=== PATIENT | male | born 1930 | race Caucasian/White ===

== ENCOUNTER → 2016-05-15 | Outpatient (CLI) | payer BC ==
[~2016-05-15] MED LIST: ALBUAER19 INH; ASPI325T4 PO; ATOR-24 PO; CLB/200 PO; ENAL1TAB31 PO; HYDR-3419 PO; MOME200A INH; MULTTAB58 PO; OMEP40CA41 PO; PRED1SUS3 OPL; RANI300T PO; VARD10TA PO
--- NOTE | 2016-05-15 15:01 | DIAGNOSTIC IMAGING REPORT ---
CHEST 2 VIEWS ROUTINE CLINICAL HISTORY: ASTHMA, COUGH COMPARISON STUDY: 02/01/2016 FINDINGS: The heart is the upper limits of normal in size. There is aortic tortuosity/ectasia. There are right basilar airspace opacities, atelectatic versus inflammatory. Clinical and radiographic follow-up is recommended.[ IMPRESSION: Right basilar airspace opacities, atelectatic versus inflammatory Electronically signed by: Bernardo Villanueva M.D. 05/15/2016 3:00 PM Dictated Date/Time: 05/15/2016 2:59 PM
== END | disposition home or self-care (01) ==
LOC: C.RAD1850 14:33
PROVIDERS: ATTEND Nurse Practitioner
DX: R05 Cough (principal); J45.909 Unspecified asthma, uncomplicated; R91.8 Other nonspecific abnormal finding of lung field

== ENCOUNTER → 2016-05-28 | Outpatient (CLI) | payer BC ==
--- NOTE | 2016-05-28 11:28 | DIAGNOSTIC IMAGING REPORT ---
RIGHT SHOULDER 3 VIEWS HISTORY: RIGHT SHOULDER PAIN Right COMPARISON: None. FINDINGS: There is no fracture or dislocation. The right clavicle is intact. There is mild degenerative changes within the glenohumeral and acromioclavicular joints. No radiopaque foreign bodies. IMPRESSION: Mild degenerative changes. No acute fracture or dislocation within the right shoulder. Electronically signed by: Kenny Kovacs M.D. 05/28/2016 11:26 AM Dictated Date/Time: 05/28/2016 11:25 AM
== END | disposition home or self-care (01) ==
LOC: C.RDSM 10:45
PROVIDERS: ATTEND Family Medicine
DX: M25.511 Pain in right shoulder (principal)

== ENCOUNTER → 2016-07-25 | Outpatient (CLI) | payer BC ==
--- NOTE | 2016-07-25 10:28 | DIAGNOSTIC IMAGING REPORT ---
ABDOMINAL AORTIC ULTRASOUND CLINICAL HISTORY: SCREENING FOR CARDIOVASCULAR DISORDERS COMPARISON STUDY: Abdomen and pelvis CT 02/18/2007. FINDINGS: The proximal abdominal aorta measures 2.4 cm in diameter, mid aorta 2.8 cm, and the distal aorta measures 3.7 cm. Bilateral iliac arteries measure 7 mm in diameter. IMPRESSION: A 3.7 cm distal abdominal aortic aneurysm. Electronically signed by: Kenny Kovacs M.D. 07/25/2016 10:27 AM Dictated Date/Time: 07/25/2016 10:25 AM
== END | disposition home or self-care (01) ==
LOC: C.ULTR 09:57
PROVIDERS: ATTEND Family Medicine
DX: Z13.6 Encounter for screening for cardiovascular disorders (principal); I71.4 Abdominal aortic aneurysm, without rupture

== ENCOUNTER → 2016-08-16 | Outpatient (CLI) | payer BC ==
--- NOTE | 2016-08-21 13:42 | CODING QUERY MEDICAL NECESSITY ---
SUPPORTING DIAGNOSIS NEEDED A supporting diagnosis is required for the test/procedure performed on this patient in order for us to be reimbursed by the patient's insurance. Please provide a supporting diagnosis for the following test/procedure listed below next to the test name along with your signature. *If there is no additional diagnosis for this patient that would support the following test/procedure please document that below next to the test/procedure. Test(s)/Procedure(s) that require a supporting diagnosis: * DXA, BONE DENSITY AXIAL DIAGNOSIS: Provider Signature: Date: Thank you Ariella [facility] Information Management Once completed, please kindly fax back to [phone] For questions please call [phone]
== END | disposition home or self-care (01) ==
LOC: C.MAMM 10:15
PROVIDERS: ATTEND Family Medicine
DX: Z13.820 Encounter for screening for osteoporosis (principal)

== ENCOUNTER → 2017-03-08 | Outpatient (CLI) | payer BC ==
[~2017-03-08] MED LIST changes: +ADVIN50/60 INH; +ASPI-320 PO; +ATOR-22 PO; +FLM4 PO; +LOSA100T33 PO; +OMEP20CA9 PO; +PLV75 PO; +SPRIN/30 INH
--- NOTE | 2017-03-08 12:18 | DIAGNOSTIC IMAGING REPORT ---
CHEST 2 VIEWS ROUTINE HISTORY: UNSPECIFIED ASTHMA WITH ACUTE EXACERBATION COMPARISON: Chest 05/15/2016. FINDINGS: There are low lung volumes. No pleural effusions. No pneumothorax. The heart remains mildly enlarged. Tortuous thoracic aorta, unchanged. Mild diffuse interstitial thickening is likely chronic. Patchy right basilar airspace opacity. A few linear densities at the left lung base. IMPRESSION: 1. Overall, similar appearance to the prior study. 2. Patchy right basilar airspace opacities. This could represent atelectasis or pneumonia. 3. Mild diffuse interstitial thickening, unchanged. Electronically signed by: Kenny Kovacs M.D. 03/08/2017 12:16 PM Dictated Date/Time: 03/08/2017 12:15 PM
== END | disposition home or self-care (01) ==
LOC: C.RAD1850 11:59
PROVIDERS: ATTEND Family Medicine
DX: J45.901 Unspecified asthma with (acute) exacerbation (principal); R91.8 Other nonspecific abnormal finding of lung field

== ENCOUNTER 2017-05-06 15:10 | Inpatient (IN) | payer BC, OTHER ==
[~2017-05-06] VITALS: Ht 172.7 cm; Wt 100.2 kg
[~2017-05-06 15:10] MED LIST changes: -ADVIN50/60 INH; -ASPEC81 PO; -ATOR-22 PO; -FLM4 PO; -LOSA100T33 PO; -OMEP20CA9 PO; -PLV75 PO; -SPRIN/30 INH
[2017-05-06 17:19] LABS: BASO % 0.6 %; BASO ABS # 0.04 K/uL (0-0.2); EOS % 4.5 %; EOS ABS # 0.32 K/uL (0-0.5); HEMATOCRIT 37.3 % (42-52); HEMOGLOBIN 12.3 g/dL (14.0-18.0); IG# 0.02 K/uL (0.00-0.02); LYMPH % 22.7 %; LYMPH ABS # 1.63 K/uL (1.2-3.4); MEAN CELL VOLUME 89.9 fL (80-100); MEAN CORPUSCULAR HEMOGLOBIN 29.6 pg (25-34); MEAN PLATELET VOLUME 10.5 fL (7.4-10.4); MONO % 5.6 %; NEUT % 66.3 %; NEUT ABS # 4.76 K/uL (1.4-6.5); PLATELET COUNT 178 K/uL (130-400); RED CELL DISTRIBUTION WIDTH CV 14.6 % (11.5-14.5); RED CELL DISTRIBUTION WIDTH SD 48.1 fL (36.4-46.3); WHITE BLOOD COUNT 7.17 K/uL (4.8-10.8)
--- NOTE | 2017-05-06 17:21 | DIAGNOSTIC IMAGING REPORT ---
HEAD CT NONCONTRAST CT DOSE: 537.48 mGy.cm HISTORY: EVALUATE WEAKNESS TECHNIQUE: Multiaxial CT images of the head were performed without the use of intravenous contrast. Automated exposure control was utilized for this study. A dose lowering technique was utilized adhering to the principles of ALARA. Comparison: Head CT 03/19/2012. Findings: Opacified sphenoid sinuses which is likely chronic. The mastoid air cells are clear. The calvarium and skull base are intact. There is no mass, hematoma, midline shift, acute infarct. White matter hypodensity is nonspecific but suggestive of microvascular ischemic change. The ventricles and sulci demonstrate mild age-related involutional changes. 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 Impression: No acute intracranial abnormality. Atrophy and microvascular ischemic changes. Opacified sphenoid sinuses which is likely chronic. Electronically signed by: Kenny Kovacs M.D. 05/06/2017 5:19 PM Dictated Date/Time: 05/06/2017 5:14 PM
[2017-05-06 17:27] LABS: PTT PATIENT 24.8 SECONDS (21.0-31.0)
[2017-05-06 17:28] LABS: BLOOD UREA NITROGEN 43 mg/dl (7-18); CALCIUM 8.7 mg/dl (8.5-10.1); CARBON DIOXIDE 25 mmol/L (21-32); CREATININE 1.54 mg/dl (0.60-1.40); GLUCOSE 177 mg/dl (70-99); SODIUM 143 mmol/L (136-145)
--- NOTE | 2017-05-06 17:29 | DIAGNOSTIC IMAGING REPORT ---
CHEST ONE VIEW PORTABLE CLINICAL HISTORY: Weakness COMPARISON STUDY: 03/08/2017 FINDINGS: The heart remains mildly enlarged. There is aortic tortuosity/ectasia. There is no overt failure. There is no focal pulmonary consolidation. There are no pleural effusions. There is mild chronic interstitial thickening[ IMPRESSION: No significant change from the prior study. Stable mild interstitial thickening. No evidence of lobar consolidation Electronically signed by: Bernardo Villanueva M.D. 05/06/2017 5:28 PM Dictated Date/Time: 05/06/2017 5:27 PM
[2017-05-06] MEDS ORDERED: OMEP20CA9 PO ×2 (17:46)
[2017-05-06] MEDS ORDERED: FLM4 PO ×2 (17:46)
[2017-05-06] MEDS ORDERED: ATOR-22 PO ×2 (17:46)
[2017-05-06] MEDS ORDERED: LOSA100T33 PO ×2 (17:46)
[2017-05-06] MEDS ORDERED: ADVIN50/60 INH ×2 (17:46)
[2017-05-06] MEDS ORDERED: SPRIN/30 INH ×2 (17:46)
--- NOTE | 2017-05-06 18:07 | EMERGENCY ROOM VISIT NOTE ---
History Report prepared by Tuan: Kuldeep Perez Under the Supervision of: Dr. Ernesto Magallanes M.D. First contact with patient: 16:14 Chief Complaint: STROKE SYMPTOMS Stated Complaint: POSSIBLE STROKE LIKE SYMPTOMS- REFERRED BY MD Nursing Triage Summary: pt reports to eye Dr today told tocome in for evaluation of possible stroke behind R eye pt reports on Sat. morning upon waking up unalbe to read with R eye pt denies speech changes or difficulty ambulating , denies weakness History of Present Illness The patient is a 87 year old white male with a past medical history of HTN, HLD , sleep apnea, and asthma who presents to the ED with a cc of intermittent visual changes beginning two days ago. Patient states the visual changes are present in the right eye. Describes visual changes as "cloudy vision". He reports the blurriness is only present over half of his right visual field. Woke up with his symptoms two days ago. He states that he is mostly having problems reading, and seeing fine details. Patient was referred to the ED by his eye doctor today with concerns of possible stroke. Positive productive cough. Cough produces yellow sputum. Negative headaches, weakness. Not currently on antibiotics. states patient is at mental baseline. Patient notes that his left eye is typically good at seeing far distances, and his right eye is better at seeing near distances. He took baby aspirin today as normal, but took a full strength aspirin today as well. Source of History: patient Onset: Two days ago Position: eye (right) Quality: other ("cloudy vision") Timing: intermittent Associated Symptoms: + cough (produces yellow sputum), No headache, No weakness Review of Systems See HPI for pertinent positives and negatives. A total of ten systems were reviewed and were otherwise negative. Past Medical & Surgical Medical Problems: (1) Asthma (2) Benign hypertension (3) Hyperlipidemia (4) Obstructive sleep apnea syndrome (5) Vision loss, right eye Family History No pertinent family history stated. Social History Smoking Status: Never Smoker Alcohol Use: none Marital Status: Housing Status: lives with family Occupation Status: retired Current/Historical Medications Scheduled Atorvastatin (Lipitor), 20 MG PO DAILY Fluticasone Prop/Salmeterol (Advair Diskus 500/50 60 Dose), 1 PUFF INH DAILY Hctz/Losartan (Hyzaar 12.5MG/100MG), 1 TAB PO DAILY Mometasone Furoate-Formoterol (Dulera 200/5 Mcg), 2 AER INH BID Multiple Vitamin (Multivitamin), 1 TAB PO QAM Omeprazole (Prilosec), 20 MG PO BID Tamsulosin HCl (Tamsulosin HCl), 0.4 MG PO DAILY Tiotropium Stanley (Spiriva Handihaler), 1 CAP INH DAILY Allergies Coded Allergies: Penicillins (Verified Allergy, Mild, RASH, 05/06/17) RASH Physical Exam Vital Signs Date Time Temp Pulse Resp B/P (MAP) Pulse Ox O2 Delivery O2 Flow Rate FiO2 05/06/17 20:08 61 20 145/81 97 Room Air 05/06/17 19:10 59 20 145/81 97 Room Air 05/06/17 17:21 61 16 123/67 96 05/06/17 16:58 62 05/06/17 16:58 97 Room Air 05/06/17 16:54 59 18 143/74 97 Room Air 05/06/17 15:18 36.4 65 20 128/73 97 Room Air Physical Exam GENERAL: Awake, alert, well-appearing, NAD HENT: Normocephalic, atraumatic. EYES: Normal conjunctiva. Sclera non-icteric. Mild anisocoria, right greater than left. No APD bilaterally. Right pupil is more sluggish than the left. Right upper quadrant of the right eye with questionable field loss. Can read 20/ 30 but from 18 inches. NECK: Supple. No nuchal rigidity. FROM. RESPIRATORY: Wheezing throughout. CARDIAC: RRR, no MRG ABDOMEN: Soft, NTND, BS+ MSK: No chest wall TTP, no LE edema, incisional scars over the bilateral knees. NEURO: CN 2-12 intact, 5/5 upper and lower extremity strength, no dysmetria, no drift, good finger to nose, no sensory deficits. SKIN: No rash or jaundice noted. Medical Decision & Procedures ER Provider Diagnostic Interpretation: Radiology results as stated below per my review and radiologist interpretation: HEAD CT NONCONTRAST Findings: Opacified sphenoid sinuses which is likely chronic. The mastoid air cells are clear. The calvarium and skull base are intact. There is no mass, hematoma, midline shift, acute infarct. White matter hypodensity is nonspecific but suggestive of microvascular ischemic change. The ventricles and sulci demonstrate mild age-related involutional changes. 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 Impression: No acute intracranial abnormality. Atrophy and microvascular ischemic changes. Opacified sphenoid sinuses which is likely chronic. Electronically signed by: Kenny Kovacs M.D. 05/06/2017 5:19 PM CHEST ONE VIEW PORTABLE FINDINGS: The heart remains mildly enlarged. There is aortic tortuosity/ectasia. There is no overt failure. There is no focal pulmonary consolidation. There are no pleural effusions. There is mild chronic interstitial thickening[ IMPRESSION: No significant change from the prior study. Stable mild interstitial thickening. No evidence of lobar consolidation Electronically signed by: Bernardo Villanueva M.D. 05/06/2017 5:28 PM Laboratory Results 05/06/17 16:49 Red Blood Count 4.15, Mean Corpuscular Volume 89.9, Mean Corpuscular Hemoglobin 29.6, Mean Corpuscular Hemoglobin Concent 33.0, Mean Platelet Volume 10.5, Neutrophils (%) (Auto) 66.3, Lymphocytes (%) (Auto) 22.7, Monocytes (%) (Auto) 5.6, Eosinophils (%) (Auto) 4.5, Basophils (%) (Auto) 0.6, Neutrophils # (Auto) 4.76, Lymphocytes # (Auto) 1.63, Monocytes # (Auto) 0.40, Eosinophils # (Auto) 0.32, Basophils # (Auto) 0.04 05/06/17 16:49 Test 05/06/17 16:45 05/06/17 16:49 Urine Color YELLOW Urine Appearance CLEAR (CLEAR) Urine pH 5.0 (4.5-7.5) Urine Specific [place] 1.017 (1.000-1.030) Urine Protein NEG (NEG) Urine Glucose (UA) NEG (NEG) Urine Ketones NEG (NEG) Urine Occult Blood NEG (NEG) Urine Nitrite NEG (NEG) Urine Bilirubin NEG (NEG) Urine Urobilinogen NEG (NEG) Urine Leukocyte Esterase NEG (NEG) White Blood Count 7.17 K/uL (4.8-10.8) Red Blood Count 4.15 M/uL (4.7-6.1) Hemoglobin 12.3 g/dL (14.0-18.0) Hematocrit 37.3 % (42-52) Mean Corpuscular Volume 89.9 fL (80-100) Mean Corpuscular Hemoglobin 29.6 pg (25-34) Mean Corpuscular Hemoglobin Concent 33.0 g/dl (32-36) Platelet Count 178 K/uL (130-400) Mean Platelet Volume 10.5 fL (7.4-10.4) Neutrophils (%) (Auto) 66.3 % Lymphocytes (%) (Auto) 22.7 % Monocytes (%) (Auto) 5.6 % Eosinophils (%) (Auto) 4.5 % Basophils (%) (Auto) 0.6 % Neutrophils # (Auto) 4.76 K/uL (1.4-6.5) Lymphocytes # (Auto) 1.63 K/uL (1.2-3.4) Monocytes # (Auto) 0.40 K/uL (0.11-0.59) Eosinophils # (Auto) 0.32 K/uL (0-0.5) Basophils # (Auto) 0.04 K/uL (0-0.2) RDW Standard Deviation 48.1 fL (36.4-46.3) RDW Coefficient of Variation 14.6 % (11.5-14.5) Immature Granulocyte % (Auto) 0.3 % Immature Granulocyte # (Auto) 0.02 K/uL (0.00-0.02) Erythrocyte Sedimentation Rate 16 mm/hr (0-14) Prothrombin Time 10.7 SECONDS (9.0-12.0) Prothromb Time International Ratio 1.0 (0.9-1.1) Activated Partial Thromboplast Time 24.8 SECONDS (21.0-31.0) Partial Thromboplastin Ratio 1.0 Anion Gap 6.0 mmol/L (3-11) Est Creatinine Clear Calc Drug Dose 40.6 ml/min Estimated GFR () 47.0 Estimated GFR (Non- 40.5 BUN/Creatinine Ratio 28.0 (10-20) Calcium Level 8.7 mg/dl (8.5-10.1) Magnesium Level 1.9 mg/dl (1.8-2.4) Troponin I < 0.015 ng/ml (0-0.045) C-Reactive Protein 0.75 mg/dl (0-0.29) Pro-B-Type Natriuretic Peptide 196 pg/ml (0-1800) Thyroid Stimulating Hormone (TSH) 1.710 uIu/ml (0.300-4.500) Laboratory results reviewed by me Medications Administered Medications (Trade) Dose Ordered Sig/Talha Route Start Time Stop Time Status Last Admin Dose Admin Atorvastatin Calcium (Lipitor Tab) 40 mg NOW ONCE PO 05/06/17 20:15 05/06/17 20:16 DC 05/06/17 20:07 40 MG ECG Per My Interpretation Indication: other (visual changes) Rate (beats per minute): 62 Rhythm: sinus rhythm Findings: 1st degree AV block, T-wave inversion (lead 3. ), left axis deviation , other (Prolonged CO interval. No other STS change or TWI. ) ED Course 1629: The patient was evaluated in room A9B. A complete history and physical exam was performed. 1800: Upon reexamination, the patient was resting comfortably. I discussed the test results and treatment plan with him. The patient will be evaluated for further management. Medical Decision The patient is a 87 year old white male with a past medical history of HTN, HLD , sleep apnea, and asthma who presents to the ED with a cc of constant visual changes beginning two days ago. Differential diagnosis: Etiologies such as benign positional vertigo, dehydration, hypovolemia, anemia, tumor, infection, hypoglycemia, electrolyte abnormalities, cardiac sources, intracerebral event, toxicologic, neurologic, as well as others were entertained. Patient was seen and evaluated at the bedside. Patient was referred for concern of possible stroke. Patient has had intermittent monocular vision changes within the right eye. Patient does use the right ice only for near vision. Patient did describe a curtain that was closing over the right eye. This sounds similar to amaurosis fugax. Concern for possible CRAO or CRVO. Patient denies any floaters or flashing lights. Patient is EOMI and painless. Patient does have mild anisocoria right greater than left and his right eye is more sluggish in response to light in the eye and in the opposite eye. This may be from his monovision procedure. Patient may have had a mild right upper quadrant deficit of the right eye during his exam. Patient did have blood work completed along with an EKG, troponin, chest x-ray, and CT brain. Patient CT brain negative. EKG does not show any acute arrhythmia or A. fib. Patient's blood work is fairly unremarkable. I did discuss the case with the on-call commercial lines account executive. He recommended obtaining an ESR and CRP is may present similarly to a temporal arteritis. Also stated that they would be of benefit to further rule out embolic sources. The patient does not have A. fib but he would benefit from an echo as well as a Doppler of the carotids. Patient had already received a full dose aspirin prior to arrival. Did discuss the case with the on-call hospitalist who agreed to further evaluate and treat the patient. Medication Reconcilliation Current Medication List: was personally reviewed by me Blood Pressure Screening Patient's blood pressure: Normal blood pressure Blood pressure disposition: Did not require urgent referral Consults Time Called: 1727 Consulting Physician: Dr. Kline Ophthalmology Returned Call: [phone] Discussed the patient's case. Dr. Kline recommends CRP, ESR, carotid Doppler, and echocardiogram. He notes that temporal arteritis can occasionally present as such. Additional Consults: Time Called: 1756 Consulted Physician: Dr. Natividad Novak [facility] [place] Hospitalist Returned Call: [phone] Additional Comments: Discussed the patient's case. The patient will be evaluated for further treatment and disposition. Impression Primary Impression: Transient visual loss of right eye Additional Impressions: TIA (transient ischemic attack) AF (amaurosis fugax) Scribe Attestation The scribe's documentation has been prepared under my direction and personally reviewed by me in its entirety. I confirm that the note above accurately reflects all work, treatment, procedures, and medical decision making performed by me. Departure Information Dispostion Being Evaluated By Hospitalist Referrals Manav Harman M.D. (PCP) Patient Instructions My [facility] Problem Qualifiers Additional Impressions: TIA (transient ischemic attack) Transient cerebral ischemia type: amaurosis fugax Qualified Codes: G45.3 - Amaurosis fugax
[2017-05-06] MEDS ORDERED: ONDANSETRON INJ 2 MG/ML 2 ML VIAL IV PRN (19:30)
[2017-05-06] MEDS ORDERED: POLYETHYLENE (MIRALAX) 17 GM PACK PO PRN (19:30)
[2017-05-06] MEDS ORDERED: ZOLPIDEM TARTRATE 5 MG TAB PO PRN ×2 (19:30)
[2017-05-06] MEDS ORDERED: ACETAMINOPHEN 325 MG TAB PO PRN (19:30)
[2017-05-06] MEDS ORDERED: PHARMACIST DISCHARGE MED REC CONSULT PRN (19:30)
[2017-05-06] MEDS ORDERED: ALUMINUM/MAGNESIUM/SIMETH (MAALOX MAX) 30 ML UDC PO PRN (19:30)
[2017-05-06] MEDS ORDERED: MAGNESIUM HYDROXIDE SUSP 30 ML UDC PO PRN (19:30)
[2017-05-06] MEDS ORDERED: ATORVASTATIN 40 MG TAB PO ONE (20:15)
--- NOTE | 2017-05-06 20:16 | History and Physical ---
History & Physical Date & Time of Service: May 06, 2017 at 19:50 Chief Complaint: Possible Stroke Like Symptoms- Referred By Md Primary Care Physician: Manav Harman M.D. History of Present Illness Source: patient, family, hospital records, other (spoke with patient's opthalmologist Dr. Michele ) Past Medical/Surgical History 87 years old man with past medical history of GERD, hypertension, BPH, COPD, and dyslipidemia presented to the hospital with 2 days history of loss of vision or significant decrease of vision on right eye, happened acutely, painless and no any other symptoms. I Spoke with Dr. Fam who referred me to Dr. 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 Kline who is the welder fitter arc on-call, no further intervention required at this point other than what was mentioned above. Patient had recent pneumonia 1 month ago, since then he had a little bit of bronchospasm Other than that the rest of the review of system is negative Social History Smoking Status: Never Smoker Marital Status: Housing status: lives with family Occupational Status: retired Immunizations History of Influenza Vaccine: Yes Influenza Vaccine Date: Jun 09, 2006 History of Tetanus Vaccine?: Yes Tetanus Immunization Date: Mar 11, 2003 History of Pneumococcal: Yes Pneumococcal Date: Jan 18, 2005 History of Hepatitis B Vaccine: No Hepatitis Immunization Date: Jun 10, 2003 Multi-Drug Resistant Organisms History of MDRO: No Allergies Coded Allergies: Penicillins (Verified Allergy, Mild, RASH, 05/06/17) RASH Home Medications Scheduled Atorvastatin (Lipitor), 20 MG PO DAILY Fluticasone Prop/Salmeterol (Advair Diskus 500/50 60 Dose), 1 PUFF INH DAILY Hctz/Losartan (Hyzaar 12.5MG/100MG), 1 TAB PO DAILY Mometasone Furoate-Formoterol (Dulera 200/5 Mcg), 2 AER INH BID Multiple Vitamin (Multivitamin), 1 TAB PO QAM Omeprazole (Prilosec), 20 MG PO BID Tamsulosin HCl (Tamsulosin HCl), 0.4 MG PO DAILY Tiotropium [address] (Spiriva Handihaler), 1 CAP INH DAILY Review of Systems Review of system Constitutional: No fever / no chills / no sweats / no weakness / no fatigue Eyes: Acute bleeding of vision of right eye started 2 days/ no eye pain / no discharge / no redness ENT: no hearing loss / no epistaxis /no swallowing problems Respiratory: no cough / no wheezing / no SOB / no hemoptysis Cardiovascular: no Chest pain / no lower extremity edema / no palpitation Abdomen: no pain / no nausea / no vomiting / no constipation Musculoskeletal: no joint pain / no muscle pain / no joint swelling Genitourinary: no dysuria / no incontinence / no urinary retention Neurologic: no focal weakness / no numbness/tingling / no ataxia Psychiatric: no depression symptoms / no anxiety / no insomnia Endocrine: no excessive thirst / no excessive urination Hematologic: no abnormal bleeding / no bruising / no LN swelling Skin: No rash / no pallor Physical Exam Vital Signs Date Time Temp Pulse Resp B/P (MAP) Pulse Ox O2 Delivery O2 Flow Rate FiO2 05/06/17 19:10 59 20 145/81 97 Room Air 05/06/17 17:21 61 16 123/67 96 05/06/17 16:58 62 05/06/17 16:58 97 Room Air 05/06/17 16:54 59 18 143/74 97 Room Air 05/06/17 15:18 36.4 65 20 128/73 97 Room Air Physical examination General patient appears to be comfortable, not in acute distress, morbidly obese HEENT: Atraumatic , normocephalic /no jaundice /no pallor /anicteric /no dry mucous membrane /normal external ear inspection Neck: Supple /no swelling /central trach Heart: S1/S2 normal/regular rate and rhythm/no gallop /no rub /no murmur Lungs: Equal air entry bilaterally/normal chest expansion/no rhonchi/no rales/ slight bilateral wheezing/no use of accessory muscles of respiration Abdomen: Soft/nontender/no guarding/no rebound/no organomegaly/no pulsatile mass Musculoskeletal: No swelling/no edema/no tenderness/normal range of motion Neuro exam: Awake alert oriented 3/cranial nerves II through XII appear to be intact/sensation intact/moves all extremities/no abnormal movements, Visual field is impaired on right eye done by confrontational method, try to do ophthalmoscope but due due to poor dilation of the eye and the presence of lens was unable to evaluate the retina. Psychiatric evaluation: No depressed mood/normal affect Skin: No rash on exposed skin area/no erythema Extremity: Normal pulse/no pitting edema/no clubbing or cyanosis Endocrine/lymphatic: No obvious lymphadenopathy /no lymphedema Diagnostics Laboratory Results Results Past 24 Hours Test 05/06/17 16:45 05/06/17 16:49 Range/Units Urine Color YELLOW Urine Appearance CLEAR CLEAR Urine pH 5.0 4.5-7.5 Urine Specific [place] 1.017 1.000-1.030 Urine Protein NEG NEG Urine Glucose (UA) NEG NEG Urine Ketones NEG NEG Urine Occult Blood NEG NEG Urine Nitrite NEG NEG Urine Bilirubin NEG NEG Urine Urobilinogen NEG NEG Urine Leukocyte Esterase NEG NEG White Blood Count 7.17 4.8-10.8 K/uL Red Blood Count 4.15 4.7-6.1 M/uL Hemoglobin 12.3 14.0-18.0 g/dL Hematocrit 37.3 42-52 % Mean Corpuscular Volume 89.9 80-100 fL Mean Corpuscular Hemoglobin 29.6 25-34 pg Mean Corpuscular Hemoglobin Concent 33.0 32-36 g/dl Platelet Count 178 130-400 K/uL Mean Platelet Volume 10.5 7.4-10.4 fL Neutrophils (%) (Auto) 66.3 % Lymphocytes (%) (Auto) 22.7 % Monocytes (%) (Auto) 5.6 % Eosinophils (%) (Auto) 4.5 % Basophils (%) (Auto) 0.6 % Neutrophils # (Auto) 4.76 1.4-6.5 K/uL Lymphocytes # (Auto) 1.63 1.2-3.4 K/uL Monocytes # (Auto) 0.40 0.11-0.59 K/uL Eosinophils # (Auto) 0.32 0-0.5 K/uL Basophils # (Auto) 0.04 0-0.2 K/uL RDW Standard Deviation 48.1 36.4-46.3 fL RDW Coefficient of Variation 14.6 11.5-14.5 % Immature Granulocyte % (Auto) 0.3 % Immature Granulocyte # (Auto) 0.02 0.00-0.02 K/uL Erythrocyte Sedimentation Rate 16 0-14 mm/hr Prothrombin Time 10.7 9.0-12.0 SECONDS Prothromb Time International Ratio 1.0 0.9-1.1 Activated Partial Thromboplast Time 24.8 21.0-31.0 SECONDS Partial Thromboplastin Ratio 1.0 Sodium Level 143 136-145 mmol/L Potassium Level 4.0 3.5-5.1 mmol/L Chloride Level 112 98-107 mmol/L Carbon Dioxide Level 25 21-32 mmol/L Anion Gap 6.0 3-11 mmol/L Blood Urea Nitrogen 43 7-18 mg/dl Creatinine 1.54 0.60-1.40 mg/dl Est Creatinine Clear Calc Drug Dose 40.6 ml/min Estimated GFR () 47.0 Estimated GFR (Non- 40.5 BUN/Creatinine Ratio 28.0 10-20 Random Glucose 177 70-99 mg/dl Calcium Level 8.7 8.5-10.1 mg/dl Magnesium Level 1.9 1.8-2.4 mg/dl Troponin I < 0.015 0-0.045 ng/ml C-Reactive Protein 0.75 0-0.29 mg/dl Pro-B-Type Natriuretic Peptide 196 0-1800 pg/ml Thyroid Stimulating Hormone (TSH) 1.710 0.300-4.500 uIu/ml Microbiology Results 05/06/17 Urine Culture, Received Pending Impression Assessment and Plan 87 years old man with past medical history of GERD, hypertension, BPH, COPD, and dyslipidemia presented to the hospital with 2 days history of loss of vision or significant decrease of vision on right eye, happened acutely, painless and no any other symptoms. Assessment Painless acute loss of vision of right eye Hypertension Dyslipidemia COPD with mild exacerbation GERD BPH Morbid obesity Obstructive sleep apnea Plan Spoke with Dr. 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 Kline who is the welder fitter arc on-call, no further intervention required Admit patient to telemetry Continue home meds except blood pressure medications for permissive hypertension , hold blood pressure medications Ultrasound carotid 2D echo with bubble study Increase Lipitor from 20 mg to 40 mg daily Since patient was already on aspirin, will stop aspirin and switch him to Plavix. Xopenex/Atrovent for bronchodilator Heparin for DVT prophylaxis CPAP machine VTE Prophylaxis VTE Risk Assessment Done? Y/N: Yes Risk Level: Moderate
--- NOTE | 2017-05-06 21:16 | DIAGNOSTIC IMAGING REPORT ---
BILATERAL CAROTID DOPPLER STUDY HISTORY: Stroke symptoms. COMPARISON: None. TECHNIQUE: Real-time, grayscale, and color Doppler sonography of the carotid arteries was performed. Imaging reviewed in the transverse and longitudinal planes. All measurements were calculated based on NASCET criteria. FINDINGS: Antegrade flow is seen in the bilateral vertebral arteries. The brachial pressures were not obtained. Moderate calcified plaque within the bilateral carotid bifurcations. Prominent lymph node within the right neck which measures 2.0 x 0.7 cm. The peak systolic velocity within the right ICA is 75 cm/s. The right systolic ratio is 1.2. The peak systolic velocity within the left ICA is 90 cm/s. The left systolic ratio is 1.4. IMPRESSION: Moderate calcified plaque within the carotid bifurcations. No hemodynamically significant stenosis seen within the carotid or vertebral arteries. Prominent right cervical lymph node measuring 2.0 x 0.7 cm. Electronically signed by: Kenny Kovacs M.D. 05/06/2017 9:14 PM Dictated Date/Time: 05/06/2017 9:12 PM
[2017-05-06 21:25] VITALS: BP 182/98; PULSE 63; TEMP 36.4; O2SAT 96; Ht 172.7 cm; Wt 100.2 kg
[2017-05-06] MEDS: ATORVASTATIN 40 MG TAB PO SCH (21:30)
[2017-05-06] MEDS: CLOPIDOGREL BISULFATE 75 MG TAB PO SCH (22:34)
[2017-05-06] MEDS: PANTOprazole SOD 40 MG TAB PO SCH (22:58)
[2017-05-06] MEDS: HEPARIN SOD 5000 UNIT/0.5 ML CARP SQ SCH (22:59)
[2017-05-06 23:38] VITALS: BP 146/81; PULSE 78; TEMP 36.6; O2SAT 96
[2017-05-07] MEDS: LEVALBUTEROL 0.63MG/3 ML NEB INH SCH ×3 (02:14→14:19)
[2017-05-07 05:01] VITALS: BP 111/72; PULSE 55; TEMP 36.5; O2SAT 97
[2017-05-07] MEDS: HEPARIN SOD 5000 UNIT/0.5 ML CARP SQ SCH ×2 (05:27→14:38)
[2017-05-07 05:59] LABS: BASO % 0.4 %; BASO ABS # 0.03 K/uL (0-0.2); EOS % 5.3 %; EOS ABS # 0.39 K/uL (0-0.5); HEMATOCRIT 35.4 % (42-52); HEMOGLOBIN 11.6 g/dL (14.0-18.0); IG# 0.02 K/uL (0.00-0.02); LYMPH % 29.1 %; LYMPH ABS # 2.13 K/uL (1.2-3.4); MEAN CELL VOLUME 88.9 fL (80-100); MEAN CORPUSCULAR HEMOGLOBIN 29.1 pg (25-34); MEAN CORPUSCULAR HGB CONC 32.8 g/dl (32-36); MEAN PLATELET VOLUME 10.2 fL (7.4-10.4); MONO % 6.7 %; MONO ABS # 0.49 K/uL (0.11-0.59); NEUT % 58.2 %; NEUT ABS # 4.25 K/uL (1.4-6.5); PLATELET COUNT 172 K/uL (130-400); RED CELL DISTRIBUTION WIDTH CV 14.5 % (11.5-14.5); RED CELL DISTRIBUTION WIDTH SD 47.5 fL (36.4-46.3); WHITE BLOOD COUNT 7.31 K/uL (4.8-10.8)
[2017-05-07 06:35] LABS: ALBUMIN 3.1 gm/dl (3.4-5.0); CALCIUM 8.7 mg/dl (8.5-10.1); CREATININE 1.3 mg/dl (0.60-1.40); POTASSIUM 3.8 mmol/L (3.5-5.1)
[2017-05-07 06:39] LABS: TOTAL PROTEIN 6.2 gm/dl (6.4-8.2)
[2017-05-07 07:00] LABS: HEMOGLOBIN A1C 6.4 % (4.5-5.6)
[2017-05-07 07:19] VITALS: PULSE 61; O2SAT 93
[2017-05-07 07:27] VITALS: BP 133/78; PULSE 58; TEMP 36.3; O2SAT 99
[2017-05-07] MEDS: ATORVASTATIN 40 MG TAB PO SCH (08:16)
[2017-05-07] MEDS: PANTOprazole SOD 40 MG TAB PO SCH (08:16)
[2017-05-07] MEDS: CLOPIDOGREL BISULFATE 75 MG TAB PO SCH (08:16)
[2017-05-07] MEDS ORDERED: TIOTROPIUM BROMIDE 5 PUFF/90 MCG INH INH SCH (09:00)
[2017-05-07] MEDS ORDERED: TAMSULOSIN HCL 0.4 MG CAP PO SCH (09:00)
[2017-05-07] MEDS ORDERED: MULTIVITAMIN TAB PO SCH (09:00)
[2017-05-07] MEDS ORDERED: ASPIRIN 325 MG ECTAB PO SCH (09:00)
[2017-05-07] MEDS ORDERED: FLUTICASONE/SALMETEROL (ADVAIR) 500/50 INH 14 PUFF INH SCH (09:00)
--- NOTE | 2017-05-07 09:03 | Clinical Documentation Query ---
CLINICAL DOCUMENTATION QUERY Dr. CALERO, In your clinical opinion is this patient being managed for: (x ) Chronic kidney disease, stage 3 ( ) Not Agree ( ) Other explanation of clinical findings (Please Explain) ( ) Unable to determine (Please Define) ( ) Need to Discuss The medical record reflects the following clinical findings, treatment, and risk factors. Clinical Indicators: 87 yo male presenting with visual changes. Review of historical GFR revealed range of 40.5-49.8 over the past 5 years. Treatment: monitor PRP's, treat comorbid conditions Risk Factors: age, HTN, COPD Please clarify and document your clinical opinion in the progress notes and discharge summary. Terms such as "probable", "suspected", "likely", "questionable", "possible", or "still to be ruled out" are acceptable. IF IN AGREEMENT, YOU MUST DOCUMENT ABOVE DIAGNOSTIC STATEMENT IN DAILY PROGRESS NOTES AND DISCHARGE SUMMARY. This document is not part of the patient's record. Thank You, Gertrudis Roque, RN [phone]
--- NOTE | 2017-05-07 09:04 | Clinical Documentation Query ---
CLINICAL DOCUMENTATION QUERY Dr. CAMPBELL, In your clinical opinion is this patient being managed for: ( ) Chronic kidney disease, stage 3 ( ) Not Agree ( ) Other explanation of clinical findings (Please Explain) ( ) Unable to determine (Please Define) ( ) Need to Discuss The medical record reflects the following clinical findings, treatment, and risk factors. Clinical Indicators: 87 yo male presenting with visual changes. Review of historical GFR revealed range of 40.5-49.8 over the past 5 years. Treatment: monitor PRP's, treat comorbid conditions Risk Factors: age, HTN, COPD Please clarify and document your clinical opinion in the progress notes and discharge summary. Terms such as "probable", "suspected", "likely", "questionable", "possible", or "still to be ruled out" are acceptable. IF IN AGREEMENT, YOU MUST DOCUMENT ABOVE DIAGNOSTIC STATEMENT IN DAILY PROGRESS NOTES AND DISCHARGE SUMMARY. This document is not part of the patient's record. Thank You, Gertrudis Roque, RN [phone]
[2017-05-07 11:57] VITALS: BP 125/75; PULSE 61; TEMP 36.6; O2SAT 95
--- NOTE | 2017-05-07 12:08 | Family Medicine Progress Note ---
Progress Note Date of Service May 07, 2017. Subjective Pt resting in bed, comfortable. Reviewed history, pt describes a blurriness in vision of the upper half of his vision in his right eye. Pt has a h/o cataract surgery 2 years ago, and says his right eye has corrective lens for near vision , left eye has cv for far vision. Pt denies any pain in his eyes, headaches, constitutional symptoms, fevers or chills, difficulty breathing, chest pain or weakness. ROS See HPI for pertinent positives and negatives. Medications Current Inpatient Medications Medications (Trade) Dose Ordered Sig/Talha Route Start Time Stop Time Status Last Admin Dose Admin Salmeterol Xinafoate/ Fluticasone (Advair Diskus 500/50 Inh) 1 puff BID INH 05/07/17 09:00 06/06/17 08:59 05/07/17 08:16 1 PUFF Multivitamins (Multivitamin Tab) 1 tab QAM PO 05/07/17 09:00 06/06/17 08:59 05/07/17 08:16 1 TAB Tamsulosin HCl (Flomax Cap) 0.4 mg DAILY PO 05/07/17 09:00 06/06/17 08:59 05/07/17 08:16 0.4 MG Tiotropium [place] (Spiriva Handihaler Inhaler) 1 puff DAILY INH 05/07/17 09:00 06/06/17 08:59 05/07/17 08:16 1 PUFF Pantoprazole Sodium (Protonix Tab) 40 mg BID PO 05/06/17 21:00 06/05/17 20:59 05/07/17 08:16 40 MG Heparin Sodium (Porcine) (Heparin Sq 5000 Unit/0.5ml) 5,000 unit Q8 SQ 05/06/17 22:00 06/05/17 21:59 05/07/17 05:27 5,000 UNIT Acetaminophen (Tylenol Tab) 650 mg Q4H PRN PO 05/06/17 19:30 06/05/17 19:29 Al Hydrox/Mg Hydrox/Simethicone (Maalox Max Susp) 15 ml Q4H PRN PO 05/06/17 19:30 06/05/17 19:29 Magnesium Hydroxide (Milk Of Magnesia Susp) 30 ml Q12H PRN PO 05/06/17 19:30 06/05/17 19:29 Zolpidem Tartrate (Ambien Tab) 5 mg HSZ PRN PO 05/06/17 19:30 06/05/17 19:29 Ondansetron HCl (Zofran Inj) 4 mg Q6H PRN IV 05/06/17 19:30 06/05/17 19:29 Polyethylene (Miralax Powder Packet) 17 gm DAILY PRN PO 05/06/17 19:30 06/05/17 19:29 Atorvastatin Calcium (Lipitor Tab) 40 mg QAM PO 05/06/17 21:30 06/05/17 21:29 05/07/17 08:16 40 MG Miscellaneous Information (Pharmacist Discharge Med Rec Consult) 1 ea UD PRN N/A 05/06/17 19:30 06/05/17 19:29 Levalbuterol (Xopenex 0.63 Mg/ 3 Ml Neb) 0.63 mg Q6R INH 05/06/17 21:00 06/05/17 20:59 05/07/17 07:19 0.63 MG Clopidogrel Bisulfate (plAVix TAB) 75 mg DAILY PO 05/06/17 21:30 06/05/17 21:29 05/07/17 08:16 75 MG Objective Vital Signs Date Time Temp Pulse Resp B/P (MAP) Pulse Ox O2 Delivery O2 Flow Rate FiO2 05/07/17 08:20 Room Air 05/07/17 07:27 36.3 58 16 133/78 (96) 99 Room Air 05/07/17 07:19 61 16 93 Room Air 05/07/17 05:01 36.5 55 20 111/72 (85) 97 CPAP 05/07/17 04:00 CPAP 05/07/17 00:00 Room Air 05/06/17 23:38 36.6 78 18 146/81 (102) 96 05/06/17 21:25 36.4 63 16 182/98 96 Room Air 05/06/17 20:08 61 20 145/81 97 Room Air 05/06/17 19:10 59 20 145/81 97 Room Air 05/06/17 17:21 61 16 123/67 96 05/06/17 16:58 62 05/06/17 16:58 97 Room Air 05/06/17 16:54 59 18 143/74 97 Room Air 05/06/17 15:18 36.4 65 20 128/73 97 Room Air Physical Exam Notes: PE GENERAL: Awake, alert, well-appearing, in no distress HENT: Normocephalic, atraumatic. Oropharynx unremarkable. EYES: Normal conjunctiva. Sclera non-icteric. PERRL, EOMI normal. Peripheral vision wnl. Otoscopic examination revealed grossly no abnormalities within fundus. NECK: Supple. No nuchal rigidity. FROM. No JVD. RT submandibular lymph node palpable, non tender, movable, size is minimal. RESPIRATORY: Clear to auscultation. CARDIAC: Regular rate, normal rhythm. Extremities warm and well perfused. Pulses equal. No carotid bruits. ABDOMEN: Soft, non-distended. No tenderness to palpation. No rebound or guarding. No masses. RECTAL: Deferred. MUSCULOSKELETAL: Chest examination reveals no tenderness. The back is symmetrical on inspection without obvious abnormality. There is no CVA tenderness to palpation. No joint edema. LOWER EXTREMITIES: Calves are equal size bilaterally and non-tender. No edema. No discoloration. NEURO: No motor deficits noted. CN II-XII in tact. Strength wnl. SKIN: No rash or jaundice noted. Laboratory Results 05/07/17 05:18 Red Blood Count 3.98, Mean Corpuscular Volume 88.9, Mean Corpuscular Hemoglobin 29.1, Mean Corpuscular Hemoglobin Concent 32.8, Mean Platelet Volume 10.2, Neutrophils (%) (Auto) 58.2, Lymphocytes (%) (Auto) 29.1, Monocytes (%) (Auto) 6.7, Eosinophils (%) (Auto) 5.3, Basophils (%) (Auto) 0.4, Neutrophils # (Auto) 4.25, Lymphocytes # (Auto) 2.13, Monocytes # (Auto) 0.49, Eosinophils # (Auto) 0.39, Basophils # (Auto) 0.03 05/07/17 05:18 Test 05/06/17 16:45 05/06/17 16:49 05/07/17 05:18 Urine Color YELLOW Urine Appearance CLEAR (CLEAR) Urine pH 5.0 (4.5-7.5) Urine Specific [place] 1.017 (1.000-1.030) Urine Protein NEG (NEG) Urine Glucose (UA) NEG (NEG) Urine Ketones NEG (NEG) Urine Occult Blood NEG (NEG) Urine Nitrite NEG (NEG) Urine Bilirubin NEG (NEG) Urine Urobilinogen NEG (NEG) Urine Leukocyte Esterase NEG (NEG) Erythrocyte Sedimentation Rate 16 mm/hr (0-14) Prothrombin Time 10.7 SECONDS (9.0-12.0) Prothromb Time International Ratio 1.0 (0.9-1.1) Activated Partial Thromboplast Time 24.8 SECONDS (21.0-31.0) Partial Thromboplastin Ratio 1.0 Troponin I < 0.015 ng/ml (0-0.045) C-Reactive Protein 0.75 mg/dl (0-0.29) Pro-B-Type Natriuretic Peptide 196 pg/ml (0-1800) Thyroid Stimulating Hormone (TSH) 1.710 uIu/ml (0.300-4.500) White Blood Count 7.31 K/uL (4.8-10.8) Red Blood Count 3.98 M/uL (4.7-6.1) Hemoglobin 11.6 g/dL (14.0-18.0) Hematocrit 35.4 % (42-52) Mean Corpuscular Volume 88.9 fL (80-100) Mean Corpuscular Hemoglobin 29.1 pg (25-34) Mean Corpuscular Hemoglobin Concent 32.8 g/dl (32-36) Platelet Count 172 K/uL (130-400) Mean Platelet Volume 10.2 fL (7.4-10.4) Neutrophils (%) (Auto) 58.2 % Lymphocytes (%) (Auto) 29.1 % Monocytes (%) (Auto) 6.7 % Eosinophils (%) (Auto) 5.3 % Basophils (%) (Auto) 0.4 % Neutrophils # (Auto) 4.25 K/uL (1.4-6.5) Lymphocytes # (Auto) 2.13 K/uL (1.2-3.4) Monocytes # (Auto) 0.49 K/uL (0.11-0.59) Eosinophils # (Auto) 0.39 K/uL (0-0.5) Basophils # (Auto) 0.03 K/uL (0-0.2) RDW Standard Deviation 47.5 fL (36.4-46.3) RDW Coefficient of Variation 14.5 % (11.5-14.5) Immature Granulocyte % (Auto) 0.3 % Immature Granulocyte # (Auto) 0.02 K/uL (0.00-0.02) Anion Gap 7.0 mmol/L (3-11) Est Creatinine Clear Calc Drug Dose 47.7 ml/min Estimated GFR () 57.7 Estimated GFR (Non- 49.8 BUN/Creatinine Ratio 28.8 (10-20) Estimated Average Glucose 137 mg/dl Hemoglobin A1c 6.4 % (4.5-5.6) Calcium Level 8.7 mg/dl (8.5-10.1) Magnesium Level 1.9 mg/dl (1.8-2.4) Total Bilirubin 0.3 mg/dl (0.2-1) Aspartate Amino Transf (AST/SGOT) 12 U/L (15-37) Alanine Aminotransferase (ALT/SGPT) 18 U/L (12-78) Alkaline Phosphatase 144 U/L (45-117) Total Protein 6.2 gm/dl (6.4-8.2) Albumin 3.1 gm/dl (3.4-5.0) Globulin 3.1 gm/dl (2.5-4.0) Albumin/Globulin Ratio 1.0 (0.9-2) Triglycerides Level 166 mg/dl (0-150) Cholesterol Level 137 mg/dl (0-200) HDL Cholesterol 29 mg/dl LDL Cholesterol, Calculated 75 mg/dl VLDL Cholesterol, Calculated 33 mg/dl Cholesterol/HDL Ratio 4.7 Assessment and Plan 87 yo M with PMH GERD, HTN, BPH, COPD, HLD who presented to hospital per Dr. Michele's recommendation, with 2 day h/o painless unilateral blurred vision. Seen by opthalmology in outpatient and diagnosed with central retinal artery occlusion. Right central retinal artery occlusion - TIA vs GCA or other arteritis - Arteritis unlikely given no constitutional symptoms or head pain. ESR only mildly elevated (16) and CRP is 0.75 (0-0.29). - CT w/out contrast wnl. Carotid US shows no significant stenoses. ECG shows no arrhythmia or afib. - awaiting Echo with bubble study to be read - ASA 81 mg with Plavix for dual therapy - MRI brain ordered Hypertension - holding home meds, permissive hypertension as above Dyslipidemia - Increase Lipitor from 20 mg to 40 mg daily COPD with mild exacerbation - Xopenex/Atrovent for bronchodilator GERD - continue protonix 40 bid BPH - continue flomax 0.4 daily CKD stage 3 - following. Pest Technician 1.3. Avoid contrast. Obstructive sleep apnea - using own CPAP. Oxygenation acceptable. Code: full DVT prophylaxis: Heparin Dispo: likely DC today after MRI Resident Physician Supervision Note: I was present with Dr. Marsh during the history and exam. I discussed the case with the resident and agree with the findings and plan as documented in the note. I also discussed the case with the patient's datacap developer (Dr. Estrada) via phone to obtain additional history and coordinate follow up. Likely will discharge later today after order tests are completed. Documented By: Geremias Barrera Resident Tracking Resident Involvement: Resident Care Provided Care Provided: Adult Hospital Medicine
[2017-05-07] MEDS ORDERED: ASPIRIN 81 MG ECTAB PO ONE (12:30)
--- NOTE | 2017-05-07 13:36 | ECHOCARDIOGRAM REPORT ---
*NOTICE TO RECEIVING REPUBLICAN AGENCY This information is strictly Confidential and protected under [place] law. [place] law prohibits you from making any further disclosure of this information unless further disclosure is expressly permitted by the written consent of the person to whom it pertains or is authorized by law. A general authorization for the release of medical or other information is not sufficient for this purpose. Hospital accepts no responsibility if the information is made available to any other person, INCLUDING THE PATIENT. Interpretation Summary * Name: ARIELA MEDINA Study Date: 05/07/2017 06:32 AM BP: 111/72 mmHg * Patient Location: [facility]\S\N280\S\2 HR: 55 * : 1930 (M/d/yyyy) Gender: Male Height: 68 in * Age: 87 yrs Ethnicity: [place] Weight: 224 lb * Ordering Physician: Shaheed Galeas * Referring Physician: Manav Harman * Performed By: Meena Murdock RDCS * * Reason For Study: Embolic central retinal artery occlusion * BSA: 2.1 m2 * No cardiac source of emboli noted. * -- Conclusions -- * Left ventricular systolic function is normal. * Grade I diastolic dysfunction, (abnormal relaxation pattern). * Cannot exclude PFO * Mild valvular aortic stenosis. Procedure Details * A complete two-dimensional transthoracic echocardiogram was performed (2D, M-mode, Doppler and color flow Doppler). * A saline contrast injection was performed to assess for cardiac shunting. * The injection was performed through an intravenous line in the left arm. * The attending nurse who injected the saline contrast was Venkat Moran RN. * A total of 30 cc of agitated saline was given. Left Ventricle * The left ventricle is normal in size. * There is normal left ventricular wall thickness. * Ejection Fraction = 60-65%. * Left ventricular systolic function is normal. * Grade I diastolic dysfunction, (abnormal relaxation pattern). * The left ventricular wall motion is normal. Right Ventricle * The right ventricle is grossly normal size. * The right ventricular systolic function is normal as assessed by tricuspid annular plane systolic excursion (TAPSE) (normal >1.5 cm). Atria * The left atrial size is normal. * Right atrial size is normal. * Cannot exclude PFO Mitral Valve * The mitral valve is grossly normal. * Significant mitral regurgitation is absent. Tricuspid Valve * The tricuspid valve is not well visualized. * Significant tricuspid regurgitation is absent. Aortic Valve * Sclerotic aortic valve with an element of aortic stenosis * Mild valvular aortic stenosis. * No aortic regurgitation is present. Pericardium/Pleural * There is no pericardial effusion. Great Vessels * Normal inferior vena cava diameter and respiratory variation suggests normal central venous pressure. MMode 2D Measurements and Calculations IVSd 1.0 cm LVIDd 4.3 cm LVIDs 2.9 cm LVPWd 0.93 cm IVS/LVPW 1.1 FS 31.9 % EDV(Teich) 83.4 ml ESV(Teich) 33.2 ml EF(Teich) 60.2 % EDV(cubed) 79.9 ml ESV(cubed) 25.3 ml EF(cubed) 68.4 % LV mass(C)d 137.3 grams LV mass(C)dI 64.0 grams/m\S\2 SV(Teich) 50.2 ml SI(Teich) 23.4 ml/m\S\2 SV(cubed) 54.6 ml SI(cubed) 25.5 ml/m\S\2 ACS 1.3 cm LA dimension 3.0 cm asc Aorta Diam 3.7 cm LVOT diam 2.4 cm LVOT area 4.5 cm\S\2 LVAd ap4 27.5 cm\S\2 LVLd ap4 8.1 cm EDV(MOD-sp4) 75.5 ml EDV(sp4-el) 79.2 ml LVAs ap4 14.7 cm\S\2 LVLs ap4 6.4 cm ESV(MOD-sp4) 27.9 ml ESV(sp4-el) 28.5 ml EF(MOD-sp4) 63.0 % EF(sp4-el) 64.0 % LVAd ap2 21.4 cm\S\2 LVLd ap2 6.9 cm EDV(MOD-sp2) 55.4 ml EDV(sp2-el) 56.4 ml LVAs ap2 13.0 cm\S\2 LVLs ap2 6.1 cm ESV(MOD-sp2) 23.4 ml ESV(sp2-el) 23.7 ml EF(MOD-sp2) 57.7 % EF(sp2-el) 58.1 % LVLd %diff -17.46 % EDV(MOD-bp) 69.2 ml LVLs %diff -6.16 % ESV(MOD-bp) 26.4 ml EF(MOD-bp) 61.9 % SV(MOD-sp4) 47.6 ml SI(MOD-sp4) 22.2 ml/m\S\2 SV(MOD-sp2) 31.9 ml SI(MOD-sp2) 14.9 ml/m\S\2 SV(MOD-bp) 42.8 ml SI(MOD-bp) 20.0 ml/m\S\2 SV(sp4-el) 50.7 ml SI(sp4-el) 23.7 ml/m\S\2 SV(sp2-el) 32.8 ml SI(sp2-el) 15.3 ml/m\S\2 Doppler Measurements and Calculations MV E max jose f 62.6 cm/sec MV A max jose f 78.1 cm/sec MV E/A 0.80 MV dec time 0.26 sec Ao V2 max 224.8 cm/sec Ao max PG 20.2 mmHg Ao max PG (full) 15.9 mmHg Ao V2 mean 159.1 cm/sec Ao mean PG 11.4 mmHg Ao V2 VTI 51.0 cm CHE(V,A) 2.1 cm\S\2 CHE(V,D) 2.1 cm\S\2 LV V1 max PG 4.3 mmHg LV V1 max 103.3 cm/sec PA V2 max 109.9 cm/sec PA max PG 4.8 mmHg PA acc slope 751.4 cm/sec\S\2 PA acc time 0.08 sec PA pr(Accel) 44.1 mmHg
--- NOTE | 2017-05-07 14:34 | DIAGNOSTIC IMAGING REPORT ---
MRI OF THE BRAIN WITHOUT CONTRAST CLINICAL HISTORY: acute onset blurred vision COMPARISON STUDY: Head CT dated 05/06/2017, MRI the brain dated 01/17/2010 FINDINGS: Sagittal T1, axial diffusion, proton density and T2 weighted axial, coronal FLAIR, and axial T1-weighted images were acquired. No intra or extra-axial mass lesions are visualized Axial diffusion-weighted images reveal no evidence of acute or subacute infarction. There is no evidence of ventricular dilatation. Proton density T2-weighted and FLAIR images reveal scattered foci of increased T2 signal within the white matter, likely on a small vessel basis. 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 There are no abnormal flow voids. 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 IMPRESSION: 1. No acute intracranial findings 2. No evidence of intracranial mass 3. No evidence of acute or subacute infarction 5. Chronic inflammatory changes within the sphenoid Electronically signed by: Bernardo Villanueva M.D. 05/07/2017 2:32 PM Dictated Date/Time: 05/07/2017 2:30 PM
[2017-05-07 16:01] VITALS: BP 136/78; PULSE 69; TEMP 36.7; O2SAT 94
[2017-05-07] MEDS ORDERED: PLV75 PO ×2 (16:43)
[2017-05-07] MEDS ORDERED: ASPEC81 PO ×2 (16:43)
--- NOTE | 2017-05-07 16:49 | Discharge Instructions ---
Discharge Instructions Date of Service May 07, 2017. Admission Reason for Admission: Vision Loss, Right Eye You were admitted for vision loss in your right eye. You had a CT scan of the head, a MRI of the brain, and echocardiogram of your heart, and an ultrasound of your carotid arteries. Dr. Estrada and Dr. Harman may recommend additional studies, although these can be scheduled and obtained as an outpatient. As we discussed, we have added Plavix 75 mg daily. Take this along with your aspirin. Discharge Discharge Diagnosis / Problem: Vision Loss, Right Eye Discharge Goals Goal(s): Diagnostic testing, Therapeutic intervention Activity Recommendations Activity Limitations: resume your previous activity Lifting Limitations: none Exercise/Sports Limitations: none May Resume Sexual Activity: when tolerated Shower/Bathe: no limitations Driving or Machine Use: until repeat vision test . Instructions / Follow-Up Instructions / Follow-Up Follow up with Dr. Estrada. He was notified of your hospitalization and will see you in follow up. Follow up with Dr. Harman. Current Hospital Diet Patient's current hospital diet: AHA Diet (Heart Healthy) Discharge Diet Recommended Diet: AHA Diet (Heart Healthy) Procedures Procedures Performed: None Pending Studies Studies pending at discharge: no Laboratory Results Hemoglobin A1c Test 05/07/17 05:18 Range/Units Estimated Average Glucose 137 mg/dl Hemoglobin A1c 6.4 H 4.5-5.6 % Lipid Panel Test 05/07/17 05:18 Range/Units Triglycerides Level 166 H 0-150 mg/dl Cholesterol Level 137 0-200 mg/dl HDL Cholesterol 29 mg/dl Cholesterol/HDL Ratio 4.7 LDL Cholesterol, Calculated 75 mg/dl Medical Emergencies . Who to Call and When: Medical Emergencies: If at any time you feel your situation is an emergency, please call 911 immediately. . Non-Emergent Contact Non-Emergency issues call your: Primary Care Provider, Him Clerk Call Non-Emergent contact if: you have a fever, you have any medication questions . . "Provider Documentation" section prepared by Geremias Barrera. . VTE Core Measure Inpt VTE Proph given/why not?: Unfractionated heparin SQ
[2017-05-07 16:55] VITALS: BP 136/78; PULSE 69; TEMP 36.7; O2SAT 94
--- NOTE | 2017-05-07 22:11 | Discharge Summary ---
Discharge Summary Date of Service May 07, 2017. Discharge Summary Admission Date: May 06, 2017 at 19:49 Discharge Date: May 07, 2017 Discharge Disposition: Home Principal Diagnosis: Acute visual disturbance, right eye Immunizations: Have You Had Influenza Vaccine: Yes Influenza Vaccine Date: Jun 09, 2006 History of Tetanus Vaccine?: Yes Tetanus Immunization Date: Mar 11, 2003 History of Pneumococcal: Yes Pneumococcal Date: Jan 18, 2005 History of Hepatitis B Vaccine: No Hepatitis Immunization Date: Jun 10, 2003 Medication Reconciliation New Medications: Aspirin (Aspirin EC Low Dose) 81 Mg Ectab 81 MG PO QAM for 30 Days, #30 1 Refill Clopidogrel Bisulfate (Clopidogrel) 75 Mg Tab 75 MG PO DAILY for 30 Days, #30 TAB 1 Refill Continued Medications: Atorvastatin (Lipitor) 20 Mg Tab 20 MG PO DAILY Fluticasone Prop/Salmeterol (Advair Diskus 500/50 60 Dose) 1 Ea Aerp 1 PUFF INH BID Hctz/Losartan (Hyzaar 12.5MG/100MG) 1 Tab Tab 1 TAB PO DAILY Multiple Vitamin (Multivitamin) 1 Tab Tab 1 TAB PO QAM Omeprazole (Prilosec) 20 Mg Cap 20 MG PO BID Tamsulosin HCl (Tamsulosin HCl) 0.4 Mg Cap 0.4 MG PO DAILY Tiotropium Pollok (Spiriva Handihaler) 30 Puff/540 Mcg Aerp 1 CAP INH DAILY Discharge Exam Pt resting in bed on day of discharge, comfortable. Edith is at bedside. Reviewed history, pt describes a blurriness in vision of the upper half of his vision in his right eye. Pt has a h/o cataract surgery 2 years ago, and says his right eye has corrective lens for near vision, left eye has cv for far vision. Has not had any issues with his eyes since operation until now. Says he was told by his primary care physician to come to ED to be seen for vision loss. Pt denies any pain in his eyes, headaches, constitutional symptoms, fevers or chills, difficulty breathing, chest pain or weakness. ROS See HPI for pertinent positives and negatives. Physical Exam GENERAL: Awake, alert, well-appearing, in no distress HENT: Normocephalic, atraumatic. Oropharynx unremarkable. EYES: Normal conjunctiva. Sclera non-icteric. PERRL, EOMI normal. Peripheral vision wnl. Otoscopic examination revealed grossly no abnormalities within fundus. Mild ptosis of his RT eyelid. NECK: Supple. No nuchal rigidity. FROM. No JVD. RT submandibular lymph node palpable, non tender, movable, size is minimal. RESPIRATORY: Clear to auscultation. CARDIAC: Regular rate, normal rhythm. Extremities warm and well perfused. Pulses equal. No carotid bruits. ABDOMEN: Soft, non-distended. No tenderness to palpation. No rebound or guarding. No masses. RECTAL: Deferred. MUSCULOSKELETAL: Chest examination reveals no tenderness. The back is symmetrical on inspection without obvious abnormality. There is no CVA tenderness to palpation. No joint edema. LOWER EXTREMITIES: Calves are equal size bilaterally and non-tender. No edema. No discoloration. NEURO: No motor deficits noted. CN II-XII in tact. Strength wnl. SKIN: No rash or jaundice noted. Hospital Course Mr. Bowie is an 87 yo M with PMH GERD, HTN, BPH, COPD, HLD who presented to hospital per primary physician Dr. Harman's recommendation, with 2 day h/o painless unilateral blurred vision. Seen by opthalmology Dr. Estrada in outpatient and diagnosed with central retinal artery occlusion prior to admission. Work up recommended, see below. Studies all normal: CT scan of the head, a MRI of the brain, echocardiogram, and ultrasound of carotid arteries. Attending Dr. Barrera discussed case with Dr. Estrada over the phone and coordinated follow up. Recommend dual antiplatelet therapy (ASA and Plavix) for 3 months. Please note: Plavix and prilosec will need to be taken 12 hours apart due to prilosec's interaction and decreasing the activity of plavix. For more details of hospital course, please see below: Right central retinal artery occlusion - main differential considered: TIA vs GCA or other arteritis - Arteritis unlikely given no constitutional symptoms or head pain. ESR only mildly elevated (16) and CRP is 0.75 (0-0.29). - CT w/out contrast wnl. Carotid US shows no significant stenoses. ECG shows no arrhythmia or afib. - Echo with bubble study normal. MRI brain normal. - Recommend ASA 81 mg with Plavix for dual therapy for 3 months. Hypertension - permissive hypertension as above - resume home meds on discharge Dyslipidemia - Recommend increase Lipitor from 20 mg to 40 mg daily COPD with mild exacerbation - Xopenex/Atrovent for bronchodilator GERD - continue protonix 40 bid BPH - continue flomax 0.4 daily CKD stage 3 - following. 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 Avoid contrast. Obstructive sleep apnea - using own CPAP. Oxygenation acceptable. Code: full DVT prophylaxis: Heparin given here Thank you for allowing us to participate in Mr. Bowie's care. Resident Physician Supervision Note: I was present with Dr. Marsh during the history and exam. I discussed the case with the resident and agree with the findings and plan as documented in the note. For the time being, will add Plavix 75 mg daily to his ASA 81 mg until he has outpatient follow up with ophthalmology and his primary care physician. I also discussed with the patient the possibility of a neurology appointment as an outpatient. Also recommended that the patient separate the Plavix from omeprazole in terms of time of day taken; if his remains on the Plavix for extended period, it may also be reasonable to change to a PPI that does not interact with Plavix. Documented By: Geremias Barrera Total Time Spent: Greater than 30 minutes This includes examination of the patient, discharge planning, medication reconciliation, and communication with other providers. I spent one hour total. Discharge Instructions Please refer to the electronic Patient Visit Report (Discharge Instructions) for additional information. Additional Copies To Manav Harman M.D.; Kenney Estrada D.O.
[2017-05-08] MEDS ORDERED: ASPIRIN 81 MG ECTAB PO SCH (09:00)
== END 2017-05-07 17:33 | disposition home or self-care (01) | DRG 123 ==
LOC: C.EDB 15:12 → C.MED 19:49 → ENRESERV 20:04
PROVIDERS: ADMIT Internal Medicine; ATTEND Internal Medicine
DX: H34.11 Central retinal artery occlusion, right eye (principal); J44.1 Chronic obstructive pulmonary disease with (acute) exacerbation; J45.909 Unspecified asthma, uncomplicated; I12.9 Hypertensive chronic kidney disease with stage 1 through stage 4 chronic kidney disease, or unspecified chronic kidney disease; E78.5 Hyperlipidemia, unspecified; G47.33 Obstructive sleep apnea (adult) (pediatric); K21.9 Gastro-esophageal reflux disease without esophagitis; N40.0 Benign prostatic hyperplasia without lower urinary tract symptoms; E66.01 Morbid (severe) obesity due to excess calories; N18.3 Chronic kidney disease, stage 3 (moderate); Z88.0 Allergy status to penicillin

== ENCOUNTER → 2017-05-06 | Outpatient (CLI) | payer BC ==
[~2017-05-06] MED LIST changes: +ASPEC81 PO; -ASPI-320 PO
[2017-05-06 16:36] LABS: BASO % 0.4 %; BASO ABS # 0.03 K/uL (0-0.2); EOS % 3.3 %; EOS ABS # 0.25 K/uL (0-0.5); HEMATOCRIT 37.5 % (42-52); HEMOGLOBIN 12.8 g/dL (14.0-18.0); IG# 0.02 K/uL (0.00-0.02); LYMPH % 19.1 %; LYMPH ABS # 1.45 K/uL (1.2-3.4); MEAN CELL VOLUME 90.4 fL (80-100); MEAN CORPUSCULAR HEMOGLOBIN 30.8 pg (25-34); MEAN CORPUSCULAR HGB CONC 34.1 g/dl (32-36); MEAN PLATELET VOLUME 10.8 fL (7.4-10.4); MONO % 5.7 %; MONO ABS # 0.43 K/uL (0.11-0.59); NEUT % 71.2 %; NEUT ABS # 5.43 K/uL (1.4-6.5); PLATELET COUNT 193 K/uL (130-400); RED CELL DISTRIBUTION WIDTH CV 14.7 % (11.5-14.5); RED CELL DISTRIBUTION WIDTH SD 48.5 fL (36.4-46.3); WHITE BLOOD COUNT 7.61 K/uL (4.8-10.8)
== END | disposition home or self-care (01) ==
LOC: C.LABBC 12:33
PROVIDERS: ATTEND Optometrist
DX: H34.11 Central retinal artery occlusion, right eye (principal)

== ENCOUNTER → 2017-05-14 | Outpatient (CLI) | payer BC ==
[~2017-05-14] MED LIST changes: +ADVIN50/60 INH; +ASPEC81 PO; +ATOR-22 PO; +FLM4 PO; +LOSA100T33 PO; +OMEP20CA9 PO; +PLV75 PO; +SPRIN/30 INH
--- NOTE | 2017-05-14 14:02 | DIAGNOSTIC IMAGING REPORT ---
ULTRASOUND KIDNEYS AND BLADDER CLINICAL HISTORY: Chronic kidney disease. COMPARISON STUDY: Abdominal CT dated 02/18/2007. TECHNIQUE: Real-time, grayscale, and color flow sonography of the kidneys and bladder is performed. Images are reviewed in the transverse and longitudinal planes. FINDINGS: Kidneys: The kidneys demonstrate cortical atrophy. The right kidney measures 11.4 cm in length and the left kidney measures 10.5 cm in length. There is no hydronephrosis. No shadowing renal calculi are identified. Bilateral renal cysts measure up to 2. Centimeter. There is no sonographic evidence of mass lesion. No perinephric fluid is identified. Bladder: The bladder is partially decompressed and grossly normal in appearance. Bilateral ureteral jets were seen. IMPRESSION: 1. The kidneys demonstrate cortical atrophy and are without hydronephrosis. 2. Bilateral renal cysts are noted and similar to the prior CT scan. 3. The bladder is partially decompressed and grossly unremarkable. Electronically signed by: Viral Jimenez M.D. 05/14/2017 2:01 PM Dictated Date/Time: 05/14/2017 1:45 PM
== END | disposition home or self-care (01) ==
LOC: C.ULTR 12:28
PROVIDERS: ATTEND Family Medicine
DX: N18.9 Chronic kidney disease, unspecified (principal); N26.1 Atrophy of kidney (terminal); N28.1 Cyst of kidney, acquired

== ENCOUNTER → 2017-07-11 | Outpatient (CLI) | payer BC, OTHER ==
[~2017-07-11] MED LIST changes: -ALBUAER19 INH; -ASPEC81 PO; +ASPI-320 PO; -ASPI325T4 PO; -ATOR-24 PO; -CLB/200 PO; -ENAL1TAB31 PO; -HYDR-3419 PO; -MOME200A INH; -OMEP40CA41 PO; -PRED1SUS3 OPL; -RANI300T PO; -VARD10TA PO
== END | disposition home or self-care (01) ==
LOC: C.RDSM 10:50
PROVIDERS: ATTEND Podiatrist
DX: M79.671 Pain in right foot (principal)

== ENCOUNTER → 2017-09-25 | Outpatient (CLI) | payer BC ==
--- NOTE | 2017-09-25 10:03 | DIAGNOSTIC IMAGING REPORT ---
CHEST 2 VIEWS ROUTINE HISTORY: Cough. COMPARISON: None. FINDINGS: The heart is normal in size. Mildly tortuous thoracic aorta, unchanged. Mild interstitial thickening at the lung bases has improved. This is likely chronic. No new focal lung consolidations to suggest pneumonia. No evidence for pulmonary edema. No pleural effusions. No pneumothorax. There is a linear scarlike density within the right middle lobe. IMPRESSION: No acute process. Electronically signed by: Kenny Kovacs M.D. 09/25/2017 10:02 AM Dictated Date/Time: 09/25/2017 9:59 AM
== END | disposition home or self-care (01) ==
LOC: C.LAB1850 09:08
PROVIDERS: ATTEND Physician Assistant
DX: R05 Cough (principal)

== ENCOUNTER 2020-04-06 06:25 | Inpatient (IN) ==
--- NOTE | 2020-02-29 14:48 | PAT Medication Instructions ---
Medication Instructions Date of Service February 29, 2020 Home Medications Medication Instructions Recorded CPAP Machine #1 [id number] 04/13/19 acetaminophen 500 mg tablet 500 mg PO UD PRN albuterol sulfate 2.5 mg INHALATION Q4H PRN albuterol sulfate 90 mcg/actuation aerosol inhaler 2 puffs INHALATION Q4H PRN clopidogrel 75 mg tablet 75 mg PO QPM pantoprazole 40 mg tablet,delayed release 40 mg PO QAM tamsulosin 0.4 mg capsule 0.4 mg PO QAM vardenafil 20 mg tablet 0 mg PO UD PRN atorvastatin 40 mg tablet 40 mg PO QPM montelukast 10 mg tablet 10 mg PO QAM fluticasone furoate-vilanterol [Breo Ellipta] 1 ea INHALATION QAM hydrochlorothiazide 12.5 mg PO QAM hydrocodone-acetaminophen 1 tab PO DAILY PRN tiotropium bromide [Spiriva with HandiHaler] 1 cap INHALATION QAM guaifenesin [Mucinex] 600 mg PO Q12H PRN ASK your prescriber and surgeon clopidogrel 75 mg tablet 75 mg PO QPM DO NOT take the morning of surgery vardenafil 20 mg tablet 0 mg PO UD PRN montelukast 10 mg tablet 10 mg PO QAM hydrochlorothiazide 12.5 mg PO QAM guaifenesin [Mucinex] 600 mg PO Q12H PRN Take morning of surgery With a small sip of water, OTHERWISE NOTHING TO EAT OR DRINK AFTER MIDNIGHT: acetaminophen 500 mg tablet 500 mg PO UD PRN (okay to take up to 4 hours prior to surgery if needed) albuterol sulfate 2.5 mg INHALATION Q4H PRN (if needed) albuterol sulfate 90 mcg/actuation aerosol inhaler 2 puffs INHALATION Q4H PRN (if needed) pantoprazole 40 mg tablet,delayed release 40 mg PO QAM tamsulosin 0.4 mg capsule 0.4 mg PO QAM fluticasone furoate-vilanterol [Breo Ellipta] 1 ea INHALATION QAM hydrocodone-acetaminophen 1 tab PO DAILY PRN (okay to take up to 4 hours prior to surgery if needed) tiotropium bromide [Spiriva with HandiHaler] 1 cap INHALATION QAM *Please bring rescue inhaler with you to hospital day of surgery if possible* Take evening before surgery acetaminophen 500 mg tablet 500 mg PO UD PRN (if needed) albuterol sulfate 2.5 mg INHALATION Q4H PRN (if needed) albuterol sulfate 90 mcg/actuation aerosol inhaler 2 puffs INHALATION Q4H PRN (if needed) vardenafil 20 mg tablet 0 mg PO UD PRN (if needed) atorvastatin 40 mg tablet 40 mg PO QPM hydrocodone-acetaminophen 1 tab PO DAILY PRN (if needed) guaifenesin [Mucinex] 600 mg PO Q12H PRN (if needed) Other Notes If you have any questions please call us at [phone] or [phone] or [phone] or [phone]
--- NOTE | 2020-03-30 09:24 | Anesthesiology Consultation ---
Date of Service March 30, 2020 Assessment & Plan (1) Encounter for pre-operative examination: - Per assessment on 03/30: Travel screen negative. No known COVID-19 positive contacts or current COVID-19 related symptoms. Surgeon arranging preop COVID testing (being done 03/30 at surgeon's office). Awaiting results. - Plavix instructions: Instructions per surgeon/prescriber. Per patient, he was not advised to discontinue by surgeon and is still taking as of PAT visit 03/30 unless he gets told otherwise by surgeon- he will be at surgeon's office later today to confirm. Chart Review Chart Review: Acceptable Risk for Surgery and Patient seen in Pre Admission Testing Teaching & Discussion Pre-Anesthesia Teaching/Discussion Notes: Instructed NPO after midnight before surgery,except medications with 15 cc of water. Medication instructions provided according to the PAT guidelines. History Surgery Operation Date: 04/06/20 07:30 Proposed Procedures p Percutaneous Endovascular Aneurysm Repair - Abraham Vera MD Height/Weight Height: 5 ft 6 in Weight: 84.9 kg Allergies Allergy/AdvReac Type Severity Reaction Status Date / Time Penicillins Allergy Mild Rash Verified 03/30/20 09:48 Medications Home Medications Medication Instructions Recorded Confirmed Last Taken acetaminophen 500 mg tablet 500 mg PO UD PRN tab 11/24/18 02/24/20 Unknown albuterol sulfate 2.5 mg INHALATION Q4H PRN ml 11/24/18 02/24/20 Unknown albuterol sulfate 90 mcg/actuation 2 puffs INHALATION Q4H PRN gm 11/24/18 02/24/20 Unknown aerosol inhaler clopidogrel 75 mg tablet 75 mg PO QPM 11/24/18 02/24/20 Unknown pantoprazole 40 mg tablet,delayed 40 mg PO QAM tab 11/24/18 02/24/20 Unknown release tamsulosin 0.4 mg capsule 0.4 mg PO QAM #30 cap 11/24/18 02/24/20 Unknown vardenafil 20 mg tablet 0 mg PO UD PRN tab 11/24/18 02/24/20 Unknown atorvastatin 40 mg tablet 40 mg PO QPM #90 tab 03/27/19 02/24/20 Unknown montelukast 10 mg tablet 10 mg PO QAM 03/27/19 02/24/20 Unknown CPAP Machine #1 ea 04/13/19 08/21/19 Unknown fluticasone furoate-vilanterol 1 ea INHALATION QAM 07/10/19 02/24/20 Unknown [Breo Ellipta] hydrochlorothiazide 12.5 mg PO QAM 07/10/19 02/24/20 07/10/19 hydrocodone-acetaminophen 1 tab PO DAILY PRN 07/10/19 02/24/20 07/10/19 tiotropium bromide [Spiriva with 1 cap INHALATION QAM 07/10/19 02/24/20 Unknown HandiHaler] guaifenesin [Mucinex] 600 mg PO Q12H PRN 02/24/20 02/24/20 Unknown Past Medical History Medical History AAA (abdominal aortic aneurysm) 5.2 x 4.9 cm infrarenal AAA per 01/2020 CTA Asthma stable 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)- on plavix GERD (gastroesophageal reflux disease) Hearing deficit B/L CORBIN History of malignant melanoma HTN (hypertension) Hyperlipidemia Mild aortic stenosis Mild aortic stenosis (CHE 2.1 cm, MG 11.4 mmHg) per 05/08/17 echo Osteoarthritis Sleep apnea CPAP Exercise / Class Metabolic Activity II 4-5 Yardwork/Stairs/Walk up hill (one flight of stairs (no chest pain/no SOB)) Past Family History Family History Brother Myocardial infarction Acquired amyotrophic lateral sclerosis Sister Glioblastoma multiforme of brain Other Cancer No family history of adverse response to anesthesia Stroke Past Surgical History Surgical History History of cataract surgery History of colonoscopy History of elbow surgery Rt History of hernia repair Lt inguinal History of melanoma excision History of repair of rotator cuff Lt History of revision of total knee arthroplasty R/L History of total knee arthroplasty R/L Past Anesthesia History No Hx of Anesthesia Complications and No Family Hx of Anesthesia Complications History of PONV No Hx of PONV and No Hx of Motion Sickness Social History Smoking Status: Former smoker tobacco type: cigarettes and smokeless tobacco Do You Dip or Chew Tobacco: No (quit years ago) Smoking End Date: Quit 30 years ago (hx tobacco use x 30+ years) Hx Alcohol Use: No Hx Substance Use: No substance use type: does not use Review of Systems Patient denies chest pain, shortness of breath, dyspnea on exertion, fever, chills, cough, wheezing, palpitations. Physical Exam Vital Signs VITALS BP 159/80 P 64 TEMP 97.9 SP02 96%RA RESP 16 PHYSICAL Full neck and c-spine range of motion. Full TMJ range of motion. TMD 3 finger breaths Mallampati Score 2 Dentition: upper/lower dentures Lungs: clear throughout to auscultation Cardiac: regular rate and rhythm, no murmurs noted Spine: normal Carotid arteries: negative bruit Extremities: no edema Testing Laboratory Results 03/30/20 09:36 03/30/20 09:36 PT 11.7 Seconds (9.0-12.0) 03/30/20 09:36 INR 1.1 (0.9-1.1) 03/30/20 09:36 APTT 28.2 Seconds (21.0-31.0) 03/30/20 09:36 Blood Type O Positive 03/30/20 09:36 Antibody Screen NEGATIVE 03/30/20 09:36 Electrocardiogram Date: 07/10/19 SR with first degree AVB at 69bpm. RBBB. LAFB. Bifascicular block* No significant change compared to 05/07/17 per ip attorney review. Chest X-Ray Date: 03/30/20 FINDINGS: PA and lateral chest radiographs are compared to study dated 07/10/2019. Correlation is made with chest CT dated 12/29/2010. The heart is enlarged noting atherosclerotic calcification of the thoracic aorta. Emphysema and chronic interstitial thickening is similar to previous. There is bibasilar scarring/atelectasis. No airspace consolidation or pleural effusion is identified. There is no pneumothorax. The skeletal structures are osteopenic. The bony thorax appears intact. Degenerative change is seen throughout the thoracic spine. IMPRESSION: Cardiomegaly and emphysema with no active disease in the chest. Echocardiogram Date: 05/07/17 EF 60 to 65%. No regional wall motion abnormality. Grade 1 diastolic dy sfunction. Mild aortic stenosis (CHE 2.1 cm, MG 11.4 mmHg). Other Testing Abdomen/Pelvis CT: 02/01/20: There is a 5.2 x 4.9 cm infrarenal abdominal aortic aneurysm. The abdominal aorta and iliac arteries are patent. There is mild stenosis of the origin of both renal arteries. Note that there is a large accessory left renal artery which arises more inferiorly from the abdominal aorta approximately 4 cm above the aneurysm sac. There is high-grade stenosis of the origin of this renal artery. There is at least mild stenosis at the origin of the inferior mesenteric artery which arises from the aneurysm sac. Cardiomegaly and suspect emphysema. Advanced colonic diverticulosis without CT evidence of acute diverticulitis. Cholelithiasis.
[2020-03-30 10:10] LABS: Basophils # (auto) 0.02 K/uL (0-0.2); Basophils % (auto) 0.3 %; Eosinophils # (auto) 0.19 K/uL (0-0.5); Hematocrit (blood only) 36.6 % (42-52); Immature Granulocytes # (auto) 0.01 K/uL (0.00-0.02); Immature Granulocytes % (auto) 0.2 %; Lymphocytes # (auto) 1.34 K/uL (1.2-3.4); Lymphocytes % (auto) 21.3 %; Mean Corpuscular Hemoglobin 29.3 pg (25-34); Mean Corpuscular Hgb Conc 32.8 g/dL (32-36); Mean Corpuscular Volume 89.5 fL (80-100); Mean Platelet Volume 9.7 fL (7.4-10.4); Monocytes # (auto) 0.41 K/uL (0.11-0.59); Monocytes % (auto) 6.5 %; Neutrophils # (auto) 4.32 K/uL (1.4-6.5); Neutrophils % (auto) 68.7 %; Platelet Count 204 K/uL (130-400); RDW Coefficient of Variation 13.5 % (11.5-14.5); RDW Standard Deviation 44.2 fL (36.4-46.3); Red Blood Count 4.09 M/uL (4.7-6.1); White Blood Count 6.29 K/uL (4.8-10.8)
--- NOTE | 2020-03-30 10:19 | XRay Report ---
TWO VIEW CHEST CLINICAL HISTORY: Preoperative examination. FINDINGS: PA and lateral chest radiographs are compared to study dated 07/10/2019. Correlation is made with chest CT dated 12/29/2010. The heart is enlarged noting atherosclerotic calcification of the tho racic aorta. Emphysema and chronic interstitial thickening is similar to previous. There is bibasilar scarring/atelectasis. No airspace consolidation or pleural effusion is identified. There is no pneum othorax. The skeletal structures are osteopenic. The bony thorax appears intact. Degenerative change is seen throughout the thoracic spine. IMPRESSION: Cardiomegaly and emphysema with no active disease in the chest. ACT 112: Negative or not required by law. Electronically signed by: Viral Jimenez M.D. 03/30/2020 10:18 AM
[2020-03-30 10:31] LABS: INR 1.1 (0.9-1.1); Partial Thromboplastin Time 28.2 Seconds (21.0-31.0); Prothrombin Time 11.7 Seconds (9.0-12.0)
[2020-03-30 11:05] LABS: Calcium 9.3 mg/dl (8.5-10.1); Creatinine Clr Calc Pharmacy 50.2 ml/min; Est GFR (African American) 72.8; Est GFR (Non-African American) 62.8; Potassium 4.3 mmol/L (3.5-5.1)
--- NOTE | 2020-04-05 14:53 | History & Physical Report ---
Date of Service April 05, 2020 Assessment & Plan (1) AAA (abdominal aortic aneurysm) without rupture: Patient is admitted for a PEVAR of his AAA. This is being done on an urgent basis due to the size and growth rate over the last year. I have discussed the risks options and benefits of the procedure with the patient. The patient understands the risks options and benefits and agrees to the procedure. History of Present Illness Chief Complaint: AAA Primary Care Provider: Manav Harman is an elderly male with an abdominal aortic aneurysm. Patient was last seen in the office about 1 year ago at which time his infrarenal aneurysm measured 4.4 cm. This had been relatively stable over the last 1 to 2 years prior. Patient returns today for reevaluation after having undergone an aortoiliac ultrasound prior to today's visit. The ultrasound indicates his infrarenal aneurysm has grown to 5.0 cm in the last [address] angiogram showed a 5.2 cm infrarenal abdominal aneurysm. There is a long neck even below the accessory renal to the left kidney. The aneurysm is amenable to endovascular repair. Patient denies any significant changes in his health or long hospital stays or surgeries in the last year. Patient states that he stays very active, currently working on remodeling a house that he and his bought on spring. He denies headache, fever, chest pain, shortness of breath, abdominal pain, nausea, vomiting, rest pain, claudication, other complaints. Allergies Allergy/AdvReac Type Severity Reaction Status Date / Time Penicillins Allergy Mild Rash Verified 03/30/20 09:48 Home Medications Medication Instructions Recorded Confirmed Type acetaminophen 500 mg tablet 500 mg PO UD PRN tab 11/24/18 02/24/20 History albuterol sulfate 2.5 mg INHALATION Q4H PRN ml 11/24/18 02/24/20 History albuterol sulfate 90 mcg/actuation 2 puffs INHALATION Q4H PRN gm 11/24/18 02/24/20 History aerosol inhaler clopidogrel 75 mg tablet 75 mg PO QPM 11/24/18 02/24/20 History pantoprazole 40 mg tablet,delayed 40 mg PO QAM tab 11/24/18 02/24/20 History release tamsulosin 0.4 mg capsule 0.4 mg PO QAM #30 cap 11/24/18 02/24/20 History vardenafil 20 mg tablet 0 mg PO UD PRN tab 11/24/18 02/24/20 History atorvastatin 40 mg tablet 40 mg PO QPM #90 tab 03/27/19 02/24/20 History montelukast 10 mg tablet 10 mg PO QAM 03/27/19 02/24/20 History CPAP Machine #1 ea 04/13/19 08/21/19 Rx fluticasone furoate-vilanterol 1 ea INHALATION QAM 07/10/19 02/24/20 History [Breo Ellipta] hydrochlorothiazide 12.5 mg PO QAM 07/10/19 02/24/20 History hydrocodone-acetaminophen 1 tab PO DAILY PRN 07/10/19 02/24/20 History tiotropium bromide [Spiriva with 1 cap INHALATION QAM 07/10/19 02/24/20 History HandiHaler] guaifenesin [Mucinex] 600 mg PO Q12H PRN 02/24/20 02/24/20 History Past Med/Surg History Medical History AAA (abdominal aortic aneurysm) 5.2 x 4.9 cm infrarenal AAA per 01/2020 CTA Asthma stable 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)- on plavix GERD (gastroesophageal reflux disease) Hearing deficit B/L CORBIN History of malignant melanoma HTN (hypertension) Hyperlipidemia Mild aortic stenosis Mild aortic stenosis (CHE 2.1 cm, MG 11.4 mmHg) per 05/08/17 echo Osteoarthritis Sleep apnea CPAP Surgical History History of cataract surgery History of colonoscopy History of elbow surgery Rt History of hernia repair Lt inguinal History of melanoma excision History of repair of rotator cuff Lt History of revision of total knee arthroplasty R/L History of total knee arthroplasty R/L Family History Brother Myocardial infarction Acquired amyotrophic lateral sclerosis Sister Glioblastoma multiforme of brain Other Cancer No family history of adverse response to anesthesia Stroke Social History Smoking Status: Former smoker Smoking End Date: Quit 30 years ago (hx tobacco use x 30+ years); Number of Years Since Quit: 33; Second Hand Exposure: Yes (as a child); Do You Dip or Chew Tobacco: No (quit years ago); Tobacco Cessation Education Requested by Patient: No Hx Alcohol Use: No Hx Substance Use: No Preferred Language: Italian Communication Ability: Effective Acidizer Helper Required: No Beliefs That Will Affect Care: Druze Druze Beliefs: Episcopal Current Living Situation: Spouse Feels Safe at Home: Yes Safety Concerns: Feels Safe At This Time Assistive Devices: CPAP, Denture - Upper, Denture - Lower and Hearing Aid - Bilateral Review of Systems All systems reviewed & are unremarkable except as noted in HPI & below Physical Exam Physical Exam: Constitutional: In general patient is a healthy-appearing well- nourished well-developed elderly male no distress. He is alert and oriented without any focal deficits. His heart is regular with a systolic ejection murmur noted. Lungs are decreased but clear bilaterally. Abdomen is soft nontender with normoactive bowel sounds. His aorta is difficult to palpate. Femoral pulses are +3 in the right +2 on the left. Lower extremity distal pulses are +2 in the right +1 on the left. Is no sign of distal ischemia.
[~2020-04-06 06:25] MED LIST changes: -ADVIN50/60 INH; -ASPI-320 PO; -ATOR-22 PO; +CLINDAMYCIN 600 MG/54 ML BAG IV SCH; -FLM4 PO; -LOSA100T33 PO; +LR 15ML/HR IV SCH; -MULTTAB58 PO; -OMEP20CA9 PO; -PLV75 PO; -SPRIN/30 INH
[2020-04-06] MEDS: LACTATED RINGER'S 1,000 ML IV SCH ×3 (07:02→23:33)
[2020-04-06] MEDS ORDERED: fentaNYL citrate 100 MCG/2 ML VIAL ONE (07:15)
[2020-04-06] MEDS ORDERED: ROCURONIUM BROMIDE 10 MG/ML 5 ML VIAL IV ONE (07:15)
[2020-04-06] MEDS ORDERED: HEPARIN SOD (PORCINE) 1000 UNIT/ML 10 ML VIAL ONE (07:15)
[2020-04-06] MEDS ORDERED: DEXAMETHASONE SOD INJ 4 MG/ML VIAL ONE (07:15)
[2020-04-06] MEDS ORDERED: LIDOCAINE HCL 2% 2 ML VIAL/AMP(20MG/ML) INFIL ONE (07:15)
[2020-04-06] MEDS ORDERED: ONDANSETRON INJ 2 MG/ML 2 ML VIAL ONE ×2 (07:15→09:42)
[2020-04-06] MEDS ORDERED: PROPOFOL IV EMULSION 10 MG/ML 20 ML VIAL IV ONE ×2 (07:15→08:46)
[2020-04-06] MEDS ORDERED: PHENYLEPHRINE HCL 10 MG/ML VIAL ONE (07:25)
--- NOTE | 2020-04-06 07:36 | History & Physical Bridge Note ---
Date of Service April 06, 2020 History & Physical Bridge Note I have examined the patient, reviewed the History & Physical and in the interval since the performance of the History & Physical I have noted the following changes of clinical significance: no changes noted
[2020-04-06] MEDS ORDERED: LIDOCAINE/EPINEPHRINE 1% INJ 50 ML VIAL ONE (07:49)
[2020-04-06] MEDS ORDERED: HYDROmorphone INJ 1 MG/ML SYRINGE IV PRN (07:56)
[2020-04-06] MEDS ORDERED: ONDANSETRON INJ 2 MG/ML 2 ML VIAL IV PRN (07:56)
[2020-04-06] MEDS ORDERED: PHENYLEPHRINE 100MCG/ML 5ML SYR IV PRN (07:56)
[2020-04-06] MEDS ORDERED: LABETALOL HCL IV 5 MG/ML 20ML IV PRN (07:56)
[2020-04-06] MEDS ORDERED: ATROPINE SULFATE 0.1 MG/ML 10ML SYR IV PRN (07:56)
[2020-04-06] MEDS ORDERED: LIDOCAINE 2% JELLY 5 ML TUBE ONE (08:04)
[2020-04-06] MEDS ORDERED: ARISTA ABSORBABLE HEMOSTAT 3GM TOP ONE (09:40)
[2020-04-06] MEDS ORDERED: VISIPAQUE IV PRN (09:40)
--- NOTE | 2020-04-06 10:03 | Post Operative Brief Note ---
Immediate Post Op Note v1 Date of Surgery April 06, 2020 Pre & Post Diagnosis Operation Date: 04/06/20 08:00 Pre-Op Diagnosis: Abdominal Aortic Aneurysm Post-Op Diagnosis: Abdominal Aortic Aneurysm I identified the patient and participated in the time-out.: Yes Procedure Operation Date: 04/06/20 08:00 Actual Procedures p Percutaneous Endovascular Aortic Aneurysm Repair, Mechanical Closure of Bilateral Femoral Arteries(Bilateral) - Abraham Vera MD Surgeon Abraham Vera MD Manual Lathe Operator Eladio,PAC Estimated Blood Loss 120 Findings Consistent with Post-Op Diagnosis Anesthesia Type MAC Complications none Disposition Accompanied Patient To Recovery: No Disposition: Recovery Room
--- NOTE | 2020-04-06 11:40 | Communication Note ---
Date of Service: April 06, 2020 Dr. Wilhelm will be following this patient.
--- NOTE | 2020-04-06 11:51 | Critical Care Consultation ---
Date of Consultation April 06, 2020 Assessment & Plan (1) AAA (abdominal aortic aneurysm) without rupture: Reason Critically Ill: 89 yo M w/ pMHx. of asthma and 4.4 cm infrarenal aortic aneurysm that was repaired percutaneously due to size and growth over the last year here for monitoring in the postoperative setting. NEURO - CAM ICU: NEGATIVE Has Dilaudid for pain control CARDIAC/VASCULAR - 4.4 cm infrarenal aortic aneurysm s/p percutaneous repair, hemodynamically stable - recheck h&h this afternoon - continue to monitor vitals and access site RESPIRATORY - History of Astma and CHIP on 2L in the post operative setting, no acute concerns at this time - continue home medications - CPAP as needed overnight GI/NUTRITION - advance diet as tolerated RENAL/LYTES - Monitor Cr. given dye load - Continue home Flomax ENDO - no acute concerns at this time HEME - EBL 120 ml - will recheck H&H this afternoon ID - had perioperative Clindamycin - no acute concerns LINES/IV ACCESS - PIV, A. line DVT PROPHYLAXIS - - per vascular Supervising Physician Co-Signing Physician Notes Dr. Washington was the resident-physician during care of patient. I separately evaluated patient for leung portions of the history and the exam. I was present during the critical portion of medical decision making, and I discussed the case with the resident. I generally agree with the findings and plan except for any additions/exceptions noted. 89-year-old male status post AAA repair and closure of bilateral femoral arteries by vascular surgery today. 120 mL estimated blood loss. He also had some bleeding from the left femoral artery while in the ICU. Pressure bandage was placed. Dr. Vera was immediately available. Notably he had an echo on 03/31/2019 which demonstrated an EF of 65%, grade 1 diastolic dysfunction and a dilated aortic root. He also follows with pulmonary as an outpatient for his history of asthma and obstructive sleep apnea. There is a question of possible underlying interstitial lung disease. No acute issues today. Blood pressure control per vascular surgery goals. ICU team will continue to follow patient while he is in the ICU. Hemoglobin is stable as of 9:36 AM. We will recheck a hemoglobin 6 hours after. Thank you for the consultation. History of Present Illness Attending Physician: MD Lefty Guillen has a past medical history of asthma, 4.4 cm infrarenal AAA, and CHIP here in the ICU for monitoring s/p percutaneous AAA repair by Dr. Vera. When he came to the unit he did have some bleeding from the access site in his left groin, Dr. Vera was here and the bleeding stopped after he applied pressure to the site and re applied a pressure dressing. Allergies Allergy/AdvReac Type Severity Reaction Status Date / Time Penicillins Allergy Mild Rash Verified 04/06/20 07:03 Home Medications Medication Instructions Recorded Confirmed Type acetaminophen 500 mg tablet 500 mg PO UD PRN tab 11/24/18 04/06/20 History albuterol sulfate 2.5 mg INHALATION Q4H PRN ml 11/24/18 02/24/20 History albuterol sulfate 90 mcg/actuation 2 puffs INHALATION Q4H PRN gm 11/24/18 02/24/20 History aerosol inhaler clopidogrel 75 mg tablet 75 mg PO QPM 11/24/18 04/06/20 History pantoprazole 40 mg tablet,delayed 40 mg PO QAM tab 11/24/18 04/06/20 History release tamsulosin 0.4 mg capsule 0.4 mg PO QAM #30 cap 11/24/18 04/06/20 History vardenafil 20 mg tablet 0 mg PO UD PRN tab 11/24/18 04/06/20 History atorvastatin 40 mg tablet 40 mg PO QPM #90 tab 03/27/19 02/24/20 History montelukast 10 mg tablet 10 mg PO QAM 03/27/19 04/06/20 History CPAP Machine #1 ea 04/13/19 08/21/19 Rx fluticasone furoate-vilanterol 1 ea INHALATION QAM 07/10/19 04/06/20 History [Breo Ellipta] hydrochlorothiazide 12.5 mg PO QAM 07/10/19 04/06/20 History hydrocodone-acetaminophen 1 tab PO DAILY PRN 07/10/19 04/06/20 History tiotropium bromide [Spiriva with 1 cap INHALATION QAM 07/10/19 04/06/20 History HandiHaler] guaifenesin [Mucinex] 600 mg PO Q12H PRN 02/24/20 04/06/20 History Patient History Medical History AAA (abdominal aortic aneurysm) 5.2 x 4.9 cm infrarenal AAA per 01/2020 CTA Asthma stable 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)- on plavix GERD (gastroesophageal reflux disease) Hearing deficit B/L CORBIN History of malignant melanoma HTN (hypertension) Hyperlipidemia Mild aortic stenosis Mild aortic stenosis (CHE 2.1 cm, MG 11.4 mmHg) per 05/08/17 echo Osteoarthritis Sleep apnea CPAP Surgical History History of cataract surgery History of colonoscopy History of elbow surgery Rt History of hernia repair Lt inguinal History of melanoma excision History of repair of rotator cuff Lt History of revision of total knee arthroplasty R/L History of total knee arthroplasty R/L Family History Brother Myocardial infarction Acquired amyotrophic lateral sclerosis Sister Glioblastoma multiforme of brain Other Cancer No family history of adverse response to anesthesia Stroke Social History Smoking Status: Former smoker Smoking End Date: Quit 30 years ago (hx tobacco use x 30+ years); Number of Years Since Quit: 33; Second Hand Exposure: Yes (as a child); Do You Dip or Chew Tobacco: No (quit years ago); Tobacco Cessation Education Requested by Patient: No Hx Alcohol Use: No Hx Substance Use: No Preferred Language: Italian Communication Ability: Effective Allied Health Teacher Required: No Beliefs That Will Affect Care: Congregation Congregation Beliefs: Druze , Spiritual and Cultural Current Living Situation: Spouse Feels Safe at Home: Yes Safety Concerns: Feels Safe At This Time Assistive Devices: CPAP, Denture - Upper, Denture - Lower and Hearing Aid - Bilateral Review of Systems Review of Systems: - unable to obtain in the immediate post operative setting Physical Exam Constitutional: WD/WN, vitals as above Eyes: PERRL, conjunctivae normal, anicteric sclerae ENMT: external ear and nose normal, oropharynx normal Neck: normal visual inspection Respiratory: normal respiratory effort, lungs clear to auscultation Cardiovascular: RRR, no murmur, no edema Gastrointestinal (Abdomen): normal bowel sounds, soft, nontender, no hepatosplenomegaly Skin: - left groin site with some active bleeding initially that has resolved, site now c/d/i Neurologic: PERRL, EOMI, accommodation nl, no face palsy, no dysarthria Results & Data Results & Data ([facility]) Vital Signs (Past 12 Hours) Vital Signs Temp Pulse Pulse Resp BP Pulse Ox 04/06/20 10:40 71 15 119/73 96 04/06/20 10:30 36.4 C L 78 17 122/72 96 04/06/20 10:20 79 19 127/71 97 04/06/20 10:10 36.5 C 85 16 147/80 H 96 04/06/20 07:17 36.5 C 70 20 145/100 H 96 CBC Results Results Complete Blood Count Results: RBC 4.09 M/uL (4.7-6.1) L 03/30/20 WBC 6.29 K/uL (4.8-10.8) 03/30/20 Hgb 12.0 g/dL (14.0-18.0) L 03/30/20 Hct 36.6 % (42-52) L 03/30/20 Plt Count 204 K/uL (130-400) 03/30/20 Chemistry (BMP) Results BMP Results: Sodium 140 mmol/L (136-145) 03/30/20 Potassium 4.3 mmol/L (3.5-5.1) 03/30/20 Chloride 108 mmol/L (98-107) H 03/30/20 BUN 16 mg/dl (7-18) 03/30/20 Creatinine 1.06 mg/dl (0.6-1.4) 03/30/20 Glucose 87 mg/dl (70-99) 03/30/20 Resident Activity Tracking Resident Involvement: Resident Care Provided Care Provided: Adult Hospital Medicine
[2020-04-06] MEDS ORDERED: ALBUTEROL HFA 8 GM INHALER INH PRN (12:16)
[2020-04-06] MEDS ORDERED: ALBUTEROL 0.083% NEBU SOLN 3 ML VIAL INH PRN (12:16)
[2020-04-06] MEDS ORDERED: LACTATED RINGER'S 1,000 ML IV SCH (12:16)
[2020-04-06] MEDS ORDERED: guaiFENesin 600 MG TABCR PO PRN (12:16)
[2020-04-06] MEDS ORDERED: ACETAMINOPHEN 500 MG TAB PO PRN (12:21)
--- NOTE | 2020-04-06 12:35 | Anesthesiology Progress Note ---
Date of Service April 06, 2020 Anesthesia Post Procedure Vital Signs Vital Signs: Temp Pulse Pulse Pulse Resp BP BP 04/06/20 12:00 53 L 14 155/66 H 04/06/20 11:30 36.8 C 52 L 17 139/67 04/06/20 11:08 68 19 04/06/20 11:00 72 28 H 121/56 L 04/06/20 10:40 71 15 119/73 04/06/20 10:30 36.4 C L 78 17 122/72 04/06/20 10:20 79 19 127/71 04/06/20 10:10 36.5 C 85 16 147/80 H 04/06/20 07:17 36.5 C 70 20 145/100 H Pulse Ox 04/06/20 12:00 100 04/06/20 11:30 100 04/06/20 11:08 99 04/06/20 11:00 100 04/06/20 10:40 96 04/06/20 10:30 96 04/06/20 10:20 97 04/06/20 10:10 96 04/06/20 07:17 96 Transfer of Care Handoff Completed per policy Notes Mental Status: alert / awake / arousable Patient Amnestic to Procedure: Yes Nausea / Vomiting: adequately controlled Pain: adequately controlled Airway Patency, RR, SpO2: stable & adequate BP & HR: stable & adequate Hydration State: stable & adequate Anesthetic Complications: no major complications apparent
--- NOTE | 2020-04-06 15:37 | Billing Data ---
Date of Service April 06, 2020 Coding Level of Care Code 60704 Inpt Consult Level 5
[2020-04-06 16:58] LABS: Hematocrit (blood only) 30.7 % (42-52); Hemoglobin 10.4 g/dL (14.0-18.0)
[2020-04-06] MEDS ORDERED: CLOPIDOGREL BISULFATE 75 MG TAB PO SCH (21:00)
[2020-04-06] MEDS ORDERED: ATORVASTATIN 40 MG TAB PO SCH (21:00)
[2020-04-07 00:23] LABS: Hematocrit (blood only) 30.4 % (42-52); Hemoglobin 10.4 g/dL (14.0-18.0)
[2020-04-07 06:07] LABS: Basophils # (auto) 0.01 K/uL (0-0.2); Basophils % (auto) 0.1 %; Eosinophils # (auto) 0.06 K/uL (0-0.5); Eosinophils % (auto) 0.7 %; Hematocrit (blood only) 28.2 % (42-52); Hemoglobin 9.6 g/dL (14.0-18.0); Immature Granulocytes # (auto) 0.01 K/uL (0.00-0.02); Immature Granulocytes % (auto) 0.1 %; Lymphocytes # (auto) 1.05 K/uL (1.2-3.4); Lymphocytes % (auto) 12.2 %; Mean Corpuscular Hemoglobin 30.3 pg (25-34); Mean Platelet Volume 9.4 fL (7.4-10.4); Monocytes # (auto) 0.61 K/uL (0.11-0.59); Monocytes % (auto) 7.1 %; Neutrophils # (auto) 6.87 K/uL (1.4-6.5); Neutrophils % (auto) 79.8 %; Platelet Count 175 K/uL (130-400); RDW Coefficient of Variation 13.9 % (11.5-14.5); RDW Standard Deviation 45.7 fL (36.4-46.3); Red Blood Count 3.17 M/uL (4.7-6.1); White Blood Count 8.61 K/uL (4.8-10.8)
[2020-04-07 06:38] LABS: BUN Creatinine Ratio 19.7 (10-20); Calcium 8.6 mg/dl (8.5-10.1); Creatinine Clr Calc Pharmacy 54.9 ml/min; Est GFR (African American) 82.5; Est GFR (Non-African American) 71.2; Magnesium 1.4 mg/dl (1.8-2.4); Potassium 3.8 mmol/L (3.5-5.1)
[2020-04-07 06:39] LABS: Phosphorus 3.4 mg/dl (2.5-4.9)
[2020-04-07] MEDS ORDERED: MAGNESIUM OXIDE 400 MG TAB PO ONE (08:26)
[2020-04-07] MEDS ORDERED: UMECLIDINIUM BROMIDE 62.5MCG/BLISTER 7 PUFFS/INHALER INH SCH (09:00)
[2020-04-07] MEDS ORDERED: FLUTICASONE/VILANTEROL 200/25MCG 14 PUFFS/INHALER INH SCH (09:00)
[2020-04-07] MEDS ORDERED: hydroCHLOROthiazide 25 MG TAB PO SCH (09:00)
[2020-04-07] MEDS ORDERED: MONTELUKAST SODIUM 10 MG TABLET PO SCH (09:00)
[2020-04-07] MEDS ORDERED: TAMSULOSIN HCL 0.4 MG CAP PO SCH (09:00)
[2020-04-07] MEDS ORDERED: PANTOprazole 40 MG TAB PO SCH (09:00)
--- NOTE | 2020-04-07 09:05 | Surgery Progress Note ---
Date of Service April 07, 2020 Assessment & Plan (1) AAA (abdominal aortic aneurysm) without rupture: Patient was admitted for PEVAR yesterday, no significant complications. Doing well post op. Discussed with Dr Vera, Will d/c home today. Admission and Anticipated Discharge Date Admission Date: April 06, 2020 Subjective 89 yo m POD #1 after PEVAR, seen in f/u today. Pt states feeling a little tired, but denies chest pain, SOB, abd pain, dizziness, other complaints. Has been stable per staff. hgb 9.6, mg 1.4, asymptomatic. Review of Systems Review of Systems: All systems reviewed & are unremarkable except as noted in HPI & below Physical Exam Constitutional: WD/WN, vitals as above Respiratory: normal respiratory effort, lungs clear to auscultation Ausc ultation: + diminished lung sounds Cardiovascular: Rate/Rhythm: regular rate and regular rhythm Vessels: fe moral pulses present (punctures intact with pressure dressings, mild local ecchymossi), posterior tibial pulses present, dorsalis pedis pulses present, brachial pulses present and radial pulses present; + abnormal peripheral pulses Extremities: normal capillary refill Gastrointestinal (Abdomen): normal bowel sounds, soft, nontender, no hepat osplenomegaly (superficial large, soft, moveable mass LLQ) Musculoskeletal: no cyanosis or clubbing, extremities motor strength 5/5 Skin: no rashes, warm and dry Neurologic: moves all extremities; no focal motor deficits and not confused Psychiatric: A+Ox3, euthymic affect Results & Data ([facility]) Vital Signs (Past 12 Hours) Vital Signs Temp Pulse Pulse Resp BP BP Pulse Ox 04/07/20 06:00 86 23 132/72 93 04/07/20 05:30 88 19 95 04/07/20 05:00 85 23 125/70 93 04/07/20 04:30 79 24 92 04/07/20 04:00 36.8 C 82 21 125/78 94 04/07/20 03:30 77 22 93 04/07/20 03:00 78 22 135/71 94 04/07/20 02:30 78 22 93 04/07/20 02:00 79 24 126/72 93 04/07/20 01:30 78 20 93 04/07/20 01:00 82 24 134/75 94 04/07/20 00:30 83 22 92 01/28/21 00:00 37 C 86 22 160/88 H 97 04/06/20 23:30 81 22 98 04/06/20 23:00 79 21 173/92 H 99 04/06/20 22:30 78 21 99 04/06/20 22:00 96 H 21 155/80 H 99 04/06/20 21:30 75 21 99
--- NOTE | 2020-04-21 13:04 | Operative Report ---
Post Operative Report Pre & Post Diagnosis Operation Date: 04/06/20 08:00 Pre-Op Diagnosis: Abdominal Aortic Aneurysm Post-Op Diagnosis: Abdominal Aortic Aneurysm I identified the patient and participated in the time-out.: Yes Procedure Operation Date: 04/06/20 08:00 Actual Procedures p Percutaneous Endovascular Aortic Aneurysm Repair, Mechanical Closure of Bilateral Femoral Arteries(Bilateral) - Abraham Vera MD Surgeon Abraham Vera MD Brass Pickler Eladio,PAC Estimated Blood Loss 120 Findings Consistent with Post-Op Diagnosis Specimens None Anesthesia Type MAC Complications none Disposition Accompanied Patient To Recovery: No Disposition: Recovery Room Indications Is an 89-year-old gentleman with a large abdominal aortic aneurysm. Endovascular repair is recommended. I have discussed the risks options and benefits of the procedure with the patient. The patient understands the risks options and benefits and agrees to the procedure. Description of Procedure The patient was taken to the operating room and placed in supine position. Both groins And abdomen were then prepped and draped in a sterile manner.Percutaneous punctures were made of both common femoral arteries.Right side was done first. Once the artery was punctured a 5 Emirati sheath was inserted. Hand-injection was performed which showed the puncture in the common femoral artery. 2 Perclose devices were then used to preclose the puncture site. An 8 Emirati sheath was then inserted.The same exact procedure was done on the left lower extremity.We then passed an 035 Glidewire through the right sheath. This was passed up into the suprarenal aorta. This was followed by a Kumpe catheter. The wire was then exchanged to a Cruz wire.The same was done on the left side and exchanged for a Cruz wire.The sheath in the left groin was then pulled.This was then replaced with a 12 FrenchG[place] sheath.On the right side the sheath was pulled. Using a 12 Emirati followed by 16 Emirati dilators the puncture site was dilated. An 18 Emir[place] sheath was then inserted through the right side and to the abdominal aorta.The pigtail was then inserted over the guidewire in the left groin.Wire was removed. The excluder device 28.5x14.5x14 was then inserted through the right sheath.This was placed in the Juxtarenal aorta.Aortogram was performed locating the renal arteries.The main body was then deployed without difficulty. Another injection was done.This showed the proximal portion of the graft just below the renal arteries.The pigtail was pulled down and the hooks were deployed.Using a Kumpe catheter and a 035 Glidewire the gate was cannulated.The Kumpe was advanced into the neck of the aneurysm. The catheter trolled without any difficulty. The 12 Emirati sheath was then pulled down into the distal common iliac on the left side. The Kumpe was exchanged for a pigtail marker catheter. Hand-injection was done marking the bifurcation of the external iliac artery and internal iliac artery. It was decided to use a 16 x 13-1/2 contralateral limb. A Rahul wire was reinserted through the pigtail. The dilator was reinserted over the wire and the sheath placed back up into the gate. The Contra lateral limb was inserted. It was placed in appropriate position and deployed without difficulty. After this was done the ipsilateral limb was deployed. Due to the size of the common iliac bifurcation on the left side was decided to place an extension down into the origin of the external. 16 x 14 and half by 10 distal extension was then inserted. It was then deployed to and just beyond the internal iliac origin. That point using a Q50 balloon all attachment sites and overlaps were ballooned. Pigtail was reinserted. A completion angio was performed. At this point I saw a little bird beaking of the proximal end and did not like the position of the turn. We then inserted a 32 x 4-1/2 aortic cuff. We pulled the Cruz wire down to the soft portion of the wire being at the neck of the aneurysm and deployed the cuff over the soft portion of the wire. This contoured to the aorta very nicely. Good apposition was seen with aortic wall. The cuff was then ballooned nicely expanding it. Completion angios done at that point showed no evidence of type I endoleak. There was a small type II leak distally. That point wire was reinserted pigtail was removed. Both sheaths were then pulled one at a time tying the Perclose devices. Active hemostasis was seen of both puncture sites. Sterile dressings were then applied.The patient left the operation room in satisfactory condition and tolerated the procedure well. All needle and sponge counts were correct at the end of the procedure.. Sallie Hedrick Pac assisted due to lack of resident availability and was necessary for positioning, draping, retraction, wound closure deep layers, subcutaneous tissue, and skin closure and was necessary for assisting with the case. I attest to the content of the Intraoperative Record and any orders documented therein. Any exceptions are noted below.
== END 2020-04-07 11:05 | disposition home or self-care (01) | DRG 254 ==
LOC: ASU 06:25 → 1E 07:36

== ENCOUNTER 2021-06-22 12:20 | Inpatient (IN) ==
[2021-06-22 13:30] LABS: Basophils # (auto) 0.03 K/uL (0-0.2); Basophils % (auto) 0.2 %; Eosinophils # (auto) 0.02 K/uL (0-0.5); Eosinophils % (auto) 0.1 %; Hematocrit (blood only) 33.6 % (42-52); Hemoglobin 11.3 g/dL (14.0-18.0); Immature Granulocytes # (auto) 0.28 K/uL (0.00-0.02); Immature Granulocytes % (auto) 1.4 %; Lymphocytes # (auto) 0.77 K/uL (1.2-3.4); Lymphocytes % (auto) 3.9 %; Mean Corpuscular Hemoglobin 28.9 pg (25-34); Mean Corpuscular Hgb Conc 33.6 g/dL (32-36); Mean Corpuscular Volume 85.9 fL (80-100); Mean Platelet Volume 10.1 fL (7.4-10.4); Monocytes # (auto) 1.71 K/uL (0.11-0.59); Monocytes % (auto) 8.6 %; Neutrophils % (auto) 85.8 %; Platelet Count 225 K/uL (130-400); RDW Coefficient of Variation 14.6 % (11.5-14.5); Red Blood Count 3.91 M/uL (4.7-6.1); White Blood Count 19.91 K/uL (4.8-10.8)
--- NOTE | 2021-06-22 13:53 | XRay Report ---
TWO VIEW CHEST CLINICAL HISTORY: Pneumonia. FINDINGS: PA and lateral chest radiographs are compared to study dated 11/16/2020 and correlated with c hest CT dated 06/09/2021. The heart is enlarged noting atherosclerotic calcification of the thoracic ao rta. The pulmonary vasculature is noncongested. Emphysema and chronic interstitial thickening is cornelius lar to previous. There is bibasilar scarring/atelectasis. Right middle lobe consolidation appears mod estly cleared from previous. No pleural effusion or pneumothorax is identified. The bony thorax appea rs intact. A stent graft is noted in the upper abdomen. IMPRESSION: 1. Cardiomegaly and emphysema. 2. Right middle lobe consolidation appears partially cleared from the recent chest CT. ACT 112: Negative or not required by law. Electronically signed by: Viral Jimenez M.D. 06/22/2021 1:52 PM
[2021-06-22 14:07] LABS: Albumin Globulin Ratio 1.2 (0.9-2); Albumin Level 3.6 gm/dl (3.4-5.0); BUN Creatinine Ratio 29.5 (10-20); Bilirubin,Total 0.6 mg/dl (0.2-1.0); Calcium 8.7 mg/dl (8.5-10.1); Creatinine Clr Calc Pharmacy 26.8 ml/min; Est GFR (African American) 34.8 ml/min; Globulin 3.1 gm/dl (2.5-4.0); Potassium 3.8 mmol/L (3.5-5.1); Total Protein 6.7 gm/dl (6.0-8.3)
[2021-06-22] MEDS ORDERED: VANCOMYCIN CONSULT ACTIVE PRN (14:38)
[2021-06-22] MEDS ORDERED: VANCOMYCIN HCL 1,750 MG in SODIUM CHLORIDE 0.9% 500 ML IV ONE (14:38)
[2021-06-22] MEDS ORDERED: CEFEPIME 2,000 MG/20 ML VIAL IV STA (14:38)
[2021-06-22] MEDS ORDERED: SODIUM CHLORIDE 0.9% 1000ML 1,000 ML IV SCH (14:45)
[2021-06-22 15:57] LABS: Influenza A virus by PCR Negative (Neg); Influenza B virus by PCR Negative (Neg); RSV by PCR Negative (Neg); SARS CoV2 RNA(COVID-19) InHosp NEGATIVE (Negative)
--- NOTE | 2021-06-22 16:01 | CT Scan Report ---
CT SCAN OF THE ABDOMEN AND PELVIS WITHOUT IV CONTRAST CLINICAL HISTORY: Fever. Lower abdominal pain. COMPARISON STUDY: Abdominal CT dated 11/17/2020. TECHNIQUE: CT scan of the abdomen and pelvis is performed from the lung bases to the proximal femora. Images are reviewed in the axial, sagittal, and coronal planes. IV contrast was not administered for this examination due to poor renal function. Note that the examination is suboptimal without oral an d IV contrast. A dose lowering technique was utilized adhering to the principles of ALARA. CT DOSE: 895.38 mGycm FINDINGS: Lung bases: The heart is enlarged and without pericardial effusion. The coronary arteries and aortic valve leaflets are densely calcified. There is mild elevation of the right hemidiaphragm. Scarring/at electasis is seen at the lung bases. No airspace consolidation or pleural effusion is identified. Liver: The unenhanced liver is normal in size, contour, and attenuation. There is no intrahepatic konrad iary ductal dilatation. Gallbladder: The gallbladder is distended end of a tiny calcified gallstones. There is no CT evidence of acute cholecystitis. Spleen: Normal in size and attenuation. Pancreas: The unenhanced pancreas is atrophic and grossly unremarkable. Adrenal glands: A 1.5 cm adenoma of the left adrenal gland is unchanged. The right adrenal gland is n ormal in appearance. Kidneys: The unenhanced kidneys demonstrate cortical atrophy and are without hydronephrosis. There ar e no renal calculi identified. Renal cysts measure up to 2.0 cm. 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 Abdominal vasculature: There is advanced atherosclerotic calcification of the abdominal aorta. An aor tobiiliac stent graft is in place. The residual aneurysm sac measures 4.7 x 4.9 cm (AP x transverse). Bowel: There is wall thickening and edema seen throughout the colon with surrounding pericolonic infl ammation. The appearance is consistent with a nonspecific pancolitis. There is moderate to advanced c olonic diverticulosis without clear CT evidence of acute diverticulitis. No bowel obstruction is iden tified. The appendix is well-visualized and normal. Peritoneum: There is no intraperitoneal free air or abdominal ascites. Lymphadenopathy: None. Pelvic viscera: The prostate gland is diminutive and heterogeneous noting median lobe hypertrophy. Th e bladder is distended. The bladder wall appears thickened and trabeculated indicating chronic outlet obstruction. A fat-containing hernia is noted in the right groin. A large lipoma suggested in the le ft ventral pelvic wall. Skeletal structures: The skeletal structures are osteopenic. There is moderate to advanced lumbosacra l spondylosis. No lytic or blastic lesions are seen. IMPRESSION: 1. Findings consistent with a nonspecific pancolitis. Clinical correlation will be required. 2. Moderate to advanced colonic diverticulosis without CT evidence of acute diverticulitis. 3. Cholelithiasis with no CT evidence of acute cholecystitis. 4. An aortobiiliac stent graft is in place. The residual aneurysm sac measures 4.7 x 4.9 cm. 5. Cardiomegaly. 6. Additional findings as above. ACT 112: Negative or not required by law. Electronically signed by: Viral Jimenez M.D. 06/22/2021 4:00 PM
[2021-06-22] MEDS ORDERED: VANCOMYCIN HCL 125 MG/2.5ML SOLN PO STA (16:27)
[2021-06-22] MEDS ORDERED: RASPBERRY SYRUP 5 ML UDP PO STA (16:27)
[2021-06-22 16:29] LABS: Appearance Urine Clear (Clear); Bilirubin Urine Negative (Negative); Blood Urine Negative (Negative); Color Urine Dark Yellow; Glucose Urine UA Negative (Negative); Ketones Urine Trace (Negative); Leukocyte Esterase Urine Negative (Negative); Nitrite Urine Negative (Negative); Protein Urine Negative (Negative); Specific Gravity Urine 1.019 (1.000-1.030); Urobilinogen Urine Negative (Negative)
--- NOTE | 2021-06-22 16:39 | History & Physical Report ---
Date of Service June 22, 2021 Assessment & Plan (1) Pancolitis: Plan: Suspected c. diff given recent antibiotics, watery diarrhea, fever and elevated WBC./ Pending stool collection. Start vancomycin 125mg PO Q6H, patient is non-septic but with severe disease requiring hospitalization due to RON and significantly elevated WBC Contact isolation precautions No evidence for worsening pneumonia and had a full course of cefuroxime therefore will discontinue further antibiotics for this. (2) RON (acute kidney injury): Plan: Suspect pre-renal due to fluid loss from diarrhea No obstructive cause seen on CT Hemodynamically stable Lactate 1.4 Start LR @ 125ml/hr Hold amlodipine, losartan and HCTZ (3) Pneumonia: Plan: Resolving on imaging. He has had a full treatment course of cefuroxime at this stage with favorable response. C. diff and pancolitis likely driving his fever and chills therefore will avoid further antibiotics for this. (4) Hypertension: Plan: In setting of diarrhea, RON and fluid loss will hold amlodipine, losartan and HCTZ as above (5) Emphysema/COPD: Plan: No acute exacerbation appreciated Continue his routine maintenance inhalers with Spiriva and Breo Ellipta or hosp ital formulary equivalent (6) Aortic stenosis: Plan: Noted mod-severe on echo 03/2020 Plan: VTE Prophylaxis - heparin 5000 units SQ BID Diet - regular Disposition - admit to med/surg Admission and Anticipated Discharge Date Admission Date: June 22, 2021 History of Present Illness Chief Complaint: Fever and chills Primary Care Provider: Manav Harman Lefty Bowie is an 89 year old male who presents to the ER with fever and chills. He was recently diagnosed with pneumonia at his pulmonology clinic appointment on June 12. He reports not having significant symptoms other than a mild productive cough at that time and no fever or chills. He was started on cefuroxime by his hotel service supervisor. 5 days ago he started having fever and chills with a maximum temperature yesterday of 102 degrees Fahrenheit. He has been having diarrhea since starting on antibiotics and has become watery. He has no history of c. diff. The patient has been getting increasingly weak and fatigued with reduced appetite. No nausea or vomiting. His called the hotel service supervisor 2 days ago who prescribed another course of antibiotics (doxycycline) for pneumonia. However he only took one dose of that yesterday and hasn't been able to take any of his medications today. Due to worsening fatigue and weakness his brought him to the ER today. In the ER initial concern was for worsening pneumonia and he received a dose of IV cefepime and vancomycin for this. CXR actually dose resolving consolidation however. Labs were concerning for RON with Cr 1.93 from baseline 1.07. Due to abdominal pain on exam he underwent CT which showed pancolitis. He was referred to medicine for admission and ongoing management of acute renal failure and pneumonia. Allergies Allergy/AdvReac Type Severity Reaction Status Date / Time Penicillins Allergy Mild Rash Verified 06/22/21 16:14 Home Medications Medication Instructions Recorded Confirmed Type clopidogrel 75 mg tablet (Plavix) 75 mg PO QPM 11/24/18 06/22/21 History pantoprazole 40 mg tablet,delayed 40 mg PO QAM tab 11/24/18 06/22/21 History release (Protonix) tamsulosin 0.4 mg capsule 0.4 mg PO QAM #30 cap 11/24/18 06/22/21 History montelukast 10 mg tablet 10 mg PO QAM 03/27/19 06/22/21 History CPAP Machine #1 ea 04/13/19 06/12/21 Rx fluticasone furoate 200 1 ea INHALATION QAM 07/10/19 06/22/21 History mcg-vilanterol 25 mcg/dose inhalation powder (Breo Ellipta) hydrochlorothiazide 12.5 mg tablet 12.5 mg PO QAM 07/10/19 06/22/21 History hydrocodone 5 mg-acetaminophen 325 1 tab PO DAILY PRN 07/10/19 06/22/21 History mg tablet tiotropium bromide 18 mcg capsule 1 cap INHALATION QAM 07/10/19 06/22/21 History with inhalation device (Spiriva with HandiHaler) losartan 100 mg tablet 100 mg PO DAILY #90 tab 06/22/20 06/22/21 Rx doxycycline hyclate 100 mg capsule 100 mg PO BID #14 cap 06/20/21 06/22/21 Rx amlodipine 5 mg tablet 5 mg PO DAILY 06/22/21 06/22/21 History atorvastatin 80 mg tablet 80 mg PO DAILY 06/22/21 06/22/21 History finasteride 5 mg tablet 5 mg PO DAILY 06/22/21 06/22/21 History nitroglycerin 0.4 mg sublingual 0.4 mg SUBLINGUAL UD PRN 06/22/21 06/22/21 History tablet Past Med/Surg History Medical History AAA (abdominal aortic aneurysm) 5.2 x 4.9 cm infrarenal AAA per 01/2020 CTA Asthma stable 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)- on plavix GERD (gastroesophageal reflux disease) Hearing deficit B/L CORBIN History of malignant melanoma HTN (hypertension) Hyperlipidemia Mild aortic stenosis Mild aortic stenosis (CHE 2.1 cm, MG 11.4 mmHg) per 05/08/17 echo Osteoarthritis Paralysis of left vocal cord Sleep apnea CPAP Surgical History History of cataract surgery History of colonoscopy History of elbow surgery Rt History of hernia repair Lt inguinal History of melanoma excision History of repair of rotator cuff Lt History of revision of total knee arthroplasty R/L History of total knee arthroplasty R/L S/P AAA repair Percutaneous Endovascular Aortic Aneurysm Repair, Mechanical Closure of Bilateral Femoral Arteries Dr. Vera Family History Brother Myocardial infarction Acquired amyotrophic lateral sclerosis Sister Glioblastoma multiforme of brain Diabetes Cancer 4 sisters Mother Diabetes Heart disease Stroke Hypertension Other No family history of adverse response to anesthesia No family history of bleeding disorder Social History Smoking Status: Former smoker Tobacco Type: Cigarettes Number of Years Since Quit: 33; Second Hand Exposure: Yes (as a child); Hx Alcohol Use: No Hx Substance Use: No Preferred Language: Macedonian Communication Ability: Effective Visual Impairment: No Limitations Space Control Supervisor Required: No Beliefs That Will Affect Care: None marital status: Current Living Situation: Spouse 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 How many Children do You have: 8 Feels Safe at Home: Yes Safety Concerns: Feels Safe At This Time Assistive Devices: Denture - Upper, Denture - Lower and Hearing Aid - Bilateral Review of Systems Review of Systems: All systems reviewed & are unremarkable except as noted in HPI & below Physical Exam Constitutional: WD/WN, vitals as above no acute distress Eyes: + anicteric sclerae; normal pupil size ENMT: Mouth: + dry oral mucous membranes Neck: trachea midline, no thyromegaly Respiratory: normal respiratory effort and able to speak in complete sentences; no respiratory distress Auscultation: + crackles (bibasal); no diminished lung sounds, no rales, no rhonchi and no wheezes Cardiovascular: Rate/Rhythm: regular rate and regular rhythm Heart Sounds: + murmur (systolic loudest LUSB 3/6) Vessels: no JVD Extremities: normal capillary refill and + pedal edema (trace pre-tibial b/l equal); no calf tenderness Gastrointestinal (Abdomen): Inspection/Auscultation: abdomen normal to inspection; abdomen not distended Percussion/Palpation: + abdomen tender (lower without rebound tenderness) and abdomen soft; no guarding and abdomen not rigid Musculoskeletal: no cyanosis or clubbing, extremities motor strength 5/5 Skin: no rashes, warm and dry Neurologic: moves all extremities and awake; not confused Psychiatric: A+Ox3, euthymic affect Genitourinary: no CVA tenderness Results & Data Results & Data ([facility]) Vital Signs (Past 12 Hours) Vital Signs Temp Pulse Pulse Resp BP BP Pulse Ox 06/22/21 16:00 89 19 133/64 96 06/22/21 14:59 89 27 H 117/70 97 06/22/21 12:35 36.7 C 91 H 18 113/71 95 Diagnostic Findings TWO VIEW CHEST CLINICAL HISTORY: Pneumonia. FINDINGS: PA and lateral chest radiographs are compared to study dated 11/16/2020 and correlated with chest CT dated 06/09/2021. The heart is enlarged noting atherosclerotic calcification of the thoracic aorta. The pulmonary vasculature is noncongested. Emphysema and chronic interstitial thickening is similar to previous. There is bibasilar scarring/atelectasis. Right middle lobe consolidation appears modestly cleared from previous. No pleural effusion or pneumothorax is identified. The bony thorax appears intact. A stent graft is noted in the upper abdomen. IMPRESSION: 1. Cardiomegaly and emphysema. 2. Right middle lobe consolidation appears partially cleared from the recent chest CT. CT SCAN OF THE ABDOMEN AND PELVIS WITHOUT IV CONTRAST CLINICAL HISTORY: Fever. Lower abdominal pain. COMPARISON STUDY: Abdominal CT dated 11/17/2020. TECHNIQUE: CT scan of the abdomen and pelvis is performed from the lung bases to the proximal femora. Images are reviewed in the axial, sagittal, and coronal planes. IV contrast was not administered for this examination due to poor renal function. Note that the examination is suboptimal without oral and IV contrast. A dose lowering technique was utilized adhering to the principles of ALARA. CT DOSE: 895.38 mGycm FINDINGS: Lung bases: The heart is enlarged and without pericardial effusion. The coronary arteries and aortic valve leaflets are densely calcified. There is mild elevation of the right hemidiaphragm. Scarring/atelectasis is seen at the lung bases. No airspace consolidation or pleural effusion is identified. Liver: The unenhanced liver is normal in size, contour, and attenuation. There is no intrahepatic biliary ductal dilatation. Gallbladder: The gallbladder is distended end of a tiny calcified gallstones. There is no CT evidence of acute cholecystitis. Spleen: Normal in size and attenuation. Pancreas: The unenhanced pancreas is atrophic and grossly unremarkable. Adrenal glands: A 1.5 cm adenoma of the left adrenal gland is unchanged. The right adrenal gland is normal in appearance. Kidneys: The unenhanced kidneys demonstrate cortical atrophy and are without hydronephrosis. There are no renal calculi identified. Renal cysts measure up to 2.0 cm. 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 Abdominal vasculature: There is advanced atherosclerotic calcification of the abdominal aorta. An aortobiiliac stent graft is in place. The residual aneurysm sac measures 4.7 x 4.9 cm (AP x transverse). Bowel: There is wall thickening and edema seen throughout the colon with surrounding pericolonic inflammation. The appearance is consistent with a nonspecific pancolitis. There is moderate to advanced colonic diverticulosis without clear CT evidence of acute diverticulitis. No bowel obstruction is identified. The appendix is well-visualized and normal. Peritoneum: There is no intraperitoneal free air or abdominal ascites. Lymphadenopathy: None. Pelvic viscera: The prostate gland is diminutive and heterogeneous noting median lobe hypertrophy. The bladder is distended. The bladder wall appears thickened and trabeculated indicating chronic outlet obstruction. A fat-containing hernia is noted in the right groin. A large lipoma suggested in the left ventral pelvic wall. Skeletal structures: The skeletal structures are osteopenic. There is moderate to advanced lumbosacral spondylosis. No lytic or blastic lesions are seen. IMPRESSION: 1. Findings consistent with a nonspecific pancolitis. Clinical correlation will be required. 2. Moderate to advanced colonic diverticulosis without CT evidence of acute diverticulitis. 3. Cholelithiasis with no CT evidence of acute cholecystitis. 4. An aortobiiliac stent graft is in place. The residual aneurysm sac measures 4.7 x 4.9 cm. 5. Cardiomegaly. 6. Additional findings as above. Medications Administered ER Medications Given: Vancomycin 1750mg IV Cefepime 2g IV NSS @ 80ml/hr Code Status & VTE Plan Code Status Full VTE Prophylaxis Plan VTE Prophylaxis will be ordered: Yes PG Care Time/CCT Total # of Minutes Spent Total Time Spent with Patient: Total time spent is greater than 50% in coordination of care (as documented) at patient's floor/unit and/or counseling patient: Coding Level of Care Code 77003 Initial Inpt Care Lvl 3 Diagnoses Pancolitis K51.00 RON (acute kidney injury) N17.9 Pneumonia J18.9 Laterality: right Lung location: unspecified part of lung Pneumonia type: due to unspecified organism Hypertension I10 Emphysema/COPD J43.9 Aortic stenosis I35.0 (1) Pneumonia Laterality: right Lung location: unspecified part of lung Pneumonia type: due to unspecified organism Qualified Code(s): J18.9 - Pneumonia, unspecified organism
[2021-06-22] MEDS: LACTATED RINGER'S 1,000 ML IV SCH (18:27)
[2021-06-22] MEDS: VANCOMYCIN HCL 125 MG/2.5ML SOLN PO SCH ×2 (18:46→23:40)
[2021-06-22] MEDS: RASPBERRY SYRUP 5 ML UDP PO SCH ×2 (18:46→23:39)
[2021-06-22] MEDS: CLOPIDOGREL BISULFATE 75 MG TAB PO SCH (20:50)
[2021-06-22] MEDS: HEPARIN SOD 5,000 UNIT/0.5 ML VIAL SQ SCH (22:03)
[2021-06-22 22:11] LABS: Cdiff Antigen Positive
[2021-06-22 22:12] LABS: Cdiff Toxin A+B Positive Cdiff Toxin (Negative)
--- NOTE | 2021-06-22 22:35 | Communication Note ---
Date of Service: June 22, 2021 pos for c diff. patient is on PO vanc. adding PO metronidazole
--- NOTE | 2021-06-22 22:40 | Emergency Department Note ---
History of Present Illness General Chief complaint: Fever Stated complaint: FEVER, PNEUMONIA, NOT EATING/DRINKING Time Seen by Provider: 06/22/21 14:21 History of Present Illness Provider complaint: Pneumonia fever fatigue altered mental status Onset (ago): week(s) 5 Maximum Pain Intensity: 5 Associated symptoms: + cough, + fever/chills and + weakness; no headaches, no nausea/vomiting or no shortness of breath 89-year-old male presents emergency department with for fever pneumonia fatigue altered mental status. reports that the patient was recently diagnosed with pneumonia. She recently reports that the patient had antibiotics prescribed by pulmonology Dr. Grady. She states this Saturday and Saturday the patient started getting worse. She reports he has been increasingly fatigued and not eating. She reports that the patient had T-max of 102 yesterday. She became concerned so she brought the patient into the hospital. No reported falls. Patient currently reporting no chest pain. Patient does report productive cough. No hemoptysis. Patient also reports abdominal pain. She reports diarrhea. No nausea or vomiting. Home Medications Medication Instructions Recorded Confirmed Type clopidogrel 75 mg tablet (Plavix) 75 mg PO QPM 11/24/18 06/22/21 History pantoprazole 40 mg tablet,delayed 40 mg PO QAM tab 11/24/18 06/22/21 History release (Protonix) tamsulosin 0.4 mg capsule 0.4 mg PO QAM #30 cap 11/24/18 06/22/21 History montelukast 10 mg tablet 10 mg PO QAM 03/27/19 06/22/21 History CPAP Machine #1 ea 04/13/19 06/12/21 Rx fluticasone furoate 200 1 ea INHALATION QAM 07/10/19 06/22/21 History mcg-vilanterol 25 mcg/dose inhalation powder (Breo Ellipta) hydrochlorothiazide 12.5 mg tablet 12.5 mg PO QAM 07/10/19 06/22/21 History hydrocodone 5 mg-acetaminophen 325 1 tab PO DAILY PRN 07/10/19 06/22/21 History mg tablet tiotropium bromide 18 mcg capsule 1 cap INHALATION QAM 07/10/19 06/22/21 History with inhalation device (Spiriva with HandiHaler) losartan 100 mg tablet 100 mg PO DAILY #90 tab 06/22/20 06/22/21 Rx doxycycline hyclate 100 mg capsule 100 mg PO BID #14 cap 06/20/21 06/22/21 Rx amlodipine 5 mg tablet 5 mg PO DAILY 06/22/21 06/22/21 History atorvastatin 80 mg tablet 80 mg PO DAILY 06/22/21 06/22/21 History finasteride 5 mg tablet 5 mg PO DAILY 06/22/21 06/22/21 History nitroglycerin 0.4 mg sublingual 0.4 mg SUBLINGUAL UD PRN 06/22/21 06/22/21 History tablet Allergies Allergy/AdvReac Type Severity Reaction Status Date / Time Penicillins Allergy Mild Rash Verified 06/22/21 16:14 Past Med/Surg History Medical History AAA (abdominal aortic aneurysm) 5.2 x 4.9 cm infrarenal AAA per 01/2020 CTA Asthma stable 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)- on plavix GERD (gastroesophageal reflux disease) Hearing deficit B/L CORBIN History of malignant melanoma HTN (hypertension) Hyperlipidemia Mild aortic stenosis Mild aortic stenosis (CHE 2.1 cm, MG 11.4 mmHg) per 05/08/17 echo Osteoarthritis Paralysis of left vocal cord Sleep apnea CPAP Surgical History History of cataract surgery History of colonoscopy History of elbow surgery Rt History of hernia repair Lt inguinal History of melanoma excision History of repair of rotator cuff Lt History of revision of total knee arthroplasty R/L History of total knee arthroplasty R/L S/P AAA repair Percutaneous Endovascular Aortic Aneurysm Repair, Mechanical Closure of Bilateral Femoral Arteries Dr. Vera Family History Brother Myocardial infarction Acquired amyotrophic lateral sclerosis Sister Glioblastoma multiforme of brain Diabetes Cancer 4 sisters Mother Diabetes Heart disease Stroke Hypertension Other No family history of adverse response to anesthesia No family history of bleeding disorder Social History Smoking Status: Former smoker Tobacco Type: Cigarettes Number of Years Since Quit: 33; Second Hand Exposure: Yes (as a child); Hx Alcohol Use: No Hx Substance Use: No Preferred Language: Hungarian Communication Ability: Effective Visual Impairment: No Limitations Rn Delivery Required: No Beliefs That Will Affect Care: None marital status: Current Living Situation: Spouse current occupational status: retired 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 How many Children do You have: 8 Feels Safe at Home: Yes Safety Concerns: Feels Safe At This Time Assistive Devices: Denture - Upper, Denture - Lower and Hearing Aid - Bilateral Review of Systems A total of 10 systems reviewed and were otherwise negative Physical Exam Vital Signs Vital Signs - 24 hr 06/22/21 12:35 06/22/21 14:59 06/22/21 16:00 Temperature 36.7 C Temperature Source Oral Pulse Rate 91 H Pulse Rate [Right Finger] 89 89 Pulse Rhythm [Right Finger] Regular Regular Pulse Strength [Right Finger] Normal Normal Respiratory Rate 18 27 H 19 Respiratory Effort / Characteristics Non-Labored Spontaneous Non-Labored Spontaneous Respiratory Depth Normal Normal Respiratory Pattern Regular Blood Pressure 113/71 Blood Pressure [Right Arm] 117/70 133/64 Blood Pressure Mean 85 Blood Pressure Mean [Right Arm] 85 87 Blood Pressure Position [Right Arm] Lying Lying Pulse Oximetry 95 97 96 Oxygen Delivery Method Room Air Room Air Room Air Sepsis Recent Fever Within 48 Hours No Sepsis New/Unexplained Change in Mental Status No Sepsis Action Taken by Nursing No Action Required Physical Exam HENT: Exam performed. - Head: Normocephalic and atraumatic. - Right Ear: External ear normal. No mastoid tenderness. - Left Ear: External ear normal. No mastoid tenderness. - Mouth/Throat: The oropharynx is clear and moist. No trismus in the jaw. No dental abscesses or uvula swelling. No oropharyngeal exudate or tonsillar abscesses. EYES: Conjunctivae and EOM are normal. Pupils are equal, round, and reactive to light. Right eye exhibits no discharge. Left eye exhibits no discharge. No scleral icterus. NECK: Normal range of motion. Neck supple. No JVD present. No spinous process tenderness present. No carotid bruit present. No rigidity. No tracheal deviation and normal range of motion present. No Brudzinski's sign and no Kernig's sign n oted. CV: Normal rate, regular rhythm, systolic murmur and intact distal pulses. There is no peripheral edema. Palpable radial pulses bue. PULM/CHEST: Rhonchi bilaterally. - Chest Wall: He exhibits no tenderness. ABD: The abdomen is soft. Bowel sounds are normal. He has no distension. No mass is present. There is no tenderness. There is no rebound, no guarding, no Manning's sign and no tenderness at McBurney's point. Rovsig negative. MUSC/SKEL: Normal range of motion. There is no peripheral edema, tenderness or deformity. LYMPH: No cervical adenopathy. NEURO: Motor and sensation grossly intact. Course Course 142: The patient was evaluated in room C5. A complete history and physical exam was performed Cardiac monitoring: An order was placed for continuous cardiac monitoring. The monitor shows a rate of 90 with sinus rhythm EMR reviewed. Patient was evaluated by pulmonology on June 12 and started on cefuroxime for pneumonia. 1630: Vital signs stable. Labs show leukocytosis of 19.9. Hemoglobin 11.3. Cr eatinine up to 1.93, this is almost double his baseline. Lactic acid 1.4. Procalcitonin elevated at 4.28. Imaging of the abdomen showed nonspecific pancolitis. Chest x-ray shows improvement of the right middle lobe consolidation. Patient treated with broad-spectrum antibiotics. Discussed the case with [facility] hospitalist Dr. Johnston who will admit the patient to his service. He is recommended that a C. difficile be ordered on the patient also. This will be ordered and Dr. Woods will follow up on it. Administered Medications Clopidogrel Bisulfate (Clopidogrel Bisulfate 75 Mg Tab) 75 mg PO QPM MAHI Stop: 07/22/21 20:59 Last Admin: 06/22/21 20:50 Dose: 75 mg Documented by: [id number] Heparin Sodium (Porcine) (Heparin Sod 5,000 Unit/0.5 Ml Vial) 5,000 units SQ Q12 MAHI Stop: 07/22/21 20:59 Last Admin: 06/22/21 22:03 Dose: 5,000 units Documented by: [id number] Lactated Ringer's (Lr) 1,000 mls @ 125 mls/hr IV .Q8H MAHI Stop: 07/22/21 17:49 Last Admin: 06/22/21 18:27 Dose: 125 mls/hr Documented by: [id number] Raspberry (Raspberry Syrup 5 Ml Udp) 5 ml PO Q6 MAHI Stop: 07/02/21 17:59 Last Admin: 06/22/21 18:46 Dose: 5 ml Documented by: [id number] Vancomycin HCl (Vancomycin Hcl 125 Mg/2.5ml Soln) 125 mg PO Q6 MAHI Stop: 07/02/21 17:59 Last Admin: 06/22/21 18:46 Dose: 125 mg Documented by: [id number] Discontinued Medications Cefepime HCl (Maxipime) 2,000 mg in 20 mls @ 5 mls/min IV NOW STA; Protocol Stop: 06/22/21 14:41 Last Admin: 06/22/21 15:29 Dose: 5 mls/min Documented by: [id number] Vancomycin HCl 1,750 mg/ (Sodium Chloride) 535 mls @ 200 mls/hr IV NOW ONE Stop: 06/22/21 17:18 Last Infusion: 06/22/21 18:04 Dose: 0 mls/hr Documented by: [id number] Admin: 06/22/21 15:55 Dose: 200 mls/hr Documented by: [id number] Sodium Chloride (Nss 1000ml) 1,000 mls @ 80 mls/hr IV .[id number] MAHI Stop: 07/22/21 14:44 Last Infusion: 06/22/21 18:03 Dose: 0 mls/hr Documented by: [id number] Admin: 06/22/21 15:49 Dose: 80 mls/hr Documented by: [id number] Raspberry (Raspberry Syrup 5 Ml Udp) 5 ml PO ONE STA Stop: 06/22/21 16:28 Last Admin: 06/22/21 17:04 Dose: 5 ml Documented by: [id number] Vancomycin HCl (Vancomycin Hcl 125 Mg/2.5ml Soln) 125 mg PO ONE STA Stop: 06/22/21 16:28 Last Admin: 06/22/21 17:04 Dose: 125 mg Documented by: [id number] Medical Decision Making Laboratory Data Result diagrams: 06/22/21 13:13 06/22/21 13:13 Lab Results 06/22/21 06/22/21 06/22/21 Range/Units 13:13 13:13 15:00 WBC 19.91 H (4.8-10.8) K/uL RBC 3.91 L (4.7-6.1) M/uL Hgb 11.3 L (14.0-18.0) g/dL Hct 33.6 L (42-52) % MCV 85.9 (80-100) fL MCH 28.9 (25-34) pg MCHC 33.6 (32-36) g/dL RDW Std Deviation 46.0 (36.4-46.3) fL RDW Coeff of Vitaliy 14.6 H (11.5-14.5) % Plt Count 225 (130-400) K/uL MPV 10.1 (7.4-10.4) fL Immature Gran % (Auto) 1.4 % Neut % (Auto) 85.8 % Lymph % (Auto) 3.9 % [place] % (Auto) 8.6 % Eos % (Auto) 0.1 % Baso % (Auto) 0.2 % Neut # (Auto) 17.10 H (1.4-6.5) K/uL Lymph # (Auto) 0.77 L (1.2-3.4) K/uL [place] # (Auto) 1.71 H (0.11-0.59) K/uL Eos # (Auto) 0.02 (0-0.5) K/uL Baso # (Auto) 0.03 (0-0.2) K/uL Immature Gran # (Auto) 0.28 H (0.00-0.02) K/uL Sodium 135 L (136-145) mmol/L Potassium 3.8 (3.5-5.1) mmol/L Chloride 103 (98-107) mmol/L Carbon Dioxide 22 (21-32) mmol/L Anion Gap 10 (3-11) BUN 57 H (6-23) mg/dl Creatinine 1.93 H (0.6-1.4) mg/dl Est Cr Clr Drug Dosing 26.8 ml/min Est GFR ( Amer) 34.8 ml/min Est GFR (Non-Af Amer) 30.0 ml/min BUN/Creatinine Ratio 29.5 H (10-20) Glucose 164 H (70-99(Fasting)) mg/dl Lactate (0.4-2.0) mmol/L Calcium 8.7 (8.5-10.1) mg/dl Total Bilirubin 0.6 (0.2-1.0) mg/dl AST 15 (13-39) U/L ALT 15 (7-52) U/L Alkaline Phosphatase 172 H (34-104) U/L Total Protein 6.7 (6.0-8.3) gm/dl Albumin 3.6 (3.4-5.0) gm/dl Globulin 3.1 (2.5-4.0) gm/dl Albumin/Globulin Ratio 1.2 (0.9-2) Procalcitonin (0-0.5) ng/ml Urine Color Urine Appearance (Clear) Urine pH (4.5-7.5) Ur Specific [place] (1.000-1.030) Urine Protein (Negative) Urine Glucose (UA) (Negative) Urine Ketones (Negative) Urine Blood (Negative) Urine Nitrite (Negative) Urine Bilirubin (Negative) Urine Urobilinogen (Negative) Ur Leukocyte Esterase (Negative) SARS-CoV-2 (PCR) NEGATIVE (Negative) Influenza Type A (PCR) Negative (Neg) Influenza Type B (PCR) Negative (Neg) RSV (RT-PCR) Negative (Neg) 06/22/21 06/22/21 06/22/21 Range/Units 15:00 15:53 15:53 WBC (4.8-10.8) K/uL RBC (4.7-6.1) M/uL Hgb (14.0-18.0) g/dL Hct (42-52) % MCV (80-100) fL MCH (25-34) pg MCHC (32-36) g/dL RDW Std Deviation (36.4-46.3) fL RDW Coeff of Vitaliy (11.5-14.5) % Plt Count (130-400) K/uL MPV (7.4-10.4) fL Immature Gran % (Auto) % Neut % (Auto) % Lymph % (Auto) % [place] % (Auto) % Eos % (Auto) % Baso % (Auto) % Neut # (Auto) (1.4-6.5) K/uL Lymph # (Auto) (1.2-3.4) K/uL [place] # (Auto) (0.11-0.59) K/uL Eos # (Auto) (0-0.5) K/uL Baso # (Auto) (0-0.2) K/uL Immature Gran # (Auto) (0.00-0.02) K/uL Sodium (136-145) mmol/L Potassium (3.5-5.1) mmol/L Chloride (98-107) mmol/L Carbon Dioxide (21-32) mmol/L Anion Gap (3-11) BUN (6-23) mg/dl Creatinine (0.6-1.4) mg/dl Est Cr Clr Drug Dosing ml/min Est GFR ( Amer) ml/min Est GFR (Non-Af Amer) ml/min BUN/Creatinine Ratio (10-20) Glucose (70-99(Fasting)) mg/dl Lactate 1.4 (0.4-2.0) mmol/L Calcium (8.5-10.1) mg/dl Total Bilirubin (0.2-1.0) mg/dl AST (13-39) U/L ALT (7-52) U/L Alkaline Phosphatase (34-104) U/L Total Protein (6.0-8.3) gm/dl Albumin (3.4-5.0) gm/dl Globulin (2.5-4.0) gm/dl Albumin/Globulin Ratio (0.9-2) Procalcitonin 4.28 H (0-0.5) ng/ml Urine Color Dark Yellow Urine Appearance Clear (Clear) Urine pH 5.0 (4.5-7.5) Ur Specific [place] 1.019 (1.000-1.030) Urine Protein Negative (Negative) Urine Glucose (UA) Negative (Negative) Urine Ketones Trace H (Negative) Urine Blood Negative (Negative) Urine Nitrite Negative (Negative) Urine Bilirubin Negative (Negative) Urine Urobilinogen Negative (Negative) Ur Leukocyte Esterase Negative (Negative) SARS-CoV-2 (PCR) (Negative) Influenza Type A (PCR) (Neg) Influenza Type B (PCR) (Neg) RSV (RT-PCR) (Neg) Imaging Data Radiologist's Impression: Chest X-Ray 06/22/21 12:38 TWO VIEW CHEST CLINICAL HISTORY: Pneumonia. FINDINGS: PA and lateral chest radiographs are compared to study dated 11/16/2020 and correlated with chest CT dated 06/09/2021. The heart is enlarged noting ath erosclerotic calcification of the thoracic aorta. The pulmonary vasculature is noncongested. Emphysema and chronic interstitial thickening is similar to previous. There is bibasilar scarring/atelectasis. Right middle lobe consolidation appears modestly cleared from previous. No pleural effusion or p neumothorax is identified. The bony thorax appears intact. A stent graft is noted in the upper abdomen. IMPRESSION: 1. Cardiomegaly and emphysema. 2. Right middle lobe consolidation appears partially cleared from the recent chest CT. ACT 112: Negative or not required by law. Electronically signed by: Viral Jimenez M.D. 06/22/2021 1:52 PM Abdomen/Pelvis CT 06/22/21 14:36 CT SCAN OF THE ABDOMEN AND PELVIS WITHOUT IV CONTRAST CLINICAL HISTORY: Fever. Lower abdominal pain. COMPARISON STUDY: Abdominal CT dated 11/17/2020. TECHNIQUE: CT scan of the abdomen and pelvis is performed from the lung bases to the proximal femora. Images are reviewed in the axial, sagittal, and coronal planes. IV contrast was not administered for this examination due to poor renal function. Note that the examination is suboptimal without oral and IV contrast. A dose lowering technique was utilized adhering to the principles of ALARA. CT DOSE: 895.38 mGycm FINDINGS: Lung bases: The heart is enlarged and without pericardial effusion. The coronary arteries and aortic valve leaflets are densely calcified. There is mild elevation of the right hemidiaphragm. Scarring/atelectasis is seen at the lung bases. No airspace consolidation or pleural effusion is identified. Liver: The unenhanced liver is normal in size, contour, and attenuation. There is no intrahepatic biliary ductal dilatation. Gallbladder: The gallbladder is distended end of a tiny calcified gallstones. There is no CT evidence of acute cholecystitis. Spleen: Normal in size and attenuation. Pancreas: The unenhanced pancreas is atrophic and grossly unremarkable. Adrenal glands: A 1.5 cm adenoma of the left adrenal gland is unchanged. The right adrenal gland is normal in appearance. Kidneys: The unenhanced kidneys demonstrate cortical atrophy and are without hydronephrosis. There are no renal calculi identified. Renal cysts measure up to 2.0 cm. 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 Abdominal vasculature: There is advanced atherosclerotic calcification of the abdominal aorta. An aortobiiliac stent graft is in place. The residual aneurysm sac measures 4.7 x 4.9 cm (AP x transverse). Bowel: There is wall thickening and edema seen throughout the colon with surrounding pericolonic inflammation. The appearance is consistent with a nonspecific pancolitis. There is moderate to advanced colonic diverticulosis without clear CT evidence of acute diverticulitis. No bowel obstruction is identified. The appendix is well-visualized and normal. Peritoneum: There is no intraperitoneal free air or abdominal ascites. Lymphadenopathy: None. Pelvic viscera: The prostate gland is diminutive and heterogeneous noting median lobe hypertrophy. The bladder is distended. The bladder wall appears thickened and trabeculated indicating chronic outlet obstruction. A fat-containing hernia is noted in the right groin. A large lipoma suggested in the left ventral pelvic wall. Skeletal structures: The skeletal structures are osteopenic. There is moderate to advanced lumbosacral spondylosis. No lytic or blastic lesions are seen. IMPRESSION: 1. Findings consistent with a nonspecific pancolitis. Clinical correlation will be required. 2. Moderate to advanced colonic diverticulosis without CT evidence of acute diverticulitis. 3. Cholelithiasis with no CT evidence of acute cholecystitis. 4. An aortobiiliac stent graft is in place. The residual aneurysm sac measures 4.7 x 4.9 cm. 5. Cardiomegaly. 6. Additional findings as above. ACT 112: Negative or not required by law. Electronically signed by: Viral Jimenez M.D. 06/22/2021 4:00 PM [facility] Narrative 1421: The patient was evaluated in room C5. A complete history and physical exam was performed Cardiac monitoring: An order was placed for continuous cardiac monitoring. The monitor shows a rate of 90 with sinus rhythm EMR reviewed. Patient was evaluated by pulmonology on June 12 and started on cefuroxime for pneumonia. 1630: Vital signs stable. Labs show leukocytosis of 19.9. Hemoglobin 11.3. Creatinine up to 1.93, this is almost double his baseline. Lactic acid 1.4. Procalcitonin elevated at 4.28. Imaging of the abdomen showed nonspecific pancolitis. Chest x-ray shows improvement of the right middle lobe consolidation. Patient treated with broad-spectrum antibiotics. Discussed the case with [facility] hospitalist Dr. Johnston who will admit the patient to his service. He is recommended that a C. difficile be ordered on the patient also. This will be ordered and Dr. Woods will follow up on it. Impression & Plan RON (acute kidney injury), Pneumonia Discharge Plan Visit Data Chief Complaint: Fever Stated Complaint: FEVER, PNEUMONIA, NOT EATING/DRINKING Discharge Problem: RON (acute kidney injury), Pneumonia Patient Disposition: Admitted As Inpatient Discharge Instructions Interventions: ED Discharge Assessment Last Done: 06/22/21 17:28
[2021-06-22] MEDS: MELATONIN 3 MG TAB PO PRN (22:42)
[2021-06-22] MEDS: ACETAMINOPHEN 325 MG TAB PO PRN (23:39)
[2021-06-23 02:25] LABS: Hematocrit (blood only) 30.3 % (42-52); Mean Corpuscular Hemoglobin 28.8 pg (25-34); Mean Corpuscular Volume 87.3 fL (80-100); Mean Platelet Volume 9.8 fL (7.4-10.4); Platelet Count 226 K/uL (130-400); RDW Coefficient of Variation 14.5 % (11.5-14.5); Red Blood Count 3.47 M/uL (4.7-6.1); White Blood Count 19.39 K/uL (4.8-10.8)
[2021-06-23] MEDS: LACTATED RINGER'S 1,000 ML IV SCH ×3 (02:51→20:59)
[2021-06-23 02:54] LABS: Albumin Globulin Ratio 1.1 (0.9-2); BUN Creatinine Ratio 31.8 (10-20); Bilirubin,Total 0.5 mg/dl (0.2-1.0); Calcium 8.2 mg/dl (8.5-10.1); Creatinine Clr Calc Pharmacy 29.7 ml/min; Est GFR (African American) 39.7 ml/min; Est GFR (Non-African American) 34.2 ml/min; Globulin 2.7 gm/dl (2.5-4.0); Potassium 3.2 mmol/L (3.5-5.1); Total Protein 5.7 gm/dl (6.0-8.3)
[2021-06-23 03:09] LABS: Acanthocytes 1+; Basophils # (auto) 0.03 K/uL (0-0.2); Basophils % (auto) 0.2 %; Dohle Bodies 1+; Echinocytes 1+; Eosinophils # (auto) 0.01 K/uL (0-0.5); Eosinophils % (auto) 0.1 %; Immature Granulocytes # (auto) 0.07 K/uL (0.00-0.02); Immature Granulocytes % (auto) 0.4 %; Lymphocytes # (auto) 0.56 K/uL (1.2-3.4); Lymphocytes % (auto) 2.9 %; Monocytes # (auto) 1.66 K/uL (0.11-0.59); Monocytes % (auto) 8.6 %; Neutrophils # (auto) 17.06 K/uL (1.4-6.5); Neutrophils % (auto) 87.8 %; Polychromasia 1+
[2021-06-23] MEDS: RASPBERRY SYRUP 5 ML UDP PO SCH ×5 (05:35→23:51)
[2021-06-23] MEDS: VANCOMYCIN HCL 125 MG/2.5ML SOLN PO SCH ×2 (05:35→11:54)
[2021-06-23] MEDS ORDERED: metroNIDAZOLE 500 MG TAB PO SCH (07:00)
[2021-06-23] MEDS ORDERED: LACTATED RINGER'S 500 ML IV ONE ×2 (07:55→09:11)
[2021-06-23] MEDS ORDERED: POTASSIUM CHLORIDE CRTAB 20 MEQ TABCR PO STA ×2 (08:11→17:19)
[2021-06-23] MEDS: FLUTICASONE/VILANTEROL 200/25MCG 14 PUFFS/INHALER INH SCH (08:38)
[2021-06-23] MEDS: UMECLIDINIUM BROMIDE 62.5MCG/BLISTER 7 PUFFS/INHALER INH SCH (08:39)
[2021-06-23] MEDS: FINASTERIDE 5 MG TAB PO SCH (08:39)
[2021-06-23] MEDS: ATORVASTATIN 40 MG TAB PO SCH (08:39)
[2021-06-23] MEDS: PANTOprazole 40 MG TAB PO SCH (08:40)
[2021-06-23] MEDS: MONTELUKAST SODIUM 10 MG TABLET PO SCH (08:40)
[2021-06-23] MEDS: TAMSULOSIN HCL 0.4 MG CAP PO SCH (08:40)
[2021-06-23] MEDS: HEPARIN SOD 5,000 UNIT/0.5 ML VIAL SQ SCH ×2 (08:41→20:45)
[2021-06-23 08:52] LABS: Magnesium 1.4 mg/dl (1.7-2.4); Phosphorus 3.1 mg/dl (2.5-4.9)
[2021-06-23] MEDS: metroNIDAZOLE 500 MG/100 ML BAG IV SCH ×3 (09:09→23:51)
[2021-06-23] MEDS: MAGNESIUM SULFATE / D5W 1 GM/100 ML BAG IV SCH ×2 (10:12→12:15)
[2021-06-23] MEDS: VANCOMYCIN HCL 500 MG/10 ML SOLN PO SCH ×3 (12:34→23:51)
--- NOTE | 2021-06-23 13:59 | Hospitalist Progress Note ---
Date of Service June 23, 2021 Assessment & Plan (1) Pancolitis: Plan: C. diff confirmed overnight. Given current BP and HR agree with escalation of vancomycin from 125 -> 500mg Q6H and additional IV metronidazole. Start vancomycin 125mg PO Q6H, patient is non-septic but with severe disease requiring hospitalization due to RON and significantly elevated WBC Contact c. diff isolation precautions WBC minimally coming down although suspect IV antibiotics given in ER and only just started on PO vancomycin therefore may take 1-2 days for this to significantly decrease. (2) RON (acute kidney injury): Plan: Suspect pre-renal due to fluid loss from diarrhea, however lack of rapidly reversible Cr suggest an additional ATN component No obstructive cause seen on CT Lactate 1.4 on admission Bicarb down to 18 today. Will give 1L LR bolus. Switch to sodium bicarb drip if not improving on repeat labs this afternoon. Continue to hold amlodipine, losartan and HCTZ (3) Pneumonia: Plan: Resolving on imaging. He has had a full treatment course of cefuroxime at this stage with favorable response. C. diff and pancolitis likely driving his fever and chills therefore will avoid further antibiotics for this. (4) Hypertension: Plan: Hypotension in setting of diarrhea, RON and fluid loss will hold amlodipine, losartan and HCTZ as above (5) Emphysema/COPD: Plan: No acute exacerbation appreciated Continue his routine maintenance inhalers with Spiriva and Breo Ellipta or hospital formulary equivalent (6) Aortic stenosis: Plan: Noted mod-severe on echo 03/2020 Plan: VTE Prophylaxis - heparin 5000 units SQ BID Diet - regular Disposition - admit to med/surg Admission and Anticipated Discharge Date Admission Date: June 22, 2021 Subjective No fever or chills. Ongoing watery diarrhea. C. diff tested positive overnight and antibiotics escalated to IV metronidazole and PO vancomycin increased from 125mg to 500mg given low normal blood pressure and tachycardia. Patient reports good appetite and no abdominal pain, nausea or vomiting. Updated his at bedside. Review of Systems 2 Review of Systems: All systems reviewed & are unremarkable except as noted in Subjective Physical Exam Constitutional: WD/WN, vitals as above no acute distress Eyes: + anicteric sclerae; normal pupil size ENMT: Mouth: + dry oral mucous membranes Neck: trachea midline, no thyromegaly Respiratory: normal respiratory effort and able to speak in complete sentences; no respiratory distress Auscultation: + crackles (bibasal); no diminished lung sounds, no rales, no rhonchi and no wheezes Cardiovascular: Rate/Rhythm: regular rate and regular rhythm Heart Sounds: + murmur (systolic loudest LUSB 3/6) Vessels: no JVD Extremities: normal capillary refill and + pedal edema (trace pre-tibial b/l equal); no calf tenderness Gastrointestinal (Abdomen): Inspection/Auscultation: abdomen normal to inspection; abdomen not distended Percussion/Palpation: + abdomen tender (lower without rebound tenderness) and abdomen soft; no guarding and abdomen not rigid Musculoskeletal: no cyanosis or clubbing, extremities motor strength 5/5 Skin: no rashes, warm and dry Neurologic: moves all extremities and awake; not confused Psychiatric: A+Ox3, euthymic affect Results & Data Results & Data ([facility]) Vital Signs (Past 12 Hours) Vital Signs Temp Pulse Resp BP BP Pulse Ox 06/23/21 09:50 107 H 97/59 L 06/23/21 09:04 106 H 87/53 L 92/56 L 06/23/21 09:03 109 H 95/58 L 06/23/21 07:12 36.5 C 110 H 18 96/60 L 93 PG Care Time/CCT Total # of Minutes Spent Total Time Spent with Patient: Total time spent is greater than 50% in coordination of care (as documented) at patient's floor/unit and/or counseling patient: Coding Level of Care Code 18449 Subseq Hosp Care Lvl 2 Diagnoses Pancolitis K51.00 RON (acute kidney injury) N17.9 Pneumonia J18.9 Laterality: right Lung location: unspecified part of lung Pneumonia type: due to unspecified organism Hypertension I10 Emphysema/COPD J43.9 Aortic stenosis I35.0 (1) Pneumonia Laterality: right Lung location: unspecified part of lung Pneumonia type: due to unspecified organism Qualified Code(s): J18.9 - Pneumonia, unspecified organism
[2021-06-23 17:02] LABS: BUN Creatinine Ratio 30.9 (10-20); Calcium 8.1 mg/dl (8.5-10.1); Creatinine Clr Calc Pharmacy 28.8 ml/min; Est GFR (African American) 38.3 ml/min; Est GFR (Non-African American) 33.1 ml/min; Potassium 3.4 mmol/L (3.5-5.1)
[2021-06-23] MEDS: ACETAMINOPHEN 325 MG TAB PO PRN (17:32)
[2021-06-23] MEDS: CLOPIDOGREL BISULFATE 75 MG TAB PO SCH (20:45)
--- NOTE | 2021-06-23 22:15 | Electrocardiogram Report ---
Test Reason : Blood Pressure : / mmHG Vent. Rate : 099 BPM Atrial Rate : 099 BPM P-R Int : 234 ms QRS Dur : 144 ms QT Int : 372 ms P-R-T Axes : 049 -73 057 degrees QTc Int : 477 ms Sinus rhythm with 1st degree A-V block Right bundle branch block Left anterior fascicular block Bifascicular block Abnormal ECG When compared with ECG of 10-JUL-2019 13:07, T wave inversion no longer evident in Inferior leads Confirmed by Talha Willoughby ([id number]) on 06/23/2021 10:15:43 PM Referred By: Ramses Grady Confirmed By:Talha Willoughby
[2021-06-23] MEDS: MELATONIN 3 MG TAB PO PRN (22:48)
[2021-06-24] MEDS: LACTATED RINGER'S 1,000 ML IV SCH ×2 (02:45→05:37)
[2021-06-24] MEDS: RASPBERRY SYRUP 5 ML UDP PO SCH (05:37)
[2021-06-24] MEDS: VANCOMYCIN HCL 500 MG/10 ML SOLN PO SCH (05:37)
[2021-06-24 06:46] LABS: Hemoglobin 9.8 g/dL (14.0-18.0); Mean Corpuscular Hemoglobin 29.2 pg (25-34); Mean Corpuscular Hgb Conc 33.8 g/dL (32-36); Mean Corpuscular Volume 86.3 fL (80-100); Mean Platelet Volume 9.9 fL (7.4-10.4); Platelet Count 242 K/uL (130-400); RDW Coefficient of Variation 14.7 % (11.5-14.5); RDW Standard Deviation 46.9 fL (36.4-46.3); Red Blood Count 3.36 M/uL (4.7-6.1); White Blood Count 33.33 K/uL (4.8-10.8)
[2021-06-24 06:48] LABS: BUN Creatinine Ratio 32.7 (10-20); Calcium 7.4 mg/dl (8.5-10.1); Est GFR (African American) 40.3 ml/min; Est GFR (Non-African American) 34.7 ml/min; Magnesium 1.9 mg/dl (1.7-2.4); Potassium 3.7 mmol/L (3.5-5.1)
[2021-06-24 07:00] LABS: Acanthocytes 1+; Basophils # (auto) 0.02 K/uL (0-0.2); Basophils % (auto) 0.1 %; Dohle Bodies 1+; Echinocytes 1+; Eosinophils # (auto) 0.01 K/uL (0-0.5); Immature Granulocytes # (auto) 0.13 K/uL (0.00-0.02); Immature Granulocytes % (auto) 0.4 %; Lymphocytes # (auto) 0.45 K/uL (1.2-3.4); Lymphocytes % (auto) 1.4 %; Monocytes # (auto) 1.77 K/uL (0.11-0.59); Monocytes % (auto) 5.3 %; Neutrophils # (auto) 30.95 K/uL (1.4-6.5); Neutrophils % (auto) 92.8 %
[2021-06-24] MEDS: metroNIDAZOLE 500 MG/100 ML BAG IV SCH ×3 (08:32→23:17)
[2021-06-24] MEDS: UMECLIDINIUM BROMIDE 62.5MCG/BLISTER 7 PUFFS/INHALER INH SCH (08:37)
[2021-06-24] MEDS: FLUTICASONE/VILANTEROL 200/25MCG 14 PUFFS/INHALER INH SCH (08:37)
[2021-06-24] MEDS: MONTELUKAST SODIUM 10 MG TABLET PO SCH (08:38)
[2021-06-24] MEDS: FINASTERIDE 5 MG TAB PO SCH (08:39)
[2021-06-24] MEDS: HEPARIN SOD 5,000 UNIT/0.5 ML VIAL SQ SCH ×2 (08:39→20:53)
[2021-06-24] MEDS: TAMSULOSIN HCL 0.4 MG CAP PO SCH (08:39)
[2021-06-24] MEDS: PANTOprazole 40 MG TAB PO SCH (08:39)
[2021-06-24] MEDS: ATORVASTATIN 40 MG TAB PO SCH (08:39)
[2021-06-24 08:46] LABS: Base Excess ABG -4.8 mEq/L (-9-1.8); HCO3 ABG 18 mmol/L (19-24); Oxygen Saturation ABG 89.6 % (90-95); PCO2 ABG 25 mmHg (35-46); PO2 ABG 61 mmHg (80-95); pH ABG 7.46 (7.35-7.45)
--- NOTE | 2021-06-24 08:50 | XRay Report ---
XR chest 1V portable CLINICAL HISTORY: hypoxia ?worsening pneumonia. COMPARISON STUDY: 06/22/2021 TECHNIQUE: 1 view of the chest FINDINGS: Single frontal view of the chest demonstrates the cardiomediastinal silhouette to be within normal li mits. There is a decreased inspiratory effort with elevation of the hemidiaphragms and crowding of th e bronchovascular markings at the lung bases and centrally. Compared to previous study, right middle lobe alveolar opacity is unchanged. The remainder of the lungs are clear. There is no evidence for pl eural effusion. There is no evidence for vascular congestion. There is no acute osseous pathology. IMPRESSION: 1. Decreased inspiration with no change in appearance of right middle lobe alveolar opacity. ACT 112: Negative or not required by law. Electronically signed by: Marcus Neri M.D. 06/24/2021 8:49 AM
[2021-06-24 08:59] LABS: Allen Test Pos (Pos)
--- NOTE | 2021-06-24 09:26 | CT Scan Report ---
CT chest diagnostic wo con CLINICAL HISTORY: Hypoxia and shortness of breath. Evaluate for possible right middle lobe pneumonia. COMPARISON STUDY: Portable chest from 06/24/[address] chest from 06/09/2021 CT DOSE: 1207.72 mGy.cm TECHNIQUE: Standard CT of the Chest was performed without IV contrast. A dose lowering technique was utilized adhering to the principles of ALARA. FINDINGS: Airway: The airway is clear. No endobronchial lesion is identified. Lungs: Compared to the previous CT examination, right middle lobe alveolar opacity has resolved and m ost likely represented atelectasis. However, there is now a confluent alveolar opacity within the rig ht lower lobe posterior to the hemidiaphragm. Air bronchograms are seen. The findings are characteris tic of interval pneumonia. There is also interval development of mild left basilar atelectasis. The remainder of the lungs are c lear. Pleura: There is no evidence for pleural effusion. There is no evidence for pneumothorax. Mediastinum: There is no evidence for pathologic adenopathy on these limited noncontrast images. Hear t is again enlarged with extensive coronary artery calcification present. There is no change in the a ppearance of the thoracic aorta. Extensive atherosclerotic calcification is present. There is no evid ence for pericardial effusion. Osseous structures: There is no acute osseous pathology. IMPRESSION: 1. Interval resolution of right middle lobe atelectasis. 2. Interval development of confluent alveolar opacity involving the right lower lobe with air broncho grams characteristic of pneumonia. 3. Left basilar atelectasis. 4. Cardiomegaly and extensive coronary artery calcification. ACT 112: Negative or not required by law. Electronically signed by: Marcus Neri M.D. 06/24/2021 9:24 AM
--- NOTE | 2021-06-24 09:40 | CT Scan Report ---
CT abd pelvis wo con CLINICAL HISTORY: c. diff, increasing WBC, assess for toxic megacolo COMPARISON STUDY: 06/22/2021 CT DOSE: TECHNIQUE: Standard CT of the Abdomen and Pelvis was performed without IV contrast. The patient did not receive oral contrast. A dose lowering technique was utilized adhering to the principles of NELLY Lima. FINDINGS: Abdominal cavity and bowel: There has been interval development of mild abdominal ascites with fluid seen over the dome of the liver. There has been significant interval worsening of mucosal thickening throughout the entire colon with increasing pericolonic inflammatory changes present. The findings are characteristic of worsening of C. difficile colitis. There is no evidence for toxic megacolon. Air-filled loops of small bowel are also present without evidence for significant dilatation. Liver: The liver is homogeneous in attenuation on these limited noncontrast images.. Spleen: The spleen is homogeneous in attenuation on these limited noncontrast images. Pancreas: The pancreas is homogeneous in attenuation on these limited noncontrast images. Gall Bladder: The gallbladder is grossly distended with minimal cholelithiasis again seen. Adrenal glands: Stable left adrenal nodule is present. Kidneys: There is no change in the appearance of the kidneys with perinephric stranding present. Ther e is no evidence for gross renal mass, calculus or hydronephrosis bilaterally. Bladder: There is no evidence for focal bladder wall thickening, calculus or diverticulum. : There is no evidence for pelvic mass or adenopathy. Vasculature: Aortobiiliac graft is again noted. Osseous structures: Degenerative changes are seen within the spine. IMPRESSION: 1. Marked interval worsening of diffuse colonic mucosal thickening and pericolonic inflammatory kemp es characteristic of significant worsening of C. difficile colitis. 2. No CT evidence for toxic megacolon. 3. Interval development of mild abdominal ascites. 4. No evidence for bowel obstruction. 5. Additional nonacute findings are again delineated above. ACT 112: Negative or not required by law. Electronically signed by: Marcus Neri M.D. 06/24/2021 9:38 AM
[2021-06-24] MEDS: FIDAXOMICIN 200 MG TAB PO SCH ×2 (10:35→20:53)
--- NOTE | 2021-06-24 10:42 | Surgery Consultation ---
Date of Consultation June 24, 2021 Assessment & Plan (1) C. difficile colitis: This is certainly worrisome particular if he continues to deteriorate. With his age and multiple comorbidities I doubt he would survive the surgery necessary for toxic megacolon. I would hold Plavix for now. We will contact the . Patient currently in no acute distress clinically but his numbers are worsening. Again I do not believe he would survive a subtotal colectomy and that would be the last resort. We will continue to follow along closely. Agree with IV and p.o. antibiotics and supportive care. (2) RON (acute kidney injury): (3) Pancolitis: (4) Pneumonia: (5) Emphysema/COPD: (6) Aortic stenosis: (7) Hypertension: (8) Chronic kidney disease: (9) AAA (abdominal aortic aneurysm) without rupture: (10) Obstructive sleep apnea of adult: (11) Asthma: History of Present Illness Attending Physician: Juan J Johnston MD History of Present Illness Consult for worsening C. difficile colitis. Patient had recently been on antibiotics for pneumonia. Patient states several weeks of loose bowel movements. Today his blood pressure dropped slightly and he has been tachycardic. His CT scan shows worsening pancolitis. Currently no evidence of toxic megacolon. His main complaint is loose bowel movements. Complains of minimal abdominal pain. Allergies Allergy/AdvReac Type Severity Reaction Status Date / Time Penicillins Allergy Mild Rash Verified 06/22/21 16:14 Home Medications Medication Instructions Recorded Confirmed Type clopidogrel 75 mg tablet (Plavix) 75 mg PO QPM 11/24/18 06/22/21 History pantoprazole 40 mg tablet,delayed 40 mg PO QAM tab 11/24/18 06/22/21 History release (Protonix) tamsulosin 0.4 mg capsule 0.4 mg PO QAM #30 cap 11/24/18 06/22/21 History montelukast 10 mg tablet 10 mg PO QAM 03/27/19 06/22/21 History CPAP Machine #1 ea 04/13/19 06/12/21 Rx fluticasone furoate 200 1 ea INHALATION QAM 07/10/19 06/22/21 History mcg-vilanterol 25 mcg/dose inhalation powder (Breo Ellipta) hydrochlorothiazide 12.5 mg tablet 12.5 mg PO QAM 07/10/19 06/22/21 History hydrocodone 5 mg-acetaminophen 325 1 tab PO DAILY PRN 07/10/19 06/22/21 History mg tablet tiotropium bromide 18 mcg capsule 1 cap INHALATION QAM 07/10/19 06/22/21 History with inhalation device (Spiriva with HandiHaler) losartan 100 mg tablet 100 mg PO DAILY #90 tab 06/22/20 06/22/21 Rx doxycycline hyclate 100 mg capsule 100 mg PO BID #14 cap 06/20/21 06/22/21 Rx amlodipine 5 mg tablet 5 mg PO DAILY 06/22/21 06/22/21 History atorvastatin 80 mg tablet 80 mg PO DAILY 06/22/21 06/22/21 History finasteride 5 mg tablet 5 mg PO DAILY 06/22/21 06/22/21 History nitroglycerin 0.4 mg sublingual 0.4 mg SUBLINGUAL UD PRN 06/22/21 06/22/21 History tablet Patient History Medical History AAA (abdominal aortic aneurysm) 5.2 x 4.9 cm infrarenal AAA per 01/2020 CTA Asthma stable 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)- on plavix GERD (gastroesophageal reflux disease) Hearing deficit B/L CORBIN History of malignant melanoma HTN (hypertension) Hyperlipidemia Mild aortic stenosis Mild aortic stenosis (CHE 2.1 cm, MG 11.4 mmHg) per 05/08/17 echo Osteoarthritis Paralysis of left vocal cord Sleep apnea CPAP Surgical History History of cataract surgery History of colonoscopy History of elbow surgery Rt History of hernia repair Lt inguinal History of melanoma excision History of repair of rotator cuff Lt History of revision of total knee arthroplasty R/L History of total knee arthroplasty R/L S/P AAA repair Percutaneous Endovascular Aortic Aneurysm Repair, Mechanical Closure of Bilateral Femoral Arteries Dr. Vera Family History Brother Myocardial infarction Acquired amyotrophic lateral sclerosis Sister Glioblastoma multiforme of brain Diabetes Cancer 4 sisters Mother Diabetes Heart disease Stroke Hypertension Other No family history of adverse response to anesthesia No family history of bleeding disorder Social History Smoking Status: Former smoker Tobacco Type: Cigarettes Number of Years Since Quit: 33; Second Hand Exposure: Yes (as a child); Hx Alcohol Use: No Hx Substance Use: No Preferred Language: Yi Communication Ability: Effective Visual Impairment: No Limitations Branch Controller Required: No Beliefs That Will Affect Care: None marital status: Current Living Situation: Spouse 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 How many Children do You have: 1 Feels Safe at Home: Yes Assistive Devices: None Review of Systems Review of Systems: All systems reviewed & are unremarkable except as noted in HPI & below Physical Exam Constitutional: WD/WN, vitals as above no acute distress and not ill appearing Eyes: PERRL, conjunctivae normal, anicteric sclerae EOM intact bilaterally ENMT: external ear and nose normal, oropharynx normal Ears: no hearing impairment Neck: trachea midline, no thyromegaly Respiratory: normal respiratory effort; no respiratory distress and does not use accessory muscles Cardiovascular: Rate/Rhythm: regular rate and regular rhythm Gastrointestinal (Abdomen): Soft. Minimal distention. Very minimal lower abdominal tenderness. No guarding. No peritoneal signs. Skin: no rashes, warm and dry Psychiatric: Orientation: alert, oriented x 3 and cooperative Results & Data ([facility]) Vital Signs (Past 12 Hours) Vital Signs Temp Pulse Resp BP Pulse Ox 06/24/21 07:40 37.1 C 102 H 12 99/62 L 92 PG Care Time/CCT Total # of Minutes Spent Total Time Spent with Patient: Total time spent is greater than 50% in coordination of care (as documented) at patient's floor/unit and/or counseling patient: Coding Level of Care Code 61466 Initial Inpt Care Lvl 3 Diagnoses C. difficile colitis A04.72 RON (acute kidney injury) N17.9 Pancolitis K51.00 Pneumonia J18.9 Laterality: right Lung location: unspecified part of lung Pneumonia type: due to unspecified organism Emphysema/COPD J43.9 Aortic stenosis I35.0 Hypertension I10 Chronic kidney disease N18.9 AAA (abdominal aortic aneurysm) without rupture I71.4 Obstructive sleep apnea of adult G47.33 Asthma J45.909 (1) Pneumonia Laterality: right Lung location: unspecified part of lung Pneumonia type: due to unspecified organism Qualified Code(s): J18.9 - Pneumonia, unspecified organism
--- NOTE | 2021-06-24 10:59 | Hospitalist Progress Note ---
Date of Service June 24, 2021 Assessment & Plan (1) Pancolitis: Plan: C. diff toxin positive. Despite treatment with PO vancomycin and IV metronidazole his WBC concerningly increased today. Repeat CT this morning without ileus or toxic megacolon however given worsening clinical state on PO vancomycin will switch to PO Dificid and give vancomycin enema. Discussed concerning prognosis with his and they both want everything possibly done. Consult general surgery - discussed case with Dr Andrews Contact c. diff isolation precautions (2) RON (acute kidney injury): Plan: Suspect pre-renal due to fluid loss from diarrhea, however lack of rapidly reversible Cr suggest an additional ATN component No obstructive cause seen on CT Lactate 1.4 on admission, repeat today 0.8 Continue to hold amlodipine, losartan and HCTZ Start Sodium bicarb drip @ 80ml/hr, if profuse watery diarrhea continues may need to increase rate (3) Pneumonia: Plan: Middle lobe resolved on imaging. Concerning worsening right lower lobe air bronchograms - atelectasis vs. pneumonia vs. aspiration. SLT assessment Will defer antibiotics currently as worsening c. diff certainly of more concern, even if true bacterial pneumonia present it is highly unlikely to be causing his worsening WBC. (4) Hypertension: Plan: Relatively low blood pressure in setting of diarrhea, RON and fluid loss will hold amlodipine, losartan and HCTZ as above. IV fluids as above. He appears to be euvolemic currently. (5) Emphysema/COPD: Plan: No acute exacerbation appreciated Continue his routine maintenance inhalers with Spiriva and Breo Ellipta or hospital formulary equivalent (6) Aortic stenosis: Plan: Noted mod-severe on echo 03/2020 Plan: VTE Prophylaxis - heparin 5000 units SQ BID Diet - regular Disposition - transfer to PCU Admission and Anticipated Discharge Date Admission Date: June 22, 2021 Subjective Stable HR and BP overnight however patient feels more lethargic and less of an appetite today. No significant abdominal pain. Ongoing watery diarrhea this morning but appears to be improving throughout the day.. WBC increased to 33.33 today. Review of Systems Review of Systems: All systems reviewed & are unremarkable except as noted in Subjective Physical Exam Constitutional: WD/WN, vitals as above no acute distress Eyes: + anicteric sclerae; normal pupil size ENMT: Mouth: oral mucous membranes not dry Neck: trachea midline, no thyromegaly Respiratory: normal respiratory effort and able to speak in complete sentences; no respiratory distress Auscultation: + crackles (bibasal); no diminished lung sounds, no rales, no rhonchi and no wheezes Cardiovascular: Rate/Rhythm: regular rate and regular rhythm Heart Sounds: + murmur (systolic loudest LUSB 3/6) Vessels: no JVD Extremities: normal capillary refill and + pedal edema (trace pre-tibial b/l equal); no calf tenderness Gastrointestinal (Abdomen): Inspection/Auscultation: abdomen normal to inspection; abdomen not distended Percussion/Palpation: + abdomen tender (lower without rebound tenderness) and abdomen soft; no guarding and abdomen not rigid Musculoskeletal: no cyanosis or clubbing, extremities motor strength 5/5 Skin: no rashes, warm and dry Neurologic: moves all extremities and awake; not confused Psychiatric: A+Ox3, euthymic affect Genitourinary: no CVA tenderness Results & Data Results & Data ([facility]) Vital Signs (Past 12 Hours) Vital Signs Temp Pulse Resp BP BP Pulse Ox 06/24/21 10:37 36.9 C 106 H 18 90/56 L 93 06/24/21 07:40 37.1 C 102 H 12 99/62 L 92 PG Care Time/CCT Total # of Minutes Spent Total Time Spent with Patient: Total time spent is greater than 50% in coordination of care (as documented) at patient's floor/unit and/or counseling patient: Coding Level of Care Code 65618 Subseq Hosp Care Lvl 3 Diagnoses Pancolitis K51.00 RON (acute kidney injury) N17.9 Pneumonia J18.9 Laterality: right Lung location: unspecified part of lung Pneumonia type: due to unspecified organism Hypertension I10 Emphysema/COPD J43.9 Aortic stenosis I35.0 (1) Pneumonia Laterality: right Lung location: unspecified part of lung Pneumonia type: due to unspecified organism Qualified Code(s): J18.9 - Pneumonia, unspecified organism
[2021-06-24] MEDS ORDERED: STAT IV STA (15:20)
[2021-06-24] MEDS: SODIUM BICARBONATE 8.4% 150 MEQ in DEXTROSE 5% 1,000 ML IV SCH (17:02)
[2021-06-24] MEDS ORDERED: VANCOMYCIN HCL 500 MG/100 ML ENEMA PR ONE (17:23)
[2021-06-24] MEDS ORDERED: LEVALBUTEROL 0.31MG/3 ML VIAL NEB STA (20:03)
--- NOTE | 2021-06-24 20:15 | Communication Note ---
Date of Service: June 24, 2021 exam: no crackles Exp wheezes/rhonchi at bases. Diffusely diminished lungs. Slightly tachycardic rate. No LE edema. no bunn at this time Xopenex breathing treatment cbc, cmp, lactate ordered pneumonia? per ct chest: resp biofire. sputum cultures. blood cultures. nasal mrsa. spoke to daytime hospitalist. no abx for this at this time as c dif colitis most likely cause of patient's worsening sepsis. additional abx would potentially worsen the c dif. worsening c dif colitis: oral vanc 500mg q6+fidaxomicin bid+IV flagyl discussed w/ pharmacy: oral vanc preferred over rectal vanc. patient tolerating oral vanc and w/o ileus. Initial day plan of oral vanc changing to PO fidaxomycin + rectal vanc. for fulminant c diff, po vanc + IV flagyl are first- line, so changed back from rectal vanc. Keeping the fidaxomicin in addition to the oral vanc and flagyl. Discussed w/ night attending. Consider use of IVIG for fulminant c dif. afib rvr 110s: 2.5 mg dose of Lopressor IV provided. Lio Paul PGY2 night resident
[2021-06-24] MEDS ORDERED: LEVALBUTEROL 0.31MG/3 ML VIAL ONE (20:23)
[2021-06-24 20:57] LABS: Base Excess ABG -4.3 mEq/L (-9-1.8); HCO3 ABG 18 mmol/L (19-24); Oxygen Saturation ABG 97.8 % (90-95); PCO2 ABG 26 mmHg (35-46); PO2 ABG 95 mmHg (80-95); pH ABG 7.46 (7.35-7.45)
[2021-06-24 20:58] LABS: Allen Test Pos (Pos)
[2021-06-24 21:09] LABS: Hematocrit (blood only) 28.8 % (42-52); Hemoglobin 9.8 g/dL (14.0-18.0); Mean Corpuscular Hemoglobin 29.3 pg (25-34); Mean Corpuscular Volume 86.2 fL (80-100); Mean Platelet Volume 9.9 fL (7.4-10.4); Platelet Count 252 K/uL (130-400); RDW Coefficient of Variation 14.8 % (11.5-14.5); RDW Standard Deviation 47.2 fL (36.4-46.3); Red Blood Count 3.34 M/uL (4.7-6.1); White Blood Count 37.28 K/uL (4.8-10.8)
[2021-06-24] MEDS: SODIUM CHLOR 7% 4 ML NEB NEB SCH ×2 (21:09→21:13)
[2021-06-24 21:11] LABS: Basophils # (auto) 0.02 K/uL (0-0.2); Basophils % (auto) 0.1 %; Echinocytes 2+; Eosinophils # (auto) 0.03 K/uL (0-0.5); Eosinophils % (auto) 0.1 %; Immature Granulocytes # (auto) 0.32 K/uL (0.00-0.02); Immature Granulocytes % (auto) 0.9 %; Lymphocytes # (auto) 1.17 K/uL (1.2-3.4); Lymphocytes % (auto) 3.1 %; Monocytes # (auto) 0.88 K/uL (0.11-0.59); Monocytes % (auto) 2.4 %; Neutrophils # (auto) 34.86 K/uL (1.4-6.5); Neutrophils % (auto) 93.4 %
[2021-06-24 21:15] LABS: Albumin Level 2.3 gm/dl (3.4-5.0); BUN Creatinine Ratio 32.4 (10-20); Bilirubin,Total 0.4 mg/dl (0.2-1.0); Calcium 7.1 mg/dl (8.5-10.1); Creatinine Clr Calc Pharmacy 28.2 ml/min; Est GFR (African American) 37.3 ml/min; Est GFR (Non-African American) 32.2 ml/min; Globulin 2.2 gm/dl (2.5-4.0); Potassium 3.5 mmol/L (3.5-5.1); Total Protein 4.5 gm/dl (6.0-8.3)
[2021-06-24] MEDS ORDERED: VANCOMYCIN HCL 500 MG/10 ML SOLN PO STA (21:31)
[2021-06-24] MEDS ORDERED: RASPBERRY SYRUP 5 ML UDP PO STA (21:31)
[2021-06-24 22:17] LABS: Adenovirus PCR Not Detected (NotDetected); Bordetella parapertussis PCR Not Detected (NotDetected); Bordetella pertussis PCR Not Detected (NotDetected); Chlamydia pneumoniae PCR Not Detected (NotDetected); Coronavirus 229E PCR Not Detected (NotDetected); Coronavirus CoV-2 (COVID19)PCR Not Detected (NotDetected); Coronavirus HKU1 PCR Not Detected (NotDetected); Coronavirus NL63 PCR Not Detected (NotDetected); Coronavirus OC43PCR Not Detected (NotDetected); Human Metapneumovirus PCR Not Detected (NotDetected); Influenza A PCR Not Detected (NotDetected); Influenza B PCR Not Detected (NotDetected); Mycoplasma pneumoniae PCR Not Detected (NotDetected); Parainfluenza Virus 1 PCR Not Detected (NotDetected); Parainfluenza Virus 2 PCR Not Detected (NotDetected); Parainfluenza Virus 3 PCR Not Detected (NotDetected); Parainfluenza Virus 4 PCR Not Detected (NotDetected); Respiratory Syncytial VirusPCR Not Detected (NotDetected); Rhinovirus/Enterovirus PCR Not Detected (NotDetected)
[2021-06-24] MEDS ORDERED: POTASSIUM CHLORIDE CRTAB 20 MEQ TABCR PO STA (22:50)
[2021-06-24] MEDS ORDERED: METOPROLOL TARTRATE 1 MG/ML VIAL IV STA (22:50)
[2021-06-24] MEDS: ACETAMINOPHEN 325 MG TAB PO PRN (23:12)
[2021-06-25] MEDS ORDERED: VANCOMYCIN HCL 500 MG/100 ML ENEMA PR SCH
[2021-06-25] MEDS: LEVALBUTEROL HCL 1.25 MG/3 ML NEB NEB SCH ×4 (00:17→19:14)
[2021-06-25] MEDS: RASPBERRY SYRUP 5 ML UDP PO SCH ×4 (00:29→18:23)
[2021-06-25] MEDS: VANCOMYCIN HCL 500 MG/10 ML SOLN PO SCH ×4 (00:29→18:22)
[2021-06-25] MEDS ORDERED: LEVALBUTEROL 0.31MG/3 ML VIAL NEB SCH (01:00)
[2021-06-25] MEDS: SODIUM BICARBONATE 8.4% 150 MEQ in DEXTROSE 5% 1,000 ML IV SCH (03:54)
[2021-06-25] MEDS: SODIUM CHLOR 7% 4 ML NEB NEB SCH ×2 (07:05→19:14)
[2021-06-25 07:20] LABS: Hematocrit (blood only) 28.5 % (42-52); Hemoglobin 9.6 g/dL (14.0-18.0); Mean Corpuscular Hemoglobin 28.8 pg (25-34); Mean Corpuscular Hgb Conc 33.7 g/dL (32-36); Mean Corpuscular Volume 85.6 fL (80-100); Mean Platelet Volume 9.8 fL (7.4-10.4); Platelet Count 232 K/uL (130-400); RDW Standard Deviation 47.1 fL (36.4-46.3); Red Blood Count 3.33 M/uL (4.7-6.1); White Blood Count 33.17 K/uL (4.8-10.8)
--- NOTE | 2021-06-25 07:34 | Electrocardiogram Report ---
Test Reason : Blood Pressure : / mmHG Vent. Rate : 117 BPM Atrial Rate : 089 BPM P-R Int : 000 ms QRS Dur : 128 ms QT Int : 336 ms P-R-T Axes : 000 -67 084 degrees QTc Int : 468 ms Atrial fibrillation with rapid ventricular response Left axis deviation Non-specific intra-ventricular conduction block Abnormal ECG When compared with ECG of 22-JUN-2021 23:48, Atrial fibrillation has replaced Sinus rhythm Non-specific intra-ventricular conduction block has replaced Right bundle branch block Confirmed by James Bob ([id number]) on 06/25/2021 7:33:42 AM Referred By: Ramses Grady Confirmed By:Robbie Bob
[2021-06-25 07:41] LABS: BUN Creatinine Ratio 31.2 (10-20); Calcium 7.2 mg/dl (8.5-10.1); Creatinine Clr Calc Pharmacy 25.8 ml/min; Est GFR (African American) 33.5 ml/min; Est GFR (Non-African American) 28.9 ml/min; Phosphorus 3.3 mg/dl (2.5-4.9); Potassium 3.4 mmol/L (3.5-5.1)
[2021-06-25 07:45] LABS: Acanthocytes 1+; Basophils # (auto) 0.03 K/uL (0-0.2); Basophils % (auto) 0.1 %; Dohle Bodies 1+; Eosinophils # (auto) 0.08 K/uL (0-0.5); Eosinophils % (auto) 0.2 %; Immature Granulocytes # (auto) 0.42 K/uL (0.00-0.02); Immature Granulocytes % (auto) 1.3 %; Lymphocytes # (auto) 0.86 K/uL (1.2-3.4); Lymphocytes % (auto) 2.6 %; Monocytes # (auto) 1.34 K/uL (0.11-0.59); Neutrophils # (auto) 30.44 K/uL (1.4-6.5); Neutrophils % (auto) 91.8 %
--- NOTE | 2021-06-25 08:56 | Surgery Progress Note ---
Date of Service June 25, 2021 Assessment & Plan (1) C. difficile colitis: Plan: Very difficult scenario. His vital signs and lab work are very concerning for deterioration. High mortality rate in the current condition. However I do not believe he could survive a subtotal colectomy. I discussed this with his . Since he is not in pain and he believes his bowel movements are improving I think the best course of action would be to continue conservative management. If he deteriorates further we will have to make a decision regarding surgery but again I do not believe he could survive an exploratory laparotomy with subtotal colectomy and permanent ileostomy. The and he understand all of this and are in agreement. We will continue to monitor closely. (2) RON (acute kidney injury): (3) Pancolitis: (4) Pneumonia: (5) Emphysema/COPD: (6) Hypertension: Admission and Anticipated Discharge Date Admission Date: June 22, 2021 Subjective pt seen. at bedside. awake. denies pain. believes he is having less bm's. no new complaints. Physical Exam Physical Exam: alert. oriented. CPAP machine on. abd: soft. mildly distended. non-tender. Results & Data ([facility]) Vital Signs (Past 12 Hours) Vital Signs Temp Pulse Pulse Resp BP BP BP 06/25/21 08:02 111 H 24 122/72 06/25/21 07:07 96 H 18 06/25/21 03:28 37.0 C 93 H 20 99/58 L 06/25/21 00:31 102 H 20 06/24/21 23:10 118 H 97/66 L 06/24/21 22:22 38.0 C H 112 H 20 93/59 L 06/24/21 21:14 112 H 20 Pulse Ox 06/25/21 08:02 90 06/25/21 07:07 94 06/25/21 03:28 94 06/25/21 00:31 97 06/24/21 23:10 06/24/21 22:22 100 06/24/21 21:14 97 PG Care Time/CCT Total # of Minutes Spent Total Time Spent with Patient: Total time spent is greater than 50% in coordination of care (as documented) at patient's floor/unit and/or counseling patient: Coding Level of Care Code 81933 Subseq Hosp Care Lvl 3 Diagnoses C. difficile colitis A04.72 RON (acute kidney injury) N17.9 Pancolitis K51.00 Pneumonia J18.9 Laterality: right Lung location: unspecified part of lung Pneumonia type: due to unspecified organism Emphysema/COPD J43.9 Hypertension I10 (1) Pneumonia Laterality: right Lung location: unspecified part of lung Pneumonia type: due to unspecified organism Qualified Code(s): J18.9 - Pneumonia, unspecified organism
[2021-06-25] MEDS: FIDAXOMICIN 200 MG TAB PO SCH ×2 (09:06→21:39)
[2021-06-25] MEDS: metroNIDAZOLE 500 MG/100 ML BAG IV SCH ×2 (09:06→15:03)
[2021-06-25] MEDS: HEPARIN SOD 5,000 UNIT/0.5 ML VIAL SQ SCH ×2 (09:07→21:39)
[2021-06-25] MEDS: PANTOprazole 40 MG TAB PO SCH (09:07)
[2021-06-25] MEDS: MONTELUKAST SODIUM 10 MG TABLET PO SCH (09:07)
[2021-06-25] MEDS: UMECLIDINIUM BROMIDE 62.5MCG/BLISTER 7 PUFFS/INHALER INH SCH (09:07)
[2021-06-25] MEDS: FLUTICASONE/VILANTEROL 200/25MCG 14 PUFFS/INHALER INH SCH (09:08)
[2021-06-25] MEDS: FINASTERIDE 5 MG TAB PO SCH (09:08)
[2021-06-25] MEDS: ATORVASTATIN 40 MG TAB PO SCH (09:08)
[2021-06-25] MEDS: TAMSULOSIN HCL 0.4 MG CAP PO SCH (09:08)
--- NOTE | 2021-06-25 09:55 | Nephrology Consultation ---
Date of Consultation June 25, 2021 Assessment & Plan (1) RON (acute kidney injury): * Oliguric RON due to multiple factors including severe C. Difficile colitis, dehydration, relative hypotension in the setting of ARB therapy * Agree w/ stopping Losartan and HCTZ * Will repeat urinalysis to check for granular casts * 06/24/[address] revealed renal cortical atrophy and 9 mm AML of L kidney but no stone or hydronephrosis * BP and serum HCO3 have nearly corrected. Agree w/ holding IVF once current bag NaHCO3 completes infusion * Monitor PRP, UO (2) Chronic kidney disease, stage II (mild): * CKD stage GII/A1 w/ baseline Cr 1.0 and EGFR 71 cc/min. Prior urinalysis has been negative for blood or protein. 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 difficile colitis: * Managed w/ po Vanco + Dificid and IV Flagyl (4) Pneumonia: * RML pneumonia resolving History of Present Illness Reason for Consultation: RON/CKD Attending Physician: Juan J Johnston MD History of Present Illness Mr. Bowie is an 89 year old white male who is seen at the request of Dr. Johnston for evaluation of RON/CKD. Medical records in the EMR were reviewed today and are summarized as follows: Mr. Bowie has CKD stage GII/A1 w/ baseline Cr 1.0 and EGFR 71 cc/min. Prior urinalysis has been negative for blood or protein. 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 His medical history is also significant for HTN (Losartan, HCTZ), COPD, CHIP, , AAA s/p PEVAR with aortobiiliac graft 03/31. Mr. Bowie was seen by his [employer] 06/12/21 and diagnosed w/ RML pneumonia. He was treated w/ Cefuroxime therapy. On 06/20/21 his symptoms persisted and his antibiotic was changed to Doxycycline. On 06/22/21 Mr. Bowie presented to the [facility] EMD w/ fever to 102, fatigue, mild dyspnea and watery diarrhea. WBC #19K. CXR revealed resolving RML pneumonia. Noncontrast abdominal CT revealed pancolitis and stool tested + for Clostridium Difficile. Tests for influenza/RSV/COVID were negative. Cr was 1.93 on admission and patient has remained oliguric. Mr. Bowie has been admitted to the hospitalist service and is currently being managed w/ oral Vancomycin, Dificid, IV Flagyl and IV NaHCO3 gtt. General Surgery is following in case colectomy is needed. Allergies Allergy/AdvReac Type Severity Reaction Status Date / Time Penicillins Allergy Mild Rash Verified 06/22/21 16:14 Home Medications Medication Instructions Recorded Confirmed Type clopidogrel 75 mg tablet (Plavix) 75 mg PO QPM 11/24/18 06/22/21 History pantoprazole 40 mg tablet,delayed 40 mg PO QAM tab 11/24/18 06/22/21 History release (Protonix) tamsulosin 0.4 mg capsule 0.4 mg PO QAM #30 cap 11/24/18 06/22/21 History montelukast 10 mg tablet 10 mg PO QAM 03/27/19 06/22/21 History CPAP Machine #1 ea 04/13/19 06/12/21 Rx fluticasone furoate 200 1 ea INHALATION QAM 07/10/19 06/22/21 History mcg-vilanterol 25 mcg/dose inhalation powder (Breo Ellipta) hydrochlorothiazide 12.5 mg tablet 12.5 mg PO QAM 07/10/19 06/22/21 History hydrocodone 5 mg-acetaminophen 325 1 tab PO DAILY PRN 07/10/19 06/22/21 History mg tablet tiotropium bromide 18 mcg capsule 1 cap INHALATION QAM 07/10/19 06/22/21 History with inhalation device (Spiriva with HandiHaler) losartan 100 mg tablet 100 mg PO DAILY #90 tab 06/22/20 06/22/21 Rx doxycycline hyclate 100 mg capsule 100 mg PO BID #14 cap 06/20/21 06/22/21 Rx amlodipine 5 mg tablet 5 mg PO DAILY 06/22/21 06/22/21 History atorvastatin 80 mg tablet 80 mg PO DAILY 06/22/21 06/22/21 History finasteride 5 mg tablet 5 mg PO DAILY 06/22/21 06/22/21 History nitroglycerin 0.4 mg sublingual 0.4 mg SUBLINGUAL UD PRN 06/22/21 06/22/21 History tablet Patient History Medical History AAA (abdominal aortic aneurysm) 5.2 x 4.9 cm infrarenal AAA per 01/2020 CTA Asthma stable 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)- on plavix GERD (gastroesophageal reflux disease) Hearing deficit B/L CORBIN History of malignant melanoma HTN (hypertension) Hyperlipidemia Mild aortic stenosis Mild aortic stenosis (CHE 2.1 cm, MG 11.4 mmHg) per 05/08/17 echo Osteoarthritis Paralysis of left vocal cord Sleep apnea CPAP Surgical History History of cataract surgery History of colonoscopy History of elbow surgery Rt History of hernia repair Lt inguinal History of melanoma excision History of repair of rotator cuff Lt History of revision of total knee arthroplasty R/L History of total knee arthroplasty R/L S/P AAA repair Percutaneous Endovascular Aortic Aneurysm Repair, Mechanical Closure of Bilateral Femoral Arteries Dr. Vera Family History Brother Myocardial infarction Acquired amyotrophic lateral sclerosis Sister Glioblastoma multiforme of brain Diabetes Cancer 4 sisters Mother Diabetes Heart disease Stroke Hypertension Other No family history of adverse response to anesthesia No family history of bleeding disorder Social History Smoking Status: Former smoker Tobacco Type: Cigarettes Number of Years Since Quit: 33; Second Hand Exposure: Yes (as a child); Hx Alcohol Use: No Hx Substance Use: No Preferred Language: Malian Communication Ability: Effective Visual Impairment: No Limitations Cerner Analyst Required: No Beliefs That Will Affect Care: None marital status: Current Living Situation: Spouse current occupational status: retired 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 How many Children do You have: 1 Feels Safe at Home: Yes Assistive Devices: None Review of Systems Constitutional: + weakness; no fever Eyes: no problem reported Ear, Nose, Mouth, Throat: no problem reported Respiratory: no cough and no dyspnea Cardiovascular: no chest pain, no palpitations and no edema Gastrointestinal: + abdominal pain and + diarrhea/loose stools Genitourinary: no dysuria, no urinary hesitancy or no hematuria Musculoskeletal: no back pain Integumentary: no rash Neurologic: no confusion Physical Exam Constitutional: + frail appearing; not in distress Eyes: PERRL, conjunctivae normal, anicteric sclerae ENMT: external ear and nose normal, oropharynx normal Neck: trachea midline, no thyromegaly Respiratory: normal respiratory effort, lungs clear to auscultation Cardiovascular: Rate/Rhythm: regular rate and regular rhythm Heart Sounds: + murmur Gastrointestinal (Abdomen): Inspection/Auscultation: + abdomen distended and + hypoactive bowel sounds Percussion/Palpation: + tympanic to percussion; no guarding Musculoskeletal: Extremities: no cyanosis Skin: no rashes, warm and dry Neurologic: awake; not confused Results & Data ([facility]) Vital Signs (Past 12 Hours) Vital Signs Temp Pulse Pulse Resp BP BP BP 06/25/21 08:02 111 H 24 122/72 06/25/21 07:07 96 H 18 06/25/21 03:28 37.0 C 93 H 20 99/58 L 06/25/21 00:31 102 H 20 06/24/21 23:10 118 H 97/66 L 06/24/21 22:22 38.0 C H 112 H 20 93/59 L Pulse Ox 06/25/21 08:02 90 06/25/21 07:07 94 06/25/21 03:28 94 06/25/21 00:31 97 06/24/21 23:10 06/24/21 22:22 100 Laboratory Results Laboratory Tests 06/22/21 06/23/21 06/24/21 15:00 01:47 06:02 WBC 19.39 H 33.33 H* Hgb Hct Plt Count Neut % (Auto) Sodium Potassium Chloride Carbon Dioxide BUN Creatinine Glucose Calcium Albumin Urine Color Dark Yellow Urine Appearance Clear Urine pH 5.0 Ur Specific [place] 1.019 Urine Protein Negative Urine Glucose (UA) Negative Urine Blood Negative Urine Nitrite Negative Ur Leukocyte Esterase Negative 06/24/21 06/24/21 06/25/21 20:35 20:35 06:42 WBC 37.28 H* Hgb Hct Plt Count Neut % (Auto) Sodium 133 L Potassium 3.4 L Chloride 103 Carbon Dioxide 21 BUN 62 H Creatinine 1.99 H Glucose 229 H Calcium 7.2 L Albumin 2.3 L Urine Color Urine Appearance Urine pH Ur Specific [place] Urine Protein Urine Glucose (UA) Urine Blood Urine Nitrite Ur Leukocyte Esterase 06/25/21 06:42 WBC 33.17 H* Hgb 9.6 L Hct 28.5 L Plt Count 232 Neut % (Auto) 91.8 Sodium Potassium Chloride Carbon Dioxide BUN Creatinine Glucose Calcium Albumin Urine Color Urine Appearance Urine pH Ur Specific [place] Urine Protein Urine Glucose (UA) Urine Blood Urine Nitrite Ur Leukocyte Esterase PG Care Time/CCT Total # of Minutes Spent Total Time Spent with Patient: Total time spent is greater than 50% in coordination of care (as documented) at patient's floor/unit and/or counseling patient: Coding Level of Care Code 90737 Inpt Consult Level 5 Diagnoses RON (acute kidney injury) N17.9 Chronic kidney disease, stage II (mild) N18.2 C. difficile colitis A04.72 Pneumonia J18.9 Laterality: right Lung location: unspecified part of lung Pneumonia type: due to unspecified organism (1) Pneumonia Laterality: right Lung location: unspecified part of lung Pneumonia type: due to unspecified organism Qualified Code(s): J18.9 - Pneumonia, unspecified organism
--- NOTE | 2021-06-25 13:38 | Hospitalist Progress Note ---
Date of Service June 25, 2021 Assessment & Plan (1) Pancolitis: Plan: C. diff toxin positive. Continue vancomycin 500mg PO QID + Dificid 200mg PO BID + Metronidazole 500mg IV q8h. Mild improvement in WBC today and stool improving but prognosis remains guarded. Discussed concerning prognosis with his and patient and they both want everything possibly done. Consult general surgery - agree patient would likely not make it through surgery therefore will continue with medical management at this time. Contact c. diff isolation precautions (2) RON (acute kidney injury): Plan: Suspect pre-renal due to fluid loss from diarrhea, however lack of rapidly reversible Cr suggest an additional ATN component No obstructive cause seen on CT Lactate 1.4 on admission, repeat 0.8 Continue to hold amlodipine, losartan and HCTZ Strict I&Os, significantly positive balance however urine output is not being measured accurately and he was having significant fluid loss from bowel previously Continue sodium bicarb for now, will defer further IV fluids to nephrology management Given continued trend upwards of creatinine will consult nephrology for additional recommendations (3) Pneumonia: Plan: Middle lobe resolved on imaging. Concerning worsening right lower lobe air bronchograms - atelectasis vs. pneumonia vs. aspiration. SLT assessment - no overt aspirations but planning on FEES tomorrow Antibiotics deferred currently as c. diff certainly of more concern, even if true bacterial pneumonia present it is highly unlikely to be driving his critical illness (4) Hypertension: Plan: Relatively low blood pressure in setting of diarrhea, RON and fluid loss will co ntinue to hold amlodipine, losartan and HCTZ as above. IV fluids as above. He appears to be euvolemic currently. (5) Emphysema/COPD: Plan: No acute exacerbation appreciated Continue his routine maintenance inhalers with Spiriva and Breo Ellipta or hospital formulary equivalent (6) Aortic stenosis: Plan: Noted mod-severe on echo 03/2020 Plan: VTE Prophylaxis - heparin 5000 units SQ BID Diet - low fiber Disposition - continue on PCU due to critically unwell illness, ok to stay throughout the night is she wishes given critically unwell state. Admission and Anticipated Discharge Date Admission Date: June 22, 2021 Subjective No abdominal pain, chest pain or shortness of breath. Bowels slightly more formed today. Fever 38.0 at 22:00 last night. Review of Systems Review of Systems: All systems reviewed & are unremarkable except as noted in Subjective Physical Exam Constitutional: WD/WN, vitals as above no acute distress ENMT: Mouth: oral mucous membranes not dry Respiratory: normal respiratory effort and able to speak in complete sentences; no respiratory distress Auscultation: + crackles (bibasal); no diminished lung sounds, no rales, no rhonchi and no wheezes Cardiovascular: Rate/Rhythm: regular rate and regular rhythm Heart Sounds: + murmur (systolic loudest LUSB 3/6) Vessels: no JVD Extremities: normal capillary refill and + pedal edema (trace pre-tibial b/l equal); no calf tenderness Gastrointestinal (Abdomen): Inspection/Auscultation: abdomen normal to inspection; abdomen not distended Percussion/Palpation: abdomen soft; abdomen nontender, no guarding and abdomen not rigid Musculoskeletal: no cyanosis or clubbing, extremities motor strength 5/5 Skin: no rashes, warm and dry Neurologic: moves all extremities and awake; not confused Psychiatric: A+Ox3, euthymic affect Results & Data Results & Data ([facility]) Vital Signs (Past 12 Hours) Vital Signs Temp Pulse Resp BP BP Pulse Ox 06/25/21 13:27 107 H 18 95 06/25/21 12:02 36.5 C 108 H 20 132/72 98 06/25/21 08:02 111 H 24 122/72 90 06/25/21 07:07 96 H 18 94 06/25/21 03:28 37.0 C 93 H 20 99/58 L 94 PG Care Time/CCT Total # of Minutes Spent Total Time Spent with Patient: Total time spent is greater than 50% in coordination of care (as documented) at patient's floor/unit and/or counseling patient: Coding Level of Care Code 11734 Subseq Hosp Care Lvl 3 Diagnoses Pancolitis K51.00 RNO (acute kidney injury) N17.9 Pneumonia J18.9 Laterality: right Lung location: unspecified part of lung Pneumonia type: due to unspecified organism Hypertension I10 Emphysema/COPD J43.9 Aortic stenosis I35.0 (1) Pneumonia Laterality: right Lung location: unspecified part of lung Pneumonia type: due to unspecified organism Qualified Code(s): J18.9 - Pneumonia, unspecified organism
[2021-06-25] MEDS: POTASSIUM CHLORIDE CRTAB 20 MEQ TABCR PO SCH ×2 (15:03→21:39)
[2021-06-25] MEDS: ACETAMINOPHEN 325 MG TAB PO PRN (15:28)
[2021-06-25 19:21] LABS: Appearance Urine Cloudy (Clear); Bacteria Urine Automated Negative (Negative); Bilirubin Urine Negative (Negative); Blood Urine Negative (Negative); Color Urine Dark Yellow; Epithelial Cell Urine Auto >30 /lpf (0-5); Glucose Urine UA Negative (Negative); Ketones Urine Trace (Negative); Leukocyte Esterase Urine 1+ (Negative); Nitrite Urine Positive (Negative); Protein Urine Trace (Negative); RBC Urine Automated 0-4 /hpf (0-4); Specific Gravity Urine 1.017 (1.000-1.030); Urobilinogen Urine Negative (Negative)
[2021-06-26] MEDS: metroNIDAZOLE 500 MG/100 ML BAG IV SCH ×3 (00:31→16:43)
[2021-06-26] MEDS: VANCOMYCIN HCL 500 MG/10 ML SOLN PO SCH ×4 (00:32→17:49)
[2021-06-26] MEDS: RASPBERRY SYRUP 5 ML UDP PO SCH ×4 (00:32→17:49)
[2021-06-26] MEDS: LEVALBUTEROL HCL 1.25 MG/3 ML NEB NEB SCH ×4 (00:41→19:32)
[2021-06-26] MEDS: SODIUM CHLOR 7% 4 ML NEB NEB SCH (06:58)
[2021-06-26 07:50] LABS: BUN Creatinine Ratio 35.4 (10-20); Calcium 7.1 mg/dl (8.5-10.1); Creatinine Clr Calc Pharmacy 27.9 ml/min; Est GFR (Non-African American) 30.2 ml/min; Potassium 3.5 mmol/L (3.5-5.1)
[2021-06-26] MEDS: MONTELUKAST SODIUM 10 MG TABLET PO SCH (08:12)
[2021-06-26] MEDS: PANTOprazole 40 MG TAB PO SCH (08:12)
[2021-06-26] MEDS: TAMSULOSIN HCL 0.4 MG CAP PO SCH (08:12)
[2021-06-26] MEDS: FINASTERIDE 5 MG TAB PO SCH (08:12)
[2021-06-26] MEDS: HEPARIN SOD 5,000 UNIT/0.5 ML VIAL SQ SCH ×2 (08:13→20:57)
[2021-06-26] MEDS: ATORVASTATIN 40 MG TAB PO SCH (08:13)
[2021-06-26] MEDS: FLUTICASONE/VILANTEROL 200/25MCG 14 PUFFS/INHALER INH SCH (08:13)
[2021-06-26] MEDS: UMECLIDINIUM BROMIDE 62.5MCG/BLISTER 7 PUFFS/INHALER INH SCH (08:13)
[2021-06-26] MEDS: POTASSIUM CHLORIDE CRTAB 20 MEQ TABCR PO SCH ×2 (08:13→20:57)
--- NOTE | 2021-06-26 08:30 | Nephrology Progress Note ---
Date of Service June 26, 2021 Assessment & Plan (1) RON (acute kidney injury): Plan: * Oliguric RON due to multiple factors including severe C. Difficile colitis, dehydration, relative hypotension in the setting of ARB therapy * Urinalysis reveals granular casts c/w ATN * Continue to hold Losartan and HCTZ * 06/24/[address] revealed renal cortical atrophy and 9 mm AML of L kidney but no stone or hydronephrosis * BP and serum HCO3 have nearly corrected. Hold IVF, encourage oral hydration * Monitor PRP, UO (2) Chronic kidney disease, stage II (mild): Plan: * CKD stage GII/A1 w/ baseline Cr 1.0 and EGFR 71 cc/min. Prior urinalysis has been negative for blood or protein. 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 difficile colitis: Plan: * Managed w/ po Vanco + Dificid and IV Flagyl (4) Pneumonia: Plan: * RML pneumonia resolving Admission and Anticipated Discharge Date Admission Date: June 22, 2021 Subjective Mr. Bowie was evaluated in his hospital room this morning. He reports continued diarrhea but notes that his abdomen is less distended and uncomfortable Review of Systems Constitutional: + weakness; no fever Eyes: no problem reported Ear, Nose, Mouth, Throat: no problem reported Respiratory: no cough and no dyspnea Cardiovascular: no chest pain, no palpitations and no edema Gastrointestinal: + diarrhea/loose stools; no abdominal pain Genitourinary: no dysuria, no urinary hesitancy or no hematuria Musculoskeletal: no back pain Integumentary: no rash Neurologic: no confusion Physical Exam Constitutional: + frail appearing; not in distress Eyes: PERRL, conjunctivae normal, anicteric sclerae ENMT: external ear and nose normal, oropharynx normal Neck: trachea midline, no thyromegaly Respiratory: normal respiratory effort, lungs clear to auscultation Cardiovascular: Rate/Rhythm: regular rate and regular rhythm Heart Sounds: + murmur Gastrointestinal (Abdomen): normal bowel sounds, soft, nontender, no hepatosplenomegaly Inspection/Auscultation: + hypoactive bowel sounds Percussion/Palpation: no guarding Musculoskeletal: Extremities: no cyanosis Skin: no rashes, warm and dry Neurologic: awake; not confused Results & Data ([facility]) Vital Signs (Past 12 Hours) Vital Signs Temp Pulse Pulse Resp BP BP Pulse Ox 06/26/21 07:59 36.7 C 93 H 18 106/60 94 06/26/21 06:59 93 H 20 92 06/26/21 04:09 36.8 C 94 H 18 94/56 L 91 06/26/21 00:41 92 H 19 94 06/25/21 23:58 36.6 C 101 H 18 101/53 L 91 06/25/21 22:18 96 H Laboratory Results Laboratory Tests 06/24/21 06/25/21 06/26/21 20:35 18:20 06:48 Sodium 133 L Potassium 3.5 Chloride 103 Carbon Dioxide 23 BUN 68 H Creatinine 1.92 H Glucose 150 H Albumin 2.3 L Urine Color Dark Yellow Urine Appearance Cloudy A Ur Specific [place] 1.017 Urine Protein Trace H Urine Glucose (UA) Negative Urine Nitrite Positive A Ur Leukocyte Esterase 1+ H Urine WBC (Auto) 10-30 H U Hyaline Cast (Auto) 5-10 H U Epithel Cells (Auto) >30 H Granular Casts 5-10 H PG Care Time/CCT Total # of Minutes Spent Total Time Spent with Patient: Total time spent is greater than 50% in coordination of care (as documented) at patient's floor/unit and/or counseling patient: Coding Level of Care Code 23500 Subseq Hosp Care Lvl 3 Diagnoses RON (acute kidney injury) N17.9 Chronic kidney disease, stage II (mild) N18.2 C. difficile colitis A04.72 Pneumonia J18.9 Laterality: right Lung location: unspecified part of lung Pneumonia type: due to unspecified organism (1) Pneumonia Laterality: right Lung location: unspecified part of lung Pneumonia type: due to unspecified organism Qualified Code(s): J18.9 - Pneumonia, unspecified organism
[2021-06-26] MEDS: FIDAXOMICIN 200 MG TAB PO SCH ×2 (08:36→20:57)
--- NOTE | 2021-06-26 09:46 | Surgery Progress Note ---
Date of Service June 26, 2021 Assessment & Plan (1) C. difficile colitis: Plan: clinically improving. probably not a surgical candidate however call us if he worsens or any questions. will sign off for now. (2) Chronic kidney disease, stage II (mild): (3) Aortic stenosis: (4) Emphysema/COPD: Admission and Anticipated Discharge Date Admission Date: June 22, 2021 Subjective pt seen. out of bed. feeling better each day. still having loose bm's. no pain. hima diet. Physical Exam Constitutional: WD/WN, vitals as above no acute distress and not ill appearing Eyes: PERRL, conjunctivae normal, anicteric sclerae EOM intact bilaterally ENMT: external ear and nose normal, oropharynx normal Ears: no hearing impairment Neck: trachea midline, no thyromegaly Respiratory: normal respiratory effort; no respiratory distress and does not use accessory muscles Gastrointestinal (Abdomen): normal bowel sounds, soft, nontender, no hepatosplenomegaly no tenderness. Skin: no rashes, warm and dry Psychiatric: Orientation: alert, oriented x 3 and cooperative Results & Data ([facility]) Vital Signs (Past 12 Hours) Vital Signs Temp Pulse Pulse Resp BP BP Pulse Ox 06/26/21 07:59 36.7 C 93 H 18 106/60 94 06/26/21 06:59 93 H 20 92 06/26/21 04:09 36.8 C 94 H 18 94/56 L 91 06/26/21 00:41 92 H 19 94 06/25/21 23:58 36.6 C 101 H 18 101/53 L 91 06/25/21 22:18 96 H PG Care Time/CCT Total # of Minutes Spent Total Time Spent with Patient: Total time spent is greater than 50% in coordination of care (as documented) at patient's floor/unit and/or counseling patient: Coding Level of Care Code 96070 Subseq Hosp Care Lvl 3 Diagnoses C. difficile colitis A04.72 Chronic kidney disease, stage II (mild) N18.2 Aortic stenosis I35.0 Emphysema/COPD J43.9
[2021-06-26 09:48] LABS: Hematocrit (blood only) 28.5 % (42-52); Hemoglobin 9.4 g/dL (14.0-18.0); Mean Corpuscular Hemoglobin 28.5 pg (25-34); Mean Corpuscular Volume 86.4 fL (80-100); Mean Platelet Volume 10.1 fL (7.4-10.4); Platelet Count 252 K/uL (130-400); RDW Coefficient of Variation 15.2 % (11.5-14.5); White Blood Count 19.23 K/uL (4.8-10.8)
--- NOTE | 2021-06-26 10:11 | Hospitalist Progress Note ---
Date of Service June 26, 2021 Assessment & Plan (1) Pancolitis: Plan: C. diff toxin positive. Continue vancomycin 500mg PO QID + Dificid 200mg PO BID + Metronidazole 500mg IV q8h. Consult ID to consider bezlotoxumab Significant improvement in hemodynamics and WBC today. Fortunately Cr appears to have stabilized in addition. Prognosis still guarded but he appears to be moving in the right direction after introduction of Dificid. Contact c. diff isolation precautions (2) RON (acute kidney injury): Plan: Suspect pre-renal due to fluid loss from diarrhea, however lack of rapidly reversible Cr suggest an additional ATN component No obstructive cause seen on CT Lactate 1.4 on admission, repeat 0.8 Continue to hold amlodipine, losartan and HCTZ Appreciate nephrology review. Remains euvolemic and no IV fluids for now unless diarrhea gets worse again or will bolus if hypotensive. Cr 1.99 -> 1.92 (3) Pneumonia: Plan: Middle lobe resolved on imaging. Concerning worsening right lower lobe air bronchograms - atelectasis vs. pneumonia vs. aspiration. Sputum culture preliminary - light normal cynthia SLT assessment - no overt aspirations but planning on FEES today CXR with worsening right basilar opacity - will continue to defer antibiotics to cover this given severity of c. diff. Trend CXR and procalcitonin q2d and if consolidation worsening or procalcitonin uptrending may need to start antibiotics. (4) Hypertension: Plan: Relatively low blood pressure in setting of diarrhea, RON and fluid loss will continue to hold amlodipine, losartan and HCTZ as above. (5) Emphysema/COPD: Plan: No acute exacerbation appreciated Continue his routine maintenance inhalers with Spiriva and Breo Ellipta or hospital formulary equivalent (6) Aortic stenosis: Plan: Noted mod-severe on echo 03/2020 Plan: VTE Prophylaxis - heparin 5000 units SQ BID Diet - low fiber Disposition - continue on PCU due to critically unwell illness, ok to stay throughout the night is she wishes given critically unwell state. Admission and Anticipated Discharge Date Admission Date: June 22, 2021 Subjective Reports less fatigue and significant improvement today. No abdominal pain. Diarrhea continuing but is becoming more formed daily. He has been coughing up sputum. Lost his voice also today. No significant shortness of breath. O2 requirement stable at 3LPm O2. No coughing or choking after food. Review of Systems Review of Systems: All systems reviewed & are unremarkable except as noted in Subjective Physical Exam Constitutional: WD/WN, vitals as above no acute distress Respiratory: normal respiratory effort and able to speak in complete sentences; no respiratory distress Auscultation: + diminished lung sounds (bibasal) and + crackles (bibasal); no rales, no rhonchi and no wheezes Cardiovascular: Rate/Rhythm: regular rate and regular rhythm Heart Sounds: + murmur (2/6 [place] LUSB) Vessels: no JVD Extremities: normal capillary refill and + pedal edema (trace pre-tibial b/l equal); no calf tenderness Gastrointestinal (Abdomen): Inspection/Auscultation: abdomen normal to inspection; abdomen not distended Percussion/Palpation: abdomen soft; abdomen nontender, no guarding and abdomen not rigid Skin: no rashes, warm and dry Neurologic: moves all extremities and awake; not confused Psychiatric: A+Ox3, euthymic affect Results & Data Results & Data ([facility]) Vital Signs (Past 12 Hours) Vital Signs Temp Pulse Pulse Resp BP BP Pulse Ox 06/26/21 07:59 36.7 C 93 H 18 106/60 94 06/26/21 06:59 93 H 20 92 06/26/21 04:09 36.8 C 94 H 18 94/56 L 91 06/26/21 00:41 92 H 19 94 06/25/21 23:58 36.6 C 101 H 18 101/53 L 91 06/25/21 22:18 96 H PG Care Time/CCT Total # of Minutes Spent Total Time Spent with Patient: Total time spent is greater than 50% in coordination of care (as documented) at patient's floor/unit and/or counseling patient: Coding Level of Care Code 49250 Subseq Hosp Care Lvl 3 Diagnoses Pancolitis K51.00 RON (acute kidney injury) N17.9 Pneumonia J18.9 Laterality: right Lung location: unspecified part of lung Pneumonia type: due to unspecified organism Hypertension I10 Emphysema/COPD J43.9 Aortic stenosis I35.0 (1) Pneumonia Laterality: right Lung location: unspecified part of lung Pneumonia type: due to unspecified organism Qualified Code(s): J18.9 - Pneumonia, unspecified organism
[2021-06-26 10:22] LABS: Basophils # (auto) 0.01 K/uL (0-0.2); Basophils % (auto) 0.1 %; Echinocytes 1+; Eosinophils # (auto) 0.17 K/uL (0-0.5); Eosinophils % (auto) 0.9 %; Immature Granulocytes # (auto) 0.15 K/uL (0.00-0.02); Immature Granulocytes % (auto) 0.8 %; Lymphocytes # (auto) 0.96 K/uL (1.2-3.4); Monocytes % (auto) 4.7 %; Neutrophils # (auto) 17.04 K/uL (1.4-6.5); Neutrophils % (auto) 88.5 %; Toxic Granulation 3+
--- NOTE | 2021-06-26 11:07 | XRay Report ---
XR chest 1V portable CLINICAL HISTORY: hypoxia COMPARISON STUDY: Chest radiograph and chest CT June 24, 2021. FINDINGS: Lung volumes are diminished. This is unchanged. Small right pleural effusion is again noted . Right basilar opacity has increased with evidence for volume loss. Linear left basilar opacities ar e noted. Cardiomegaly is noted without evidence for pulmonary edema. Patient is rotated. IMPRESSION: 1. Small right pleural effusion. Increase in right basilar opacity with volume loss which could refle ct segmental right lower lobe atelectasis or consolidation. Linear left basilar opacity favors atelec tasis. 2. Cardiomegaly without evidence for pulmonary edema. ACT 112: Negative or not required by law. Electronically signed by: Junior Palencia M.D. 06/26/2021 11:06 AM
[2021-06-26] MEDS: ACETAMINOPHEN 325 MG TAB PO PRN (21:15)
[2021-06-27] MEDS: RASPBERRY SYRUP 5 ML UDP PO SCH ×5 (00:08→23:07)
[2021-06-27] MEDS: VANCOMYCIN HCL 500 MG/10 ML SOLN PO SCH ×5 (00:08→23:06)
[2021-06-27] MEDS: metroNIDAZOLE 500 MG/100 ML BAG IV SCH ×4 (00:39→23:07)
[2021-06-27] MEDS: LEVALBUTEROL HCL 1.25 MG/3 ML NEB NEB SCH ×4 (00:45→19:09)
[2021-06-27 07:45] LABS: Hematocrit (blood only) 29.9 % (42-52); Hemoglobin 9.9 g/dL (14.0-18.0); Mean Corpuscular Hemoglobin 28.6 pg (25-34); Mean Corpuscular Hgb Conc 33.1 g/dL (32-36); Mean Corpuscular Volume 86.4 fL (80-100); Mean Platelet Volume 9.8 fL (7.4-10.4); Platelet Count 249 K/uL (130-400); RDW Standard Deviation 48.3 fL (36.4-46.3); Red Blood Count 3.46 M/uL (4.7-6.1); White Blood Count 11.59 K/uL (4.8-10.8)
[2021-06-27 08:05] LABS: Eosinophils # (auto) 0.29 K/uL (0-0.5); Eosinophils % (auto) 2.5 %; Immature Granulocytes # (auto) 0.06 K/uL (0.00-0.02); Immature Granulocytes % (auto) 0.5 %; Lymphocytes # (auto) 0.84 K/uL (1.2-3.4); Lymphocytes % (auto) 7.2 %; Monocytes # (auto) 0.77 K/uL (0.11-0.59); Monocytes % (auto) 6.6 %; Neutrophils # (auto) 9.63 K/uL (1.4-6.5); Neutrophils % (auto) 83.2 %; Toxic Granulation 3+; Toxic Vacuolation 1+
[2021-06-27 08:12] LABS: BUN Creatinine Ratio 36.7 (10-20); Calcium 7.4 mg/dl (8.5-10.1); Creatinine Clr Calc Pharmacy 28.4 ml/min; Est GFR (African American) 35.9 ml/min; Potassium 3.9 mmol/L (3.5-5.1)
--- NOTE | 2021-06-27 08:37 | Nephrology Progress Note ---
Date of Service June 27, 2021 Assessment & Plan (1) RON (acute kidney injury): Plan: * Oliguric RON due to multiple factors including severe C. 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 Net 11L volume +. Hold IVF. Encourage oral hydration. UO 700 cc last shift * Monitor PRP, UO (2) Chronic kidney disease, stage II (mild): Plan: * CKD stage GII/A1 w/ baseline Cr 1.0 and EGFR 71 cc/min. Prior urinalysis has been negative for blood or protein. 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 difficile colitis: Plan: * Managed w/ po Vanco + Dificid and IV Flagyl (4) Pneumonia: Plan: * RML pneumonia resolving Admission and Anticipated Discharge Date Admission Date: June 22, 2021 Subjective Mr. Bowie was evaluated in his hospital room this morning. He reports diarrhea but notes that the frequency is less. His abdominal distention is mildly improved. He denies fever Review of Systems Constitutional: + weakness; no fever Eyes: no problem reported Ear, Nose, Mouth, Throat: no problem reported Respiratory: no cough and no dyspnea Cardiovascular: no chest pain, no palpitations and no edema Gastrointestinal: + diarrhea/loose stools; no abdominal pain Genitourinary: no dysuria, no urinary hesitancy or no hematuria Musculoskeletal: no back pain Integumentary: no rash Neurologic: no confusion Physical Exam Constitutional: + frail appearing; not in distress Eyes: PERRL, conjunctivae normal, anicteric sclerae ENMT: external ear and nose normal, oropharynx normal Neck: trachea midline, no thyromegaly Respiratory: normal respiratory effort, lungs clear to auscultation Cardiovascular: Rate/Rhythm: regular rate and regular rhythm Heart Sounds: + murmur Gastrointestinal (Abdomen): normal bowel sounds, soft, nontender, no hepatosplenomegaly Inspection/Auscultation: + hypoactive bowel sounds Percussion/Palpation: no guarding Musculoskeletal: Extremities: no cyanosis Skin: no rashes, warm and dry Neurologic: awake; not confused Results & Data ([facility]) Vital Signs (Past 12 Hours) Vital Signs Temp Pulse Pulse Resp BP BP Pulse Ox 06/27/21 07:56 37.0 C 107 H 18 134/86 95 06/27/21 07:06 92 H 19 06/27/21 03:07 36.8 C 89 18 102/62 93 06/27/21 00:45 84 16 90 06/26/21 22:52 36.7 C 106 H 18 102/58 L 93 06/26/21 22:17 99 H Laboratory Results Laboratory Tests 06/24/21 06/27/21 06/27/21 20:35 07:19 07:19 WBC 11.59 H Hgb 9.9 L Hct 29.9 L Plt Count 249 Sodium 135 L Potassium 3.9 Chloride 106 Carbon Dioxide 23 BUN 69 H Creatinine 1.88 H Glucose 140 H Calcium 7.4 L Albumin 2.3 L PG Care Time/CCT Total # of Minutes Spent Total Time Spent with Patient: Total time spent is greater than 50% in coordination of care (as documented) at patient's floor/unit and/or counseling patient: Coding Level of Care Code 08511 Subseq Hosp Care Lvl 3 Diagnoses RON (acute kidney injury) N17.9 Chronic kidney disease, stage II (mild) N18.2 C. difficile colitis A04.72 Pneumonia J18.9 Laterality: right Lung location: unspecified part of lung Pneumonia type: due to unspecified organism (1) Pneumonia Laterality: right Lung location: unspecified part of lung Pneumonia type: due to unspecified organism Qualified Code(s): J18.9 - Pneumonia, unspecified organism
--- NOTE | 2021-06-27 08:51 | XRay Report ---
XR chest 1V portable HISTORY: hypoxia, consolidation COMPARISON: Chest 06/26/2021. FINDINGS: Cardiac silhouette remains enlarged. There is a tortuous thoracic aorta. Bibasilar linear d ensities persist. There is mild pulmonary vascular congestion without overt edema. Rotated study. No pleural effusions. No pneumothorax. IMPRESSION: 1. No change in the bibasilar densities. 2. Cardiomegaly and mild pulmonary vascular congestion persists. ACT 112: Negative or not required by law. Electronically signed by: Kenny Kovacs M.D. 06/27/2021 8:49 AM
[2021-06-27] MEDS: FLUTICASONE/VILANTEROL 200/25MCG 14 PUFFS/INHALER INH SCH (08:58)
[2021-06-27] MEDS: TAMSULOSIN HCL 0.4 MG CAP PO SCH (08:59)
[2021-06-27] MEDS: PANTOprazole 40 MG TAB PO SCH (08:59)
[2021-06-27] MEDS: ATORVASTATIN 40 MG TAB PO SCH (08:59)
[2021-06-27] MEDS: UMECLIDINIUM BROMIDE 62.5MCG/BLISTER 7 PUFFS/INHALER INH SCH (08:59)
[2021-06-27] MEDS: HEPARIN SOD 5,000 UNIT/0.5 ML VIAL SQ SCH ×2 (08:59→20:31)
[2021-06-27] MEDS: POTASSIUM CHLORIDE CRTAB 20 MEQ TABCR PO SCH ×2 (08:59→20:31)
[2021-06-27] MEDS: MONTELUKAST SODIUM 10 MG TABLET PO SCH (08:59)
[2021-06-27] MEDS: FINASTERIDE 5 MG TAB PO SCH (08:59)
[2021-06-27] MEDS: FIDAXOMICIN 200 MG TAB PO SCH ×2 (10:12→20:43)
--- NOTE | 2021-06-27 10:48 | Hospitalist Progress Note ---
Date of Service June 27, 2021 Assessment & Plan (1) Pancolitis: Plan: C. diff toxin positive. Continue vancomycin 500mg PO QID + Dificid 200mg PO BID + Metronidazole 500mg IV q8h. Unclear whether improvement from NM vancomycin that was given on 06/24 Dificid but suspect the later and he has a vancomycin resistant strain. Consult ID pending to consider bezlotoxumab Improving hemodynamics and WBC - stable for transfer to med /tele Contact c. diff isolation precautions (2) C. difficile colitis: Plan: As above (3) RON (acute kidney injury): Plan: Suspect pre-renal due to fluid loss from diarrhea, however lack of rapidly reversible Cr suggest an additional ATN component (repeat UA with granular casts) No obstructive cause seen on CT Lactate 1.4 on admission, repeat 0.8 Continue to hold amlodipine, losartan and HCTZ Appreciate nephrology review. Remains euvolemic and no IV fluids for now unless diarrhea gets worse again or will bolus if hypotensive. Cr 1.92 -> 1.88 (4) Pneumonia: Plan: initially diagnosed 06/12/21 Rx cefuroxime. Middle lobe resolved on imaging. Concerning worsening right lower lobe air bronchograms and hypoxia - atelectasis vs. pneumonia vs. aspiration. Suspect he was aspirating when he was sicker but no aspiration on FEES 06/26. Ap preciate SLT assessment and is on easy to chew diet with aspiration precautions. Sputum culture preliminary - light normal cynthia CXR stable today. Trend CXR and procalcitonin q2d and if consolidation worsening or procalcitonin uptrending may need to start antibiotics. Currently will defer starting any today. Continue incentive spirometer, nebulizers and flutter valve. (5) Hypoxia: Plan: Wean O2 sats > 90% As above (6) Hypertension: Plan: BP starting ot improve today in setting of diarrhea, RON and fluid loss will continue to hold amlodipine, losartan and HCTZ as above. (7) Emphysema/COPD: Plan: No acute exacerbation appreciated Continue his routine maintenance inhalers with Spiriva and Breo Ellipta or hospital formulary equivalent (8) Aortic stenosis: Plan: Noted mod-severe on echo 03/2020 Plan: VTE Prophylaxis - heparin 5000 units SQ BID Diet - low fiber Disposition - stable for transfer to med/tele, encourged his to sleep at home tonight as he is improving and she needs some rest. Admission and Anticipated Discharge Date Admission Date: June 22, 2021 Subjective Ongoing diarrhea every 6-8 hours but reports improvement every day and more formed. Tolerating low fiber diet. No nausea or vomiting. Continued cough. Passed FEES evaluation without aspiration. Review of Systems Review of Systems: All systems reviewed & are unremarkable except as noted in Subjective Physical Exam Constitutional: WD/WN, vitals as above no acute distress Eyes: + anicteric sclerae; normal pupil size ENMT: external ear and nose normal, oropharynx normal Respiratory: normal respiratory effort and able to speak in complete sentences; no respiratory distress Auscultation: + diminished lung sounds (bibasal) and + crackles (right base); no rales, no rhonchi and no wheezes Cardiovascular: Rate/Rhythm: regular rhythm and + tachycardic Heart Sounds: + murmur (2/6 SANTIAGO LUSB) Vessels: no JVD Extremities: normal capillary ref ill and + pedal edema (trace pre-tibial b/l equal); no calf tenderness Gastrointestinal (Abdomen): Inspection/Auscultation: abdomen normal to insp ection and normal bowel sounds; abdomen not distended Percussion/Palpation: abdomen soft; abdomen nontender, no guarding and abdomen not rigid Musculoskeletal: no cyanosis or clubbing, extremities motor strength 5/5 Skin: no rashes, warm and dry Neurologic: moves all extremities and awake; not confused Psychiatric: A+Ox3, euthymic affect Results & Data Results & Data ([facility]) Vital Signs (Past 12 Hours) Vital Signs Temp Pulse Resp BP BP Pulse Ox 06/27/21 07:56 37.0 C 107 H 18 134/86 95 06/27/21 07:06 92 H 19 06/27/21 03:07 36.8 C 89 18 102/62 93 06/27/21 00:45 84 16 90 06/26/21 22:52 36.7 C 106 H 18 102/58 L 93 PG Care Time/CCT Total # of Minutes Spent Total Time Spent with Patient: Total time spent is greater than 50% in coordination of care (as documented) at patient's floor/unit and/or counseling patient: Coding Level of Care Code 93213 Subseq Hosp Care Lvl 2 Diagnoses Pancolitis K51.00 RON (acute kidney injury) N17.9 Pneumonia J18.9 Laterality: right Lung location: unspecified part of lung Pneumonia type: due to unspecified organism Hypertension I10 Emphysema/COPD J43.9 Aortic stenosis I35.0 Hypoxia R09.02 C. difficile colitis A04.72 (1) Pneumonia Laterality: right Lung location: unspecified part of lung Pneumonia type: due to unspecified organism Qualified Code(s): J18.9 - Pneumonia, unspecified organism
[2021-06-28] MEDS: LEVALBUTEROL HCL 1.25 MG/3 ML NEB NEB SCH ×4 (00:08→19:49)
[2021-06-28] MEDS: RASPBERRY SYRUP 5 ML UDP PO SCH ×4 (07:14→22:54)
[2021-06-28] MEDS: VANCOMYCIN HCL 500 MG/10 ML SOLN PO SCH ×4 (07:14→22:53)
[2021-06-28 08:08] LABS: Basophils # (auto) 0.01 K/uL (0-0.2); Basophils % (auto) 0.1 %; Eosinophils # (auto) 0.23 K/uL (0-0.5); Eosinophils % (auto) 2.5 %; Hematocrit (blood only) 31.3 % (42-52); Hemoglobin 10.4 g/dL (14.0-18.0); Immature Granulocytes # (auto) 0.04 K/uL (0.00-0.02); Immature Granulocytes % (auto) 0.4 %; Lymphocytes % (auto) 9.8 %; Mean Corpuscular Hemoglobin 29.1 pg (25-34); Mean Corpuscular Hgb Conc 33.2 g/dL (32-36); Mean Corpuscular Volume 87.4 fL (80-100); Mean Platelet Volume 9.9 fL (7.4-10.4); Monocytes # (auto) 0.69 K/uL (0.11-0.59); Monocytes % (auto) 7.5 %; Neutrophils % (auto) 79.7 %; Platelet Count 290 K/uL (130-400); RDW Coefficient of Variation 15.2 % (11.5-14.5); Red Blood Count 3.58 M/uL (4.7-6.1); White Blood Count 9.17 K/uL (4.8-10.8)
[2021-06-28 08:30] LABS: BUN Creatinine Ratio 40.6 (10-20); Calcium 7.5 mg/dl (8.5-10.1); Creatinine Clr Calc Pharmacy 34.4 ml/min; Est GFR (African American) 45.3 ml/min; Est GFR (Non-African American) 39.1 ml/min; Potassium 4.1 mmol/L (3.5-5.1)
--- NOTE | 2021-06-28 08:37 | XRay Report ---
XR chest 1V portable HISTORY: hypoxia, consolidation COMPARISON: Chest 06/27/2021. FINDINGS: No pneumothorax. The heart remains enlarged. There is mild central pulmonary vascular conge stion without overt edema. This has improved in the interval. Slightly rotated study. There are low l jaylan volumes. Bibasilar linear densities persist. No new focal lung consolidations. Small right pleura l effusion, unchanged. IMPRESSION: 1. Interval improvement in the pulmonary vascular congestion. 2. Small right pleural effusion and bibasilar densities persist. ACT 112: Negative or not required by law. Electronically signed by: Kenny Kovacs M.D. 06/28/2021 8:35 AM
--- NOTE | 2021-06-28 08:58 | Nephrology Progress Note ---
Date of Service June 28, 2021 Assessment & Plan (1) RON (acute kidney injury): Plan: * Oliguric RON due to multiple factors including severe C. 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 Net 12L volume +. Hold IVF. Encourage oral hydration * Monitor PRP, UO (2) Chronic kidney disease, stage II (mild): Plan: * CKD stage GII/A1 w/ baseline Cr 1.0 and EGFR 71 cc/min. Prior urinalysis has been negative for blood or protein. 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 difficile colitis: Plan: * Managed w/ po Vanco + Dificid and IV Flagyl (4) Pneumonia: Plan: * RML pneumonia resolving Admission and Anticipated Discharge Date Admission Date: June 22, 2021 Subjective Mr. Bowie was evaluated in his hospital room this morning. He reports that his abdomen is less distended. His diarrhea is slowing. He is maintaining good oral hydration Review of Systems Constitutional: + weakness; no fever Eyes: no problem reported Ear, Nose, Mouth, Throat: no problem reported Respiratory: no cough and no dyspnea Cardiovascular: no chest pain, no palpitations and no edema Gastrointestinal: + diarrhea/loose stools; no abdominal pain Genitourinary: no dysuria, no urinary hesitancy or no hematuria Musculoskeletal: no back pain Integumentary: no rash Neurologic: no confusion Physical Exam Constitutional: + frail appearing; not in distress Eyes: PERRL, conjunctivae normal, anicteric sclerae ENMT: external ear and nose normal, oropharynx normal Neck: trachea midline, no thyromegaly Respiratory: normal respiratory effort, lungs clear to auscultation Cardiovascular: Rate/Rhythm: regular rate and regular rhythm Heart Sounds: + murmur Gastrointestinal (Abdomen): normal bowel sounds, soft, nontender, no hepatosplenomegaly Inspection/Auscultation: + hypoactive bowel sounds Percussion/Palpation: no guarding Musculoskeletal: Extremities: no cyanosis Skin: no rashes, warm and dry Neurologic: awake; not confused Results & Data ([facility]) Vital Signs (Past 12 Hours) Vital Signs Temp Pulse Resp BP Pulse Ox 06/28/21 07:52 36.8 C 104 H 18 110/60 92 06/28/21 07:10 94 H 16 91 06/28/21 03:50 36.8 C 106 H 20 120/70 93 06/28/21 00:09 111 H 19 94 06/27/21 23:00 37.1 C 103 H 20 134/91 94 Laboratory Results Laboratory Tests 06/28/21 06/28/21 07:05 07:05 WBC 9.17 Hgb 10.4 L Hct 31.3 L Plt Count 290 Sodium 138 Potassium 4.1 Chloride 110 H Carbon Dioxide 24 BUN 63 H Creatinine 1.55 H D Glucose 128 H PG Care Time/CCT Total # of Minutes Spent Total Time Spent with Patient: Total time spent is greater than 50% in coordination of care (as documented) at patient's floor/unit and/or counseling patient: Coding Level of Care Code 87773 Subseq Hosp Care Lvl 3 Diagnoses RON (acute kidney injury) N17.9 Chronic kidney disease, stage II (mild) N18.2 C. difficile colitis A04.72 Pneumonia J18.9 Laterality: right Lung location: unspecified part of lung Pneumonia type: due to unspecified organism (1) Pneumonia Laterality: right Lung location: unspecified part of lung Pneumonia type: due to unspecified organism Qualified Code(s): J18.9 - Pneumonia, unspecified organism
[2021-06-28] MEDS: metroNIDAZOLE 500 MG/100 ML BAG IV SCH ×3 (09:18→22:54)
[2021-06-28] MEDS: TAMSULOSIN HCL 0.4 MG CAP PO SCH (09:19)
[2021-06-28] MEDS: FINASTERIDE 5 MG TAB PO SCH (09:19)
[2021-06-28] MEDS: MONTELUKAST SODIUM 10 MG TABLET PO SCH (09:19)
[2021-06-28] MEDS: POTASSIUM CHLORIDE CRTAB 20 MEQ TABCR PO SCH ×2 (09:19→21:27)
[2021-06-28] MEDS: ATORVASTATIN 40 MG TAB PO SCH (09:19)
[2021-06-28] MEDS: PANTOprazole 40 MG TAB PO SCH (09:19)
[2021-06-28] MEDS: HEPARIN SOD 5,000 UNIT/0.5 ML VIAL SQ SCH ×2 (09:20→21:27)
[2021-06-28] MEDS: UMECLIDINIUM BROMIDE 62.5MCG/BLISTER 7 PUFFS/INHALER INH SCH (09:20)
[2021-06-28] MEDS: FLUTICASONE/VILANTEROL 200/25MCG 14 PUFFS/INHALER INH SCH (09:20)
[2021-06-28] MEDS: FIDAXOMICIN 200 MG TAB PO SCH ×2 (10:03→21:27)
--- NOTE | 2021-06-28 12:16 | Hospitalist Progress Note ---
Date of Service June 28, 2021 Assessment & Plan (1) Pancolitis: Plan: C. diff toxin positive. Continue vancomycin 500mg PO QID + Dificid 200mg PO BID + Metronidazole 500mg IV q8h. Unclear whether improvement from ID vancomycin that was given on 06/24 or Dificid but suspect the later and he has a vancomycin resistant strain. Improving hemodynamics and WBC - stable for transfer to med /surg Contact c. diff isolation precautions Consult ID pending to consider bezlotoxumab +/- IVIG (2) C. difficile colitis: Plan: As above (3) RON (acute kidney injury): Plan: Suspect pre-renal due to fluid loss from diarrhea, however lack of rapidly reversible Cr suggest an additional ATN component (repeat UA with granular casts) No obstructive cause seen on CT Lactate 1.4 on admission, repeat 0.8 Continue to hold amlodipine, losartan and HCTZ Appreciate nephrology review. Suspect he pulmonary function will benefit from some gentle diuresis therefore will give one dose of Lasix 20mg IV today and monitor for worsening renal function as likely will have degree of post ATN diuresis in addition. Cr 1.88 -> 1.55 (4) Pneumonia: Plan: initially diagnosed 06/12/21 Rx cefuroxime. Middle lobe resolved on imaging. Concerning worsening right lower lobe air bronchograms and hypoxia - atelectasis vs. pneumonia vs. aspiration. Suspect he was aspirating when he was sicker but no aspiration on FEES 06/26. Appreciate SLT assessment and is on easy to chew diet with aspiration prec autions. Sputum culture preliminary - light normal cynthia CXR with pulmonary vascular congestion and small right pleural effusion, appears stable - no indication to start antibiotics for this especially in light of severe life threatening c. diff infection Continue incentive spirometer, nebulizers and flutter valve. (5) Hypoxia: Plan: Wean O2 sats > 90% As above (6) Hypertension: Plan: BP improving today in setting of diarrhea, RON and fluid loss will continue to hold amlodipine, losartan and HCTZ as above. (7) Emphysema/COPD: Plan: No acute exacerbation appreciated Continue his routine maintenance inhalers with Spiriva and Breo Ellipta or hospital formulary equivalent (8) Aortic stenosis: Plan: Noted mod-severe on echo 03/2020 Plan: VTE Prophylaxis - heparin 5000 units SQ BID Diet - low fiber Disposition - stable for transfer to med/surg Admission and Anticipated Discharge Date Admission Date: June 22, 2021 Subjective Making slow improvements daily but still having watery diarrhea. Getting less frequent however. No abdominal pain, nausea or vomiting. No fever or chills. Review of Systems Review of Systems: All systems reviewed & are unremarkable except as noted in Subjective Physical Exam Constitutional: WD/WN, vitals as above no acute distress ENMT: external ear and nose normal, oropharynx normal Mouth: oral mucous membranes not dry Respiratory: normal respiratory effort and able to speak in complete sentences; no respiratory distress Auscultation: + diminished lung sounds (bibasal) and + crackles (right base, improving); no rales, no rhonchi and no wheezes Cardiovascular: Rate/Rhythm: regular rhythm and + tachycardic Heart Sounds: + murmur (2/6 SANTIAGO LUSB) Vessels: no JVD Extremities: normal capillary refill and + pedal edema (trace pre-tibial b/l equal); no calf tenderness Gastrointestinal (Abdomen): Inspection/Auscultation: abdomen normal to inspection and normal bowel sounds; abdomen not distended Percussion/Palpation: abdomen soft; abdomen nontender, no guarding and abdomen not rigid Musculoskeletal: no cyanosis or clubbing, extremities motor strength 5/5 Neurologic: moves all extremities and awake; not confused Psychiatric: A+Ox3, euthymic affect Results & Data Results & Data ([facility]) Vital Signs (Past 12 Hours) Vital Signs Temp Pulse Pulse Resp BP BP Pulse Ox 06/28/21 11:06 36.5 C 104 H 19 106/88 95 06/28/21 08:06 96 H 06/28/21 07:52 36.8 C 104 H 18 110/60 92 06/28/21 07:10 94 H 16 91 06/28/21 03:50 36.8 C 106 H 20 120/70 93 PG Care Time/CCT Total # of Minutes Spent Total Time Spent with Patient: Total time spent is greater than 50% in coordination of care (as documented) at patient's floor/unit and/or counseling patient: Coding Level of Care Code 86673 Subseq Hosp Care Lvl 2 Diagnoses Pancolitis K51.00 C. difficile colitis A04.72 RON (acute kidney injury) N17.9 Pneumonia J18.9 Laterality: right Lung location: unspecified part of lung Pneumonia type: due to unspecified organism Hypoxia R09.02 Hypertension I10 Emphysema/COPD J43.9 Aortic stenosis I35.0 (1) Pneumonia Laterality: right Lung location: unspecified part of lung Pneumonia type: due to unspecified organism Qualified Code(s): J18.9 - Pneumonia, unspecified organism
[2021-06-28] MEDS ORDERED: FUROSEMIDE INJ 20 MG/2 ML VIAL IV ONE (16:37)
[2021-06-28] MEDS: CLOPIDOGREL BISULFATE 75 MG TAB PO SCH (21:27)
[2021-06-28] MEDS: MELATONIN 3 MG TAB PO PRN (23:39)
[2021-06-29] MEDS: LEVALBUTEROL HCL 1.25 MG/3 ML NEB NEB SCH ×2 (01:00→07:36)
[2021-06-29] MEDS: VANCOMYCIN HCL 500 MG/10 ML SOLN PO SCH ×4 (06:09→23:38)
[2021-06-29] MEDS: RASPBERRY SYRUP 5 ML UDP PO SCH ×4 (06:09→23:38)
[2021-06-29 06:55] LABS: Basophils # (auto) 0.02 K/uL (0-0.2); Basophils % (auto) 0.2 %; Eosinophils # (auto) 0.26 K/uL (0-0.5); Eosinophils % (auto) 2.4 %; Hematocrit (blood only) 31.3 % (42-52); Hemoglobin 10.1 g/dL (14.0-18.0); Immature Granulocytes # (auto) 0.03 K/uL (0.00-0.02); Immature Granulocytes % (auto) 0.3 %; Lymphocytes # (auto) 0.98 K/uL (1.2-3.4); Lymphocytes % (auto) 9.1 %; Mean Corpuscular Hemoglobin 28.8 pg (25-34); Mean Corpuscular Hgb Conc 32.3 g/dL (32-36); Mean Corpuscular Volume 89.2 fL (80-100); Mean Platelet Volume 9.9 fL (7.4-10.4); Monocytes # (auto) 0.71 K/uL (0.11-0.59); Monocytes % (auto) 6.6 %; Neutrophils # (auto) 8.81 K/uL (1.4-6.5); Neutrophils % (auto) 81.4 %; Platelet Count 331 K/uL (130-400); RDW Coefficient of Variation 15.4 % (11.5-14.5); RDW Standard Deviation 50.1 fL (36.4-46.3); Red Blood Count 3.51 M/uL (4.7-6.1); White Blood Count 10.81 K/uL (4.8-10.8)
[2021-06-29 07:19] LABS: BUN Creatinine Ratio 36.7 (10-20); Calcium 7.4 mg/dl (8.5-10.1); Creatinine Clr Calc Pharmacy 36.3 ml/min; Est GFR (African American) 48.3 ml/min; Est GFR (Non-African American) 41.7 ml/min; Magnesium 1.8 mg/dl (1.7-2.4); Phosphorus 3.5 mg/dl (2.5-4.9); Potassium 4.2 mmol/L (3.5-5.1)
--- NOTE | 2021-06-29 08:28 | Nephrology Progress Note ---
Date of Service June 29, 2021 Assessment & Plan (1) RON (acute kidney injury): Plan: * RON due to multiple factors including severe C. 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 Net 12L volume +. Hold IVF. Encourage oral hydration * Monitor PRP, UO (2) Chronic kidney disease, stage II (mild): Plan: * CKD stage GII/A1 w/ baseline Cr 1.0 and EGFR 71 cc/min. Prior urinalysis has been negative for blood or protein. 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 difficile colitis: Plan: * Managed w/ po Vanco + Dificid and IV Flagyl * Await ID recommendations this am (4) Pneumonia: Plan: * RML pneumonia resolving Admission and Anticipated Discharge Date Admission Date: June 22, 2021 Subjective Mr. Bowie was evaluated in his hospital room this morning. He had one liquid BM yesterday. He is awaiting consultation w/ [facility] Telehealth ID specialist this morning. Review of Systems Constitutional: + weakness; no fever Eyes: no problem reported Ear, Nose, Mouth, Throat: no problem reported Respiratory: no cough and no dyspnea Cardiovascular: no chest pain, no palpitations and no edema Gastrointestinal: + diarrhea/loose stools; no abdominal pain Genitourinary: no dysuria, no urinary hesitancy or no hematuria Musculoskeletal: no back pain Integumentary: no rash Neurologic: no confusion Physical Exam Constitutional: + frail appearing; not in distress Eyes: PERRL, conjunctivae normal, anicteric sclerae ENMT: external ear and nose normal, oropharynx normal Neck: trachea midline, no thyromegaly Respiratory: normal respiratory effort, lungs clear to auscultation Cardiovascular: Rate/Rhythm: regular rate and regular rhythm Heart Sounds: + murmur Gastrointestinal (Abdomen): normal bowel sounds, soft, nontender, no hepatosplenomegaly Inspection/Auscultation: + hypoactive bowel sounds Percussion/Palpation: no guarding Musculoskeletal: Extremities: no cyanosis Skin: no rashes, warm and dry Neurologic: awake; not confused Results & Data ([facility]) Vital Signs (Past 12 Hours) Vital Signs Temp Pulse Resp BP BP Pulse Ox 06/29/21 07:36 90 18 95 06/29/21 07:16 36.6 C 94 H 20 146/84 H 96 06/29/21 00:59 108 H 20 95 06/28/21 22:45 36.8 C 114 H 20 105/64 94 Laboratory Results Laboratory Tests 06/29/21 06/29/21 05:39 05:39 WBC 10.81 H Hgb 10.1 L Hct 31.3 L Plt Count 331 Sodium 140 Potassium 4.2 Chloride 111 H Carbon Dioxide 23 BUN 54 H Creatinine 1.47 H Glucose 132 H Calcium 7.4 L Phosphorus 3.5 Magnesium 1.8 PG Care Time/CCT Total # of Minutes Spent Total Time Spent with Patient: Total time spent is greater than 50% in coordination of care (as documented) at patient's floor/unit and/or counseling patient: Coding Level of Care Code 28798 Subseq Hosp Care Lvl 3 Diagnoses RON (acute kidney injury) N17.9 Chronic kidney disease, stage II (mild) N18.2 C. difficile colitis A04.72 Pneumonia J18.9 Laterality: right Lung location: unspecified part of lung Pneumonia type: due to unspecified organism (1) Pneumonia Laterality: right Lung location: unspecified part of lung Pneumonia type: due to unspecified organism Qualified Code(s): J18.9 - Pneumonia, unspecified organism
[2021-06-29] MEDS ORDERED: FUROSEMIDE INJ 20 MG/2 ML VIAL IV SCH (09:00)
[2021-06-29] MEDS ORDERED: LEVALBUTEROL HCL 1.25 MG/3 ML NEB NEB PRN (09:05)
[2021-06-29] MEDS: metroNIDAZOLE 500 MG/100 ML BAG IV SCH ×2 (09:07→17:02)
[2021-06-29] MEDS: FLUTICASONE/VILANTEROL 200/25MCG 14 PUFFS/INHALER INH SCH (10:31)
[2021-06-29] MEDS: MONTELUKAST SODIUM 10 MG TABLET PO SCH (10:33)
[2021-06-29] MEDS: PANTOprazole 40 MG TAB PO SCH (10:33)
[2021-06-29] MEDS: FINASTERIDE 5 MG TAB PO SCH (10:33)
[2021-06-29] MEDS: UMECLIDINIUM BROMIDE 62.5MCG/BLISTER 7 PUFFS/INHALER INH SCH (10:34)
[2021-06-29] MEDS: POTASSIUM CHLORIDE CRTAB 20 MEQ TABCR PO SCH ×2 (10:53→21:03)
[2021-06-29] MEDS: FIDAXOMICIN 200 MG TAB PO SCH (10:53)
[2021-06-29] MEDS: ATORVASTATIN 40 MG TAB PO SCH (11:20)
[2021-06-29] MEDS: HEPARIN SOD 5,000 UNIT/0.5 ML VIAL SQ SCH ×2 (11:20→21:03)
[2021-06-29] MEDS: TAMSULOSIN HCL 0.4 MG CAP PO SCH (11:20)
[2021-06-29] MEDS: ACETAMINOPHEN 325 MG TAB PO PRN ×2 (17:21→23:38)
--- NOTE | 2021-06-29 20:37 | Hospitalist Progress Note ---
Date of Service June 29, 2021 Assessment & Plan (1) Pancolitis: Plan: C. diff toxin positive. Continue vancomycin 500mg PO QID Unclear whether improvement from [place] vancomycin that was given on 06/24 or Dificid but suspect the later and he has a vancomycin resistant strain. Improving hemodynamics and WBC - stable for transfer to med /surg Contact c. diff isolation precautions ID recommends stopping dificid and metronidazol. (2) C. difficile colitis: Plan: As above (3) RON (acute kidney injury): Plan: Suspect pre-renal due to fluid loss from diarrhea, however lack of rapidly reversible Cr suggest an additional ATN component (repeat UA with granular casts) No obstructive cause seen on CT Lactate 1.4 on admission, repeat 0.8 Continue to hold amlodipine, losartan and HCTZ Appreciate nephrology review. Suspect he pulmonary function will benefit from some gentle diuresis therefore will give one dose of Lasix 20mg IV today and monitor for worsening renal function as likely will have degree of post ATN diuresis in addition. Cr 1.88 -> 1.55 (4) Pneumonia: Plan: initially diagnosed 06/12/21 Rx cefuroxime. Middle lobe resolved on imaging. Concerning worsening right lower lobe air bronchograms and hypoxia - atelectasis vs. pneumonia vs. aspiration. Suspect he was aspirating when he was sicker but no aspiration on FEES 06/26. Appreciate SLT assessment and is on easy to chew diet with aspiration precautions. Sputum culture preliminary - light normal cynthia CXR with pulmonary vascular congestion and small right pleural effusion, appears stable - no indication to start antibiotics for this especially in light of severe life threatening c. diff infection Continue incentive spirometer, nebulizers and flutter valve. (5) Hypoxia: Plan: Wean O2 sats > 90% As above (6) Hypertension: Plan: BP improving today in setting of diarrhea, RON and fluid loss will continue to hold amlodipine, losartan and HCTZ as above. (7) Emphysema/COPD: Plan: No acute exacerbation appreciated Continue his routine maintenance inhalers with Spiriva and Breo Ellipta or ho spital formulary equivalent (8) Aortic stenosis: Plan: Noted mod-severe on echo 03/2020 Plan: VTE Prophylaxis - heparin 5000 units SQ BID Diet - low fiber Disposition - stable for transfer to med/surg Admission and Anticipated Discharge Date Admission Date: June 22, 2021 Subjective 89 yo continues to have diarrhea. Review of Systems Review of Systems: All systems reviewed & are unremarkable except as noted in HPI & below Physical Exam Constitutional: WD/WN, vitals as above no acute distress Eyes: + anicteric sclerae; normal pupil size ENMT: external ear and nose normal, oropharynx normal Mouth: oral mucous membranes not dry Neck: trachea midline, no thyromegaly Respiratory: normal respiratory effort and able to speak in complete sentences; no respiratory distress Auscultation: + diminished lung sounds (bibasal) and + crackles (right base, improving); no rales, no rhonchi and no wheezes Cardiovascular: Rate/Rhythm: regular rhythm and + tachycardic Heart Sounds: + murmur (2/6 SANTIAGO LUSB) Vessels: no JVD Extremities: normal capillary refill and + pedal edema (trace pre-tibial b/l equal); no calf tenderness Gastrointestinal (Abdomen): Inspection/Auscultation: abdomen normal to inspection and normal bowel sounds; abdomen not distended Percussion/Palpation: abdomen soft; abdomen nontender, no guarding and abdomen not rigid Musculoskeletal: no cyanosis or clubbing, extremities motor strength 5/5 Skin: no rashes, warm and dry Neurologic: moves all extremities and awake; not confused Psychiatric: A+Ox3, euthymic affect Genitourinary: no CVA tenderness Results & Data Results & Data ([facility]) Vital Signs (Past 12 Hours) Vital Signs Temp Pulse Resp BP Pulse Ox 06/29/21 15:58 36.8 C 98 H 16 123/80 94 PG Care Time/CCT Total # of Minutes Spent Total Time Spent with Patient: Total time spent is greater than 50% in coordination of care (as documented) at patient's floor/unit and/or counseling patient: Coding Level of Care Code 40215 Subseq Hosp Care Lvl 2 Diagnoses Pancolitis K51.00 C. difficile colitis A04.72 RON (acute kidney injury) N17.9 Pneumonia J18.9 Laterality: right Lung location: unspecified part of lung Pneumonia type: due to unspecified organism Hypoxia R09.02 Hypertension I10 Emphysema/COPD J43.9 Aortic stenosis I35.0 Time Spent (min) 25 (1) Pneumonia Laterality: right Lung location: unspecified part of lung Pneumonia type: due to unspecified organism Qualified Code(s): J18.9 - Pneumonia, unspecified organism
[2021-06-29] MEDS: CLOPIDOGREL BISULFATE 75 MG TAB PO SCH (21:03)
[2021-06-29] MEDS: MELATONIN 3 MG TAB PO PRN (23:38)
[2021-06-30] MEDS: VANCOMYCIN HCL 500 MG/10 ML SOLN PO SCH (05:55)
[2021-06-30] MEDS: RASPBERRY SYRUP 5 ML UDP PO SCH ×4 (05:55→23:22)
[2021-06-30 06:24] LABS: Hematocrit (blood only) 30.9 % (42-52); Hemoglobin 9.8 g/dL (14.0-18.0); Mean Corpuscular Hemoglobin 28.6 pg (25-34); Mean Corpuscular Hgb Conc 31.7 g/dL (32-36); Mean Corpuscular Volume 90.1 fL (80-100); Mean Platelet Volume 9.5 fL (7.4-10.4); Platelet Count 355 K/uL (130-400); RDW Coefficient of Variation 15.5 % (11.5-14.5); RDW Standard Deviation 50.6 fL (36.4-46.3); Red Blood Count 3.43 M/uL (4.7-6.1); White Blood Count 10.09 K/uL (4.8-10.8)
[2021-06-30 06:45] LABS: BUN Creatinine Ratio 34.9 (10-20); C Reactive Protein 7.81 mg/dl (0-0.5); Calcium 7.6 mg/dl (8.5-10.1); Creatinine Clr Calc Pharmacy 41.4 ml/min; Est GFR (African American) 56.6 ml/min; Est GFR (Non-African American) 48.8 ml/min; Potassium 4.4 mmol/L (3.5-5.1)
[2021-06-30 06:48] LABS: Acanthocytes 1+; Basophils # (auto) 0.02 K/uL (0-0.2); Basophils % (auto) 0.2 %; Eosinophils # (auto) 0.23 K/uL (0-0.5); Eosinophils % (auto) 2.3 %; Immature Granulocytes # (auto) 0.03 K/uL (0.00-0.02); Immature Granulocytes % (auto) 0.3 %; Lymphocytes # (auto) 0.98 K/uL (1.2-3.4); Lymphocytes % (auto) 9.7 %; Monocytes # (auto) 0.58 K/uL (0.11-0.59); Monocytes % (auto) 5.7 %; Neutrophils # (auto) 8.25 K/uL (1.4-6.5); Neutrophils % (auto) 81.8 %
[2021-06-30] MEDS: FLUTICASONE/VILANTEROL 200/25MCG 14 PUFFS/INHALER INH SCH (08:14)
[2021-06-30] MEDS: MONTELUKAST SODIUM 10 MG TABLET PO SCH (08:14)
[2021-06-30] MEDS: ATORVASTATIN 40 MG TAB PO SCH (08:14)
[2021-06-30] MEDS: UMECLIDINIUM BROMIDE 62.5MCG/BLISTER 7 PUFFS/INHALER INH SCH (08:14)
[2021-06-30] MEDS: TAMSULOSIN HCL 0.4 MG CAP PO SCH (08:14)
[2021-06-30] MEDS: PANTOprazole 40 MG TAB PO SCH (08:14)
[2021-06-30] MEDS: FINASTERIDE 5 MG TAB PO SCH (08:14)
[2021-06-30] MEDS: HEPARIN SOD 5,000 UNIT/0.5 ML VIAL SQ SCH ×2 (08:15→22:03)
[2021-06-30] MEDS: POTASSIUM CHLORIDE CRTAB 20 MEQ TABCR PO SCH ×2 (08:18→22:03)
--- NOTE | 2021-06-30 08:37 | Nephrology Progress Note ---
Date of Service June 30, 2021 Assessment & Plan (1) RON (acute kidney injury): Plan: * RON due to multiple factors including severe C. 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 Will sign off. Please call if further assistance is needed (2) Chronic kidney disease, stage II (mild): Plan: * CKD stage GII/A1 w/ baseline Cr 1.0 and EGFR 71 cc/min. Prior urinalysis has been negative for blood or protein. 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 difficile colitis: Plan: * ID has recommended transitioning to oral Vancomycin therapy (4) Pneumonia: Plan: * RML pneumonia resolved Admission and Anticipated Discharge Date Admission Date: June 22, 2021 Subjective Mr. Bowie was evaluated in his hospital room this morning. He had one semi-liquid BM yesterday. He voices no new medical concerns Review of Systems Constitutional: + weakness; no fever Eyes: no problem reported Ear, Nose, Mouth, Throat: no problem reported Respiratory: no cough and no dyspnea Cardiovascular: no chest pain, no palpitations and no edema Gastrointestinal: + diarrhea/loose stools; no abdominal pain Genitourinary: no dysuria, no urinary hesitancy or no hematuria Musculoskeletal: no back pain Integumentary: no rash Neurologic: no confusion Physical Exam Constitutional: + frail appearing; not in distress Eyes: PERRL, conjunctivae normal, anicteric sclerae ENMT: external ear and nose normal, oropharynx normal Neck: trachea midline, no thyromegaly Respiratory: normal respiratory effort, lungs clear to auscultation Cardiovascular: Rate/Rhythm: regular rate and regular rhythm Heart Sounds: + murmur Gastrointestinal (Abdomen): normal bowel sounds, soft, nontender, no hepatosplenomegaly Inspection/Auscultation: + hypoactive bowel sounds Per cussion/Palpation: no guarding Musculoskeletal: Extremities: no cyanosis Skin: no rashes, warm and dry Neurologic: awake; not confused Results & Data ([facility]) Vital Signs (Past 12 Hours) Vital Signs Temp Pulse Resp BP Pulse Ox 06/30/21 07:33 37 C 70 20 118/74 93 06/29/21 23:00 36.9 C 78 20 133/74 98 Laboratory Results Laboratory Tests 06/30/21 06/30/21 05:43 05:43 WBC 10.09 Hgb 9.8 L Hct 30.9 L Plt Count 355 Sodium 140 Potassium 4.4 Chloride 113 H Carbon Dioxide 24 BUN 45 H Creatinine 1.29 Glucose 116 H Calcium 7.6 L PG Care Time/CCT Total # of Minutes Spent Total Time Spent with Patient: Total time spent is greater than 50% in coordination of care (as documented) at patient's floor/unit and/or counseling patient: Coding Level of Care Code 10010 Subseq Hosp Care Lvl 3 Diagnoses RON (acute kidney injury) N17.9 Chronic kidney disease, stage II (mild) N18.2 C. difficile colitis A04.72 Pneumonia J18.9 Laterality: right Lung location: unspecified part of lung Pneumonia type: due to unspecified organism (1) Pneumonia Laterality: right Lung location: unspecified part of lung Pneumonia type: due to unspecified organism Qualified Code(s): J18.9 - Pneumonia, unspecified organism
[2021-06-30] MEDS: VANCOMYCIN HCL 125 MG/2.5ML SOLN PO SCH ×3 (11:56→23:24)
--- NOTE | 2021-06-30 21:24 | Hospitalist Progress Note ---
Date of Service June 30, 2021 Assessment & Plan (1) Pancolitis: Plan: C. diff toxin positive. Continue vancomycin 500mg PO QID Unclear whether improvement from [place] vancomycin that was given on 06/24 or Dificid but suspect the later and he has a vancomycin resistant strain. Improving hemodynamics and WBC - stable for transfer to med /surg Contact c. diff isolation precautions ID recommends stopping dificid and metronidazol. will continue vanco 125 mg. Patient labs also are improving. will monitor. (2) C. difficile colitis: Plan: As above (3) RON (acute kidney injury): Plan: Suspect pre-renal due to fluid loss from diarrhea, however lack of rapidly reversible Cr suggest an additional ATN component (repeat UA with granular casts) No obstructive cause seen on CT Lactate 1.4 on admission, repeat 0.8 Continue to hold amlodipine, losartan and HCTZ Appreciate nephrology review. Suspect he pulmonary function will benefit from some gentle diuresis therefore will give one dose of Lasix 20mg IV today and monitor for worsening renal function as likely will have degree of post ATN diuresis in addition. Cr 1.88 -> 1.55 (4) Pneumonia: Plan: initially diagnosed 06/12/21 Rx cefuroxime. Middle lobe resolved on imaging. Concerning worsening right lower lobe air bronchograms and hypoxia - atelectasis vs. pneumonia vs. aspiration. Suspect he was aspirating when he was sicker but no aspiration on FEES 06/26. Appreciate SLT assessment and is on easy to chew diet with aspiration precautions. Sputum culture preliminary - light normal cynthia CXR with pulmonary vascular congestion and small right pleural effusion, appears stable - no indication to start antibiotics for this especially in light of severe life threatening c. diff infection Continue incentive spirometer, nebulizers and flutter valve. (5) Hypoxia: Plan: Wean O2 sats > 90% As above (6) Hypertension: Plan: BP improving today in setting of diarrhea, RON and fluid loss will continue to hold amlodipine, losartan and HCTZ as above. (7) Emphysema/COPD: Plan: No acute exacerbation appreciated Continue his routine maintenance inhalers with Spiriva and Breo Ellipta or hospital formulary equivalent (8) Aortic stenosis: Plan: Noted mod-severe on echo 03/2020 Plan: VTE Prophylaxis - heparin 5000 units SQ BID Diet - low fiber Disposition - stable for transfer to med/surg Admission and Anticipated Discharge Date Admission Date: June 22, 2021 Subjective Patient reports improved stool formation. Still watery but more consistency. atient had 3 BM in the AM. Review of Systems Review of Systems: All systems reviewed & are unremarkable except as noted in HPI & below Physical Exam Constitutional: WD/WN, vitals as above no acute distress Eyes: + anicteric sclerae; normal pupil size ENMT: external ear and nose normal, oropharynx normal Mouth: oral mucous membranes not dry Neck: trachea midline, no thyromegaly Respiratory: normal respiratory effort and able to speak in complete sentences; no respiratory distress Auscultation: + diminished lung sounds (bibasal) and + crackles (right base, improving); no rales, no rhonchi and no wheezes Cardiovascular: Rate/Rhythm: regular rhythm and + tachycardic Heart Sounds: + murmur (2/6 SANTIAGO LUSB) Vessels: no JVD Extremities: normal capillary refill and + pedal edema (trace pre-tibial b/l equal); no calf tenderness Gastrointestinal (Abdomen): Inspection/Auscultation: abdomen normal to inspection and normal bowel sounds; abdomen not distended Percussion/P alpation: abdomen soft; abdomen nontender, no guarding and abdomen not rigid Musculoskeletal: no cyanosis or clubbing, extremities motor strength 5/5 Skin: no rashes, warm and dry Neurologic: moves all extremities and awake; not confused Psychiatric: A+Ox3, euthymic affect Genitourinary: no CVA tenderness Results & Data Results & Data ([facility]) Vital Signs (Past 12 Hours) Vital Signs Temp Pulse Resp BP Pulse Ox 06/30/21 15:27 36.6 C 90 18 124/77 95 PG Care Time/CCT Total # of Minutes Spent Total Time Spent with Patient: Total time spent is greater than 50% in coordination of care (as documented) at patient's floor/unit and/or counseling patient: Coding Level of Care Code 80087 Subseq Hosp Care Lvl 2 Diagnoses Pancolitis K51.00 C. difficile colitis A04.72 RON (acute kidney injury) N17.9 Pneumonia J18.9 Laterality: right Lung location: unspecified part of lung Pneumonia type: due to unspecified organism Hypoxia R09.02 Hypertension I10 Emphysema/COPD J43.9 Aortic stenosis I35.0 (1) Pneumonia Laterality: right Lung location: unspecified part of lung Pneumonia type: due to unspecified organism Qualified Code(s): J18.9 - Pneumonia, unspecified organism
[2021-06-30] MEDS ORDERED: diphenhydrAMINE 50 MG/ML VIAL IV STA (21:32)
[2021-06-30] MEDS: CLOPIDOGREL BISULFATE 75 MG TAB PO SCH (22:03)
[2021-06-30] MEDS: MELATONIN 3 MG TAB PO PRN (23:21)
[2021-06-30] MEDS: ACETAMINOPHEN 325 MG TAB PO PRN (23:21)
[2021-07-01] MEDS: RASPBERRY SYRUP 5 ML UDP PO SCH ×4 (05:30→23:38)
[2021-07-01] MEDS: VANCOMYCIN HCL 125 MG/2.5ML SOLN PO SCH ×4 (05:30→23:39)
[2021-07-01 06:08] LABS: Hemoglobin 9.3 g/dL (14.0-18.0); Mean Corpuscular Hemoglobin 29.2 pg (25-34); Mean Corpuscular Hgb Conc 32.1 g/dL (32-36); Mean Corpuscular Volume 90.9 fL (80-100); Mean Platelet Volume 9.4 fL (7.4-10.4); Platelet Count 368 K/uL (130-400); RDW Coefficient of Variation 15.4 % (11.5-14.5); RDW Standard Deviation 51.9 fL (36.4-46.3); Red Blood Count 3.19 M/uL (4.7-6.1); White Blood Count 11.65 K/uL (4.8-10.8)
[2021-07-01] MEDS: MONTELUKAST SODIUM 10 MG TABLET PO SCH (08:38)
[2021-07-01] MEDS: PANTOprazole 40 MG TAB PO SCH (08:39)
[2021-07-01] MEDS: UMECLIDINIUM BROMIDE 62.5MCG/BLISTER 7 PUFFS/INHALER INH SCH (08:39)
[2021-07-01] MEDS: ATORVASTATIN 40 MG TAB PO SCH (08:39)
[2021-07-01] MEDS: FINASTERIDE 5 MG TAB PO SCH (08:39)
[2021-07-01] MEDS: HEPARIN SOD 5,000 UNIT/0.5 ML VIAL SQ SCH ×2 (08:39→22:04)
[2021-07-01] MEDS: TAMSULOSIN HCL 0.4 MG CAP PO SCH (08:39)
[2021-07-01] MEDS: FLUTICASONE/VILANTEROL 200/25MCG 14 PUFFS/INHALER INH SCH (08:40)
[2021-07-01] MEDS: POTASSIUM CHLORIDE CRTAB 20 MEQ TABCR PO SCH ×2 (09:27→22:04)
[2021-07-01 16:38] LABS: BUN Creatinine Ratio 32.8 (10-20); C Reactive Protein 4.69 mg/dl (0-0.5); Calcium 7.6 mg/dl (8.5-10.1); Est GFR (African American) 64.4 ml/min; Est GFR (Non-African American) 55.5 ml/min; Potassium 5.1 mmol/L (3.5-5.1)
--- NOTE | 2021-07-01 17:55 | Hospitalist Progress Note ---
Date of Service July 01, 2021 Assessment & Plan (1) Pancolitis: Plan: C. diff toxin positive. Continue vancomycin 125mg PO QID Unclear whether improvement from [place] vancomycin that was given on 06/24 or Dificid but suspect the later and he has a vancomycin resistant strain. Improving hemodynamics and WBC - stable for transfer to med /surg Contact c. diff isolation precautions ID recommends stopping dificid and metronidazol. Patient labs also are improving. will monitor. stools are also more formed. (2) C. difficile colitis: Plan: As above (3) RON (acute kidney injury): Plan: Suspect pre-renal due to fluid loss from diarrhea, however lack of rapidly reversible Cr suggest an additional ATN component (repeat UA with granular casts) No obstructive cause seen on CT Lactate 1.4 on admission, repeat 0.8 Continue to hold amlodipine, losartan and HCTZ Appreciate nephrology review. Suspect he pulmonary function will benefit from some gentle diuresis therefore will give one dose of Lasix 20mg IV today and monitor for worsening renal function as likely will have degree of post ATN diuresis in addition. Cr 1.88 -> 1.18 (4) Pneumonia: Plan: initially diagnosed 06/12/21 Rx cefuroxime. Middle lobe resolved on imaging. Concerning worsening right lower lobe air bronchograms and hypoxia - atelectasis vs. pneumonia vs. aspiration. Suspect he was aspirating when he was sicker but no aspiration on FEES 06/26. Appreciate SLT assessment and is on easy to chew diet with aspiration precautions. Sputum culture preliminary - light normal cynthia CXR with pulmonary vascular congestion and small right pleural effusion, appears stable - no indication to start antibiotics for this especially in light of severe life threatening c. diff infection Continue incentive spirometer, nebulizers and flutter valve. (5) Hypoxia: Plan: Wean O2 sats > 90% As above (6) Hypertension: Plan: BP improving today in setting of diarrhea, RON and fluid loss will continue to hold amlodipine, losartan and HCTZ as above. (7) Emphysema/COPD: Plan: No acute exacerbation appreciated Continue his routine maintenance inhalers with Spiriva and Breo Ellipta or hospital formulary equivalent (8) Aortic stenosis: Plan: Noted mod-severe on echo 03/2020 Plan: VTE Prophylaxis - heparin 5000 units SQ BID Diet - low fiber Disposition - stable for transfer to med/surg Admission and Anticipated Discharge Date Admission Date: June 22, 2021 Subjective Patient reports stools are more formed. Review of Systems Review of Systems: All systems reviewed & are unremarkable except as noted in HPI & below Physical Exam Constitutional: WD/WN, vitals as above no acute distress Eyes: + anicteric sclerae; normal pupil size ENMT: external ear and nose normal, oropharynx normal Mouth: oral mucous membranes not dry Neck: trachea midline, no thyromegaly Respiratory: normal respiratory effort and able to speak in complete sentences; no respiratory distress Auscultation: + diminished lung sounds (bibasal) and + crackles (right base, improving); no rales, no rhonchi and no wheezes Cardiovascular: Rate/Rhythm: regular rhythm and + tachycardic Heart Sounds: + murmur (2/6 SANTIAGO LUSB) Vessels: no JVD Extremities: normal capillary refill and + pedal edema (trace pre-tibial b/l equal); no calf tenderness Gastrointestinal (Abdomen): Inspection/Auscultation: abdomen normal to inspection and normal bowel sounds; abdomen not distended Percussion/Palpation: abdomen soft; abdomen nontender, no guarding and abdomen not rigid Musculoskeletal: no cyanosis or clubbing, extremities motor strength 5/5 Skin: no rashes, warm and dry Neurologic: moves all extremities and awake; not confused Psychiatric: A+Ox3, euthymic affect Genitourinary: no CVA tenderness Results & Data Results & Data ([facility]) Vital Signs (Past 12 Hours) Vital Signs Temp Pulse Resp BP Pulse Ox 07/01/21 14:41 36.6 C 100 H 18 110/70 94 07/01/21 07:40 100 H 16 95 07/01/21 07:15 37 C 103 H 18 126/76 94 PG Care Time/CCT Total # of Minutes Spent Total Time Spent with Patient: Total time spent is greater than 50% in coordination of care (as documented) at patient's floor/unit and/or counseling patient: Coding Level of Care Code 60483 Subseq Hosp Care Lvl 2 Diagnoses Pancolitis K51.00 C. difficile colitis A04.72 RON (acute kidney injury) N17.9 Pneumonia J18.9 Laterality: right Lung location: unspecified part of lung Pneumonia type: due to unspecified organism Hypoxia R09.02 Hypertension I10 Emphysema/COPD J43.9 Aortic stenosis I35.0 (1) Pneumonia Laterality: right Lung location: unspecified part of lung Pneumonia type: due to unspecified organism Qualified Code(s): J18.9 - Pneumonia, unspecified organism
[2021-07-01] MEDS: CLOPIDOGREL BISULFATE 75 MG TAB PO SCH (22:04)
[2021-07-01] MEDS: MELATONIN 3 MG TAB PO PRN (23:39)
[2021-07-01] MEDS: ACETAMINOPHEN 325 MG TAB PO PRN (23:39)
[2021-07-02] MEDS: RASPBERRY SYRUP 5 ML UDP PO SCH ×4 (06:25→23:21)
[2021-07-02] MEDS: VANCOMYCIN HCL 125 MG/2.5ML SOLN PO SCH ×4 (06:25→23:22)
[2021-07-02] MEDS: UMECLIDINIUM BROMIDE 62.5MCG/BLISTER 7 PUFFS/INHALER INH SCH (07:50)
[2021-07-02] MEDS: FLUTICASONE/VILANTEROL 200/25MCG 14 PUFFS/INHALER INH SCH (07:50)
[2021-07-02] MEDS: MONTELUKAST SODIUM 10 MG TABLET PO SCH (09:49)
[2021-07-02] MEDS: HEPARIN SOD 5,000 UNIT/0.5 ML VIAL SQ SCH ×2 (09:49→20:19)
[2021-07-02] MEDS: PANTOprazole 40 MG TAB PO SCH (09:49)
[2021-07-02] MEDS: ATORVASTATIN 40 MG TAB PO SCH (09:49)
[2021-07-02] MEDS: FINASTERIDE 5 MG TAB PO SCH (09:49)
[2021-07-02] MEDS: TAMSULOSIN HCL 0.4 MG CAP PO SCH (09:49)
[2021-07-02] MEDS: POTASSIUM CHLORIDE CRTAB 20 MEQ TABCR PO SCH ×2 (09:56→21:08)
--- NOTE | 2021-07-02 17:52 | Hospitalist Progress Note ---
Date of Service July 02, 2021 Assessment & Plan (1) Pancolitis: Plan: C. diff toxin positive. Continue vancomycin 125mg PO QID Unclear whether improvement from [place] vancomycin that was given on 06/24 or Dificid but suspect the later and he has a vancomycin resistant strain. Improving hemodynamics and WBC - stable for transfer to med /surg Contact c. diff isolation precautions ID recommends stopping dificid and metronidazol. Patient labs also are improving. will monitor. stools are also more formed. will likely discharge in AM once PT re-evals patient. (2) C. difficile colitis: Plan: As above (3) RON (acute kidney injury): Plan: Suspect pre-renal due to fluid loss from diarrhea, however lack of rapidly reversible Cr suggest an additional ATN component (repeat UA with granular casts) No obstructive cause seen on CT Lactate 1.4 on admission, repeat 0.8 Continue to hold amlodipine, losartan and HCTZ Appreciate nephrology review. Suspect he pulmonary function will benefit from some gentle diuresis therefore will give one dose of Lasix 20mg IV today and monitor for worsening renal function as likely will have degree of post ATN diuresis in addition. Cr 1.88 -> 1.18 (4) Pneumonia: Plan: initially diagnosed 06/12/21 Rx cefuroxime. Middle lobe resolved on imaging. Concerning worsening right lower lobe air bronchograms and hypoxia - atelectasis vs. pneumonia vs. aspiration. Suspect he was aspirating when he was sicker but no aspiration on FEES 06/26. Appreciate SLT assessment and is on easy to chew diet with aspiration precautions. Sputum culture preliminary - light normal cynthia CXR with pulmonary vascular congestion and small right pleural effusion, appears stable - no indication to start antibiotics for this especially in light of severe life threatening c. diff infection Continue incentive spirometer, nebulizers and flutter valve. (5) Hypoxia: Plan: Wean O2 sats > 90% As above (6) Hypertension: Plan: BP improving today in setting of diarrhea, RON and fluid loss will continue to hold amlodipine, losartan and HCTZ as above. (7) Emphysema/COPD: Plan: No acute exacerbation appreciated Continue his routine maintenance inhalers with Spiriva and Breo Ellipta or hospital formulary equivalent (8) Aortic stenosis: Plan: Noted mod-severe on echo 03/2020 Plan: VTE Prophylaxis - heparin 5000 units SQ BID Diet - low fiber Disposition - stable for transfer to med/surg Admission and Anticipated Discharge Date Admission Date: June 22, 2021 Subjective Patient reports stools are formed. Patient has no new complaints. Review of Systems Review of Systems: All systems reviewed & are unremarkable except as noted in HPI & below Physical Exam Constitutional: WD/WN, vitals as above no acute distress Eyes: + anicteric sclerae; normal pupil size ENMT: external ear and nose normal, oropharynx normal Mouth: oral mucous membranes not dry Neck: trachea midline, no thyromegaly Respiratory: normal respiratory effort and able to speak in complete sentences; no respiratory distress Auscultation: + diminished lung sounds (bibasal) and + crackles (right base, improving); no rales, no rhonchi and no wheezes Cardiovascular: Rate/Rhythm: regular rhythm and + tachycardic Heart Sounds: + murmur (2/6 SANTIAGO LUSB) Vessels: no JVD Extremities: normal capillary refill and + pedal edema (trace pre-tibial b/l equal); no calf tenderness Gastrointestinal (Abdomen): Inspection/Auscultation: abdomen normal to inspection and normal bowel sounds; abdomen not distended Percussion/Palpation: abdomen soft; abdomen nontender, no guarding and abdomen not rigid Musculoskeletal: no cyanosis or clubbing, extremities motor strength 5/5 Skin: no rashes, warm and dry Neurologic: moves all extremities and awake; not confused Psychiatric: A+Ox3, euthymic affect Genitourinary: no CVA tenderness Results & Data Results & Data ([facility]) Vital Signs (Past 12 Hours) Vital Signs Temp Pulse Resp BP Pulse Ox 07/02/21 15:40 36.7 C 87 16 113/71 95 07/02/21 08:10 36.5 C 104 H 16 126/67 94 PG Care Time/CCT Total # of Minutes Spent Total Time Spent with Patient: Total time spent is greater than 50% in coordination of care (as documented) at patient's floor/unit and/or counseling patient: Coding Level of Care Code 52990 Subseq Hosp Care Lvl 2 Diagnoses Pancolitis K51.00 C. difficile colitis A04.72 RON (acute kidney injury) N17.9 Pneumonia J18.9 Laterality: right Lung location: unspecified part of lung Pneumonia type: due to unspecified organism Hypoxia R09.02 Hypertension I10 Emphysema/COPD J43.9 Aortic stenosis I35.0 (1) Pneumonia Laterality: right Lung location: unspecified part of lung Pneumonia type: due to unspecified organism Qualified Code(s): J18.9 - Pneumonia, unspecified organism
[2021-07-02] MEDS: CLOPIDOGREL BISULFATE 75 MG TAB PO SCH (20:19)
[2021-07-02] MEDS: MELATONIN 3 MG TAB PO PRN (23:27)
[2021-07-03] MEDS: VANCOMYCIN HCL 125 MG/2.5ML SOLN PO SCH ×2 (05:58→12:14)
[2021-07-03] MEDS: RASPBERRY SYRUP 5 ML UDP PO SCH ×2 (05:58→12:14)
[2021-07-03 07:05] LABS: Basophils # (auto) 0.02 K/uL (0-0.2); Basophils % (auto) 0.2 %; Eosinophils # (auto) 0.19 K/uL (0-0.5); Eosinophils % (auto) 2.1 %; Hemoglobin 9.1 g/dL (14.0-18.0); Immature Granulocytes # (auto) 0.05 K/uL (0.00-0.02); Immature Granulocytes % (auto) 0.6 %; Lymphocytes # (auto) 1.17 K/uL (1.2-3.4); Mean Corpuscular Hemoglobin 28.6 pg (25-34); Mean Corpuscular Hgb Conc 31.4 g/dL (32-36); Mean Corpuscular Volume 91.2 fL (80-100); Mean Platelet Volume 9.2 fL (7.4-10.4); Monocytes # (auto) 0.55 K/uL (0.11-0.59); Monocytes % (auto) 6.1 %; Neutrophils # (auto) 7.03 K/uL (1.4-6.5); Platelet Count 380 K/uL (130-400); RDW Coefficient of Variation 15.5 % (11.5-14.5); RDW Standard Deviation 52.2 fL (36.4-46.3); Red Blood Count 3.18 M/uL (4.7-6.1); White Blood Count 9.01 K/uL (4.8-10.8)
[2021-07-03 07:10] LABS: BUN Creatinine Ratio 36.4 (10-20); C Reactive Protein 2.64 mg/dl (0-0.5); Calcium 7.8 mg/dl (8.5-10.1); Creatinine Clr Calc Pharmacy 53.9 ml/min; Est GFR (African American) 77.9 ml/min; Est GFR (Non-African American) 67.2 ml/min; Potassium 4.8 mmol/L (3.5-5.1)
[2021-07-03] MEDS: MONTELUKAST SODIUM 10 MG TABLET PO SCH (09:29)
[2021-07-03] MEDS: ATORVASTATIN 40 MG TAB PO SCH (09:29)
[2021-07-03] MEDS: PANTOprazole 40 MG TAB PO SCH (09:29)
[2021-07-03] MEDS: POTASSIUM CHLORIDE CRTAB 20 MEQ TABCR PO SCH (09:29)
[2021-07-03] MEDS: FINASTERIDE 5 MG TAB PO SCH (09:29)
[2021-07-03] MEDS: TAMSULOSIN HCL 0.4 MG CAP PO SCH (09:29)
[2021-07-03] MEDS: HEPARIN SOD 5,000 UNIT/0.5 ML VIAL SQ SCH (09:30)
[2021-07-03] MEDS: FLUTICASONE/VILANTEROL 200/25MCG 14 PUFFS/INHALER INH SCH (09:30)
[2021-07-03] MEDS: UMECLIDINIUM BROMIDE 62.5MCG/BLISTER 7 PUFFS/INHALER INH SCH (09:30)
--- NOTE | 2021-07-09 07:56 | Discharge Summary ---
Date of Service July 03, 2021 Admission HPI Per Admitting Provider Lefty Bowie is an 89 year old male who presents to the ER with fever and chills. He was recently diagnosed with pneumonia at his pulmonology clinic appointment on June 12. He reports not having significant symptoms other than a mild productive cough at that time and no fever or chills. He was started on cefuroxime by his automotive service professional. 5 days ago he started having fever and chills with a maximum temperature yesterday of 102 degrees Fahrenheit. He has been having diarrhea since starting on antibiotics and has become watery. He has no history of c. diff. The patient has been getting increasingly weak and fatigued with reduced appetite. No nausea or vomiting. His called the automotive service professional 2 days ago who prescribed another course of antibiotics (doxycycline) for pneumonia. However he only took one dose of that yesterday and hasn't been able to take any of his medications today. Due to worsening fatigue and weakness his brought him to the ER today. In the ER initial concern was for worsening pneumonia and he received a dose of IV cefepime and vancomycin for this. CXR actually dose resolving consolidation however. Labs were concerning for RON with Cr 1.93 from baseline 1.07. Due to abdominal pain on exam he underwent CT which showed pancolitis. He was referred to medicine for admission and ongoing management of acute renal failure and pneumonia. Principal Diagnosis c diff colitis Discharge Exam Constitutional: WD/WN, vitals as above no acute distress Eyes: + anicteric sclerae; normal pupil size ENMT: external ear and nose normal, oropharynx normal Mouth: oral mucous membranes not dry Neck: trachea midline, no thyromegaly Respiratory: normal respiratory effort and able to speak in complete sentences; no respiratory distress Auscultation: + diminished lung sounds (bibasal) and + crackles (right base, improving); no rales, no rhonchi and no wheezes Cardiovascular: Rate/Rhythm: regular rhythm and + tachycardic Heart Sounds: + murmur (2/6 SANTIAGO LUSB) Vessels: no JVD Extremities: normal capillary refill and + pedal edema (trace pre-tibial b/l equal); no calf tenderness Gastrointestinal (Abdomen): Inspection/Auscultation: abdomen normal to inspection and normal bowel sounds; abdomen not distended Percussion/Palpation: abdomen soft; abdomen nontender, no guarding and abdomen not rigid Musculoskeletal: no cyanosis or clubbing, extremities motor strength 5/5 Skin: no rashes, warm and dry Neurologic: moves all extremities and awake; not confused Psychiatric: A+Ox3, euthymic affect Genitourinary: no CVA tenderness Discharge Data Allergies Allergy/AdvReac Type Severity Reaction Status Date / Time Penicillins Allergy Mild Rash Verified 06/22/21 16:14 Consultations 06/22/21 16:04 ED Decision to Admit Stat 06/24/21 09:49 Consult General Surgery Routine 06/24/21 21:55 Consult Infectious Diseases Routine 06/25/21 08:50 Consult Nephrology Routine Ordered Studies 06/22/21 14:36 CT abd pelvis wo con Stat 06/24/21 08:08 CT abd pelvis wo con Stat 06/24/21 08:09 CT chest diagnostic wo con Stat Hospital Course (1) Pancolitis: C. diff toxin positive. Continue vancomycin 125mg PO QID Unclear whether improvement from [place] vancomycin that was given on 06/24 or Dificid but suspect the later and he has a vancomycin resistant strain. Improving hemodynamics and WBC - stable for transfer to med /surg Contact c. diff isolation precautions ID recommends stopping dificid and metronidazol. Patient labs continue to improve once switched to PO vanco at 125 mg stools are also more formed. Patient will complete 14 day course of vanco. PT/OT cleared patient to return home. (2) C. difficile colitis: As above (3) RON (acute kidney injury): Suspect pre-renal due to fluid loss from diarrhea, however lack of rapidly reversible Cr suggest an additional ATN component (repeat UA with granular casts) No obstructive cause seen on CT Lactate 1.4 on admission, repeat 0.8 Continue to hold amlodipine, losartan and HCTZ Appreciate nephrology review. Suspect he pulmonary function will benefit from some gentle diuresis therefore will give one dose of Lasix 20mg IV today and monitor for worsening renal function as likely will have degree of post ATN diuresis in addition. Cr 1.88 -> 1.18 (4) Pneumonia: initially diagnosed 06/12/21 Rx cefuroxime. Middle lobe resolved on imaging. Concerning worsening right lower lobe air bronchograms and hypoxia - atelectasis vs. pneumonia vs. aspiration. Suspect he was aspirating when he was sicker but no aspiration on FEES 06/26. Appreciate SLT assessment and is on easy to chew diet with aspiration precautions. Sputum culture preliminary - light normal cynthia CXR with pulmonary vascular congestion and small right pleural effusion, appears stable - no indication to start antibiotics for this especially in light of severe life threatening c. diff infection Continue incentive spirometer, nebulizers and flutter valve. (5) Hypoxia: Wean O2 sats > 90% As above (6) Hypertension: BP improving today in setting of diarrhea, RON and fluid loss will continue to hold amlodipine, losartan and HCTZ as above. (7) Emphysema/COPD: No acute exacerbation appreciated Continue his routine maintenance inhalers with Spiriva and Breo Ellipta or hospital formulary equivalent (8) Aortic stenosis: Noted mod-severe on echo 03/2020 VTE Prophylaxis - heparin 5000 units SQ BID Diet - low fiber Disposition - stable for transfer to med/surg Total Time Total Time Spent Total Time Spent (In Minutes): 35 Discharge Plan Discharge Items Patient Disposition: Home - Self-Care Reason For Visit: C. DIFF COLITIS, RON Discharge Diagnosis: C. diff colitis Activity: Resume your previous activity Non-emergency contact: Primary Care Provider Call non-emergency contact if: you have any medication questions Follow-up/Referrals: Manav Harman [Primary Care Provider] - 07/26/21 10:10 am Diet: Low Fiber Diet Texture: Easy to Chew Addtl Attending Provider Instructions: You will continue on antibiotics for one more week. Recommend followup with your PCP in 1-2 weeks. We cut back on your blood pressure medications. I will restart amlodipine at 2.5 mg at bedtime. If you have a bunch of 5 mg of amlodipine at home, you can take half of those. If not, I also sent a script of amlodipine to your pharmacy. I am very gald you feel better and please finish the antibiotics for just one more week plus one dose (29 doses). Below are some recommendations to help limit the spread of c. diff at home. How do I make sure I don't spreadC. diff? At home Wash your hands with soap and water every time you use the bathroom and always before you eat. Remind relatives and friends taking care of you to do the same. Try to use a separate bathroom if you have diarrhea. If you cant, be sure the bathroom is well cleaned before others use it. Take showers and wash with soap to remove anyC. diffgerms you could be carrying on your body. How do I killC. diffgerms at home? FindingC. diffgerms in the home is not unusual, even when no one in the home has been ill withC. diff. Most healthy adults who come in contact withC. diff in the home wont get sick. Hospitals use special cleaning products to killC. diff, but you can make a sack cleaner at home. Mix 1 part bleach to 9 parts water. Surfaces Focus on regularly cleaning items that are touched by hands. These include but are not limited to: * doorknobs * electronics (be careful because bleach can damage many electronics and plastics) * refrigerator handles * shared cups * toilet flushers and toilet seats Laundry If someone in your house hasC. diff, wash items they touch before others use them. These include but are not limited to: * bed linens * towels * household linens * clothing, especially underwear If these items have visible poop, rinse them well before washing. Then launder in a washer and dryer, using the hottest water that is safe for those items. Use chlorine bleach if the items can be safely washed with it. Consider wearing gloves when handling dirty laundry and always wash your hands with soap and water after, even if you use gloves. Its OK to take clothes to a dry sand molder that were worn by a patient infected withC. diff. However, dry cleaning isnt as effective as other methods at killing the spores. Therefore, this option should be used only for clothes that cant be machine-washed. Pending Studies at Discharge: No Stand-Alone Forms: My [facility] AllClear ID, Smoking Cessation Medications and DC Order Prescriptions: New vancomycin 125 mg capsule 125 mg PO Q6H 7 Days Qty: 29 RF: 0 acetaminophen 325 mg Tablet 650 mg PO Q6H PRN (Reason: pain) Qty: 30 RF: 0 Continued (DME) CPAP Machine Misc See Dose Instructions .ROUTE .MEDSUPPLY Qty: 1 RF: 0 tamsulosin 0.4 mg capsule 0.4 mg PO QAM Qty: 30 RF: 0 pantoprazole [Protonix] 40 mg tablet,delayed release (DR/EC) 40 mg PO QAM RF: 0 clopidogrel [Plavix] 75 mg tablet 75 mg PO QPM RF: 0 montelukast 10 mg tablet 10 mg PO QAM RF: 0 Spiriva with HandiHaler 18 mcg capsule, w/inhalation device 1 cap INHALATION QAM RF: 0 Breo Ellipta 200-25 mcg/dose blister with device 1 ea INHALATION QAM RF: 0 atorvastatin 80 mg tablet 80 mg PO DAILY RF: 0 finasteride 5 mg tablet 5 mg PO DAILY RF: 0 nitroglycerin 0.4 mg tablet, sublingual 0.4 mg sublingual UD PRN (Reason: Chest Pain) RF: 0 Changed amlodipine 5 mg tablet 2.5 mg PO PM Qty: 30 RF: 0 Discontinued doxycycline hyclate 100 mg capsule 100 mg PO BID Qty: 14 RF: 0 losartan 100 mg tablet 100 mg PO DAILY Qty: 90 RF: 3 hydrocodone-acetaminophen 5-325 mg tablet 1 tab PO DAILY PRN (Reason: Pain) RF: 0 hydrochlorothiazide 12.5 mg tablet 12.5 mg PO QAM RF: 0 Discharge Orders: Discharge Order (Routine); Ordered 07/03/21 Ordered By: Colin Valerio Admission Data Admit Date/Time: 06/22/21 16:35 Attending Provider: Colin Valerio Admit Provider: Juan J Johnston Primary Care Provider: Manav Harman Other Providers: Juan J Johnston ; Morteza Andrews ; Alvino Torres ; Sherri Farrell ; Emmett Zimmer I. ; Brett Montague II ; Judith Tobias ; Farhat Soares ; Karan Voss ; Xavier Dorantes Other Interventions: Discharge Summary Assessment (RN) Last Done: 07/03/21 11:56 Coding Level of Care Code D/C DAY MANAGEMENT >30 MINS Diagnoses Pancolitis K51.00 C. difficile colitis A04.72 RON (acute kidney injury) N17.9 Pneumonia J18.9 Laterality: right Lung location: unspecified part of lung Pneumonia type: due to unspecified organism Hypoxia R09.02 Hypertension I10 Emphysema/COPD J43.9 Aortic stenosis I35.0
== END 2021-07-03 14:55 | disposition home or self-care (01) | DRG 371 ==
LOC: ED 12:20 → 3W 16:35 → SUATTDRO 16:35 → 3W 17:28 → 2E 06-24 10:18 → 3E 06-28 12:21

== ENCOUNTER 2021-07-15 11:09 | Inpatient (IN) ==
[2021-07-15] MEDS ORDERED: SODIUM CHLORIDE 0.9% 500 ML IV ONE (11:23)
[2021-07-15 11:59] LABS: Hematocrit (blood only) 30.6 % (42-52); Hemoglobin 10.1 g/dL (14.0-18.0); Mean Corpuscular Hemoglobin 28.6 pg (25-34); Mean Corpuscular Volume 86.7 fL (80-100); Mean Platelet Volume 9.4 fL (7.4-10.4); Platelet Count 277 K/uL (130-400); RDW Coefficient of Variation 16.1 % (11.5-14.5); RDW Standard Deviation 51.1 fL (36.4-46.3); Red Blood Count 3.53 M/uL (4.7-6.1); White Blood Count 16.35 K/uL (4.8-10.8)
[2021-07-15 12:18] LABS: Albumin Globulin Ratio 1.1 (0.9-2); BUN Creatinine Ratio 23.1 (10-20); Bilirubin,Total 0.8 mg/dl (0.2-1.0); Calcium 8.3 mg/dl (8.5-10.1); Creatinine Clr Calc Pharmacy 47.5 ml/min; Est GFR (African American) 70.2 ml/min; Est GFR (Non-African American) 60.5 ml/min; Globulin 2.8 gm/dl (2.5-4.0); Magnesium 1.2 mg/dl (1.7-2.4); Phosphorus 3.3 mg/dl (2.5-4.9); Potassium 3.5 mmol/L (3.5-5.1); Total Protein 5.8 gm/dl (6.0-8.3)
[2021-07-15 12:20] LABS: Acanthocytes 1+; Basophils # (auto) 0.01 K/uL (0-0.2); Basophils % (auto) 0.1 %; Dohle Bodies 1+; Eosinophils # (auto) 0.01 K/uL (0-0.5); Eosinophils % (auto) 0.1 %; Immature Granulocytes # (auto) 0.04 K/uL (0.00-0.02); Immature Granulocytes % (auto) 0.2 %; Lymphocytes # (auto) 0.68 K/uL (1.2-3.4); Lymphocytes % (auto) 4.2 %; Monocytes # (auto) 1.37 K/uL (0.11-0.59); Monocytes % (auto) 8.4 %; Neutrophils # (auto) 14.24 K/uL (1.4-6.5)
[2021-07-15] MEDS ORDERED: ACETAMINOPHEN 1,000 MG/100 ML VIAL IV STA (12:31)
[2021-07-15] MEDS ORDERED: OPTIRAY 320 100ml IV ONE (13:14)
--- NOTE | 2021-07-15 13:48 | CT Scan Report ---
ABDOMEN AND PELVIS CT WITH IV CONTRAST CT DOSE: 518.03 mGy.cm HISTORY: Acute generalized abdominal pain with diarrhea possible colitis abd pain, diarrhea, recent cdiff TECHNIQUE: Multiaxial CT images of the abdomen and pelvis were performed following the IV administrat ion of 94 cc of Optiray, A dose lowering technique was utilized adhering to the principles of ALARA. COMPARISON STUDY: CT abdomen and pelvis 06/24/2021 FINDINGS: Cardiomegaly. Coronary arterial, thoracic and abdominal aortic calcifications. Patent aorto biiliac stent graft. Type II endoleak on image 240 series 3. 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 Subpleural reticulation with bibasilar groundglass densities suggestive of atelectasis/scarring. No pneumatosis or pneumoperitoneum. The spleen, modera tely atrophic pancreas and right adrenal gland are unremarkable. 1.2 cm hypodense left adrenal gland lesion suggestive of a probable adenoma. Unremarkable liver. Probable cholelithiasis. 10 mm right hep atic lobe hypodensity on image 21 may represent a cyst. Patent portal vein. 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 Bilateral renal cysts measure up to 2.3 cm on the left. Additional subcentimeter hypodensities of the kidneys are too small to characterize. No hydrone phrosis. Prostate is upper limits of normal in size. Unremarkable urinary bladder. There is no lympha denopathy. No bowel obstruction. Colonic air-fluid levels are noted with diffuse circumferential colo andrew wall thickening and pericolonic inflammatory stranding. The degree of inflammation and wall thick ening has mildly improved from the 06/24/2021 study. Noninflamed appendix. Colonic diverticulosis with out acute diverticulitis. Unremarkable soft tissues. Degenerative changes of the spine, pelvis and hi ps. IMPRESSION: 1. Mild improvement of the diffuse colonic wall thickening with pericolonic inflammation compatible w ith the patient's reported clinical history of C. difficile cellulitis. 2. No bowel obstruction or pneumoperitoneum. 3. 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 4. Cardiomegaly with bibasilar opacities suggestive of probable atelectasis. 5. Colonic diverticulosis. 6. Additional findings as above. ACT 112: Negative or not required by law. The above report was generated using voice recognition software. It may contain grammatical, syntax o r spelling errors. Electronically signed by: Bean Swartz M.D. 07/15/2021 1:46 PM
--- NOTE | 2021-07-15 14:18 | Emergency Department Note ---
Impression & Plan C. difficile colitis, Dehydration, Hypomagnesemia, Leukocytosis ED Provider Note NAME: ARIELA MEDINA AGE: 89 SEX: M ARRIVES VIA: Walk-In INFORMANT: Patient ED PROVIDER(S): Raul Seaman MD CHIEF COMPLAINT: Weakness, diarrhea, Cdiff PLAN: Disposition: Admit MEDICAL DECISION MAKING: The patient is a pleasant 89 gentleman who presents to the emergency department accompanied by his with concern for recurrence of frequent loose foul-sm elling stool after being admitted to the hospital and discharged a week ago for management of C. difficile. They report they did complete a total of 14 days of vancomycin and while he was starting to have more formed stools when he was discharged, several days ago he began to have progression of this. Then any fevers, chills, cough, congestion. He reports he has been eating less because it will "go right through him". His is concerned because he is growing weaker and has lost 8 pounds since his discharge. He denies any urinary symptoms. On arrival the patient is fatigued appearing but in no acute distress, afebrile stable vital signs.He appears clinically dry. He has mild generalized abdominal discomfort without discrete tenderness. Generalized weakness without focal deficits. WBC 16.3K increased from recent however was as high as 33K previously. H/H 10.1/3.6 improved from prior. Platelets within normal limits. Chemistry without metabolic acidosis. BUN/creatinine> 20 consistent with patient's clinically dry appearance. Magnesium 1.2 with repletion initiated. LFTs unremarkable. Lipase is not elevated. CT of the ab pelvis was performed and demonstrates interval improvement in the patient's previously identified C. difficile colitis. Stool sample still pending for repeat C. difficile testing however given the description suspect likely represents recurrence. Additionally, patient has grown increasingly weak with magnesium down to 1.2 and so we will proceed with admission at this time. Case was discussed with Dr. Valerio, [facility] hospitalist, who will evaluate the patient for admission. Patient ultimately did provide stool sample, which was positive for Cdiff toxin and gene. Treatment per admitting team. Triage Nursing notes reviewed and agree them. Prior medical records reviewed Vital Signs: reviewed and remarkable for no significant abnormalities Differential diagnosis: Infection, dehydration, metabolic abnormality, hypo/hyperglycemia, electrolyte disturbance, anemia, hypoxia, cardiac sources, intracerebral event, toxicologic, neurologic, as well as other pathologies. ER treatment provided: See below. Diagnostics interpreted by me: Cardiac Monitoring: An order for continuous cardiac monitoring was placed and demonstrated NSR, 95 bpm, no ectopy. Laboratory studies: See below Imaging studies: See below Consultation(s): Case was discussed with Dr. Valerio, [facility] hospitalist, who will evaluate the patient for admission. HPI: The patient is a pleasant 89 gentleman who presents to the emergency department accompanied by his with concern for recurrence of frequent loose foul-smelling stool after being admitted to the hospital and discharged a week ago for management of C. difficile. They report they did complete a total of 14 days of vancomycin and while he was starting to have more formed stools when he was discharged, several days ago he began to have progression of this. Then any fevers, chills, cough, congestion. He reports he has been eating less because it will "go right through him". His is concerned because he is growing weaker and has lost 8 pounds since his discharge. He denies any urinary symptoms. ROS: See above HPI for pertinent positives & negatives. A total of 10 systems reviewed and were otherwise negative. VITALS:See Below PHYSICAL EXAMINATION: GENERAL: Awake, alert, fatigued-appearing, in no distress HENT: Normocephalic, atraumatic. Oropharynx with dry mucous membranes and otherwise unremarkable. EYES: Normal conjunctiva. Sclera non-icteric. NECK: Supple. No nuchal rigidity. FROM. No JVD. RESPIRATORY: Clear to auscultation. CARDIAC: Regular rate, normal rhythm. Extremities warm and well perfused. Pulses equal. ABDOMEN: Soft, non-distended. Mild generalized abdominal discomfort without discrete tenderness. No rebound or guarding. No masses. RECTAL: Deferred. MUSCULOSKELETAL: Chest examination reveals no tenderness. The back is symmetrical on inspection without obvious abnormality. There is no CVA tenderness to palpation. No joint edema. LOWER EXTREMITIES: Calves are equal size bilaterally and non-tender. No edema. No discoloration. NEURO: No focal sensory or motor deficits noted. Generlaized weakness. SKIN: No rash or jaundice noted. Critical Care: I have personally spent greater than 35 minutes of critical care time in the direct management of this patient. This includes bedside care, interpretation of diagnostic studies, and testing, discussion with consultants, patient, and family members, and other required patient management activities. This 35 minutes is in excess of all separately billable procedures. 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)- on plavix GERD (gastroesophageal reflux disease) Hearing deficit B/L CORBIN History of malignant melanoma HTN (hypertension) Hyperlipidemia Mild aortic stenosis Mild aortic stenosis (CHE 2.1 cm, MG 11.4 mmHg) per 05/08/17 echo Osteoarthritis Paralysis of left vocal cord Sleep apnea CPAP Surgical History History of cataract surgery History of colonoscopy History of elbow surgery Rt History of hernia repair Lt inguinal History of melanoma excision History of repair of rotator cuff Lt History of revision of total knee arthroplasty R/L History of total knee arthroplasty R/L S/P AAA repair Percutaneous Endovascular Aortic Aneurysm Repair, Mechanical Closure of Bilateral Femoral Arteries Dr. Vera Family History Brother Myocardial infarction Acquired amyotrophic lateral sclerosis Sister Glioblastoma multiforme of brain Diabetes Cancer 4 sisters Mother Diabetes Heart disease Stroke Hypertension Other No family history of adverse response to anesthesia No family history of bleeding disorder Social History Smoking Status: Former smoker Tobacco Type: Cigarettes Number of Years Since Quit: 33; Second Hand Exposure: Yes (as a child); Hx Alcohol Use: No Hx Substance Use: No Preferred Language: Portuguese Communication Ability: Effective Visual Impairment: No Limitations Evaporator Supervisor Required: No Beliefs That Will Affect Care: None marital status: Current Living Situation: Spouse 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 How many Children do You have: 1 Other Information That Helps Us Care for You: No Feels Safe at Home: Yes Safety Concerns: Feels Safe At This Time Assistive Devices: Denture - Upper and Denture - Lower Allergies Allergies Allergy/AdvReac Type Severity Reaction Status Date / Time Penicillins Allergy Mild Rash Verified 07/15/21 12:26 Home Meds Home Medications Medication Instructions Recorded Confirmed clopidogrel 75 mg tablet (Plavix) 75 mg PO QAM 11/24/18 07/15/21 pantoprazole 40 mg tablet,delayed 40 mg PO QAM tab 11/24/18 07/15/21 release (Protonix) tamsulosin 0.4 mg capsule 0.4 mg PO QAM #30 cap 11/24/18 07/15/21 montelukast 10 mg tablet 10 mg PO QAM 03/27/19 07/15/21 fluticasone furoate 200 1 ea INHALATION QAM 07/10/19 07/15/21 mcg-vilanterol 25 mcg/dose inhalation powder (Breo Ellipta) tiotropium bromide 18 mcg capsule 1 cap INHALATION QA 07/10/19 07/15/21 with inhalation device (Spiriva with HandiHaler) atorvastatin 80 mg tablet 80 mg PO HS 06/22/21 07/15/21 finasteride 5 mg tablet 5 mg PO QAM 06/22/21 07/15/21 nitroglycerin 0.4 mg sublingual 0.4 mg SUBLINGUAL UD PRN 06/22/21 07/15/21 tablet amlodipine 5 mg tablet 2.5 mg PO QAM 07/15/21 07/15/21 hydrocodone 5 mg-acetaminophen 325 1 tab PO DAILY PRN 07/15/21 07/15/21 mg tablet losartan 100 mg tablet 100 mg PO QAM 07/15/21 07/15/21 multivitamin 1 tab PO QAM 07/15/21 07/15/21 Previous Rx's Medication Instructions Recorded CPAP Machine #1 ea 04/13/19 acetaminophen 325 mg tablet 650 mg PO Q6H PRN #30 tab 07/03/21 Results & Data (ED) Vital Signs Vital Signs - 24 hr 07/15/21 11:13 07/15/21 11:25 07/15/21 11:27 Temperature 37.2 C Temperature Source Oral Pulse Rate 105 H 103 H Pulse Rate [Finger] 104 H Pulse Rate from SpO2 Sensor 101 H Pulse Rhythm [Finger] Regular Respiratory Rate 20 14 34 H Respiratory Effort / Characteristics Non-Labored Spontaneous Non-Labored Respiratory Depth Normal Normal Respiratory Pattern Regular Blood Pressure 107/58 L Blood Pressure Mean 74 Pulse Oximetry 95 95 94 Oxygen Delivery Method Room Air Room Air Sepsis Recent Fever Within 48 Hours No Sepsis New/Unexplained Change in Mental Status No Sepsis Action Taken by Nursing No Action Required 07/15/21 11:30 07/15/21 11:31 07/15/21 11:47 Temperature Temperature Source Pulse Rate 103 H 104 H 104 H Pulse Rate [Finger] Pulse Rate from SpO2 Sensor 103 H 104 H Pulse Rhythm [Finger] Respiratory Rate 28 H 31 H Respiratory Effort / Characteristics Respiratory Depth Respiratory Pattern Blood Pressure 117/68 Blood Pressure Mean 84 Pulse Oximetry 95 94 95 Oxygen Delivery Method Sepsis Recent Fever Within 48 Hours Sepsis New/Unexplained Change in Mental Status Sepsis Action Taken by Nursing 07/15/21 12:00 07/15/21 12:30 07/15/21 13:00 Temperature Temperature Source Pulse Rate 95 H 99 H 98 H Pulse Rate [Finger] Pulse Rate from SpO2 Sensor 95 H 99 H 98 H Pulse Rhythm [Finger] Respiratory Rate 25 H 30 H 27 H Respiratory Effort / Characteristics Respiratory Depth Respiratory Pattern Blood Pressure 114/60 123/70 135/71 Blood Pressure Mean 78 87 92 Pulse Oximetry 94 93 93 Oxygen Delivery Method Sepsis Recent Fever Within 48 Hours Sepsis New/Unexplained Change in Mental Status Sepsis Action Taken by Nursing 07/15/21 13:19 07/15/21 13:20 07/15/21 13:30 Temperature Temperature Source Pulse Rate 96 H 96 H 97 H Pulse Rate [Finger] Pulse Rate from SpO2 Sensor 93 H 97 H Pulse Rhythm [Finger] Respiratory Rate 27 H 26 H 25 H Respiratory Effort / Characteristics Respiratory Depth Respiratory Pattern Blood Pressure 124/67 Blood Pressure Mean 86 Pulse Oximetry 94 93 Oxygen Delivery Method Sepsis Recent Fever Within 48 Hours Sepsis New/Unexplained Change in Mental Status Sepsis Action Taken by Nursing 07/15/21 13:40 07/15/21 13:50 07/15/21 14:00 Temperature Temperature Source Pulse Rate 96 H 100 H 98 H Pulse Rate [Finger] Pulse Rate from SpO2 Sensor 97 H 100 H 98 H Pulse Rhythm [Finger] Respiratory Rate 27 H 25 H 30 H Respiratory Effort / Characteristics Respiratory Depth Respiratory Pattern Blood Pressure 107/57 L Blood Pressure Mean 73 Pulse Oximetry 93 92 93 Oxygen Delivery Method Sepsis Recent Fever Within 48 Hours Sepsis New/Unexplained Change in Mental Status Sepsis Action Taken by Nursing 07/15/21 14:10 07/15/21 14:20 07/15/21 14:30 Temperature Temperature Source Pulse Rate 101 H Pulse Rate [Finger] Pulse Rate from SpO2 Sensor 98 H 101 H Pulse Rhythm [Finger] Respiratory Rate 24 30 H 28 H Respiratory Effort / Characteristics Respiratory Depth Respiratory Pattern Blood Pressure 114/66 Blood Pressure Mean 82 Pulse Oximetry 94 95 Oxygen Delivery Method Sepsis Recent Fever Within 48 Hours Sepsis New/Unexplained Change in Mental Status Sepsis Action Taken by Nursing 07/15/21 14:40 07/15/21 14:50 07/15/21 15:00 Temperature Temperature Source Pulse Rate 95 H 91 H 92 H Pulse Rate [Finger] Pulse Rate from SpO2 Sensor Pulse Rhythm [Finger] Respiratory Rate 27 H 25 H 25 H Respiratory Effort / Characteristics Respiratory Depth Respiratory Pattern Blood Pressure 132/68 Blood Pressure Mean 89 Pulse Oximetry Oxygen Delivery Method Sepsis Recent Fever Within 48 Hours Sepsis New/Unexplained Change in Mental Status Sepsis Action Taken by Nursing 07/15/21 15:10 Temperature Temperature Source Pulse Rate 93 H Pulse Rate [Finger] Pulse Rate from SpO2 Sensor Pulse Rhythm [Finger] Respiratory Rate 23 Respiratory Effort / Characteristics Respiratory Depth Respiratory Pattern Blood Pressure Blood Pressure Mean Pulse Oximetry Oxygen Delivery Method Sepsis Recent Fever Within 48 Hours Sepsis New/Unexplained Change in Mental Status Sepsis Action Taken by Nursing Laboratory Data Attestation: I reviewed the patient's lab results. Result diagrams: 07/15/21 11:40 07/15/21 11:40 Lab Results 07/15/21 07/15/21 07/15/21 Range/Units 11:40 11:40 14:20 WBC 16.35 H (4.8-10.8) K/uL RBC 3.53 L (4.7-6.1) M/uL Hgb 10.1 L (14.0-18.0) g/dL Hct 30.6 L (42-52) % MCV 86.7 (80-100) fL MCH 28.6 (25-34) pg MCHC 33.0 (32-36) g/dL RDW Std Deviation 51.1 H (36.4-46.3) fL RDW Coeff of Vitaliy 16.1 H (11.5-14.5) % Plt Count 277 (130-400) K/uL MPV 9.4 (7.4-10.4) fL Immature Gran % (Auto) 0.2 % Neut % (Auto) 87.0 % Lymph % (Auto) 4.2 % [place] % (Auto) 8.4 % Eos % (Auto) 0.1 % Baso % (Auto) 0.1 % Neut # (Auto) 14.24 H (1.4-6.5) K/uL Lymph # (Auto) 0.68 L (1.2-3.4) K/uL [place] # (Auto) 1.37 H (0.11-0.59) K/uL Eos # (Auto) 0.01 (0-0.5) K/uL Baso # (Auto) 0.01 (0-0.2) K/uL Immature Gran # (Auto) 0.04 H (0.00-0.02) K/uL Dohle Bodies 1+ Acanthocytes (Spur) 1+ Sodium 136 (136-145) mmol/L Potassium 3.5 (3.5-5.1) mmol/L Chloride 105 (98-107) mmol/L Carbon Dioxide 21 (21-32) mmol/L Anion Gap 10 (3-11) BUN 25 H (6-23) mg/dl Creatinine 1.08 (0.6-1.4) mg/dl Est Cr Clr Drug Dosing 47.5 ml/min Est GFR ( Amer) 70.2 ml/min Est GFR (Non-Af Amer) 60.5 ml/min BUN/Creatinine Ratio 23.1 H (10-20) Glucose 176 H (70-99(Fasting)) mg/dl Calcium 8.3 L (8.5-10.1) mg/dl Phosphorus 3.3 (2.5-4.9) mg/dl Magnesium 1.2 L (1.7-2.4) mg/dl Total Bilirubin 0.8 (0.2-1.0) mg/dl AST 9 L (13-39) U/L ALT 11 (7-52) U/L Alkaline Phosphatase 147 H (34-104) U/L Total Protein 5.8 L (6.0-8.3) gm/dl Albumin 3.0 L (3.4-5.0) gm/dl Globulin 2.8 (2.5-4.0) gm/dl Albumin/Globulin Ratio 1.1 (0.9-2) Lipase 4 L (11-82) U/L SARS-CoV-2, RNA, NAAT NEGATIVE (NEGATIVE) Administered Medications Atorvastatin Calcium (Atorvastatin 40 Mg Tab) 80 mg PO HS MAHI Stop: 08/14/21 20:59 Last Admin: 07/15/21 20:28 Dose: 80 mg Documented by: [id number] Heparin Sodium (Porcine) (Heparin Sod 5,000 Unit/0.5 Ml Vial) 5,000 units SQ Q12 MAHI Stop: 08/14/21 20:59 Last Admin: 07/15/21 20:28 Dose: 5,000 units Documented by: [id number] Sodium Chloride (Nss 1000ml) 1,000 mls @ 125 mls/hr IV .Q8H MAHI Stop: 08/14/21 14:14 Last Admin: 07/15/21 18:04 Dose: 125 mls/hr Documented by: [id number] Raspberry (Raspberry Syrup 5 Ml Udp) 5 ml PO Q6 MAHI Stop: 07/25/21 17:59 Last Admin: 07/15/21 18:35 Dose: 5 ml Documented by: [id number] Vancomycin HCl (Vancomycin Hcl 125 Mg/2.5ml Soln) 125 mg PO Q6 MAHI Stop: 07/25/21 17:59 Last Admin: 07/15/21 18:35 Dose: 125 mg Documented by: [id number] Discontinued Medications Sodium Chloride (Nss) 500 mls @ 999 mls/hr IV .Q31M ONE Stop: 07/15/21 11:53 Last Infusion: 07/15/21 13:13 Dose: 0 mls/hr Documented by: [id number] Admin: 07/15/21 11:55 Dose: 999 mls/hr Documented by: [id number] Acetaminophen (Ofirmev) 1,000 mg in 100 mls @ 400 mls/hr IV NOW STA Stop: 07/15/21 12:45 Last Infusion: 07/15/21 13:13 Dose: 0 mls/hr Documented by: [id number] Admin: 07/15/21 12:56 Dose: 400 mls/hr Documented by: [id number] Magnesium Sulfate/Dextrose (Magnesium Sulfate / D5w) 1 gm in 100 mls @ 100 mls/hr IV Q1H MAHI Stop: 07/15/21 16:13 Last Infusion: 07/15/21 18:12 Dose: 0 mls/hr Documented by: [id number] Admin: 07/15/21 15:35 Dose: 100 mls/hr Documented by: [id number] Infusion: 07/15/21 15:35 Dose: 100 mls/hr Documented by: [id number] Admin: 07/15/21 14:42 Dose: 100 mls/hr Documented by: [id number] Ioversol (Optiray 320 100ml) 94 ml IV ONCE ONE Stop: 07/15/21 13:15 Last Admin: 07/15/21 13:14 Dose: 94 ml Documented by: [id number] Imaging Data Radiologist's Impression: Abdomen/Pelvis CT 07/15/21 12:[address] WITH IV CONTRAST CT DOSE: 518.03 mGy.cm HISTORY: Acute generalized abdominal pain with diarrhea possible colitis abd pain, diarrhea, recent cdiff TECHNIQUE: Multiaxial CT images of the abdomen and pelvis were performed following the IV administration of 94 cc of Optiray, A dose lowering technique was utilized adhering to the principles of ALARA. COMPARISON STUDY: CT abdomen and pelvis 06/24/2021 FINDINGS: Cardiomegaly. Coronary arterial, thoracic and abdominal aortic calcifi cations. Patent aortobiiliac stent graft. Type II endoleak on image 240 series 3. [place] fusiform aneurysm dilation of the abdominal aorta measures 4.9 x 5.2 cm, unchanged. Subpleural reticulation with bibasilar groundglass densities suggestive of atelectasis/scarring. No pneumatosis or pneumoperitoneum. The spleen, moderately atrophic pancreas and right adrenal gland are unremarkable. 1.2 cm hypodense left adrenal gland lesion suggestive of a probable adenoma. Unremarkable liver. Probable cholelithiasis. 10 mm right hepatic lobe hypodensity on image 21 may represent a cyst. Patent portal vein. 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 Bilateral renal cysts measure up to 2.3 cm on the left. Additional subcentimeter hypodensities of the kidneys are too small to characterize. No hydronephrosis. Prostate is upper limits of normal in size. Unremarkable urinary bladder. There is no lymphadenopathy. No bowel obstruction. Colonic air-fluid levels are noted with diffuse circumferential colonic wall thickening and pericolonic inflammatory stranding. The degree of inflammation and wall thickening has mildly improved from the 06/24/2021 study. Noninflamed appendix. Colonic diverticulosis without acute diverticulitis. Unremarkable soft tissues. Degenerative changes of the spine, pelvis and hips. IMPRESSION: 1. Mild improvement of the diffuse colonic wall thickening with pericolonic inflammation compatible with the patient's reported clinical history of C. difficile cellulitis. 2. No bowel obstruction or pneumoperitoneum. 3. Patent aortobiiliac stent graft with unchanged fusiform aneurysmal dilation of the [place] infrarenal abdominal aorta measuring 5.2 x 4.9 cm. 4. Cardiomegaly with bibasilar opacities suggestive of probable atelectasis. 5. Colonic diverticulosis. 6. Additional findings as above. ACT 112: Negative or not required by law. The above report was generated using voice recognition software. It may contain grammatical, syntax or spelling errors. Electronically signed by: Bean Swartz M.D. 07/15/2021 1:46 PM Discharge Plan Visit Data Chief Complaint: Diarrhea Stated Complaint: CDIFF/DISCHARGED ON 07/03/[facility] ED Provider: Raul Seaman Discharge Problem: C. difficile colitis, Dehydration, Hypomagnesemia, Leukocytosis Patient Disposition: Admitted As Inpatient Discharge Instructions Interventions: ED Discharge Assessment Last Done: 07/15/21 17:16 Discharge Problem: Leukocytosis Qualifiers: Leukocytosis type: unspecified Qualified Code(s): D72.829 - Elevated white blood cell count, unspecified
[2021-07-15] MEDS: MAGNESIUM SULFATE / D5W 1 GM/100 ML BAG IV SCH ×2 (14:42→15:35)
--- NOTE | 2021-07-15 14:52 | History & Physical Report ---
Date of Service July 15, 2021 Assessment & Plan (1) C. difficile colitis: Plan: First reoccurrence of C diff. Patient will be placed on an extended vancomycin taper. Will start with 14 days of vancomycin 125 mg PO QID. d/w ID. will recheck WBC in AM, and monitor procal. (2) Chronic kidney disease, stage II (mild): Plan: CKD at baseline (3) Hypertension: Plan: resume amoldipine and monitor BP (4) Obstructive sleep apnea of adult: Plan: place on CPAP (5) Mild aortic stenosis: Plan: not in volume overload. will monitor. (6) Emphysema/COPD: Plan: stable/ resume home meds History of Present Illness Chief Complaint: diarrhea Primary Care Provider: Manav Schumacher 89 yo male who recently had his first bout of c diff colitis. Patient completed a 14 day course of vancomycin. Patient had felt better and was regaining his strength. However for the past 2-3 days, he developed diarrhea and was getting weaker. Patient reports his stools are now watery and having about 6 stools a day. As patient was getting worse, his brought him in. Allergies Allergy/AdvReac Type Severity Reaction Status Date / Time Penicillins Allergy Mild Rash Verified 07/15/21 12:26 Home Medications Medication Instructions Recorded Confirmed Type clopidogrel 75 mg tablet (Plavix) 75 mg PO QAM 11/24/18 07/15/21 History pantoprazole 40 mg tablet,delayed 40 mg PO QAM tab 11/24/18 07/15/21 History release (Protonix) tamsulosin 0.4 mg capsule 0.4 mg PO QAM #30 cap 11/24/18 07/15/21 History montelukast 10 mg tablet 10 mg PO QAM 03/27/19 07/15/21 History CPAP Machine #1 ea 04/13/19 06/12/21 Rx fluticasone furoate 200 1 ea INHALATION QAM 07/10/19 07/15/21 History mcg-vilanterol 25 mcg/dose inhalation powder (Breo Ellipta) tiotropium bromide 18 mcg capsule 1 cap INHALATION QAM 07/10/19 07/15/21 History with inhalation device (Spiriva with HandiHaler) atorvastatin 80 mg tablet 80 mg PO HS 06/22/21 07/15/21 History finasteride 5 mg tablet 5 mg PO QAM 06/22/21 07/15/21 History nitroglycerin 0.4 mg sublingual 0.4 mg SUBLINGUAL UD PRN 06/22/21 07/15/21 History tablet acetaminophen 325 mg tablet 650 mg PO Q6H PRN #30 tab 07/03/21 07/15/21 Rx amlodipine 5 mg tablet 2.5 mg PO QAM 07/15/21 07/15/21 History hydrocodone 5 mg-acetaminophen 325 1 tab PO DAILY PRN 07/15/21 07/15/21 History mg tablet losartan 100 mg tablet 100 mg PO QAM 07/15/21 07/15/21 History multivitamin 1 tab PO QAM 07/15/21 07/15/21 History Past Med/Surg History Medical History AAA (abdominal aortic aneurysm) 5.2 x 4.9 cm infrarenal AAA per 01/2020 [facility]A Asthma stable 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)- on plavix GERD (gastroesophageal reflux disease) Hearing deficit B/L [place]BIN History of malignant melanoma HTN (hypertension) Hyperlipidemia Mild aortic stenosis Mild aortic stenosis (CHE 2.1 cm, MG 11.4 mmHg) per 05/08/17 echo Osteoarthritis Paralysis of left vocal cord Sleep apnea CPAP Surgical History History of cataract surgery History of colonoscopy History of elbow surgery Rt History of hernia repair Lt inguinal History of melanoma excision History of repair of rotator cuff Lt History of revision of total knee arthroplasty R/L History of total knee arthroplasty R/L S/P AAA repair Percutaneous Endovascular Aortic Aneurysm Repair, Mechanical Closure of Bilateral Femoral Arteries Dr. Vera Family History Brother Myocardial infarction Acquired amyotrophic lateral sclerosis Sister Glioblastoma multiforme of brain Diabetes Cancer 4 sisters Mother Diabetes Heart disease Stroke Hypertension Other No family history of adverse response to anesthesia No family history of bleeding disorder Social History Smoking Status: Former smoker Tobacco Type: Cigarettes Number of Years Since Quit: 33; Second Hand Exposure: Yes (as a child); Hx Alcohol Use: No Hx Substance Use: No Preferred Language: Khmer Communication Ability: Effective Visual Impairment: No Limitations Rn Vascular Required: No Beliefs That Will Affect Care: None marital status: Current Living Situation: Spouse current occupational status: 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 How many Children do You have: 1 Other Information That Helps Us Care for You: No Feels Safe at Home: Yes Safety Concerns: Feels Safe At This Time Assistive Devices: Denture - Upper and Denture - Lower Review of Systems Review of Systems: All systems reviewed & are unremarkable except as noted in HPI & below Physical Exam Physical Exam: Constitutional: WD/WN, vitals as above no acute distress Eyes: + anicteric sclerae; normal pupil size ENMT: Mouth: + dry oral mucous membranes Neck: trachea midline, no thyromegaly Respiratory: normal respiratory effort and able to speak in complete sentences; no respiratory distress Auscultation: + crackles (bibasal); no diminished lung sounds, no rales, no rhonchi and no wheezes Cardiovascular: Rate/Rhythm: regular rate and regular rhythm Heart Sounds: + murmur (systolic loudest LUSB 3/6) Vessels: no JVD Extremities: normal capillary refill and + pedal edema (trace pre-tibial b/l equal); no calf tenderness Gastrointestinal (Abdomen): Inspection/Auscultation: abdomen normal to inspection; abdomen not distended Percussion/Palpation: + abdomen tender (lower without rebound tenderness) and abdomen soft; no guarding and abdomen not rigid Musculoskeletal: no cyanosis or clubbing, extremities motor strength 5/5 Skin: no rashes, warm and dry Neurologic: moves all extremities and awake; not confused Psychiatric: A+Ox3, euthymic affect Genitourinary: no CVA tenderness Results & Data Results & Data ([facility]) Vital Signs (Past 12 Hours) Vital Signs Temp Pulse Pulse Resp BP Pulse Ox 07/15/21 13:00 98 H 27 H 135/71 93 07/15/21 12:30 99 H 30 H 123/70 93 07/15/21 12:00 95 H 25 H 114/60 94 07/15/21 11:47 104 H 95 07/15/21 11:31 104 H 31 H 117/68 94 07/15/21 11:30 103 H 28 H 95 07/15/21 11:27 103 H 34 H 94 07/15/21 11:25 104 H 14 95 07/15/21 11:13 37.2 C 105 H 20 107/58 L 95 PG Care Time/CCT Total # of Minutes Spent Total Time Spent with Patient: Total time spent is greater than 50% in coordination of care (as documented) at patient's floor/unit and/or counseling patient: Coding Level of Care Code 57959 Initial Inpt Care Lvl 3 Diagnoses C. difficile colitis A04.72 Chronic kidney disease, stage II (mild) N18.2 Hypertension I10 Obstructive sleep apnea of adult G47.33 Mild aortic stenosis I35.0 Emphysema/COPD J43.9
[2021-07-15] MEDS ORDERED: ACETAMINOPHEN 325 MG TAB PO PRN (15:21)
[2021-07-15] MEDS ORDERED: NITROGLYCERIN SL 0.4 MG/TAB TAB SL PRN (15:21)
[2021-07-15] MEDS: SODIUM CHLORIDE 0.9% 1000ML 1,000 ML IV SCH (18:04)
[2021-07-15 18:35] LABS: Adenovirus F 40/41 PCR Not Detected (NotDetected); Astrovirus PCR Not Detected (NotDetected); Campylobacter PCR Not Detected (NotDetected); Cryptosporidium PCR Not Detected (NotDetected); Cyclospora cayetanensis PCR Not Detected (NotDetected); Entamoeba histolytica PCR Not Detected (NotDetected); Enteroaggregative E.coli(EAEC) Not Detected (NotDetected); Enteropathogenic E.coli (EPEC) Not Detected (NotDetected); Enterotoxigenic E.coli (ETEC) Not Detected (NotDetected); Giardia lamblia PCR Not Detected (NotDetected); Norovirus GI/GII PCR Not Detected (NotDetected); Plesiomonas shigelloides PCR Not Detected (NotDetected); Rotavirus A PCR Not Detected (NotDetected); Salmonella PCR Not Detected (NotDetected); Sapovirus PCR Not Detected (NotDetected); Shiga-like Toxin E.coli (STEC) Not Detected (NotDetected); Shigella/Enteroinvasive E.coli Not Detected (NotDetected); Vibrio cholerae PCR Not Detected (NotDetected); Vibrio species PCR Not Detected (NotDetected); Yersinia enterocolitica PCR Not Detected (NotDetected)
[2021-07-15] MEDS: RASPBERRY SYRUP 5 ML UDP PO SCH ×2 (18:35→23:09)
[2021-07-15] MEDS: VANCOMYCIN HCL 125 MG/2.5ML SOLN PO SCH ×2 (18:35→23:09)
[2021-07-15] MEDS: ATORVASTATIN 40 MG TAB PO SCH (20:28)
[2021-07-15] MEDS: HEPARIN SOD 5,000 UNIT/0.5 ML VIAL SQ SCH (20:28)
[2021-07-15 20:34] LABS: Cdiff Antigen Positive
[2021-07-15 20:35] LABS: Cdiff Toxin A+B Positive Cdiff Toxin (Negative)
[2021-07-15 21:50] LABS: Appearance Urine Clear (Clear); Bacteria Urine Automated Negative (Negative); Bilirubin Urine Negative (Negative); Blood Urine Negative (Negative); Color Urine Yellow; Epithelial Cell Urine Auto >30 /lpf (0-5); Glucose Urine UA Negative (Negative); Ketones Urine Negative (Negative); Leukocyte Esterase Urine 1+ (Negative); Nitrite Urine Negative (Negative); Protein Urine 1+ (Negative); Specific Gravity Urine 1.035 (1.000-1.030); Urobilinogen Urine Negative (Negative)
[2021-07-15 22:25] LABS: RBC Urine Automated 0-4 /hpf (0-4)
[2021-07-16] MEDS: SODIUM CHLORIDE 0.9% 1000ML 1,000 ML IV SCH ×4 (01:28→20:02)
[2021-07-16] MEDS: RASPBERRY SYRUP 5 ML UDP PO SCH ×3 (05:03→18:35)
[2021-07-16] MEDS: VANCOMYCIN HCL 125 MG/2.5ML SOLN PO SCH ×3 (05:03→18:33)
[2021-07-16] MEDS: FLUTICASONE/VILANTEROL 200/25MCG 14 PUFFS/INHALER INH SCH (09:52)
[2021-07-16] MEDS: TAMSULOSIN HCL 0.4 MG CAP PO SCH (09:53)
[2021-07-16] MEDS: UMECLIDINIUM BROMIDE 62.5MCG/BLISTER 7 PUFFS/INHALER INH SCH (09:53)
[2021-07-16] MEDS: CLOPIDOGREL BISULFATE 75 MG TAB PO SCH (09:53)
[2021-07-16] MEDS: MULTIVITAMIN TAB PO SCH (09:53)
[2021-07-16] MEDS: amLODIPine BESYLATE 5 MG TAB PO SCH (09:53)
[2021-07-16] MEDS: PANTOprazole 40 MG TAB PO SCH (09:53)
[2021-07-16] MEDS: FINASTERIDE 5 MG TAB PO SCH (09:53)
[2021-07-16] MEDS: HEPARIN SOD 5,000 UNIT/0.5 ML VIAL SQ SCH ×2 (09:54→20:05)
[2021-07-16] MEDS: MONTELUKAST SODIUM 10 MG TABLET PO SCH (09:54)
[2021-07-16 10:02] LABS: Hematocrit (blood only) 28.8 % (42-52); Hemoglobin 9.5 g/dL (14.0-18.0); Mean Corpuscular Hemoglobin 28.7 pg (25-34); Mean Platelet Volume 9.3 fL (7.4-10.4); Platelet Count 273 K/uL (130-400); RDW Coefficient of Variation 16.1 % (11.5-14.5); RDW Standard Deviation 51.5 fL (36.4-46.3); Red Blood Count 3.31 M/uL (4.7-6.1); White Blood Count 17.94 K/uL (4.8-10.8)
[2021-07-16 10:21] LABS: Acanthocytes 1+; Basophils # (auto) 0.01 K/uL (0-0.2); Basophils % (auto) 0.1 %; Immature Granulocytes # (auto) 0.04 K/uL (0.00-0.02); Immature Granulocytes % (auto) 0.2 %; Lymphocytes # (auto) 0.51 K/uL (1.2-3.4); Lymphocytes % (auto) 2.8 %; Monocytes # (auto) 1.37 K/uL (0.11-0.59); Monocytes % (auto) 7.6 %; Neutrophils # (auto) 16.01 K/uL (1.4-6.5); Neutrophils % (auto) 89.3 %
[2021-07-16 10:30] LABS: BUN Creatinine Ratio 21.8 (10-20); Calcium 7.7 mg/dl (8.5-10.1); Creatinine Clr Calc Pharmacy 42.5 ml/min; Est GFR (African American) 62.4 ml/min; Est GFR (Non-African American) 53.8 ml/min; Potassium 3.5 mmol/L (3.5-5.1)
--- NOTE | 2021-07-16 17:58 | Hospitalist Progress Note ---
Date of Service July 16, 2021 Assessment & Plan (1) C. difficile colitis: Plan: First reoccurrence of C diff. Patient will be placed on an extended vancomycin taper. Will start with 14 days of vancomycin 125 mg PO QID. d/w ID. WBC has been uptrending. Patient though only had one episode of fever. Anticipate labs should improve over course of next 24-48 hours. CRP is above 30 (2) Chronic kidney disease, stage II (mild): Plan: CKD at baseline Creatinine is rising, patient showing signs of RON. creatinine slowly rising, initilally cut back on fluids, but as creatinine is worsening, will increase IVF to 150 ml per hour and monitor. (3) Hypertension: Plan: resume amoldipine and monitor BP (4) Obstructive sleep apnea of adult: Plan: place on CPAP (5) Mild aortic stenosis: Plan: not in volume overload. will monitor. (6) Emphysema/COPD: Plan: stable/ resume home meds Admission and Anticipated Discharge Date Admission Date: July 15, 2021 Subjective Patient has 7 stools this AM. Patient denies fever, chills nausea. Review of Systems Review of Systems: All systems reviewed & are unremarkable except as noted in HPI & below Physical Exam Physical Exam: Constitutional: WD/WN, vitals as above no acute distress Eyes: + anicteric sclerae; normal pupil size ENMT: Mouth: + dry oral mucous membranes Neck: trachea midline, no thyromegaly Respiratory: normal respiratory effort and able to speak in complete sentences; no respiratory distress Auscultation: + crackles (bibasal); no diminished lung sounds, no rales, no rhonchi and no wheezes Cardiovascular: Rate/Rhythm: regular rate and regular rhythm Heart Sounds: + murmur (systolic loudest LUSB 3/6) Vessels: no JVD Extremities: normal capillary refill and + pedal edema (trace pre-tibial b/l equal); no calf tenderness Gastrointestinal (Abdomen): Inspection/Auscultation: abdomen normal to inspection; abdomen not distended Percussion/Palpation: + abdomen tender (lower without rebound tenderness) and abdomen soft; no guarding and abdomen not rigid Musculoskeletal: no cyanosis or clubbing, extremities motor strength 5/5 Skin: no rashes, warm and dry Neurologic: moves all extremities and awake; not confused Psychiatric: A+Ox3, euthymic affect Genitourinary: no CVA tenderness Results & Data Results & Data ([facility]) Vital Signs (Past 12 Hours) Vital Signs Temp Pulse Resp BP Pulse Ox 07/16/21 15:10 36.7 C 118 H 22 100/62 92 07/16/21 07:39 37.4 C 106 H 18 118/73 96 PG Care Time/CCT Total # of Minutes Spent Total Time Spent with Patient: Total time spent is greater than 50% in coordination of care (as documented) at patient's floor/unit and/or counseling patient: Coding Level of Care Code 70246 Subseq Hosp Care Lvl 3 Diagnoses C. difficile colitis A04.72 Chronic kidney disease, stage II (mild) N18.2 Hypertension I10 Obstructive sleep apnea of adult G47.33 Mild aortic stenosis I35.0 Emphysema/COPD J43.9 Time Spent (min) 35
[2021-07-16] MEDS: ATORVASTATIN 40 MG TAB PO SCH (20:05)
[2021-07-16 22:05] LABS: BUN Creatinine Ratio 19.6 (10-20); Calcium 7.6 mg/dl (8.5-10.1); Creatinine Clr Calc Pharmacy 34.2 ml/min; Est GFR (African American) 47.9 ml/min; Est GFR (Non-African American) 41.4 ml/min; Potassium 3.6 mmol/L (3.5-5.1)
[2021-07-16 22:16] LABS: C Reactive Protein 30.56 mg/dl (0-0.5)
[2021-07-17] MEDS: VANCOMYCIN HCL 125 MG/2.5ML SOLN PO SCH ×5 (00:30→23:12)
[2021-07-17] MEDS: RASPBERRY SYRUP 5 ML UDP PO SCH ×5 (00:30→23:12)
[2021-07-17 06:03] LABS: Hematocrit (blood only) 27.5 % (42-52); Hemoglobin 9.1 g/dL (14.0-18.0); Mean Corpuscular Hemoglobin 28.9 pg (25-34); Mean Corpuscular Hgb Conc 33.1 g/dL (32-36); Mean Corpuscular Volume 87.3 fL (80-100); Mean Platelet Volume 9.3 fL (7.4-10.4); Platelet Count 294 K/uL (130-400); RDW Coefficient of Variation 15.9 % (11.5-14.5); RDW Standard Deviation 51.5 fL (36.4-46.3); Red Blood Count 3.15 M/uL (4.7-6.1); White Blood Count 17.95 K/uL (4.8-10.8)
[2021-07-17 06:25] LABS: BUN Creatinine Ratio 20.3 (10-20); Calcium 7.3 mg/dl (8.5-10.1); Est GFR (African American) 44.3 ml/min; Est GFR (Non-African American) 38.2 ml/min; Potassium 3.4 mmol/L (3.5-5.1)
[2021-07-17 06:48] LABS: Basophils # (auto) 0.01 K/uL (0-0.2); Basophils % (auto) 0.1 %; Echinocytes 1+; Immature Granulocytes # (auto) 0.37 K/uL (0.00-0.02); Immature Granulocytes % (auto) 2.1 %; Lymphocytes # (auto) 0.72 K/uL (1.2-3.4); Monocytes # (auto) 1.53 K/uL (0.11-0.59); Monocytes % (auto) 8.5 %; Neutrophils # (auto) 15.32 K/uL (1.4-6.5); Neutrophils % (auto) 85.3 %; Toxic Vacuolation 1+
[2021-07-17] MEDS: MULTIVITAMIN TAB PO SCH (08:42)
[2021-07-17] MEDS: TAMSULOSIN HCL 0.4 MG CAP PO SCH (08:42)
[2021-07-17] MEDS: FINASTERIDE 5 MG TAB PO SCH (08:42)
[2021-07-17] MEDS: FLUTICASONE/VILANTEROL 200/25MCG 14 PUFFS/INHALER INH SCH (08:43)
[2021-07-17] MEDS: CLOPIDOGREL BISULFATE 75 MG TAB PO SCH (08:43)
[2021-07-17] MEDS: amLODIPine BESYLATE 5 MG TAB PO SCH (08:43)
[2021-07-17] MEDS: MONTELUKAST SODIUM 10 MG TABLET PO SCH (08:43)
[2021-07-17] MEDS: HEPARIN SOD 5,000 UNIT/0.5 ML VIAL SQ SCH ×2 (08:43→22:01)
[2021-07-17] MEDS: UMECLIDINIUM BROMIDE 62.5MCG/BLISTER 7 PUFFS/INHALER INH SCH (08:43)
[2021-07-17] MEDS: PANTOprazole 40 MG TAB PO SCH (08:43)
--- NOTE | 2021-07-17 13:09 | XRay Report ---
KUB HISTORY: Diarrhea. C DIFF COLITIS COMPARISON: Abdomen and pelvis CT 07/15/2021. FINDINGS: Redemonstration of the moderate colonic wall thickening consistent with the patient's known history of a colitis. This is similar to the prior study. There are few prominent gas-filled loops o f small bowel within the left upper quadrant. This favors an ileus. An aortobiiliac stent is again no lyn. Moderate bilateral hip osteoarthritis. Vascular calcifications are present. No renal calculi. N o ureteral calculi. No pneumoperitoneum or pneumatosis. IMPRESSION: No significant change in the moderate colonic wall thickening consistent the patient's known history of a colitis. ACT 112: Negative or not required by law. Electronically signed by: Kenny Kovacs M.D. 07/17/2021 1:08 PM
--- NOTE | 2021-07-17 20:55 | Hospitalist Progress Note ---
Date of Service July 17, 2021 Assessment & Plan (1) C. difficile colitis: Plan: First reoccurrence of C diff. Patient will be placed on an extended vancomycin taper. Will start with 14 days of vancomycin 125 mg PO QID. d/w ID. WBC finally showing improvement Patient though only had one episode of fever. Anticipate labs should improve over course of next 24-48 hours. CRP is above 30 procal is increasing (2) Chronic kidney disease, stage II (mild): Plan: CKD at baseline Acute kidney failure Creatinine is rising received 5 liters. will resume IVF (3) Hypertension: Plan: resume amoldipine and monitor BP (4) Obstructive sleep apnea of adult: Plan: place on CPAP at HS. (5) Mild aortic stenosis: Plan: not in volume overload. will monitor. (6) Emphysema/COPD: Plan: stable/ resume home meds Admission and Anticipated Discharge Date Admission Date: July 15, 2021 Subjective Patient reports his stools are more muddy. They have more substance. Review of Systems Review of Systems: All systems reviewed & are unremarkable except as noted in HPI & below Physical Exam Physical Exam: Constitutional: WD/WN, vitals as above no acute distress Eyes: + anicteric sclerae; normal pupil size ENMT: Mouth: + dry oral mucous membranes Neck: trachea midline, no thyromegaly Respiratory: normal respiratory effort and able to speak in complete sentences; no respiratory distress Auscultation: + crackles (bibasal); no diminished lung sounds, no rales, no rhonchi and no wheezes Cardiovascular: Rate/Rhythm: regular rate and regular rhythm Heart Sounds: + murmur (systolic loudest LUSB 3/6) Vessels: no JVD Extremities: normal capillary refill and + pedal edema (trace pre-tibial b/l equal); no calf tenderness Gastrointestinal (Abdomen): Inspection/Auscultation: abdomen normal to inspection; abdomen not distended Percussion/Palpation: + abdomen tender (lower without rebound tenderness) and abdomen soft; no guarding and abdomen not rigid Musculoskeletal: no cyanosis or clubbing, extremities motor strength 5/5 Skin: no rashes, warm and dry Neurologic: moves all extremities and awake; not confused Psychiatric: A+Ox3, euthymic affect Genitourinary: no CVA tenderness Results & Data Results & Data ([facility]) Vital Signs (Past 12 Hours) Vital Signs Temp Pulse Resp BP Pulse Ox 07/17/21 16:11 37.0 C 112 H 16 105/59 L 94 PG Care Time/CCT Total # of Minutes Spent Total Time Spent with Patient: Total time spent is greater than 50% in coordination of care (as documented) at patient's floor/unit and/or counseling patient: Coding Level of Care Code 50659 Subseq Hosp Care Lvl 2 Diagnoses C. difficile colitis A04.72 Chronic kidney disease, stage II (mild) N18.2 Hypertension I10 Obstructive sleep apnea of adult G47.33 Mild aortic stenosis I35.0 Emphysema/COPD J43.9
[2021-07-17] MEDS: SODIUM CHLORIDE 0.9% 1000ML 1,000 ML IV SCH (21:58)
[2021-07-17] MEDS: ATORVASTATIN 40 MG TAB PO SCH (22:00)
[2021-07-18] MEDS: RASPBERRY SYRUP 5 ML UDP PO SCH ×3 (05:24→18:22)
[2021-07-18] MEDS: SODIUM CHLORIDE 0.9% 1000ML 1,000 ML IV SCH (05:24)
[2021-07-18] MEDS: VANCOMYCIN HCL 125 MG/2.5ML SOLN PO SCH ×3 (05:24→18:22)
[2021-07-18 06:38] LABS: Hemoglobin 9.3 g/dL (14.0-18.0); Mean Corpuscular Hemoglobin 28.6 pg (25-34); Mean Corpuscular Hgb Conc 33.2 g/dL (32-36); Mean Corpuscular Volume 86.2 fL (80-100); Mean Platelet Volume 9.2 fL (7.4-10.4); Platelet Count 301 K/uL (130-400); RDW Standard Deviation 50.7 fL (36.4-46.3); Red Blood Count 3.25 M/uL (4.7-6.1); White Blood Count 14.23 K/uL (4.8-10.8)
[2021-07-18 06:52] LABS: BUN Creatinine Ratio 21.8 (10-20); C Reactive Protein 26.32 mg/dl (0-0.5); Calcium 7.3 mg/dl (8.5-10.1); Creatinine Clr Calc Pharmacy 28.3 ml/min; Est GFR (African American) 38.1 ml/min; Est GFR (Non-African American) 32.9 ml/min; Potassium 3.5 mmol/L (3.5-5.1)
[2021-07-18 07:13] LABS: Echinocytes 1+; Eosinophils # (auto) 0.07 K/uL (0-0.5); Eosinophils % (auto) 0.5 %; Immature Granulocytes # (auto) 0.11 K/uL (0.00-0.02); Immature Granulocytes % (auto) 0.8 %; Lymphocytes # (auto) 0.77 K/uL (1.2-3.4); Lymphocytes % (auto) 5.4 %; Monocytes # (auto) 1.05 K/uL (0.11-0.59); Monocytes % (auto) 7.4 %; Neutrophils # (auto) 12.23 K/uL (1.4-6.5); Neutrophils % (auto) 85.9 %; Toxic Granulation 1+; Toxic Vacuolation 1+
[2021-07-18] MEDS: FLUTICASONE/VILANTEROL 200/25MCG 14 PUFFS/INHALER INH SCH (08:31)
[2021-07-18] MEDS: FINASTERIDE 5 MG TAB PO SCH (08:31)
[2021-07-18] MEDS: MONTELUKAST SODIUM 10 MG TABLET PO SCH (08:32)
[2021-07-18] MEDS: UMECLIDINIUM BROMIDE 62.5MCG/BLISTER 7 PUFFS/INHALER INH SCH (08:33)
[2021-07-18] MEDS: TAMSULOSIN HCL 0.4 MG CAP PO SCH (08:33)
[2021-07-18] MEDS: MULTIVITAMIN TAB PO SCH (08:33)
[2021-07-18] MEDS: PANTOprazole 40 MG TAB PO SCH (08:33)
[2021-07-18] MEDS: CLOPIDOGREL BISULFATE 75 MG TAB PO SCH (08:34)
[2021-07-18] MEDS: amLODIPine BESYLATE 5 MG TAB PO SCH (08:35)
[2021-07-18] MEDS: guaiFENesin 600 MG TABCR PO SCH ×2 (08:36→21:30)
[2021-07-18] MEDS: HEPARIN SOD 5,000 UNIT/0.5 ML VIAL SQ SCH ×2 (08:37→21:47)
--- NOTE | 2021-07-18 11:16 | CT Scan Report ---
ABDOMEN AND PELVIS CT WITHOUT CONTRAST CT DOSE: 629.42 mGy.cm HISTORY: Generalized abdominal pain. colitis/ severe c diff TECHNIQUE: Multiaxial CT images of the abdomen and pelvis were performed without contrast. A dose lo wering technique was utilized adhering to the principles of ALARA. COMPARISON STUDY: Abdomen and pelvis CT 07/15/2021. FINDINGS: Bibasilar densities favor subsegmental atelectasis. A pneumonia is considered less likely b ut not entirely excluded. Interval development of a small right pleural effusion. Dense coronary kwaku ry calcifications are again noted. 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 The h eart remains mildly enlarged. No pneumoperitoneum. No pneumatosis. No acute fractures identified. Mil d diffuse body wall edema. Interval development of a small amount of ascites most pronounced on the r ight side of the abdomen. There is a punctate gallstone. Mild gallbladder wall thickening is likely d ue to the contracted state. Stable 1 cm hypodense lesion within the right hepatic lobe. The unenhance d spleen and adrenal glands unremarkable. There are few punctate calcifications within the pancreas. No retroperitoneal lymphadenopathy identified. Normal bladder. Status post aortobiiliac stent graft r epair of abdominal aortic aneurysm. The aneurysm sac continues to measure 4.9 x 4.9 cm. No hydronephr osis. Bilateral renal hypodense lesions are again noted. These are incompletely characterized on this noncontrast study but favor cysts. Stable 1.2 cm left adrenal gland nodule likely representing a kenyetta ign adenoma. 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 No retroperitoneal lymphadenopathy. S evere diffuse thickening of the colonic wall with pericolonic fat stranding and edema. This most pron ounced along the right side of the colon. The visualized appendix is unremarkable. No dilated loops o f small bowel to suggest an obstruction. IMPRESSION: 1. Interval progression of the severe pancolitis. This likely corresponds to the patient's known hist ory of C. Difficile colitis. 2. Small amount of ascites most pronounced on the right side the abdomen which is new from the prior study. This may be reactive to the colitis. 3. No evidence for bowel obstruction. 4. Small right pleural effusion. 5. Additional findings as described above. ACT 112: Negative or not required by law. Electronically signed by: Kenny Kovacs M.D. 07/18/2021 11:14 AM
--- NOTE | 2021-07-18 11:21 | XRay Report ---
XR chest 1V portable HISTORY: wheezing COMPARISON: Chest 06/28/2021. FINDINGS: No pneumothorax. Suspect trace bilateral pleural effusions. The heart is enlarged. There is a tortuous thoracic aorta, unchanged. There is right greater than left interstitial thickening and h azy right lung densities. This could represent asymmetric pulmonary edema or a developing right-sided pneumonia. IMPRESSION: Right greater than left interstitial thickening and hazy right lung densities. This could represent a symmetric pulmonary edema or developing right-sided pneumonia. ACT 112: Negative or not required by law. Electronically signed by: Kenny Kovacs M.D. 07/18/2021 11:20 AM
[2021-07-18] MEDS: metroNIDAZOLE 500 MG/100 ML BAG IV SCH ×2 (13:34→22:17)
--- NOTE | 2021-07-18 13:57 | Surgery Consultation ---
Date of Consultation July 18, 2021 Assessment & Plan (1) C. difficile colitis: (2) RON (acute kidney injury): (3) Pancolitis: 89 year-old male with history of c. diff colitis in June who presented back to emergency department with recurrent diarrhea, fever, and loss of appetite after finishing course of oral vancomycin. CT scan showing pancolitis consistent with patients known c. diff colitis. Leukocytosis of 18k. Repeat CT scan today showing progression of right sided colitis. Leukocytosis improved to 14K. Abdomen is soft, generalized tenderness however no rigidity or peritoneal signs. Plan: Given patients multiple comorbidities, specifically worsening aortic stenosis, and his age, surgical intervention which would involve total colectomy and end ileostomy would be last resort. Unsure if patient would survive the surgery, as previously mentioned by Dr. Andrews during last admission. Dr. Godinez discussed this with his today. Would recommend to continue current medical management with reconsulting Infectious disease Continue current medical management will continue to closely follow Dr. Godinez has seen and examined pt, agrees with above. History of Present Illness Reason for Consultation: C. diff colitis/ Ileus Requesting Physician: Colin Valerio Attending Physician: Colin Valerio History of Present Illness Lefty is a 89 year-old male with history of aortic stenosis, chronic kidney disease stage II, COPD, HTN, AAA, CHIP, Asthma, with recent pneumonia in early June and then admission with c. diff colitis. He was on po Dificid but than transitioned to oral vancomycin by Infectious disease during last admission to c omplete 14 day course. He was discharged home and finished course of oral vancomycin for one more week and then states he started having diarrhea again with low appeitte and fever. He presented to emergency department again on 07/15/21 in which he had elevated leukocytosis however CT Scan at that time showed improvement fo the colitis. He then had repeat CT scan of abdomen and pelvis today which showed progression of the right sided colitis. Leukocytosis improved to 14k (17k yesterday). Lactic acid and procalcitonin pending today. In review of previous admission, surgery was consulted (Dr. Andrews) who evaluated patient and given his age and comorbidities felt he was not a surgical candidate and would not survive an exploratory laparotomy with total colectomy and ileostomy. He had an ECHO in 2020 which showed worsening aortic stenosis of 1.2 cm2. Lefty ( present at baseline gives most of the history) states that he is feeling okay. Not complaining of any abdominal pain. states the diarrhea seems to be less frequent and was more "muddy " in consistency today and not as watery. states that he never complained of abdominal pain. Allergies Allergy/AdvReac Type Severity Reaction Status Date / Time Penicillins Allergy Mild Rash Verified 07/15/21 12:26 Home Medications Medication Instructions Recorded Confirmed Type clopidogrel 75 mg tablet (Plavix) 75 mg PO QAM 11/24/18 07/15/21 History pantoprazole 40 mg tablet,delayed 40 mg PO QAM tab 11/24/18 07/15/21 History release (Protonix) tamsulosin 0.4 mg capsule 0.4 mg PO QAM #30 cap 11/24/18 07/15/21 History montelukast 10 mg tablet 10 mg PO QAM 03/27/19 07/15/21 History CPAP Machine #1 ea 04/13/19 06/12/21 Rx fluticasone furoate 200 1 ea INHALATION QAM 07/10/19 07/15/21 History mcg-vilanterol 25 mcg/dose inhalation powder (Breo Ellipta) tiotropium bromide 18 mcg capsule 1 cap INHALATION QAM 07/10/19 07/15/21 History with inhalation device (Spiriva with HandiHaler) atorvastatin 80 mg tablet 80 mg PO HS 06/22/21 07/15/21 History finasteride 5 mg tablet 5 mg PO QAM 06/22/21 07/15/21 History nitroglycerin 0.4 mg sublingual 0.4 mg SUBLINGUAL UD PRN 06/22/21 07/15/21 History tablet acetaminophen 325 mg tablet 650 mg PO Q6H PRN #30 tab 07/03/21 07/15/21 Rx amlodipine 5 mg tablet 2.5 mg PO QAM 07/15/21 07/15/21 History hydrocodone 5 mg-acetaminophen 325 1 tab PO DAILY PRN 07/15/21 07/15/21 History mg tablet losartan 100 mg tablet 100 mg PO QAM 07/15/21 07/15/21 History multivitamin 1 tab PO QAM 07/15/21 07/15/21 History Patient History Medical History AAA (abdominal aortic aneurysm) 5.2 x 4.9 cm infrarenal AAA per 01/2020 CTA Asthma stable 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)- on plavix GERD (gastroesophageal reflux disease) Hearing deficit B/L CORBIN History of malignant melanoma HTN (hypertension) Hyperlipidemia Mild aortic stenosis Mild aortic stenosis (CHE 2.1 cm, MG 11.4 mmHg) per 05/08/17 echo Osteoarthritis Paralysis of left vocal cord Sleep apnea CPAP Surgical History History of cataract surgery History of colonoscopy History of elbow surgery Rt History of hernia repair Lt inguinal History of melanoma excision History of repair of rotator cuff Lt History of revision of total knee arthroplasty R/L History of total knee arthroplasty R/L S/P AAA repair Percutaneous Endovascular Aortic Aneurysm Repair, Mechanical Closure of Bi lateral Femoral Arteries Dr. 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 Beliefs That Will Affect Care: None marital status: Current Living Situation: Spouse current occupational 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 How many Children do You have: 1 Other Information That Helps Us Care for You: No Feels Safe at Home: Yes Safety Concerns: Feels Safe At This Time Assistive Devices: CPAP Physical Exam Constitutional: + frail appearing, cooperative and comfortable; no acute distress and not ill appearing Neck: normal visual inspection and trachea midline Respiratory: normal respiratory effort; no respiratory distress Gastrointestinal (Abdomen): Inspection/Auscultation: abdomen normal to inspection; abdomen not distended Percussion/Palpation: + abdomen tender (generalized tenderness) and abdomen soft; no guarding (no peritonitis), abdomen not rigid and abdomen not firm Skin: no rashes, warm and dry Psychiatric: Orientation: alert and oriented x 3 Results & Data ([facility]) Vital Signs (Past 12 Hours) Vital Signs Temp Pulse Resp BP Pulse Ox 07/18/21 08:30 103 H 104/66 07/18/21 07:17 36.5 C 110 H 16 108/66 94 Laboratory Results 07/18/21 07/18/21 07/18/21 Range/Units 12:59 12:52 09:29 WBC (4.8-10.8) K/uL RBC (4.7-6.1) M/uL Hgb (14.0-18.0) g/dL Hct (42-52) % MCV (80-100) fL MCH (25-34) pg MCHC (32-36) g/dL RDW Std Deviation (36.4-46.3) fL RDW Coeff of Vitaliy (11.5-14.5) % Plt Count (130-400) K/uL MPV (7.4-10.4) fL Immature Gran % (Auto) % Neut % (Auto) % Lymph % (Auto) % [place] % (Auto) % Eos % (Auto) % Baso % (Auto) % Neut # (Auto) (1.4-6.5) K/uL Lymph # (Auto) (1.2-3.4) K/uL [place] # (Auto) (0.11-0.59) K/uL Eos # (Auto) (0-0.5) K/uL Baso # (Auto) (0-0.2) K/uL Immature Gran # (Auto) (0.00-0.02) K/uL Toxic Granulation Toxic Vacuolation Echinocytes ESR (0-20) mm/hr Sodium (136-145) mmol/L Potassium (3.5-5.1) mmol/L Chloride (98-107) mmol/L Carbon Dioxide (21-32) mmol/L Anion Gap (3-11) BUN (6-23) mg/dl Creatinine (0.6-1.4) mg/dl Est Cr Clr Drug Dosing ml/min Est GFR ( Amer) ml/min Est GFR (Non-Af Amer) ml/min BUN/Creatinine Ratio (10-20) Glucose (70-99(Fasting)) mg/dl Lactate Pending Calcium (8.5-10.1) mg/dl C-Reactive Protein (0-0.5) mg/dl B-Natriuretic Peptide 166 H (0-100) pg/ml Procalcitonin 1.26 H (0-0.5) ng/ml 07/18/21 07/18/21 07/18/21 Range/Units 06:16 06:16 06:16 WBC 14.23 H (4.8-10.8) K/uL RBC 3.25 L (4.7-6.1) M/uL Hgb 9.3 L (14.0-18.0) g/dL Hct 28.0 L (42-52) % MCV 86.2 (80-100) fL MCH 28.6 (25-34) pg MCHC 33.2 (32-36) g/dL RDW Std Deviation 50.7 H (36.4-46.3) fL RDW Coeff of Vitaliy 16.0 H (11.5-14.5) % Plt Count 301 (130-400) K/uL MPV 9.2 (7.4-10.4) fL Immature Gran % (Auto) 0.8 % Neut % (Auto) 85.9 % Lymph % (Auto) 5.4 % [place] % (Auto) 7.4 % Eos % (Auto) 0.5 % Baso % (Auto) 0.0 % Neut # (Auto) 12.23 H (1.4-6.5) K/uL Lymph # (Auto) 0.77 L (1.2-3.4) K/uL [place] # (Auto) 1.05 H (0.11-0.59) K/uL Eos # (Auto) 0.07 (0-0.5) K/uL Baso # (Auto) 0.00 (0-0.2) K/uL Immature Gran # (Auto) 0.11 H (0.00-0.02) K/uL Toxic Granulation 1+ Toxic Vacuolation 1+ Echinocytes 1+ ESR 9 (0-20) mm/hr Sodium 130 L (136-145) mmol/L Potassium 3.5 (3.5-5.1) mmol/L Chloride 105 (98-107) mmol/L Carbon Dioxide 17 L (21-32) mmol/L Anion Gap 8 (3-11) BUN 39 H (6-23) mg/dl Creatinine 1.79 H (0.6-1.4) mg/dl Est Cr Clr Drug Dosing 28.3 ml/min Est GFR ( Amer) 38.1 ml/min Est GFR (Non-Af Amer) 32.9 ml/min BUN/Creatinine Ratio 21.8 H (10-20) Glucose 136 H (70-99(Fasting)) mg/dl Lactate Calcium 7.3 L (8.5-10.1) mg/dl C-Reactive Protein 26.32 H (0-0.5) mg/dl B-Natriuretic Peptide (0-100) pg/ml Procalcitonin (0-0.5) ng/ml Diagnostic Findings ABDOMEN AND PELVIS CT WITHOUT CONTRAST CT DOSE: 629.42 mGy.cm HISTORY: Generalized abdominal pain. colitis/ severe c diff TECHNIQUE: Multiaxial CT images of the abdomen and pelvis were performed without contrast. A dose lowering technique was utilized adhering to the principles of ALARA. COMPARISON STUDY: Abdomen and pelvis CT 07/15/2021. FINDINGS: Bibasilar densities favor subsegmental atelectasis. A pneumonia is considered less likely but not entirely excluded. Interval development of a small right pleural effusion. Dense coronary artery calcifications are again noted. 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 The heart remains mildly enlarged. No pneumoperitoneum. No pneumatosis. No acute fractures identified. Mild diffuse body wall edema. Interval development of a small amount of ascites most pronounced on the right side of the abdomen. There is a punctate gallstone. Mild gallbladder wall thickening is likely due to the contracted state. Stable 1 cm hypodense lesion within the right hepatic lobe. The unenhanced spleen and adrenal glands unremarkable. There are few punctate calcifications within the pancreas. No retroperitoneal lymphadenopathy identified. Normal bladder. Status post aortobiiliac stent graft repair of abdominal aortic aneurysm. The aneurysm sac continues to measure 4.9 x 4.9 cm. No hydronephrosis. Bilateral renal hypodense lesions are again noted. These are incompletely characterized on this noncontrast study but favor cysts. Stable 1.2 cm left adrenal gland nodule likely representing a benign adenoma. 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 No retroperitoneal lymphadenopathy. Severe diffuse thickening of the colonic wall with pericolonic fat stranding and edema. This most pronounced along the right side of the colon. The visualized appendix is unremarkable. No dilated loops of small bowel to suggest an obstruction. IMPRESSION: 1. Interval progression of the severe pancolitis. This likely corresponds to the patient's known history of C. Difficile colitis. 2. Small amount of ascites most pronounced on the right side the abdomen which is new from the prior study. This may be reactive to the colitis. 3. No evidence for bowel obstruction. 4. Small right pleural effusion. 5. Additional findings as described above. ABDOMEN AND PELVIS CT WITH IV CONTRAST 07/15/2021 CT DOSE: 518.03 mGy.cm HISTORY: Acute generalized abdominal pain with diarrhea possible colitis abd pain, diarrhea, recent cdiff TECHNIQUE: Multiaxial CT images of the abdomen and pelvis were performed following the IV administration of 94 cc of Optiray, A dose lowering technique was utilized adhering to the principles of ALARA. COMPARISON STUDY: CT abdomen and pelvis 06/24/2021 FINDINGS: Cardiomegaly. Coronary arterial, thoracic and abdominal aortic calcifications. Patent aortobiiliac stent graft. Type II endoleak on image 240 series 3. [place] fusiform aneurysm dilation of the abdominal aorta measures 4.9 x 5.2 cm, unchanged. Subpleural reticulation with bibasilar groundglass densities suggestive of atelectasis/scarring. No pneumatosis or pneumoperitoneum. The spleen, moderately atrophic pancreas and right adrenal gland are unremarkable. 1.2 cm hypodense left adrenal gland lesion suggestive of a probable adenoma. Unremarkable liver. Probable cholelithiasis. 10 mm right hepatic lobe hypodensity on image 21 may represent a cyst. Patent portal vein. 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 Bilateral renal cysts measure up to 2.3 cm on the left. Additional subcentimeter hypodensities of the kidneys are too small to characterize. No hydronephrosis. Prostate is upper limits of normal in size. Unremarkable urinary bladder. There is no lymphadenopathy. No bowel obstruction. Colonic air-fluid levels are noted with diffuse circumferential colonic wall thickening and pericolonic inflammatory stranding. The degree of inflammation and wall thickening has mildly improved from the 06/24/2021 study. Noninflamed appendix. Colonic diverticulosis without acute diverticulitis. Unremarkable soft tissues. Degenerative changes of the spine, pelvis and hips. IMPRESSION: 1. Mild improvement of the diffuse colonic wall thickening with pericolonic inflammation compatible with the patient's reported clinical history of C. diffi cile cellulitis. 2. No bowel obstruction or pneumoperitoneum. 3. Patent aortobiiliac stent graft with unchanged fusiform aneurysmal dilation of the [place] infrarenal abdominal aorta measuring 5.2 x 4.9 cm. 4. Cardiomegaly with bibasilar opacities suggestive of probable atelectasis. 5. Colonic diverticulosis. 6. Additional findings as above.
[2021-07-18] MEDS: VANCOMYCIN HCL 500 MG/100 ML ENEMA PR SCH (18:22)
--- NOTE | 2021-07-18 20:58 | Hospitalist Progress Note ---
Date of Service July 18, 2021 Assessment & Plan (1) C. difficile colitis: Plan: First reoccurrence of C diff. Patient will be placed on an extended vancomycin taper. Will start with 14 days of vancomycin 125 mg PO QID. Added vancomycin enemas on 07/18 due to concern of ileus Also added flagyl consulted ID and consulted gen surgery. WBC showing improvement, however, creatinine and inflammatory markers are worsening transfer to med surg with tele Patient though only had one episode of fever. Anticipate labs should improve over course of next 24-48 hours. CRP is above 30 procal is increasing (2) Chronic kidney disease, stage II (mild): Plan: CKD at baseline Acute kidney failure on IVF, will hold as patient having rales (3) Hypertension: Plan: resume amoldipine and monitor BP (4) Obstructive sleep apnea of adult: Plan: place on CPAP at HS. (5) Mild aortic stenosis: Plan: not in volume overload. will monitor. (6) Emphysema/COPD: Plan: stable/ resume home meds Admission and Anticipated Discharge Date Admission Date: July 15, 2021 Subjective 89 yo male reports having muddy stool. Patient reports no new symptoms, no fever chills. Review of Systems Review of Systems: All systems reviewed & are unremarkable except as noted in HPI & below Physical Exam Physical Exam: Constitutional: WD/WN, vitals as above no acute distress Eyes: + anicteric sclerae; normal pupil size ENMT: Mouth: + dry oral mucous membranes Neck: trachea midline, no thyromegaly Respiratory: normal respiratory effort and able to speak in complete sentences; no respiratory distress Auscultation: + crackles (bibasal); no diminished lung sounds, no rales, no rhonchi and no wheezes Cardiovascular: Rate/Rhythm: regular rate and regular rhythm Heart Sounds: + murmur (systolic loudest LUSB 3/6) Vessels: no JVD Extremities: normal capillary refill and + pedal edema (trace pre-tibial b/l equal); no calf tenderness Gastrointestinal (Abdomen): Inspection/Auscultation: abdomen normal to inspection; abdomen not distended Percussion/Palpation: decrreased tenderness and abdomen soft; no guarding and abdomen not rigid Musculoskeletal: no cyanosis or clubbing, extremities motor strength 5/5 Skin: no rashes, warm and dry Neurologic: moves all extremities and awake; not confused Psychiatric: A+Ox3, euthymic affect Genitourinary: no CVA tenderness Results & Data Results & Data ([facility]) Vital Signs (Past 12 Hours) Vital Signs Temp Pulse Pulse Resp BP BP Pulse Ox 07/18/21 19:20 37.3 C 101 H 18 97/55 L 92 07/18/21 17:20 120 H 07/18/21 16:30 36.8 C 106 H 20 112/75 90 07/18/21 14:39 37.2 C 102 H 16 112/69 92 PG Care Time/CCT Total # of Minutes Spent Total Time Spent with Patient: Total time spent is greater than 50% in coordination of care (as documented) at patient's floor/unit and/or counseling patient: Coding Level of Care Code 12520 Subseq Hosp Care Lvl 3 Diagnoses C. difficile colitis A04.72 Chronic kidney disease, stage II (mild) N18.2 Hypertension I10 Obstructive sleep apnea of adult G47.33 Mild aortic stenosis I35.0 Emphysema/COPD J43.9 Time Spent (min) 50
[2021-07-18] MEDS: ATORVASTATIN 40 MG TAB PO SCH (21:30)
[2021-07-19] MEDS: VANCOMYCIN HCL 125 MG/2.5ML SOLN PO SCH ×5 (00:27→22:55)
[2021-07-19] MEDS: VANCOMYCIN HCL 500 MG/100 ML ENEMA PR SCH ×5 (00:27→22:55)
[2021-07-19] MEDS: RASPBERRY SYRUP 5 ML UDP PO SCH ×5 (00:28→22:55)
[2021-07-19] MEDS: metroNIDAZOLE 500 MG/100 ML BAG IV SCH ×3 (05:55→21:08)
[2021-07-19 06:37] LABS: Hematocrit (blood only) 28.5 % (42-52); Hemoglobin 9.3 g/dL (14.0-18.0); Mean Corpuscular Hemoglobin 28.4 pg (25-34); Mean Corpuscular Hgb Conc 32.6 g/dL (32-36); Mean Corpuscular Volume 86.9 fL (80-100); Mean Platelet Volume 9.3 fL (7.4-10.4); Platelet Count 287 K/uL (130-400); RDW Coefficient of Variation 15.8 % (11.5-14.5); RDW Standard Deviation 51.2 fL (36.4-46.3); Red Blood Count 3.28 M/uL (4.7-6.1); White Blood Count 12.25 K/uL (4.8-10.8)
[2021-07-19 06:58] LABS: BUN Creatinine Ratio 22.9 (10-20); C Reactive Protein 22.63 mg/dl (0-0.5); Calcium 7.4 mg/dl (8.5-10.1); Creatinine Clr Calc Pharmacy 30.5 ml/min; Est GFR (African American) 41.7 ml/min; Potassium 3.3 mmol/L (3.5-5.1)
[2021-07-19] MEDS: guaiFENesin 600 MG TABCR PO SCH ×2 (08:17→21:13)
[2021-07-19] MEDS: PANTOprazole 40 MG TAB PO SCH (08:17)
[2021-07-19] MEDS: MONTELUKAST SODIUM 10 MG TABLET PO SCH (08:18)
[2021-07-19] MEDS: FINASTERIDE 5 MG TAB PO SCH (08:18)
[2021-07-19] MEDS: TAMSULOSIN HCL 0.4 MG CAP PO SCH (08:18)
[2021-07-19] MEDS: MULTIVITAMIN TAB PO SCH (08:18)
[2021-07-19] MEDS: amLODIPine BESYLATE 5 MG TAB PO SCH (08:19)
[2021-07-19] MEDS: CLOPIDOGREL BISULFATE 75 MG TAB PO SCH (08:19)
[2021-07-19] MEDS: UMECLIDINIUM BROMIDE 62.5MCG/BLISTER 7 PUFFS/INHALER INH SCH (08:20)
[2021-07-19] MEDS: FLUTICASONE/VILANTEROL 200/25MCG 14 PUFFS/INHALER INH SCH (08:20)
[2021-07-19] MEDS: HEPARIN SOD 5,000 UNIT/0.5 ML VIAL SQ SCH ×2 (08:21→21:14)
--- NOTE | 2021-07-19 10:29 | Surgery Progress Note ---
Date of Service July 19, 2021 Assessment & Plan (1) C. difficile colitis: (2) RON (acute kidney injury): (3) Pancolitis: Plan: 89 year-old male with history of c. diff colitis in June who presented back to emergency department with recurrent diarrhea, fever, and loss of appetite after finishing course of oral vancomycin. CT scan showing pancolitis consistent with patients known c. diff colitis. Leukocytosis of 18k. Repeat CT scan 07/18/2021 showing progression of right sided colitis. 07/19/2021 Leukocytosis improved to 12k. Abdomen is soft, mildly distended, no tenderness, no rigidity,or peritoneal signs. Plan: No surgical intervention required at this time, continues to improve Given patients multiple comorbidities, specifically worsening aortic stenosis (since 2018), and his age, surgical intervention which would involve total colectomy and end ileostomy would be last resort. Unsure if patient would survive the surgery, as previously mentioned by Dr. Andrews during last admission. Dr. Godinez discussed this with his . awaiting Infectious disease consult Continue current medical management encouraged patient of incentive spirometry use at least 5x/hour add boost to meals likely will need PT/OT will continue to follow Dr. Godinez has seen patient and agrees with above. Admission and Anticipated Discharge Date Admission Date: July 15, 2021 Supervising Physician Co-Signing Physician Notes I have seen and examined the patient personally, and agree with the physical exam, assessment and plan. In brief, he has recurrent C. difficile colitis. He has not been on Dificid. We are awaiting the infectious disease consult. As already detailed by Dr. Andrews previously, given his age and multiple comorbidities, specifically his severe aortic stenosis, he is not a good candidate for any surgical procedure, which would require a subtotal colectomy with ileostomy. He seems to be improving slightly. We will continue to monitor him and treat him conservatively for now. Subjective "feeling wonderful" some abdominal pain with continuous coughing but otherwise no abdominal pain, nausea, vomiting present in room states had a small formed stool early this morning low appetite + cough using incentive but not very often only 1 time every 2 hours Physical Exam Constitutional: WD/WN, vitals as above + overweight; no acute distress and not ill appearing Neck: normal visual inspection and trachea midline Respiratory: normal respiratory effort and + cough; no respiratory distress and no labored breathing Gastrointestinal (Abdomen): Inspection/Auscultation: + abdomen distended (mild) and normal bowel sounds Percussion/Palpation: abdomen soft; abdomen nontender, no guarding, abdomen not rigid and abdomen not firm Skin: no rashes, warm and dry Psychiatric: Orientation: alert and oriented x 3 Results & Data ([facility]) Vital Signs (Past 12 Hours) Vital Signs Temp Pulse Pulse Pulse Resp BP Pulse Ox 07/19/21 07:43 36.6 C 98 H 18 104/62 92 07/19/21 07:38 99 H 07/19/21 02:57 36.6 C 99 H 20 105/61 93 07/18/21 23:07 37.2 C 110 H 18 109/70 93 Laboratory Results 07/19/21 07/19/21 07/19/21 Range/Units 06:25 06:25 06:25 WBC (4.8-10.8) K/uL RBC (4.7-6.1) M/uL Hgb (14.0-18.0) g/dL Hct (42-52) % MCV (80-100) fL MCH (25-34) pg MCHC (32-36) g/dL RDW Std Deviation (36.4-46.3) fL RDW Coeff of Vitaliy (11.5-14.5) % Plt Count (130-400) K/uL MPV (7.4-10.4) fL Sodium 131 L (136-145) mmol/L Potassium 3.3 L (3.5-5.1) mmol/L Chloride 105 (98-107) mmol/L Carbon Dioxide 18 L (21-32) mmol/L Anion Gap 8 (3-11) BUN 38 H (6-23) mg/dl Creatinine 1.66 H (0.6-1.4) mg/dl Est Cr Clr Drug Dosing 30.5 ml/min Est GFR ( Amer) 41.7 ml/min Est GFR (Non-Af Amer) 36.0 ml/min BUN/Creatinine Ratio 22.9 H (10-20) Glucose 151 H (70-99(Fasting)) mg/dl Lactate 1.2 (0.4-2.0) mmol/L Calcium 7.4 L (8.5-10.1) mg/dl C-Reactive Protein 22.63 H (0-0.5) mg/dl B-Natriuretic Peptide (0-100) pg/ml Procalcitonin 1.04 H (0-0.5) ng/ml 07/19/21 07/18/21 07/18/21 Range/Units 06:25 14:46 12:59 WBC 12.25 H (4.8-10.8) K/uL RBC 3.28 L (4.7-6.1) M/uL Hgb 9.3 L (14.0-18.0) g/dL Hct 28.5 L (42-52) % MCV 86.9 (80-100) fL MCH 28.4 (25-34) pg MCHC 32.6 (32-36) g/dL RDW Std Deviation 51.2 H (36.4-46.3) fL RDW Coeff of Vitaliy 15.8 H (11.5-14.5) % Plt Count 287 (130-400) K/uL MPV 9.3 (7.4-10.4) fL Sodium (136-145) mmol/L Potassium (3.5-5.1) mmol/L Chloride (98-107) mmol/L Carbon Dioxide (21-32) mmol/L Anion Gap (3-11) BUN (6-23) mg/dl Creatinine (0.6-1.4) mg/dl Est Cr Clr Drug Dosing ml/min Est GFR ( Amer) ml/min Est GFR (Non-Af Amer) ml/min BUN/Creatinine Ratio (10-20) Glucose (70-99(Fasting)) mg/dl Lactate 1.5 2.1 H* (0.4-2.0) mmol/L Calcium (8.5-10.1) mg/dl C-Reactive Protein (0-0.5) mg/dl B-Natriuretic Peptide (0-100) pg/ml Procalcitonin (0-0.5) ng/ml 07/18/21 07/18/21 Range/Units 12:52 09:29 WBC (4.8-10.8) K/uL RBC (4.7-6.1) M/uL Hgb (14.0-18.0) g/dL Hct (42-52) % MCV (80-100) fL MCH (25-34) pg MCHC (32-36) g/dL RDW Std Deviation (36.4-46.3) fL RDW Coeff of Vitaliy (11.5-14.5) % Plt Count (130-400) K/uL MPV (7.4-10.4) fL Sodium (136-145) mmol/L Potassium (3.5-5.1) mmol/L Chloride (98-107) mmol/L Carbon Dioxide (21-32) mmol/L Anion Gap (3-11) BUN (6-23) mg/dl Creatinine (0.6-1.4) mg/dl Est Cr Clr Drug Dosing ml/min Est GFR ( Amer) ml/min Est GFR (Non-Af Amer) ml/min BUN/Creatinine Ratio (10-20) Glucose (70-99(Fasting)) mg/dl Lactate (0.4-2.0) mmol/L Calcium (8.5-10.1) mg/dl C-Reactive Protein (0-0.5) mg/dl B-Natriuretic Peptide 166 H (0-100) pg/ml Procalcitonin 1.26 H (0-0.5) ng/ml
--- NOTE | 2021-07-19 19:29 | Hospitalist Progress Note ---
Date of Service July 19, 2021 Assessment & Plan (1) C. difficile colitis: Plan: Severe Clostridium colitis Sepsis (meets criteria: lactic sacidosis, RON, elevated WBC, tachycardia, elevated procal) First reoccurrence of C diff. Patient will be placed on an extended vancomycin taper. Will start with 14 days of vancomycin 125 mg PO QID. Added vancomycin enemas on 07/18 due to concern of ileus Also added flagyl on 07/18 consulted ID and consulted gen surgery. WBC creatinine and inflammatory markers including CRP and procal all showing improvement on 07/19 Lactic acidosis resolved. Patient also clinically improving on 07/19, likely responding from the vanco enema. transfer to med surg with tele (2) Chronic kidney disease, stage II (mild): Plan: CKD at baseline Acute kidney failure on IVF, will hold as patient having rales (3) Hypertension: Plan: resume amoldipine and monitor BP (4) Obstructive sleep apnea of adult: Plan: place on CPAP at HS. (5) Mild aortic stenosis: Plan: not in volume overload. will monitor. 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 Review of EMR reveals a 9.5 kg / 11% loss in body weight over the past 10 days. Wt. 07/03/21 was 89.2 kg, Wt 07/13/21 79.7. Over past 10 days patient has lost 9.5 kg/11% of BW. Assessments reveal weakness. Risk Factor(s): Age, recurrent C.Diff Treatment: Daily weights, heart healthy diet, vancomycin, electrolyte replacemen t, IV fluids, Admission and Anticipated Discharge Date Admission Date: July 15, 2021 Subjective 89 yo male reports no new symptoms. He continues to have muddy stools. However, he states today is the first day he is feeling better. Review of Systems Review of Systems: All systems reviewed & are unremarkable except as noted in HPI & below Physical Exam Physical Exam: Constitutional: WD/WN, vitals as above no acute distress Eyes: + anicteric sclerae; normal pupil size ENMT: Mouth: + dry oral mucous membranes Neck: trachea midline, no thyromegaly Respiratory: normal respiratory effort and able to speak in complete sentences; no respiratory distress Auscultation: + crackles (bibasal); no diminished lung sounds, no rales, no rhonchi and no wheezes Cardiovascular: Rate/Rhythm: regular rate and regular rhythm Heart Sounds: + murmur (systolic loudest LUSB 3/6) Vessels: no JVD Extremities: normal cap illary refill and + pedal edema (trace pre-tibial b/l equal); no calf tenderness Gastrointestinal (Abdomen): Inspection/Auscultation: abdomen normal to inspection; abdomen not distended Percussion/Palpation: decrreased tenderness and abdomen soft; no guarding and abdomen not rigid Musculoskeletal: no cyanosis or clubbing, extremities motor strength 5/5 Skin: no rashes, warm and dry Neurologic: moves all extremities and awake; not confused Psychiatric: A+Ox3, euthymic affect Genitourinary: no CVA tenderness Results & Data Results & Data ([facility]) Vital Signs (Past 12 Hours) Vital Signs Temp Pulse Pulse Resp BP Pulse Ox 07/19/21 15:51 37.1 C 98 H 18 111/67 98 07/19/21 14:57 108 H 07/19/21 11:22 36.6 C 100 H 18 116/68 93 07/19/21 07:43 36.6 C 98 H 18 104/62 92 07/19/21 07:38 99 H PG Care Time/CCT Total # of Minutes Spent Total Time Spent with Patient: Total time spent is greater than 50% in coordination of care (as documented) at patient's floor/unit and/or counseling patient: Coding Level of Care Code 95560 Subseq Hosp Care Lvl 3 Diagnoses C. difficile colitis A04.72 Chronic kidney disease, stage II (mild) N18.2 Hypertension I10 Obstructive sleep apnea of adult G47.33 Mild aortic stenosis I35.0 Emphysema/COPD J43.9 Time Spent (min) 35
[2021-07-19] MEDS ORDERED: POTASSIUM CHLORIDE CRTAB 20 MEQ TABCR PO SCH (21:00)
[2021-07-19] MEDS: ATORVASTATIN 40 MG TAB PO SCH (21:14)
[2021-07-20] MEDS ORDERED: MICONAZOLE NITRATE POWDER 43 GM EXT PRN (00:18)
[2021-07-20] MEDS: RASPBERRY SYRUP 5 ML UDP PO SCH (06:17)
[2021-07-20] MEDS: VANCOMYCIN HCL 125 MG/2.5ML SOLN PO SCH (06:17)
[2021-07-20] MEDS: VANCOMYCIN HCL 500 MG/100 ML ENEMA PR SCH (06:17)
[2021-07-20] MEDS: metroNIDAZOLE 500 MG/100 ML BAG IV SCH (06:17)
[2021-07-20 07:06] LABS: Hemoglobin 9.2 g/dL (14.0-18.0); Mean Corpuscular Hemoglobin 28.8 pg (25-34); Mean Corpuscular Hgb Conc 34.1 g/dL (32-36); Mean Corpuscular Volume 84.4 fL (80-100); Mean Platelet Volume 9.1 fL (7.4-10.4); Platelet Count 270 K/uL (130-400); RDW Coefficient of Variation 15.9 % (11.5-14.5); RDW Standard Deviation 49.5 fL (36.4-46.3); White Blood Count 11.65 K/uL (4.8-10.8)
[2021-07-20 07:39] LABS: C Reactive Protein 16.07 mg/dl (0-0.5); Calcium 7.3 mg/dl (8.5-10.1); Creatinine Clr Calc Pharmacy 34.2 ml/min; Echinocytes 1+; Eosinophils # (auto) 0.14 K/uL (0-0.5); Eosinophils % (auto) 1.2 %; Est GFR (African American) 47.9 ml/min; Est GFR (Non-African American) 41.4 ml/min; Immature Granulocytes # (auto) 0.08 K/uL (0.00-0.02); Immature Granulocytes % (auto) 0.7 %; Lymphocytes # (auto) 0.78 K/uL (1.2-3.4); Lymphocytes % (auto) 6.7 %; Monocytes # (auto) 0.91 K/uL (0.11-0.59); Monocytes % (auto) 7.8 %; Neutrophils # (auto) 9.74 K/uL (1.4-6.5); Neutrophils % (auto) 83.6 %; Potassium 3.1 mmol/L (3.5-5.1)
[2021-07-20] MEDS: guaiFENesin 600 MG TABCR PO SCH ×2 (08:47→20:51)
[2021-07-20] MEDS: FINASTERIDE 5 MG TAB PO SCH (08:48)
[2021-07-20] MEDS: TAMSULOSIN HCL 0.4 MG CAP PO SCH (08:48)
[2021-07-20] MEDS: MULTIVITAMIN TAB PO SCH (08:48)
[2021-07-20] MEDS: CLOPIDOGREL BISULFATE 75 MG TAB PO SCH (08:48)
[2021-07-20] MEDS: PANTOprazole 40 MG TAB PO SCH (08:49)
[2021-07-20] MEDS: MONTELUKAST SODIUM 10 MG TABLET PO SCH (08:49)
[2021-07-20] MEDS: UMECLIDINIUM BROMIDE 62.5MCG/BLISTER 7 PUFFS/INHALER INH SCH (08:50)
[2021-07-20] MEDS: FLUTICASONE/VILANTEROL 200/25MCG 14 PUFFS/INHALER INH SCH (08:50)
[2021-07-20] MEDS: POTASSIUM CHLORIDE 20 MEQ in LACTATED RINGER'S 1,000 ML IV SCH ×2 (08:53→20:52)
[2021-07-20] MEDS: HEPARIN SOD 5,000 UNIT/0.5 ML VIAL SQ SCH ×2 (08:54→20:52)
[2021-07-20] MEDS: FIDAXOMICIN 200 MG TAB PO SCH ×2 (09:04→20:51)
[2021-07-20] MEDS: POTASSIUM CHLORIDE CRTAB 20 MEQ TABCR PO SCH ×3 (09:04→20:51)
[2021-07-20] MEDS ORDERED: MAGNESIUM SULFATE / D5W 1 GM/100 ML BAG IV ONE (09:04)
[2021-07-20] MEDS: ADVANCED PROBIOTIC 1250 MG CAPSULE PO SCH (09:05)
--- NOTE | 2021-07-20 10:50 | Surgery Progress Note ---
Date of Service July 20, 2021 Assessment & Plan (1) C. difficile colitis: (2) RON (acute kidney injury): Plan: resolving (3) Pancolitis: Plan: 89 year-old male with history of c. diff colitis in June who presented back to emergency department with recurrent diarrhea, fever, and loss of appetite after finishing course of oral vancomycin. CT scan showed pancolitis consistent with patients known c. diff colitis. Leukocytosis of 18k. Repeat CT scan 07/18/2021 showing progression of right sided colitis. 07/20/2021 Leukocytosis continues to improve, 11K today. Abdomen is soft, , no tenderness, no rigidity,or peritoneal signs. Feeling better. Infectious disease consult yesterday recommended Dificid which will be started today. Plan: No surgical intervention required at this time, continues to improve Continue current medical management our services signing off, please call with questions/concerns Dr. Godinez has seen patient and agrees with above. Admission and Anticipated Discharge Date Admission Date: July 15, 2021 Supervising Physician Co-Signing Physician Notes I have seen and examined the patient personally, agree with the above assessment plan. In brief, his C. difficile is improving on Dificid. He does not have any surgical indication at this time. We will sign off for now. Please call with any questions or concerns. Subjective feeling better today no abdominal pain no n,v tolerating diet Physical Exam Constitutional: WD/WN, vitals as above no acute distress and not ill appear ing Neck: normal visual inspection and trachea midline Respiratory: normal respiratory effort; no respiratory distress Gastrointestinal (Abdomen): Inspection/Auscultation: abdomen normal to inspection; abdomen not distended Percussion/Palpation: abdomen soft; abdomen nontender, no guarding and abdomen not rigid Skin: no rashes, warm and dry Psychiatric: A+Ox3, euthymic affect Results & Data ([facility]) Vital Signs (Past 12 Hours) Vital Signs Temp Pulse Pulse Resp BP Pulse Ox 07/20/21 07:42 36.9 C 95 H 95 H 17 102/67 93 07/20/21 03:25 36.7 C 96 H 20 95/52 L 92 07/19/21 23:19 37 C 101 H 16 109/70 93 Laboratory Results 07/20/21 07/20/21 07/20/21 Range/Units 08:21 06:53 06:53 WBC (4.8-10.8) K/uL RBC (4.7-6.1) M/uL Hgb (14.0-18.0) g/dL Hct (42-52) % MCV (80-100) fL MCH (25-34) pg MCHC (32-36) g/dL RDW Std Deviation (36.4-46.3) fL RDW Coeff of Vitaliy (11.5-14.5) % Plt Count (130-400) K/uL MPV (7.4-10.4) fL Immature Gran % (Auto) % Neut % (Auto) % Lymph % (Auto) % [place] % (Auto) % Eos % (Auto) % Baso % (Auto) % Neut # (Auto) (1.4-6.5) K/uL Lymph # (Auto) (1.2-3.4) K/uL [place] # (Auto) (0.11-0.59) K/uL Eos # (Auto) (0-0.5) K/uL Baso # (Auto) (0-0.2) K/uL Immature Gran # (Auto) (0.00-0.02) K/uL Echinocytes Sodium 131 L (136-145) mmol/L Potassium 3.1 L (3.5-5.1) mmol/L Chloride 107 (98-107) mmol/L Carbon Dioxide 18 L (21-32) mmol/L Anion Gap 6 (3-11) BUN 34 H (6-23) mg/dl Creatinine 1.48 H (0.6-1.4) mg/dl Est Cr Clr Drug Dosing 34.2 ml/min Est GFR ( Amer) 47.9 ml/min Est GFR (Non-Af Amer) 41.4 ml/min BUN/Creatinine Ratio 23.0 H (10-20) Glucose 139 H (70-99(Fasting)) mg/dl Calcium 7.3 L (8.5-10.1) mg/dl Magnesium 1.7 (1.7-2.4) mg/dl C-Reactive Protein 16.07 H (0-0.5) mg/dl Procalcitonin 0.72 H (0-0.5) ng/ml 07/20/21 Range/Units 06:53 WBC 11.65 H (4.8-10.8) K/uL RBC 3.20 L (4.7-6.1) M/uL Hgb 9.2 L (14.0-18.0) g/dL Hct 27.0 L (42-52) % MCV 84.4 (80-100) fL MCH 28.8 (25-34) pg MCHC 34.1 (32-36) g/dL RDW Std Deviation 49.5 H (36.4-46.3) fL RDW Coeff of Vitaliy 15.9 H (11.5-14.5) % Plt Count 270 (130-400) K/uL MPV 9.1 (7.4-10.4) fL Immature Gran % (Auto) 0.7 % Neut % (Auto) 83.6 % Lymph % (Auto) 6.7 % [place] % (Auto) 7.8 % Eos % (Auto) 1.2 % Baso % (Auto) 0.0 % Neut # (Auto) 9.74 H (1.4-6.5) K/uL Lymph # (Auto) 0.78 L (1.2-3.4) K/uL [place] # (Auto) 0.91 H (0.11-0.59) K/uL Eos # (Auto) 0.14 (0-0.5) K/uL Baso # (Auto) 0.00 (0-0.2) K/uL Immature Gran # (Auto) 0.08 H (0.00-0.02) K/uL Echinocytes 1+ Sodium (136-145) mmol/L Potassium (3.5-5.1) mmol/L Chloride (98-107) mmol/L Carbon Dioxide (21-32) mmol/L Anion Gap (3-11) BUN (6-23) mg/dl Creatinine (0.6-1.4) mg/dl Est Cr Clr Drug Dosing ml/min Est GFR ( Amer) ml/min Est GFR (Non-Af Amer) ml/min BUN/Creatinine Ratio (10-20) Glucose (70-99(Fasting)) mg/dl Calcium (8.5-10.1) mg/dl Magnesium (1.7-2.4) mg/dl C-Reactive Protein (0-0.5) mg/dl Procalcitonin (0-0.5) ng/ml
--- NOTE | 2021-07-20 14:39 | Hospitalist Progress Note ---
Date of Service July 20, 2021 Assessment & Plan (1) C. difficile colitis: Plan: Recurrent/relapse. Initial dx 06/22/21 - Rx with 10 day course of PO vanco. Relapse 07/15/21 - was receiving PO vanco + IV flagyl. s/p [facility] ID consultation yesterday - dificid 200mg BID advised until 07/25/21. Then they advise a prolonged taper of dificid 200mg QOD until 08/14/21. Slowly improving clinically and lab-robertson. Stop PO vanco. Stop IV flagyl. Add lactinex. Could consider once or twice daily colestipol. Change diet to low fiber. Cont supportive care, electrolyte replacement, IV fluids, and contact precautions. updated at bedside during the visit. (2) Sepsis: Plan: 2nd to #1. Resolving as evidenced by improving labs, improving clinical picture, etc. (3) Pneumonia: Plan: Right-sided. s/p 10-day course of PO cephalosporin in early June. During his June hospital stay he did not receive IV or PO antibiotics for the lungs. He now has radiographic evidence of right-sided infiltrates. Is this recurrent pneumonia? other? He is coughing, short of breath, etc. Will repeat his cxr tomorrow am. Add combivent for cough/wheeze. Cont usual home inhalers for COPD/asthma. Cont mucinex. (4) RON (acute kidney injury): Plan: baseline Cr about 1 to 1.1 peak this admission 1.7 slowly improving with Rx of #1 add back IV fluids repeat BMP am (5) Hypertension: Plan: BPs are low or low-normal. HOLD amlodipine. HOLD losartan. (6) Obstructive sleep apnea of adult: Plan: CPAP 9cm H20 at HS (7) Emphysema/COPD: Plan: ongoing cough, wheezing, abnormal cxr. may have COPD flare. may have a recurrent brewing pneumonia. of note - FEES study in June was negative for aspiration. inhalers, supportive care. repeat cxr am. (8) Chronic renal failure, stage 3a: Plan: baseline Cr about 1 to 1.1. now with RON. as above. (9) Aortic stenosis: Plan: moderate-severe. no evidence of decompensated CHF. (10) Altered taste: Plan: etiology? would be unusual for c.diff to cause such. in light of respiratory symptoms will recheck a COVID-19 test this afternoon. (11) Severe protein-calorie malnutrition: Plan: Review of EMR reveals a 9.5 kg / 11% loss in body weight over the past several weeks. (12) CAD (coronary artery disease): Plan: 07/2020 cath at [facility] [place]. Results/management as follows - 1. 80% distal RCA and 80% PDA stenosis s/p AILEEN 2. severe calcific 80% prox circumflex stenosis s/p intracoronary balloon lithotripsy and AILEEN 3. 70% proximal LAD stenosis with borderline IFR 0.88 Cont statin Cont plavix Losartan and amlodipine on hold due to low-normal BPs or RON No ischemic symptoms at this time (13) Hyponatremia: Plan: Suspect 2nd to ongoing diarrhea. Add back isotonic fluids. Repeat BMP am. (14) Hypokalemia: Plan: Ongoing despite K supplementation. Increase potassium supplementation to TID dosing. Repeat BMP am. Mag level 1.7 - give 1 gm mag sulfate to keep level closer to 2. Add KCL to IV fluids. Low K likely due to ongoing GI losses. (15) DVT prophylaxis: Plan: heparin 5000 BID Plan: extensively updated at bedside today cont PT, OT Admission and Anticipated Discharge Date Admission Date: July 15, 2021 Subjective tele overnight - nina - rates 90s or 100s EKG from 06/2021 with nina patient reports ongoing cough for several weeks dx with pneumonia early June and took 10 days of oral cephalosporin (06/12/21 - day #1) also with wheezing denies dyspnea or orthopnea at rest; but mild MEDINA with walking to bathroom he continues with liquid stool; at least 4 stools since waking this am no abd pain appetite still fair at best no vomiting he mentions that for several weeks he has had loss of taste/altered sense of taste Review of Systems Review of Systems: gen - no fevers, no chills; +fatigue, anorexia cv - no orthopnea, no chest pain pulm - cough/congestion/wheezing/MEDINA GI - no nausea, emesis or pain Physical Exam Physical Exam: gen - coughing throughout the visit, bronchial in quality mouth - MMM neck - no JVD heart - irregular, s1 s2, 2/6 holosystolic murmur RUSB lungs - right basilar rales; b/l wheezes; no increased work of breathing abd - mildly distended, BS+, NT, no HSM ext - no edema, pulses 2+ b/l psych - a/o x 3 Results & Data Results & Data ([facility]) Vital Signs (Past 12 Hours) Vital Signs Temp Pulse Pulse Resp BP Pulse Ox 07/20/21 11:21 36.8 C 93 H 18 94/61 L 94 07/20/21 07:42 36.9 C 95 H 95 H 17 102/67 93 07/20/21 03:25 36.7 C 96 H 20 95/52 L 92 Laboratory Results Laboratory Results - last 24 hr 07/20/21 07/20/21 07/20/21 06:53 06:53 06:53 WBC 11.65 H RBC 3.20 L Hgb 9.2 L Hct 27.0 L MCV 84.4 MCH 28.8 MCHC 34.1 RDW Std Deviation 49.5 H RDW Coeff of Vitaliy 15.9 H Plt Count 270 MPV 9.1 Immature Gran % (Auto) 0.7 Neut % (Auto) 83.6 Lymph % (Auto) 6.7 [place] % (Auto) 7.8 Eos % (Auto) 1.2 Baso % (Auto) 0.0 Neut # (Auto) 9.74 H Lymph # (Auto) 0.78 L [place] # (Auto) 0.91 H Eos # (Auto) 0.14 Baso # (Auto) 0.00 Immature Gran # (Auto) 0.08 H Echinocytes 1+ Sodium 131 L Potassium 3.1 L Chloride 107 Carbon Dioxide 18 L Anion Gap 6 BUN 34 H Creatinine 1.48 H Est Cr Clr Drug Dosing 34.2 Est GFR ( Amer) 47.9 Est GFR (Non-Af Amer) 41.4 BUN/Creatinine Ratio 23.0 H Glucose 139 H Calcium 7.3 L Magnesium C-Reactive Protein 16.07 H Procalcitonin 0.72 H SARS-CoV-2 (PCR) Influenza Type A (PCR) Influenza Type B (PCR) RSV (RT-PCR) 07/20/21 07/20/21 08:21 15:15 WBC RBC Hgb Hct MCV MCH MCHC RDW Std Deviation RDW Coeff of Vitaliy Plt Count MPV Immature Gran % (Auto) Neut % (Auto) Lymph % (Auto) [place] % (Auto) Eos % (Auto) Baso % (Auto) Neut # (Auto) Lymph # (Auto) [place] # (Auto) Eos # (Auto) Baso # (Auto) Immature Gran # (Auto) Echinocytes Sodium Potassium Chloride Carbon Dioxide Anion Gap BUN Creatinine Est Cr Clr Drug Dosing Est GFR ( Amer) Est GFR (Non-Af Amer) BUN/Creatinine Ratio Glucose Calcium Magnesium 1.7 C-Reactive Protein Procalcitonin SARS-CoV-2 (PCR) NEGATIVE Influenza Type A (PCR) Negative Influenza Type B (PCR) Negative RSV (RT-PCR) Negative PG Care Time/CCT Total # of Minutes Spent Total Time Spent with Patient: Total time spent is greater than 50% in coordination of care (as documented) at patient's floor/unit and/or counseling patient: Coding Level of Care Code 40324 Subseq Hosp Care Lvl 3 Diagnoses C. difficile colitis A04.72 Hypertension I10 Obstructive sleep apnea of adult G47.33 Emphysema/COPD J43.9 Chronic renal failure, stage 3a N18.31 RON (acute kidney injury) N17.9 Pneumonia J18.9 Laterality: right Lung location: unspecified part of lung Pneumonia type: due to unspecified organism Aortic stenosis I35.0 Altered taste R43.2 Sepsis A41.9 Severe protein-calorie malnutrition E43 DVT prophylaxis Z29.9 CAD (coronary artery disease) I25.10 Hyponatremia E87.1 Hypokalemia E87.6 (1) Pneumonia Laterality: right Lung location: unspecified part of lung Pneumonia type: due to unspecified organism Qualified Code(s): J18.9 - Pneumonia, unspecified organism
[2021-07-20] MEDS: IPRATROPIUM BROMIDE HFA INHALER INH SCH ×2 (15:44→19:31)
[2021-07-20] MEDS: ALBUTEROL HFA 8 GM INHALER INH SCH ×2 (15:44→19:31)
[2021-07-20 16:57] LABS: Influenza A virus by PCR Negative (Neg); Influenza B virus by PCR Negative (Neg); RSV by PCR Negative (Neg); SARS CoV2 RNA(COVID-19) InHosp NEGATIVE (Negative)
[2021-07-20] MEDS ORDERED: IPRATROPIUM BROMIDE/ALBUTEROL respimat INH INH SCH (17:00)
[2021-07-20] MEDS: ATORVASTATIN 40 MG TAB PO SCH (20:51)
[2021-07-21] MEDS ORDERED: MELATONIN 3 MG TAB PO ONE ×2 (03:24→03:29)
[2021-07-21] MEDS: IPRATROPIUM BROMIDE HFA INHALER INH SCH ×4 (07:22→19:45)
[2021-07-21] MEDS: ALBUTEROL HFA 8 GM INHALER INH SCH ×4 (07:23→19:45)
--- NOTE | 2021-07-21 07:45 | XRay Report ---
XR chest 1V portable HISTORY: 89 years-old Male R sided infiltrates follow-up study in a patient with acute shortness of breath COMPARISON: Chest radiograph 07/18/2021 TECHNIQUE: Portable AP view of the chest FINDINGS: The cardiac silhouette is enlarged. Atherosclerosis of the thoracic aorta. Trace right pleural effusi on. No pneumothorax. Right greater left bibasilar opacities are noted with interstitial coarsening, m ost pronounced within the right midlung. There is mildly improved aeration of the right lung compared to prior. Degenerative changes of the shoulders and spine. IMPRESSION: 1. Interstitial coarsening with bibasilar predominant airspace opacities are redemonstrated. There is mildly improved aeration of the right lung. 2. Cardiomegaly. 3. Trace right pleural effusion. ACT 112: Negative or not required by law. The above report was generated using voice recognition software. It may contain grammatical, syntax o r spelling errors. Electronically signed by: Bean Swartz M.D. 07/21/2021 7:44 AM
[2021-07-21 07:50] LABS: Hematocrit (blood only) 29.7 % (42-52); Hemoglobin 9.7 g/dL (14.0-18.0); Mean Corpuscular Hemoglobin 28.3 pg (25-34); Mean Corpuscular Hgb Conc 32.7 g/dL (32-36); Mean Corpuscular Volume 86.6 fL (80-100); Mean Platelet Volume 9.3 fL (7.4-10.4); Platelet Count 316 K/uL (130-400); RDW Coefficient of Variation 16.1 % (11.5-14.5); RDW Standard Deviation 51.5 fL (36.4-46.3); Red Blood Count 3.43 M/uL (4.7-6.1); White Blood Count 11.61 K/uL (4.8-10.8)
[2021-07-21 08:26] LABS: BUN Creatinine Ratio 24.6 (10-20); Calcium 7.6 mg/dl (8.5-10.1); Creatinine Clr Calc Pharmacy 35.6 ml/min; Est GFR (African American) 50.4 ml/min; Est GFR (Non-African American) 43.5 ml/min; Potassium 4.3 mmol/L (3.5-5.1)
[2021-07-21] MEDS: ADVANCED PROBIOTIC 1250 MG CAPSULE PO SCH (08:43)
[2021-07-21] MEDS: FINASTERIDE 5 MG TAB PO SCH (08:44)
[2021-07-21] MEDS: PANTOprazole 40 MG TAB PO SCH (08:44)
[2021-07-21] MEDS: POTASSIUM CHLORIDE CRTAB 20 MEQ TABCR PO SCH ×2 (08:44→13:59)
[2021-07-21] MEDS: TAMSULOSIN HCL 0.4 MG CAP PO SCH (08:44)
[2021-07-21] MEDS: MONTELUKAST SODIUM 10 MG TABLET PO SCH (08:44)
[2021-07-21] MEDS: CLOPIDOGREL BISULFATE 75 MG TAB PO SCH (08:45)
[2021-07-21] MEDS: guaiFENesin 600 MG TABCR PO SCH ×2 (08:45→21:35)
[2021-07-21] MEDS: MULTIVITAMIN TAB PO SCH (08:45)
[2021-07-21] MEDS: FIDAXOMICIN 200 MG TAB PO SCH ×2 (08:50→21:29)
[2021-07-21] MEDS: FLUTICASONE/VILANTEROL 200/25MCG 14 PUFFS/INHALER INH SCH (08:52)
[2021-07-21] MEDS: UMECLIDINIUM BROMIDE 62.5MCG/BLISTER 7 PUFFS/INHALER INH SCH (08:52)
[2021-07-21] MEDS: HEPARIN SOD 5,000 UNIT/0.5 ML VIAL SQ SCH ×2 (08:53→21:35)
[2021-07-21] MEDS: POTASSIUM CHLORIDE 20 MEQ in LACTATED RINGER'S 1,000 ML IV SCH (11:30)
--- NOTE | 2021-07-21 17:15 | Hospitalist Progress Note ---
Date of Service July 21, 2021 Assessment & Plan (1) C. difficile colitis: Plan: Recurrent/relapse. Initial dx 06/22/21 - Rx with 10 day course of PO vanco. Relapse 07/15/21 - was receiving PO vanco + IV flagyl. s/p [facility] ID consultation earlier this week - dificid 200mg BID advised until 07/25/21. Then they advise a prolonged taper of dificid 200mg QOD until 08/14/21. Slowly improving clinically and lab-robertson but still with 5-6 stools/day. Add colestipol 1gm daily. Can increase to BID dosing if needed for bulking of stool. Continue lactinex. Continue low fiber. Cont supportive care and contact precautions. Stop IV fluids. updated at bedside during the visit. (2) Sepsis: Plan: 2nd to #1. Resolving as evidenced by improving labs, improving clinical picture, etc. (3) Pneumonia: Plan: Right-sided. s/p 10-day course of PO cephalosporin in early June. During his June hospital stay he did not receive IV or PO antibiotics for the lungs. Previous cxr with ongoing right-sided infiltrates. I repeated the cxr today - right lung is improved. Cont combivent for cough/wheeze. Cont usual home inhalers for COPD/asthma. Cont mucinex. Consider repeat Chest CT if pulmonary symptoms persist. (4) RON (acute kidney injury): Plan: baseline Cr about 1 to 1.1 peak this admission 1.7 slowly improving with Rx of #1 hold IV fluids today repeat BMP am (5) Hypertension: Plan: BPs are low or low-normal. HOLD amlodipine. HOLD losartan. May need metoprolol low-dose for a.fib. (6) Obstructive sleep apnea of adult: Plan: CPAP 9cm H20 at HS (7) Emphysema/COPD: Plan: ongoing cough, wheezing, abnormal cxr. may have COPD flare. may have a recurrent brewing pneumonia. of note - FEES study in June was negative for aspiration. inhalers, supportive care. repeat cxr findings noted. (8) Chronic renal failure, stage 3a: Plan: baseline Cr about 1 to 1.1. now with RON. as above. (9) Aortic stenosis: Plan: moderate-severe. no evidence of decompensated CHF. (10) Altered taste: Plan: etiology? would be unusual for c.diff to cause such. in light of respiratory symptoms rechecked a COVID-19 test yesterday -- NEGATIVE. (11) Severe protein-calorie malnutrition: Plan: Review of EMR reveals a 9.5 kg / 11% loss in body weight over the past several weeks. (12) CAD (coronary artery disease): Plan: 07/2020 cath at [facility] [place]. Results/management as follows - 1. 80% distal RCA and 80% PDA stenosis s/p AILEEN 2. severe calcific 80% prox circumflex stenosis s/p intracoronary balloon lithotripsy and AILEEN 3. 70% proximal LAD stenosis with borderline IFR 0.88 Cont statin Cont plavix Losartan and amlodipine on hold due to low-normal BPs or RON No ischemic symptoms at this time (13) Hyponatremia: Plan: Suspect 2nd to ongoing diarrhea. slightly improved with IV fluids overnight. Now 132. BMP am. (14) Hypokalemia: Plan: replaced/resolved stop K supplementation (15) DVT prophylaxis: Plan: heparin 5000 BID (16) Atrial fibrillation: Plan: 06/24/21 ekg confirmed EKG 06/22/21 ekg - NSR has been in a.fib the entire stay this hospitalization rates 90s to 110s likely needs metoprolol low-dose or digoxin; favor former need to address anticoagulation as well follows with Dr Leon [facility] cards his office notes do not show any prior h/o a.fib a.fib 2nd to ? other? Plan: extensively updated at bedside today cont PT, OT Admission and Anticipated Discharge Date Admission Date: July 15, 2021 Subjective tele with ongoing a.fib rates about 100 at rest continues with diarrhea - about 5 stools since late last night mostly liquid, some formed stool mixed in denies abd pain taste still altered no vomiting he is eating but isn't enjoying the food at bedside once again they request a different room - current room is very small, difficult to walk around in Review of Systems Review of Systems: gen - no fevers/chills; weakness cv - no orthopnea pulm - ongoing cough but denies dyspnea GI - no abd pain; no blood per rectum Physical Exam Physical Exam: gen - coughing throughout the visit but improved from yesterday; a/o, pleasant mouth - MMM neck - no JVD heart - irregular, s1 s2, 2/6 holosystolic murmur RUSB lungs - b/l wheezes unchanged; fine b/l basilar rales; no increased work of breathing abd - mildly distended but soft, BS+, NT, no HSM ext - no edema, pulses 2+ b/l psych - a/o x 3 Results & Data Results & Data ([facility]) Vital Signs (Past 12 Hours) Vital Signs Temp Pulse Pulse Pulse Resp BP Pulse Ox 07/21/21 15:46 36.5 C 97 H 20 123/79 96 07/21/21 15:34 77 18 95 07/21/21 15:25 99 H 07/21/21 11:35 36.2 C L 111 H 18 101/61 96 07/21/21 11:07 88 18 97 07/21/21 07:36 101 H 07/21/21 07:23 77 20 96 07/21/21 06:30 36.8 C 94 H 18 101/64 93 Laboratory Results Laboratory Results - last 24 hr 07/21/21 07/21/21 07:29 07:29 WBC 11.61 H RBC 3.43 L Hgb 9.7 L Hct 29.7 L MCV 86.6 MCH 28.3 MCHC 32.7 RDW Std Deviation 51.5 H RDW Coeff of Vitaliy 16.1 H Plt Count 316 MPV 9.3 Sodium 132 L Potassium 4.3 D Chloride 109 H Carbon Dioxide 17 L Anion Gap 6 BUN 35 H Creatinine 1.42 H Est Cr Clr Drug Dosing 35.6 Est GFR ( Amer) 50.4 Est GFR (Non-Af Amer) 43.5 BUN/Creatinine Ratio 24.6 H Glucose 118 H Calcium 7.6 L PG Care Time/CCT Total # of Minutes Spent Total Time Spent with Patient: Total time spent is greater than 50% in coordination of care (as documented) at patient's floor/unit and/or counseling patient: Coding Level of Care Code 55215 Subseq Hosp Care Lvl 3 Diagnoses C. difficile colitis A04.72 Sepsis A41.9 Pneumonia J18.9 Laterality: right Lung location: unspecified part of lung Pneumonia type: due to unspecified organism RON (acute kidney injury) N17.9 Hypertension I10 Obstructive sleep apnea of adult G47.33 Emphysema/COPD J43.9 Chronic renal failure, stage 3a N18.31 Aortic stenosis I35.0 Altered taste R43.2 Severe protein-calorie malnutrition E43 CAD (coronary artery disease) I25.10 Hyponatremia E87.1 Hypokalemia E87.6 DVT prophylaxis Z29.9 Atrial fibrillation I48.91 (1) Pneumonia Laterality: right Lung location: unspecified part of lung Pneumonia type: due to unspecified organism Qualified Code(s): J18.9 - Pneumonia, unspecified organism
[2021-07-21] MEDS: COLESTIPOL HCL 1 GM TAB PO SCH (18:38)
[2021-07-21] MEDS: ATORVASTATIN 40 MG TAB PO SCH (21:35)
[2021-07-21] MEDS: MELATONIN 3 MG TAB PO PRN (23:59)
[2021-07-22 06:12] LABS: BUN Creatinine Ratio 30.8 (10-20); Calcium 7.6 mg/dl (8.5-10.1); Creatinine Clr Calc Pharmacy 38.9 ml/min; Est GFR (African American) 56.1 ml/min; Est GFR (Non-African American) 48.4 ml/min; Magnesium 1.7 mg/dl (1.7-2.4)
[2021-07-22] MEDS: ALBUTEROL HFA 8 GM INHALER INH SCH ×4 (07:27→19:15)
[2021-07-22] MEDS: IPRATROPIUM BROMIDE HFA INHALER INH SCH ×4 (07:28→19:15)
[2021-07-22] MEDS: MONTELUKAST SODIUM 10 MG TABLET PO SCH (08:20)
[2021-07-22] MEDS: MULTIVITAMIN TAB PO SCH (08:21)
[2021-07-22] MEDS: guaiFENesin 600 MG TABCR PO SCH ×2 (08:21→20:40)
[2021-07-22] MEDS: ADVANCED PROBIOTIC 1250 MG CAPSULE PO SCH (08:21)
[2021-07-22] MEDS: TAMSULOSIN HCL 0.4 MG CAP PO SCH (08:22)
[2021-07-22] MEDS: COLESTIPOL HCL 1 GM TAB PO SCH (08:23)
[2021-07-22] MEDS: HEPARIN SOD 5,000 UNIT/0.5 ML VIAL SQ SCH ×2 (08:23→20:40)
[2021-07-22] MEDS: PANTOprazole 40 MG TAB PO SCH (08:24)
[2021-07-22] MEDS: CLOPIDOGREL BISULFATE 75 MG TAB PO SCH (08:25)
[2021-07-22] MEDS: FINASTERIDE 5 MG TAB PO SCH (08:25)
[2021-07-22] MEDS: FLUTICASONE/VILANTEROL 200/25MCG 14 PUFFS/INHALER INH SCH (08:25)
[2021-07-22] MEDS: UMECLIDINIUM BROMIDE 62.5MCG/BLISTER 7 PUFFS/INHALER INH SCH (08:26)
[2021-07-22] MEDS: FIDAXOMICIN 200 MG TAB PO SCH ×2 (08:32→20:54)
[2021-07-22] MEDS ORDERED: METOPROLOL TARTRATE 25 MG TAB PO SCH (10:30)
[2021-07-22] MEDS: ACETAMINOPHEN 325 MG TAB PO PRN (10:44)
[2021-07-22] MEDS ORDERED: STAT IV STA (16:57)
[2021-07-22] MEDS ORDERED: SODIUM BICARBONATE 8.4% 100 MEQ in DEXTROSE 5% 1,000 ML IV SCH (17:15)
[2021-07-22] MEDS: ATORVASTATIN 40 MG TAB PO SCH (20:39)
[2021-07-22] MEDS: METOPROLOL TARTRATE 25 MG TAB PO SCH (20:39)
--- NOTE | 2021-07-22 22:26 | Hospitalist Progress Note ---
Date of Service July 22, 2021 Assessment & Plan (1) C. difficile colitis: Plan: Recurrent/relapse. Initial dx 06/22/21 - Rx with 10 day course of PO vanco. Relapse 07/15/21 - was receiving PO vanco + IV flagyl. s/p [facility] ID consultation earlier this week - dificid 200mg BID advised until 07/25/21. Then they advise a prolonged taper of dificid 200mg QOD until 08/14/21. Slowly improving clinically. Continue colestipol 1gm daily. Can increase to BID dosing if needed for bulking of stool. Continue lactinex. Continue low fiber. Cont supportive care and contact precautions. Still with hyperchloremic met acidosis from the diarrhea - give 1 L of sodium bicarbonate today. Repeat labs am including procal/crp. (2) Sepsis: Plan: 2nd to #1. Resolving as evidenced by improving labs, improving clinical picture, etc. (3) Pneumonia: Plan: Right-sided. s/p 10-day course of PO cephalosporin in early June. Initial Rx by Dr Grady in the pulmonary clinic. During his June hospital stay he did not receive IV or PO antibiotics for the lungs. Previous cxr with ongoing right-sided infiltrates. I repeated the cxr yesterday - right lung is improved, but he continues with cough/wheeze/etc. Cont combivent for cough/wheeze. Cont usual home inhalers for COPD/asthma. Cont mucinex. Consider repeat Chest CT if pulmonary symptoms persist. Consider course of steroids but hold for now. (4) RON (acute kidney injury): Plan: baseline Cr about 1 to 1.1 peak this admission 1.7 Cr now 1.3 slowly improving with Rx of #1 fluid as above repeat BMP am (5) Hypertension: Plan: BPs are low or low-normal. HOLD amlodipine. HOLD losartan. Cont metoprolol low-dose but this is primarily for a.fib rate control. (6) Obstructive sleep apnea of adult: Plan: CPAP 9cm H20 at HS (7) Emphysema/COPD: Plan: ongoing cough, wheezing, abnormal cxr. may have COPD flare. may have a recurrent brewing pneumonia. of note - FEES study in June was negative for aspiration. inhalers, supportive care. repeat cxr findings noted. office notes from June reviewed. (8) Chronic renal failure, stage 3a: Plan: baseline Cr about 1 to 1.1. now with RON. as above. (9) Aortic stenosis: Plan: moderate-severe. no evidence of decompensated CHF. (10) Altered taste: Plan: etiology? would be unusual for c.diff to cause such. in light of respiratory symptoms rechecked a COVID-19 test yesterday -- NEGATIVE. (11) Severe protein-calorie malnutrition: Plan: Review of EMR reveals a 9.5 kg / 11% loss in body weight over the past several weeks. (12) CAD (coronary artery disease): Plan: [place] [facility] [place] Results/management as follows - 1. 80% distal RCA and 80% PDA stenosis s/p AILEEN 2. severe calcific 80% prox circumflex stenosis s/p intracoronary balloon lithotripsy and AILEEN 3. 70% proximal LAD stenosis with borderline IFR 0.88 Cont statin Cont plavix Cont low-dose metoprolol Losartan and amlodipine on hold due to low-normal BPs or RON No ischemic symptoms at this time (13) Hyponatremia: Plan: Suspect 2nd to ongoing diarrhea. Now 132. BMP am. (14) Hypokalemia: Plan: replaced/resolved stop K supplementation K is 5 today - bicarb drip will lower the K BMP am (15) DVT prophylaxis: Plan: heparin 5000 BID (16) Atrial fibrillation: Plan: 06/24/21 ekg confirmed EKG 06/22/21 ekg - NSR has been in a.fib the entire stay this hospitalization rates 90s to 110s start metoprolol 12.5mg BID consider increase to 25mg if necessary need to address anticoagulation as well follows with Dr Leon [facility] cards his office notes do not show any prior h/o a.fib a.fib 2nd to ? other? Plan: extensively updated at bedside today cont PT, OT Admission and Anticipated Discharge Date Admission Date: July 15, 2021 Subjective a.fib on tele, rates 100-110 at rest, higher with walking/activity pt reports about 4 stools since late last night - some liquid, some formed no abd pain no N/V no appetite, but "forcing himself to eat" because he knows he has to do so to get better breathing is similar - no better or worse cough somewhat productive no dyspnea at rest no orthopnea Review of Systems Review of Systems: gen - no fevers cv - no chest pain, no orthopnea pulm - some wheezing GI - no blood per rectum Physical Exam Physical Exam: gen - coughing throughout the visit, no orthopnea, comfortable mouth - lips dry but mouth with MMM neck - no JVD at 45 degrees heart - irregular, s1 s2, 2/6 holosystolic murmur RUSB lungs - b/l wheezes unchanged; fine b/l basilar rales unchanged; no increased work of breathing abd - softly distended, BS+, NT, no HSM ext - 1+ edema b/l, pulses 2+ b/l psych - a/o x 3 Results & Data Results & Data ([facility]) Vital Signs (Past 12 Hours) Vital Signs Temp Pulse Pulse Resp BP Pulse Ox 07/22/21 20:35 92 H 118/71 07/22/21 19:16 98 H 20 91 07/22/21 15:24 36.5 C 102 H 16 118/72 95 07/22/21 15:15 85 07/22/21 14:58 102 H 20 95 07/22/21 11:11 102 H 18 95 07/22/21 11:00 37.0 C 120 H 16 121/63 95 Laboratory Results Laboratory Results - last 24 hr 07/22/21 05:32 Sodium 132 L Potassium 5.0 Chloride 111 H Carbon Dioxide 16 L Anion Gap 5 BUN 40 H Creatinine 1.30 Est Cr Clr Drug Dosing 38.9 Est GFR ( Amer) 56.1 Est GFR (Non-Af Amer) 48.4 BUN/Creatinine Ratio 30.8 H Glucose 121 H Calcium 7.6 L Magnesium 1.7 PG Care Time/CCT Total # of Minutes Spent Total Time Spent with Patient: Total time spent is greater than 50% in coordination of care (as documented) at patient's floor/unit and/or counseling patient: Coding Level of Care Code 49044 Subseq Hosp Care Lvl 3 Diagnoses C. difficile colitis A04.72 Sepsis A41.9 Pneumonia J18.9 Laterality: right Lung location: unspecified part of lung Pneumonia type: due to unspecified organism RON (acute kidney injury) N17.9 Hypertension I10 Obstructive sleep apnea of adult G47.33 Emphysema/COPD J43.9 Chronic renal failure, stage 3a N18.31 Aortic stenosis I35.0 Altered taste R43.2 Severe protein-calorie malnutrition E43 CAD (coronary artery disease) I25.10 Hyponatremia E87.1 Hypokalemia E87.6 DVT prophylaxis Z29.9 Atrial fibrillation I48.91 (1) Pneumonia Laterality: right Lung location: unspecified part of lung Pneumonia type: due to unspecified organism Qualified Code(s): J18.9 - Pneumonia, unspecified organism
[2021-07-22] MEDS: MELATONIN 3 MG TAB PO PRN (23:56)
[2021-07-23 07:23] LABS: Hematocrit (blood only) 27.7 % (42-52); Mean Corpuscular Hemoglobin 28.6 pg (25-34); Mean Corpuscular Hgb Conc 32.5 g/dL (32-36); Mean Corpuscular Volume 87.9 fL (80-100); Mean Platelet Volume 9.3 fL (7.4-10.4); Platelet Count 310 K/uL (130-400); RDW Coefficient of Variation 16.7 % (11.5-14.5); RDW Standard Deviation 53.9 fL (36.4-46.3); Red Blood Count 3.15 M/uL (4.7-6.1); White Blood Count 15.99 K/uL (4.8-10.8)
[2021-07-23] MEDS: ALBUTEROL HFA 8 GM INHALER INH SCH ×4 (07:39→19:18)
[2021-07-23] MEDS: IPRATROPIUM BROMIDE HFA INHALER INH SCH ×4 (07:39→19:17)
[2021-07-23 07:47] LABS: BUN Creatinine Ratio 36.8 (10-20); C Reactive Protein 4.52 mg/dl (0-0.5); Calcium 7.5 mg/dl (8.5-10.1); Creatinine Clr Calc Pharmacy 45.9 ml/min; Est GFR (African American) 63.7 ml/min; Est GFR (Non-African American) 54.9 ml/min; Potassium 4.5 mmol/L (3.5-5.1)
[2021-07-23] MEDS: FLUTICASONE/VILANTEROL 200/25MCG 14 PUFFS/INHALER INH SCH (08:08)
[2021-07-23] MEDS: UMECLIDINIUM BROMIDE 62.5MCG/BLISTER 7 PUFFS/INHALER INH SCH (08:08)
[2021-07-23] MEDS: COLESTIPOL HCL 1 GM TAB PO SCH (08:09)
[2021-07-23] MEDS: guaiFENesin 600 MG TABCR PO SCH ×2 (08:09→20:06)
[2021-07-23] MEDS: METOPROLOL TARTRATE 25 MG TAB PO SCH ×2 (08:10→20:06)
[2021-07-23] MEDS: MONTELUKAST SODIUM 10 MG TABLET PO SCH (08:12)
[2021-07-23] MEDS: FIDAXOMICIN 200 MG TAB PO SCH ×2 (08:12→20:05)
[2021-07-23] MEDS: ADVANCED PROBIOTIC 1250 MG CAPSULE PO SCH (08:12)
[2021-07-23] MEDS: FINASTERIDE 5 MG TAB PO SCH (08:13)
[2021-07-23] MEDS: TAMSULOSIN HCL 0.4 MG CAP PO SCH (08:13)
[2021-07-23] MEDS: PANTOprazole 40 MG TAB PO SCH (08:13)
[2021-07-23] MEDS: HEPARIN SOD 5,000 UNIT/0.5 ML VIAL SQ SCH ×2 (08:13→20:06)
[2021-07-23] MEDS: CLOPIDOGREL BISULFATE 75 MG TAB PO SCH (08:13)
[2021-07-23] MEDS: MULTIVITAMIN TAB PO SCH (08:13)
[2021-07-23] MEDS ORDERED: FUROSEMIDE INJ 20 MG/2 ML VIAL IV ONE (16:45)
--- NOTE | 2021-07-23 17:09 | XRay Report ---
XR knee LT 1 or 2V routine CLINICAL HISTORY: L knee pain, h/o TKR; eval hardware COMPARISON STUDY: None. FINDINGS: No fracture or dislocation within the left knee. There is a left total knee arthroplasty. T he hardware appears intact. No abnormal periprosthetic lucency. Vascular calcifications are noted. No significant knee effusion. IMPRESSION: 1. No fracture or dislocation within the left knee. 2. Left total knee arthroplasty. The hardware appears intact. ACT 112: Negative or not required by law. Electronically signed by: Kenny Kovacs M.D. 07/23/2021 5:07 PM
--- NOTE | 2021-07-23 19:12 | Ultrasound Report ---
LEFT LOWER EXTREMITY VENOUS DOPPLER HISTORY: L thigh pain; eval dvt COMPARISON STUDY: None. FINDINGS: There is normal compressibility, flow, and augmentation within the left lower extremity elle p venous system. IMPRESSION: No DVT within the left lower extremity. ACT 112: Negative or not required by law. Electronically signed by: Kenny Kovacs M.D. 07/23/2021 7:11 PM
[2021-07-23] MEDS: ATORVASTATIN 40 MG TAB PO SCH (20:05)
--- NOTE | 2021-07-23 22:12 | Hospitalist Progress Note ---
Date of Service July 23, 2021 Assessment & Plan (1) C. difficile colitis: Plan: Recurrent/relapse. Initial dx 06/22/21 - Rx with 10 day course of PO vanco. Relapse 07/15/21 - was receiving PO vanco + IV flagyl. s/p [facility] consultation earlier this week - dificid 200mg BID advised until 07/25/21. Then they advise a prolonged taper of dificid 200mg QOD until 08/14/21. IMPROVED. Continue colestipol 1gm daily. Continue lactinex. Continue low fiber. Cont supportive care and contact precautions. STOP ALL IV FLUIDS due to volume overload. (2) Sepsis: Plan: 2nd to #1. Resolved. Procal neg and CRP down considerably today. (3) Pneumonia: Plan: Right-sided. s/p 10-day course of PO cephalosporin in early June. Initial Rx by Dr Grady in the pulmonary clinic. During his June hospital stay he did not receive IV or PO antibiotics for the lungs. Previous cxr with ongoing right-sided infiltrates. I repeated the cxr 07/21 - right lung improved, but he continues with cough/wheeze/etc. Cont combivent for cough/wheeze. Cont usual home inhalers for COPD/asthma. Cont mucinex. I believe he is volume overloaded --- will stop all fluids, give lasix 20mg IV now. daily weights. (4) RON (acute kidney injury): Plan: baseline Cr about 1 to 1.1 peak this admission 1.7 Cr now 1.17 slowly improving with Rx of #1 repeat BMP am (5) Hypertension: Plan: BPs are low or low-normal. HOLD amlodipine. HOLD losartan. Cont metoprolol low-dose but this is primarily for a.fib rate control. (6) Obstructive sleep apnea of adult: Plan: CPAP 9cm H20 at HS (7) Emphysema/COPD: Plan: ongoing cough, wheezing, abnormal cxr. suspect due to pulmonary edema - give lasix today; no further IV fluids of note - FEES study in June was negative for aspiration. cont inhalers, supportive care. office notes from June reviewed. (8) Chronic renal failure, stage 3a: Plan: BMP in am Cr today 1.1 - at baseline (9) Aortic stenosis: Plan: moderate-severe. now with probable decompensated CHF. diurese as above. (10) Altered taste: Plan: etiology? would be unusual for c.diff to cause such. in light of respiratory symptoms rechecked a COVID-19 test yesterday -- NEGATIVE. (11) Severe protein-calorie malnutrition: Plan: Review of EMR reveals a 9.5 kg / 11% loss in body weight over the past several weeks. (12) CAD (coronary artery disease): Plan: 07/2020 cath at [facility] [place]. Results/management as follows - 1. 80% distal RCA and 80% PDA stenosis s/p AILEEN 2. severe calcific 80% prox circumflex stenosis s/p intracoronary balloon l ithotripsy and AILEEN 3. 70% proximal LAD stenosis with borderline IFR 0.88 Cont statin Cont plavix Cont low-dose metoprolol Losartan and amlodipine on hold due to low-normal BPs or RON No ischemic symptoms at this time (13) Hyponatremia: Plan: Suspect 2nd to ongoing diarrhea but improving albeit slowly; now 133 BMP am. (14) Hypokalemia: Plan: replaced/resolved (15) DVT prophylaxis: Plan: heparin 5000 BID (16) Atrial fibrillation: Plan: 06/24/21 ekg confirmed EKG 06/22/21 ekg - NSR has been in a.fib the entire stay this hospitalization rates 90s to 110s cont metoprolol 25mg BID consider increase to 37.5 BID if needed need to address anticoagulation as well follows with Dr Leon [facility] cards his office notes do not show any prior h/o a.fib a.fib 2nd to ? other? Plan: extensively updated at bedside today cont PT, OT left distal thigh pain - obtain doppler, r/o DVT; obtain knee x-rays Admission and Anticipated Discharge Date Admission Date: July 15, 2021 Subjective diarrhea MUCH improved 2 stools today only - both formed no N/V or abd pain still with cough, wheeze, and mild dyspnea weight noted to be several Kg's above baseline weight tele - a.fib - rates about 100, some up to 110 w/ activity c/o distal L thigh pain starting 2 days ago hurts to walk on it Review of Systems Review of Systems: gen - no fevers; weakness slightly better cv - denies orthopnea or PND pulm - no sputum; has had cough since late May / early June; I have asked him several times if it is similar to then or different - he has hard time telling me GI - no vomiting Physical Exam Physical Exam: gen - coughing throughout the visit as previous, no orthopnea, comfortable mouth - lips dry but mouth with MMM neck - JVD present today at 45 degrees heart - irregular, s1 s2, 2/6 holosystolic murmur RUSB lungs - b/l wheezes worse today; fine b/l basilar rales unchanged; no increased work of breathing abd - softly distended, BS+, NT, no HSM ext - 1+ edema b/l, pulses 2+ b/l psych - a/o x 3 musculo - no gross abnormality of L thigh or L knee; TKR scar present; no fluid of joint, no erythema, no warmth, no reproducible pain with passive flexion/extension of L knee Results & Data Results & Data ([facility]) Vital Signs (Past 12 Hours) Vital Signs Temp Pulse Pulse Resp BP BP Pulse Ox 07/23/21 19:32 36.5 C 97 H 18 103/69 94 07/23/21 19:18 104 H 18 93 07/23/21 15:21 97 H 20 94 07/23/21 15:11 93 H 07/23/21 15:09 36.6 C 108 H 20 108/72 94 07/23/21 11:37 36.5 C 104 H 18 125/73 91 07/23/21 11:30 102 H 18 94 Laboratory Results Laboratory Results - last 24 hr 07/23/21 07/23/21 07/23/21 06:43 06:43 06:43 WBC 15.99 H RBC 3.15 L Hgb 9.0 L Hct 27.7 L MCV 87.9 MCH 28.6 MCHC 32.5 RDW Std Deviation 53.9 H RDW Coeff of Vitaliy 16.7 H Plt Count 310 MPV 9.3 Sodium 133 L Potassium 4.5 Chloride 109 H Carbon Dioxide 19 L Anion Gap 5 BUN 43 H Creatinine 1.17 Est Cr Clr Drug Dosing 45.9 Est GFR ( Amer) 63.7 Est GFR (Non-Af Amer) 54.9 BUN/Creatinine Ratio 36.8 H Glucose 138 H Calcium 7.5 L C-Reactive Protein 4.52 H Procalcitonin 0.38 PG Care Time/CCT Total # of Minutes Spent Total Time Spent with Patient: Total time spent is greater than 50% in coordination of care (as documented) at patient's floor/unit and/or counseling patient: Coding Level of Care Code 39992 Subseq Hosp Care Lvl 3 Diagnoses C. difficile colitis A04.72 Sepsis A41.9 Pneumonia J18.9 Laterality: right Lung location: unspecified part of lung Pneumonia type: due to unspecified organism RON (acute kidney injury) N17.9 Hypertension I10 Obstructive sleep apnea of adult G47.33 Emphysema/COPD J43.9 Chronic renal failure, stage 3a N18.31 Aortic stenosis I35.0 Altered taste R43.2 Severe protein-calorie malnutrition E43 CAD (coronary artery disease) I25.10 Hyponatremia E87.1 Hypokalemia E87.6 DVT prophylaxis Z29.9 Atrial fibrillation I48.91 (1) Pneumonia Laterality: right Lung location: unspecified part of lung Pneumonia type: due to unspecified organism Qualified Code(s): J18.9 - Pneumonia, unspecified organism
[2021-07-24] MEDS: MELATONIN 3 MG TAB PO PRN (00:05)
[2021-07-24] MEDS: IPRATROPIUM BROMIDE HFA INHALER INH SCH ×4 (07:29→19:41)
[2021-07-24] MEDS: ALBUTEROL HFA 8 GM INHALER INH SCH ×4 (07:30→19:41)
[2021-07-24] MEDS: CLOPIDOGREL BISULFATE 75 MG TAB PO SCH (08:53)
[2021-07-24] MEDS: PANTOprazole 40 MG TAB PO SCH (08:53)
[2021-07-24] MEDS: ADVANCED PROBIOTIC 1250 MG CAPSULE PO SCH (08:53)
[2021-07-24] MEDS: TAMSULOSIN HCL 0.4 MG CAP PO SCH (08:53)
[2021-07-24] MEDS: FIDAXOMICIN 200 MG TAB PO SCH ×2 (08:53→21:05)
[2021-07-24] MEDS: MULTIVITAMIN TAB PO SCH (08:53)
[2021-07-24] MEDS: UMECLIDINIUM BROMIDE 62.5MCG/BLISTER 7 PUFFS/INHALER INH SCH (08:54)
[2021-07-24] MEDS: FINASTERIDE 5 MG TAB PO SCH (08:54)
[2021-07-24] MEDS: guaiFENesin 600 MG TABCR PO SCH ×2 (08:54→21:56)
[2021-07-24] MEDS: METOPROLOL TARTRATE 25 MG TAB PO SCH ×2 (08:54→21:06)
[2021-07-24] MEDS: FLUTICASONE/VILANTEROL 200/25MCG 14 PUFFS/INHALER INH SCH (08:54)
[2021-07-24] MEDS: HEPARIN SOD 5,000 UNIT/0.5 ML VIAL SQ SCH ×2 (08:55→21:56)
[2021-07-24] MEDS: MONTELUKAST SODIUM 10 MG TABLET PO SCH (08:55)
[2021-07-24 09:16] LABS: BUN Creatinine Ratio 36.4 (10-20); Calcium 7.6 mg/dl (8.5-10.1); Creatinine Clr Calc Pharmacy 46.1 ml/min; Est GFR (Non-African American) 54.4 ml/min; Magnesium 1.3 mg/dl (1.7-2.4); Potassium 4.3 mmol/L (3.5-5.1)
[2021-07-24] MEDS ORDERED: FUROSEMIDE INJ 20 MG/2 ML VIAL IV ONE (10:00)
[2021-07-24] MEDS: MAGNESIUM SULFATE / D5W 1 GM/100 ML BAG IV SCH ×3 (11:16→16:02)
[2021-07-24] MEDS: COLESTIPOL HCL 1 GM TAB PO SCH (11:17)
[2021-07-24] MEDS: DICLOFENAC SOD 1% GEL 100 GM TUBE EXT SCH ×2 (19:34→21:06)
--- NOTE | 2021-07-24 21:04 | Hospitalist Progress Note ---
Date of Service July 24, 2021 Assessment & Plan (1) C. difficile colitis: Plan: Recurrent/relapse. Initial dx 06/22/21 - Rx with 10 day course of PO vanco. Relapse 07/15/21 - was receiving PO vanco + IV flagyl. s/p [facility] consultation earlier this week - dificid 200mg BID advised until 07/25/21. Then they advise a prolonged taper of dificid 200mg QOD until 08/14/21. IMPROVED/resolving. Stool frequency down to ~2 BMs/day. Stool calibre now normal. Continue colestipol 1gm daily. Continue lactinex. Continue low fiber. Cont supportive care and contact precautions. STOPPED ALL IV FLUIDS due to volume overload. (2) Sepsis: Plan: 2nd to #1. Resolved. Procal neg and CRP down considerably. (3) Pneumonia: Plan: Right-sided. s/p 10-day course of PO cephalosporin in early June. Initial Rx by Dr Grady in the pulmonary clinic following a CT chest on 06/09/21. During his June hospital stay he did not receive IV or PO antibiotics for the lungs. CXRs during this stay with ongoing right-sided infiltrates. I believe he is volume overloaded --- he is s/p IV lasix yesterday and again today but continues with cough/wheezing/MEDINA. Plan - . Cont combivent for cough/wheeze. Cont usual home inhalers for COPD/asthma. Cont mucinex. Cont IV lasix daily. Daily weights. OBTAIN CT CHEST - RE-EVAL THE RML PNEUMONIA HE HAD ON PRIOR CT CHEST. Check for other pathology. Will also consult [facility] [place] [facility] for their opinion regarding ongoing pulmonary symptoms since at least early June 2021. (4) RON (acute kidney injury): Plan: baseline Cr about 1 to 1.1 peak this admission 1.7 Cr now 1.1 RON resolved repeat BMP am (5) Hypertension: Plan: BPs are low or low-normal. HOLD amlodipine. HOLD losartan. Cont metoprolol low-dose but this is primarily for a.fib rate control. (6) Obstructive sleep apnea of adult: Plan: CPAP 9cm H20 at HS (7) Emphysema/COPD: Plan: ongoing cough, wheezing, abnormal cxr. suspect due to pulmonary edema but can't rule out ongoing pneumonia or inflammatory lung disease or other pathology obtain CT chest today of note - FEES study in June was negative for aspiration. cont inhalers, supportive care. (8) Chronic renal failure, stage 3a: Plan: BMP in am Cr today 1.1 - at baseline (9) Aortic stenosis: Plan: moderate-severe. now with probable decompensated CHF. diurese as above. repeat echo tomorrow. may need to consult his primary terrestrial ecologist Dr Leon. (10) Altered taste: Plan: etiology? would be unusual for c.diff to cause such. in light of respiratory symptoms rechecked a COVID-19 test yesterday -- NEGATIVE. (11) Severe protein-calorie malnutrition: Plan: Review of EMR reveals a 9.5 kg / 11% loss in body weight over the past several weeks. (12) CAD (coronary artery disease): Plan: 07[place]2020 [place] [facility] [place] Results/management as follows - 1. 80% distal RCA and 80% PDA stenosis s/p AILEEN 2. severe calcific 80% prox circumflex stenosis s/p intracoronary balloon lithotripsy and AILEEN 3. 70% proximal LAD stenosis with borderline IFR 0.88 Cont statin Cont plavix Cont low-dose metoprolol Losartan and amlodipine on hold due to low-normal BPs or RON No ischemic symptoms at this time (13) Hyponatremia: Plan: likely multifactorial improving now 134 BMP am (14) Hypokalemia: Plan: replaced/resolved (15) DVT prophylaxis: Plan: heparin 5000 BID need to discuss anticoagulation for #16 below (16) Atrial fibrillation: Plan: 06/24/21 ekg confirmed EKG 06/22/21 ekg - NSR has been in a.fib the entire stay this hospitalization rates 90s to 110s but improved s/p initiation of metoprolol cont metoprolol 25mg BID consider increase to 37.5 BID if needed need to address anticoagulation as well CHADS-VASc is high follows with Dr Leon [facility] cards his office notes do not show any prior h/o a.fib a.fib 2nd to ? atrial enlargement? other? (17) Acute on chronic diastolic (congestive) heart failure: Plan: s/p lasix yesterday s/p lasix again today with copious UOP daily STANDING scale weights baseline weight ~85/86kg cont metoprolol repeat echo to reassess aortic valve and LV EF (18) Left thigh pain: Plan: uncertain etiology LLE venous duplex negative for DVT left knee x-rays - hardware intact, no effusion referred pain from L hip? soft tissue pain? other? voltaren gel qid follow for now if pain persists then ortho consult Plan: extensively updated at bedside once again today cont PT, OT Admission and Anticipated Discharge Date Admission Date: July 15, 2021 Subjective at bedside she continues to keep a log of his stools/voids having about 2 stools/day at this point - formed, no further diarrhea had had "dark" stools earlier in the stay now resolved - stools are brown patient continues to cough and wheeze concerned about ongoing pulmonary symptoms mild MEDINA with walking in the room eating nearly 100% of meals but he reports he is largely trying to "force himself to eat" because he "knows he needs to eat to get better" tele - a.fib, rates 90s mostly Review of Systems Review of Systems: gen - fatigue, deconditioning; no fevers cv - no chest pain; mild orthopnea pulm - cough, wheezing, dyspnea / MEDINA GI - no pain, nausea, emesis musculo - still with mild L distal thigh pain; DENIES hip pain; DENIES lumbar back pain Physical Exam Physical Exam: gen - sitting at side of bed, comfortable, mild cough; did get a bit dyspneic with moving from side of bed to laying down neck - mild JVD heart - irregular, s1 s2, 2/6 holosystolic murmur RUSB lungs - b/l wheezes no worse than prior; fine b/l basilar rales unchanged abd - softly distended, BS+, NT, no HSM ext - 1+ edema b/l, pulses 2+ b/l psych - a/o x 3 musculo - no gross abnormality of L thigh or L knee; TKR scar present; no effusion, no erythema, no warmth, no reproducible pain with passive flexion/extension of L knee Results & Data Results & Data ([facility]) Vital Signs (Past 12 Hours) Vital Signs Temp Pulse Pulse Resp BP Pulse Ox 07/24/21 19:42 96 H 16 94 07/24/21 19:39 36.9 C 96 H 18 114/68 94 07/24/21 18:06 96 H 07/24/21 16:10 92/49 L 07/24/21 16:07 37.3 C 86 16 83/47 L 91 07/24/21 15:31 88 18 93 07/24/21 11:27 36.8 C 95 H 16 105/68 91 07/24/21 10:40 94 H Laboratory Results Laboratory Results - last 24 hr 07/24/21 07:59 Sodium 134 L Potassium 4.3 Chloride 110 H Carbon Dioxide 19 L Anion Gap 5 BUN 43 H Creatinine 1.18 Est Cr Clr Drug Dosing 46.1 Est GFR ( Amer) 63.0 Est GFR (Non-Af Amer) 54.4 BUN/Creatinine Ratio 36.4 H Glucose 127 H Calcium 7.6 L Magnesium 1.3 L PG Care Time/CCT Total # of Minutes Spent Total Time Spent with Patient: Total time spent is greater than 50% in coordination of care (as documented) at patient's floor/unit and/or counseling patient: Coding Level of Care Code 99970 Subseq Hosp Care Lvl 3 Diagnoses C. difficile colitis A04.72 Sepsis A41.9 Pneumonia J18.9 Laterality: right Lung location: unspecified part of lung Pneumonia type: due to unspecified organism RON (acute kidney injury) N17.9 Hypertension I10 Obstructive sleep apnea of adult G47.33 Emphysema/COPD J43.9 Chronic renal failure, stage 3a N18.31 Aortic stenosis I35.0 Altered taste R43.2 Severe protein-calorie malnutrition E43 CAD (coronary artery disease) I25.10 Hyponatremia E87.1 Hypokalemia E87.6 DVT prophylaxis Z29.9 Atrial fibrillation I48.91 Acute on chronic diastolic (congestive) heart failure I50.33 Left thigh pain M79.652 (1) Pneumonia Laterality: right Lung location: unspecified part of lung Pneumonia type: due to unspecified organism Qualified Code(s): J18.9 - Pneumonia, unspecified organism
--- NOTE | 2021-07-24 21:42 | CT Scan Report ---
CT chest diagnostic wo con CLINICAL HISTORY: prior RML pneumonia; ?CHF?; other pathology? TECHNIQUE: Multidetector row helical CT of the chest was performed. Coronal and sagittal reformations were obtained. Automated dose lowering techniques and/or adjustment according to patient size were u tilized for this exam. CT DOSE: 354.12 mGy.cm Comparison: None available at the time of this dictation. FINDINGS: Lungs and pleura: Small bilateral pleural effusions, right greater than left. Groundglass opacities a re seen throughout the lungs, most prominent in the right middle lobe. Dependent atelectasis is seen. Heart and pericardium: There is cardiomegaly without evidence of pericardial effusion. Vessels: Moderate atherosclerotic changes in the aorta and coronary arteries. Mediastinum and gómez: Subcentimeter lymph nodes are seen. Chest wall and lower neck: Unremarkable. Abdomen: Mild ascites is seen. Bones: Degenerative changes in the thoracic spine. IMPRESSION: Bilateral pleural effusions, enlarged from prior exam. Atelectasis is seen. Groundglass opacities may be related to atelectasis however residual pneumonia cannot be entirely excluded. ACT 112: Negative or not required by law. Electronically signed by: Hong Pruitt M.D. 07/24/2021 9:40 PM
[2021-07-24] MEDS: ATORVASTATIN 40 MG TAB PO SCH (21:56)
[2021-07-25] MEDS: ALBUTEROL HFA 8 GM INHALER INH SCH ×4 (07:22→19:20)
[2021-07-25] MEDS: IPRATROPIUM BROMIDE HFA INHALER INH SCH ×4 (07:23→19:19)
[2021-07-25] MEDS: FLUTICASONE/VILANTEROL 200/25MCG 14 PUFFS/INHALER INH SCH (07:47)
[2021-07-25] MEDS: UMECLIDINIUM BROMIDE 62.5MCG/BLISTER 7 PUFFS/INHALER INH SCH (07:47)
[2021-07-25] MEDS: CLOPIDOGREL BISULFATE 75 MG TAB PO SCH (07:48)
[2021-07-25] MEDS: TAMSULOSIN HCL 0.4 MG CAP PO SCH (07:48)
[2021-07-25] MEDS: guaiFENesin 600 MG TABCR PO SCH ×2 (07:48→20:25)
[2021-07-25] MEDS: MONTELUKAST SODIUM 10 MG TABLET PO SCH (07:49)
[2021-07-25] MEDS: METOPROLOL TARTRATE 25 MG TAB PO SCH ×2 (07:49→20:25)
[2021-07-25] MEDS: FINASTERIDE 5 MG TAB PO SCH (07:49)
[2021-07-25] MEDS: ADVANCED PROBIOTIC 1250 MG CAPSULE PO SCH (07:49)
[2021-07-25] MEDS: PANTOprazole 40 MG TAB PO SCH (07:50)
[2021-07-25] MEDS: HEPARIN SOD 5,000 UNIT/0.5 ML VIAL SQ SCH (07:50)
[2021-07-25] MEDS: MULTIVITAMIN TAB PO SCH (07:50)
[2021-07-25] MEDS: DICLOFENAC SOD 1% GEL 100 GM TUBE EXT SCH ×4 (07:51→20:24)
[2021-07-25] MEDS: FIDAXOMICIN 200 MG TAB PO SCH ×2 (08:02→20:24)
[2021-07-25 09:29] LABS: Hematocrit (blood only) 29.1 % (42-52); Hemoglobin 9.5 g/dL (14.0-18.0); Mean Corpuscular Hemoglobin 28.3 pg (25-34); Mean Corpuscular Hgb Conc 32.6 g/dL (32-36); Mean Corpuscular Volume 86.6 fL (80-100); Mean Platelet Volume 8.9 fL (7.4-10.4); Platelet Count 316 K/uL (130-400); RDW Coefficient of Variation 16.9 % (11.5-14.5); RDW Standard Deviation 53.8 fL (36.4-46.3); Red Blood Count 3.36 M/uL (4.7-6.1); White Blood Count 15.01 K/uL (4.8-10.8)
[2021-07-25 09:41] LABS: BUN Creatinine Ratio 38.5 (10-20); Creatinine Clr Calc Pharmacy 43.9 ml/min; Est GFR (African American) 60.5 ml/min; Est GFR (Non-African American) 52.2 ml/min; Magnesium 1.8 mg/dl (1.7-2.4)
--- NOTE | 2021-07-25 09:48 | XCELERA ---
[id number]
[2021-07-25] MEDS: ACETAMINOPHEN 325 MG TAB PO PRN ×2 (09:51→19:42)
[2021-07-25 10:00] LABS: Basophils # (auto) 0.01 K/uL (0-0.2); Basophils % (auto) 0.1 %; Echinocytes 1+; Eosinophils % (auto) 0.7 %; Immature Granulocytes # (auto) 0.13 K/uL (0.00-0.02); Immature Granulocytes % (auto) 0.9 %; Lymphocytes # (auto) 1.92 K/uL (1.2-3.4); Lymphocytes % (auto) 12.8 %; Monocytes # (auto) 0.66 K/uL (0.11-0.59); Monocytes % (auto) 4.4 %; Neutrophils # (auto) 12.19 K/uL (1.4-6.5); Neutrophils % (auto) 81.1 %; Toxic Granulation 1+
[2021-07-25] MEDS: COLESTIPOL HCL 1 GM TAB PO SCH (11:12)
[2021-07-25] MEDS ORDERED: MAGNESIUM SULFATE / D5W 1 GM/100 ML BAG IV STA (11:55)
--- NOTE | 2021-07-25 16:33 | Hospitalist Progress Note ---
Date of Service July 25, 2021 Assessment & Plan (1) C. difficile colitis: Plan: Recurrent/relapse. Initial dx 06/22/21 - Rx with 10 day course of PO vanco. Relapse 07/15/21 - was receiving PO vanco + IV flagyl. s/p [facility] consultation this admission recommended dificid 200mg BID advised until 07/25/21 followed by a prolonged taper of dificid 200mg every other day until 08/14/21. Much improved, stools now more formed remains with non AG metabolic acidosis from HCO3 losses in stool Leukocytosis persists at 15, remains afebrile Continue colestipol 1gm daily. Continue lactinex. Continue low fiber diet Cont supportive care and contact precautions. STOPPED ALL IV FLUIDS due to volume overload. (2) Sepsis: Plan: secondary to C. diff Resolved. Procal neg and CRP down considerably. (3) Atrial fibrillation: Plan: 06/24/21 ekg confirmed Afib 06/22/21 ekg - NSR has been in a.fib the entire stay this hospitalization-no history of such rates 90s to 110s but improved s/p initiation of metoprolol cont metoprolol 25mg BID consider increase to 37.5 BID if needed CHADS-VASc score is high follows with Dr Leon [facility] cards his office notes do not show any prior h/o a.fib ECHO here with mod-severe , preserved EF Discussed anticoagulation at length with patient and his and he is agreeable to starting Eliquis 5mg po bid -consult his [employer] for tomorrow (4) Pneumonia: Plan: Right-sided. s/p 10-day course of PO cephalosporin in early June. Initial Rx by Dr Grady in the pulmonary clinic following a CT chest on 06/09/21. During his June hospital stay he did not receive IV or PO antibiotics for the lungs. CXRs during this stay with ongoing right-sided infiltrates. Chest CT obtained on 07/24 showed enlarging bilat pleural effusions, atelectasis, and ground glass opacities Was felt to be volume overloaded and was given IV lasix daily x 2 days Dyspnea now improved, remains with some wheeze and pitting edema legs Cont combivent for cough/wheeze. Cont usual home inhalers for COPD/asthma. Cont mucinex. -restart home HCTZ Daily weights. -awaiting [facility] [place] [facility] consult for their opinion regarding ongoing pulmonary symptoms since at least early June 2021. (5) RON (acute kidney injury): Plan: baseline Cr about 1 to 1.1 peak this admission 1.7 Cr now 1.1 RON resolved repeat BMP am (6) Hypertension: Plan: BPs are low or low-normal. HOLD amlodipine. HOLD losartan. Cont metoprolol low-dose but this is primarily for a.fib rate control. restarting home HCTZ for mild residual volume overload (7) Obstructive sleep apnea of adult: Plan: CPAP 9cm H20 at (8) Emphysema/COPD: Plan: ongoing cough, wheezing, abnormal cxr. suspect due to pulmonary edema and atelectasis seen on CT chest of note - FEES study in June was negative for aspiration. cont inhalers, supportive care. (9) Chronic renal failure, stage 3a: Plan: Cr today 1.2 - at baseline -Avoid nephrotoxins -renally dose meds when appropriate -follow BMP (10) Aortic stenosis: Plan: moderate-severe. With some decompensated CHF here due to volume overload from IVF hydration for C. diff diuresed consult his primary credentialing specialist Dr Leon. (11) Altered taste: Plan: etiology? would be unusual for c.diff to cause such. in light of respiratory symptoms rechecked a COVID-19 test again -- NEGATIVE. (12) Severe protein-calorie malnutrition: Plan: Review of EMR reveals a 9.5 kg / 11% loss in body weight over the past several weeks. (13) CAD (coronary artery disease): Plan: 07/2020 cath at [facility] [place]. Results/management as follows - 1. 80% distal RCA and 80% PDA stenosis s/p AILEEN 2. severe calcific 80% prox circumflex stenosis s/p intracoronary balloon lithotripsy and AILEEN 3. 70% proximal LAD stenosis with borderline IFR 0.88 Cont statin Cont plavix Cont low-dose metoprolol Losartan and amlodipine on hold due to low-normal BPs or RON No ischemic symptoms at this time (14) Hyponatremia: Plan: likely multifactorial now resolved with diuresis follow BMP (15) Hypokalemia: Plan: replaced/resolved (16) Acute on chronic diastolic (congestive) heart failure: Plan: s/p lasix daily STANDING scale weights baseline weight ~85/86kg cont metoprolol repeat echo to reassess aortic valve and LV EF shows preserved EF (17) Left thigh pain: Plan: no evidence of knee effusion or erythema, arthritis, pain is with flexion of quadriceps muscle likely muscle strain LLE venous duplex negative for DVT left knee x-rays - hardware intact, no effusion continue voltaren gel qid tylenol prn (18) DVT prophylaxis: Plan: dc heparin SQ and start Elqiuis Plan: extensively updated at bedside once again today cont PT, OT -will eventually go home with home health Admission and Anticipated Discharge Date Admission Date: July 15, 2021 Subjective Feeling better. Stools are starting to be formed today but still had at least 3. No abd pains, no fevers. Still having pain in left distal thigh with raising leg. He is able to walk short distances in room with PT but admits to being deconditioned. No SOB or chest pains. Tele with Afib, IVCD, rates 80-90s Review of Systems Review of Systems: All systems reviewed & are unremarkable except as noted in HPI & below Physical Exam Constitutional: WD/WN, vitals as above Eyes: + anicteric sclerae Neck: trachea midline, no thyromegaly Respiratory: normal respiratory effort, lungs clear to auscultation Cardiovascular: Rate/Rhythm: regular rate and + irregularly irregular Heart Sounds: + murmur (3/6 SANTIAGO at RUSB) Chest (Breasts): Chest: normal inspection of chest Gastrointestinal (Abdomen): normal bowel sounds, soft, nontender, no hepatosplenomegaly Musculoskeletal: Extremities: extremities normal to inspection; no cyanosis and no clubbing +TTP mild over distal left quadriceps lateral insertion, +pain with active left leg raise, +FROM left knee, no effusion, no erythema, no hematoma or mass at site of pain Skin: no rashes, warm and dry Neurologic: moves all extremities and awake; no focal motor deficits Psychiatric: A+Ox3, euthymic affect Lymphatic: no lymphedema Results & Data Results & Data ([facility]) Vital Signs (Past 12 Hours) Vital Signs Temp Pulse Resp BP BP Pulse Ox 07/25/21 15:39 36.5 C 94 H 20 116/70 91 07/25/21 15:35 75 16 95 07/25/21 11:26 36.7 C 87 20 106/68 91 07/25/21 11:06 82 18 93 07/25/21 07:48 36.9 C 93 H 20 110/64 91 07/25/21 07:23 84 16 91 Laboratory Results 07/25/21 07/25/21 07/25/21 Range/Units 08:35 08:35 08:35 WBC 15.01 H (4.8-10.8) K/uL RBC 3.36 L (4.7-6.1) M/uL Hgb 9.5 L (14.0-18.0) g/dL Hct 29.1 L (42-52) % MCV 86.6 (80-100) fL MCH 28.3 (25-34) pg MCHC 32.6 (32-36) g/dL RDW Std Deviation 53.8 H (36.4-46.3) fL RDW Coeff of Vitaliy 16.9 H (11.5-14.5) % Plt Count 316 (130-400) K/uL MPV 8.9 (7.4-10.4) fL Immature Gran % (Auto) 0.9 % Neut % (Auto) 81.1 % Lymph % (Auto) 12.8 % Grimes % (Auto) 4.4 % Eos % (Auto) 0.7 % Baso % (Auto) 0.1 % Neut # (Auto) 12.19 H (1.4-6.5) K/uL Lymph # (Auto) 1.92 (1.2-3.4) K/uL Grimes # (Auto) 0.66 H (0.11-0.59) K/uL Eos # (Auto) 0.10 (0-0.5) K/uL Baso # (Auto) 0.01 (0-0.2) K/uL Immature Gran # (Auto) 0.13 H (0.00-0.02) K/uL Toxic Granulation 1+ Echinocytes 1+ Sodium 136 (136-145) mmol/L Potassium 4.0 (3.5-5.1) mmol/L Chloride 109 H (98-107) mmol/L Carbon Dioxide 19 L (21-32) mmol/L Anion Gap 8 (3-11) BUN 47 H (6-23) mg/dl Creatinine 1.22 (0.6-1.4) mg/dl Est Cr Clr Drug Dosing 43.9 ml/min Est GFR ( Amer) 60.5 ml/min Est GFR (Non-Af Amer) 52.2 ml/min BUN/Creatinine Ratio 38.5 H (10-20) Glucose 139 H (70-99(Fasting)) mg/dl Calcium 8.0 L (8.5-10.1) mg/dl Magnesium 1.8 (1.7-2.4) mg/dl B-Natriuretic Peptide 521 H (0-100) pg/ml PG Care Time/CCT Total # of Minutes Spent Total Time Spent with Patient: Total time spent is greater than 50% in coordination of care (as documented) at patient's floor/unit and/or counseling patient: Coding Level of Care Code 97351 Subseq Hosp Care Lvl 3 Diagnoses C. difficile colitis A04.72 Sepsis A41.9 Pneumonia J18.9 Laterality: right Lung location: unspecified part of lung Pneumonia type: due to unspecified organism RON (acute kidney injury) N17.9 Hypertension I10 Obstructive sleep apnea of adult G47.33 Emphysema/COPD J43.9 Chronic renal failure, stage 3a N18.31 Aortic stenosis I35.0 Altered taste R43.2 Severe protein-calorie malnutrition E43 CAD (coronary artery disease) I25.10 Hyponatremia E87.1 Hypokalemia E87.6 DVT prophylaxis Z29.9 Atrial fibrillation I48.91 Acute on chronic diastolic (congestive) heart failure I50.33 Left thigh pain M79.652 (1) Pneumonia Laterality: right Lung location: unspecified part of lung Pneumonia type: due to unspecified organism Qualified Code(s): J18.9 - Pneumonia, unspecified organism
[2021-07-25] MEDS: ATORVASTATIN 40 MG TAB PO SCH (20:24)
[2021-07-25] MEDS: APIXABAN 5 MG TABLET PO SCH (20:26)
[2021-07-26] MEDS: IPRATROPIUM BROMIDE HFA INHALER INH SCH ×4 (07:18→19:33)
[2021-07-26] MEDS: ALBUTEROL HFA 8 GM INHALER INH SCH ×4 (07:19→19:33)
[2021-07-26] MEDS: PANTOprazole 40 MG TAB PO SCH (07:51)
[2021-07-26] MEDS: ADVANCED PROBIOTIC 1250 MG CAPSULE PO SCH (07:51)
[2021-07-26] MEDS: TAMSULOSIN HCL 0.4 MG CAP PO SCH (07:51)
[2021-07-26] MEDS: APIXABAN 5 MG TABLET PO SCH (07:51)
[2021-07-26] MEDS: METOPROLOL TARTRATE 25 MG TAB PO SCH ×2 (07:52→20:46)
[2021-07-26] MEDS: CLOPIDOGREL BISULFATE 75 MG TAB PO SCH (07:52)
[2021-07-26] MEDS: FINASTERIDE 5 MG TAB PO SCH (07:53)
[2021-07-26] MEDS: DICLOFENAC SOD 1% GEL 100 GM TUBE EXT SCH ×4 (07:53→20:49)
[2021-07-26] MEDS: FLUTICASONE/VILANTEROL 200/25MCG 14 PUFFS/INHALER INH SCH (07:53)
[2021-07-26] MEDS: UMECLIDINIUM BROMIDE 62.5MCG/BLISTER 7 PUFFS/INHALER INH SCH (07:53)
[2021-07-26] MEDS: guaiFENesin 600 MG TABCR PO SCH ×2 (07:53→20:46)
[2021-07-26] MEDS: MULTIVITAMIN TAB PO SCH (07:55)
[2021-07-26] MEDS: MONTELUKAST SODIUM 10 MG TABLET PO SCH (07:55)
[2021-07-26] MEDS: hydroCHLOROthiazide 25 MG TAB PO SCH (08:27)
[2021-07-26] MEDS: FIDAXOMICIN 200 MG TAB PO SCH (08:27)
[2021-07-26 08:41] LABS: Hemoglobin 9.3 g/dL (14.0-18.0); Mean Corpuscular Hemoglobin 28.5 pg (25-34); Mean Corpuscular Hgb Conc 32.1 g/dL (32-36); Platelet Count 330 K/uL (130-400); RDW Coefficient of Variation 16.8 % (11.5-14.5); Red Blood Count 3.26 M/uL (4.7-6.1); White Blood Count 14.64 K/uL (4.8-10.8)
[2021-07-26 09:00] LABS: Basophils # (auto) 0.01 K/uL (0-0.2); Basophils % (auto) 0.1 %; Echinocytes 1+; Eosinophils # (auto) 0.07 K/uL (0-0.5); Eosinophils % (auto) 0.5 %; Immature Granulocytes # (auto) 0.06 K/uL (0.00-0.02); Immature Granulocytes % (auto) 0.4 %; Lymphocytes # (auto) 1.76 K/uL (1.2-3.4); Monocytes # (auto) 0.65 K/uL (0.11-0.59); Monocytes % (auto) 4.4 %; Neutrophils # (auto) 12.09 K/uL (1.4-6.5); Neutrophils % (auto) 82.6 %
[2021-07-26 09:13] LABS: BUN Creatinine Ratio 40.2 (10-20); Calcium 8.3 mg/dl (8.5-10.1); Creatinine Clr Calc Pharmacy 50.1 ml/min; Est GFR (Non-African American) 61.2 ml/min; Magnesium 1.8 mg/dl (1.7-2.4); Potassium 4.3 mmol/L (3.5-5.1)
[2021-07-26] MEDS: COLESTIPOL HCL 1 GM TAB PO SCH (10:49)
[2021-07-26] MEDS ORDERED: MAGNESIUM SULFATE / D5W 1 GM/100 ML BAG IV ONE (12:30)
[2021-07-26] MEDS ORDERED: FUROSEMIDE 40 MG/4 ML VIAL IV ONE ×2 (15:11→15:22)
--- NOTE | 2021-07-26 15:14 | Hospitalist Progress Note ---
Date of Service July 26, 2021 Assessment & Plan (1) C. difficile colitis: Plan: Recurrent/relapse. Initial dx 06/22/21 - Rx with 10 day course of PO vanco. Relapse 07/15/21 - was receiving PO vanco + IV flagyl. s/p [facility] consultation this admission recommended dificid 200mg BID advised until 07/25/21 followed by a prolonged taper of dificid 200mg every other day until 08/14/21. Much improved, stools now more formed remains with non AG metabolic acidosis from HCO3 losses in stool but is improving Leukocytosis persists but is improving now down to 14, remains afebrile Continue colestipol 1gm daily. Continue lactinex. Ok to advance diet to regular at pt's request Cont supportive care and contact precautions. STOPPED ALL IV FLUIDS due to volume overload. (2) Sepsis: Plan: secondary to C. diff Resolved. Procal neg and CRP down considerably. (3) Atrial fibrillation: Plan: During last hospitalization, 06/24/21 ekg confirmed Afib 06/22/21 ekg - NSR has been in a.fib the entire stay this hospitalization-no history of such rates 90s to 110s but improved s/p initiation of metoprolol with volume overload likely some contribution due to rapid rates started metoprolol and now increase to 37.5 BID CHADS-VASc score is high follows with Dr Leon [facility] cards-I discussed his care with Dr. Leon his office notes do not show any prior h/o a.fib ECHO here with mod-severe , preserved EF Discussed anticoagulation at length with patient and his and he is agreeable to starting Eliquis -change Eliquis to 2.5mg po bid as per [facility] recommendation due to labile creatinine -f/u with Cardiology as an outpt (4) Anemia: Plan: hgb has been low for years around 11-12 and now more recently in the 9 range since multiple hospitalizations for acute illness the last month normocytic now on Eliquis so will watch for worsening -check Fe studies, B12, folate, TSH in AM check fecal occult (5) Pneumonia: Plan: RML s/p 10-day course of PO cephalosporin in early June. Initial Rx by Dr Grady in the pulmonary clinic following a CT chest on 06/09/21. During his June hospital stay he did not receive IV or PO antibiotics for the lungs. CXRs during this stay with ongoing right-sided infiltrates. Chest CT obtained on 07/24 showed enlarging bilat pleural effusions, atelectasis, and ground glass opacities mostly still in RML Was felt to be volume overloaded and was given IV lasix daily x 2 days Dyspnea now improved, remains with some wheeze and pitting edema legs Still with cough productive of sputum Cont combivent for cough/wheeze. Cont usual home inhalers for COPD/asthma. Cont mucinex. -check sputum cx -appreciate Pulmonary consult for their opinion regarding ongoing pulmonary symptoms since at least early June 2021. (6) RON (acute kidney injury): Plan: baseline Cr about 1 to 1.1 peak this admission 1.7 Cr now 1.07 RON resolved repeat BMP am (7) Hypertension: Plan: BPs are low or low-normal. continue to hold home amlodipine and losartan. Cont metoprolol and increase dose today primarily for a.fib rate control. restarted home HCTZ for mild residual volume overload also giving IV lasix today for volume overload (8) Obstructive sleep apnea of adult: Plan: CPAP 9cm H20 at (9) Emphysema/COPD: Plan: ongoing cough, wheezing, abnormal cxr. suspect due to pulmonary edema and atelectasis seen on CT chest of note - FEES study in June was negative for aspiration. cont inhalers, supportive care. needs PFTs as outpt (10) Chronic renal failure, stage 3a: Plan: General Counsel- at baseline -Avoid nephrotoxins -renally dose meds when appropriate -follow BMP (11) Aortic stenosis: Plan: moderate-severe. With some decompensated CHF here due to volume overload from IVF hydration for C. diff diuresing (12) Altered taste: Plan: etiology? would be unusual for c.diff to cause such. in light of respiratory symptoms rechecked a COVID-19 test again -- NEGATIVE. (13) Severe protein-calorie malnutrition: Plan: Review of EMR reveals a 9.5 kg / 11% loss in body weight over the past several weeks. (14) CAD (coronary artery disease): Plan: 07/2020 cath at [facility] [place]. Results/management as follows - 1. 80% distal RCA and 80% PDA stenosis s/p AILEEN 2. severe calcific 80% prox circumflex stenosis s/p intracoronary balloon lithotripsy and AILEEN 3. 70% proximal LAD stenosis with borderline IFR 0.88 Cont statin Cont plavix Cont metoprolol Losartan and amlodipine on hold due to low-normal BPs or RON No ischemic symptoms at this time (15) Hyponatremia: Plan: likely multifactorial now resolved with diuresis follow BMP (16) Hypokalemia: Plan: replaced/resolved (17) Acute on chronic diastolic (congestive) heart failure: Plan: s/p lasix daily STANDING scale weights baseline weight ~85/86kg cont metoprolol repeat echo to reassess aortic valve and LV EF shows preserved EF (18) Left thigh pain: Plan: no evidence of knee effusion or erythema, arthritis, pain is with flexion of quadriceps muscle likely muscle strain pain improving today LLE venous duplex negative for DVT left knee x-rays - hardware intact, no effusion continue voltaren gel qid tylenol prn (19) DVT prophylaxis: Plan: Elqiuis Plan: extensively updated at bedside once again today cont PT, OT -will eventually go home with home health hopefully in 1-2 days. Discussed care with Consulting [employer]. Also asked Nurse Leland to get prior auth if needed for Dificid taper and Eliquis Admission and Anticipated Discharge Date Admission Date: July 15, 2021 Subjective Feeling much better today. Still coughing up a lot of yellow mucus. Having formed BMs today. Has noticed his legs are more swollen today. Tele with Afib, rates 80-110s Discussed his care with PULM and Cardio today Review of Systems Review of Systems: All systems reviewed & are unremarkable except as noted in HPI & below Physical Exam Constitutional: WD/WN, vitals as above Eyes: + anicteric sclerae Neck: trachea midline, no thyromegaly Respiratory: normal respiratory effort and + cough Auscultation: + crackles (bibasilar); no rhonchi and no wheezes Cardiovascular: Rate/Rhythm: regular rate and + irregularly irregular Heart Sounds: + murmur (3/6 SANTIAGO at RUSB) Extremities: + edema (1+ pitting edema legs to knees bilat) Chest (Breasts): Chest: normal inspection of chest Gastrointestinal (Abdomen): normal bowel sounds, soft, nontender, no hepatosplenomegaly Musculoskeletal: Extremities: extremities normal to inspection; no cyanosis and no clubbing Skin: no rashes, warm and dry Neurologic: moves all extremities and awake; no focal motor deficits Psychiatric: A+Ox3, euthymic affect Lymphatic: no lymphedema Results & Data Results & Data ([facility]) Vital Signs (Past 12 Hours) Vital Signs Temp Pulse Resp BP Pulse Ox 07/26/21 11:35 92 H 16 92 07/26/21 11:04 36.8 C 90 18 109/67 93 07/26/21 07:26 36.9 C 92 H 20 133/74 93 07/26/21 07:20 90 18 93 Laboratory Results 07/26/21 07/26/21 Range/Units 08:25 08:25 WBC 14.64 H (4.8-10.8) K/uL RBC 3.26 L (4.7-6.1) M/uL Hgb 9.3 L (14.0-18.0) g/dL Hct 29.0 L (42-52) % MCV 89.0 (80-100) fL MCH 28.5 (25-34) pg MCHC 32.1 (32-36) g/dL RDW Std Deviation 55.0 H (36.4-46.3) fL RDW Coeff of Vitaliy 16.8 H (11.5-14.5) % Plt Count 330 (130-400) K/uL MPV 9.0 (7.4-10.4) fL Immature Gran % (Auto) 0.4 % Neut % (Auto) 82.6 % Lymph % (Auto) 12.0 % Lyon % (Auto) 4.4 % Eos % (Auto) 0.5 % Baso % (Auto) 0.1 % Neut # (Auto) 12.09 H (1.4-6.5) K/uL Lymph # (Auto) 1.76 (1.2-3.4) K/uL Lyon # (Auto) 0.65 H (0.11-0.59) K/uL Eos # (Auto) 0.07 (0-0.5) K/uL Baso # (Auto) 0.01 (0-0.2) K/uL Immature Gran # (Auto) 0.06 H (0.00-0.02) K/uL Echinocytes 1+ Sodium 138 (136-145) mmol/L Potassium 4.3 (3.5-5.1) mmol/L Chloride 112 H (98-107) mmol/L Carbon Dioxide 20 L (21-32) mmol/L Anion Gap 6 (3-11) BUN 43 H (6-23) mg/dl Creatinine 1.07 (0.6-1.4) mg/dl Est Cr Clr Drug Dosing 50.1 ml/min Est GFR ( Amer) 71.0 ml/min Est GFR (Non-Af Amer) 61.2 ml/min BUN/Creatinine Ratio 40.2 H (10-20) Glucose 139 H (70-99(Fasting)) mg/dl Calcium 8.3 L (8.5-10.1) mg/dl Magnesium 1.8 (1.7-2.4) mg/dl PG Care Time/CCT Total # of Minutes Spent Total Time Spent with Patient: Total time spent is greater than 50% in coordination of care (as documented) at patient's floor/unit and/or counseling patient: Coding Level of Care Code 69789 Subseq Hosp Care Lvl 3 Diagnoses C. difficile colitis A04.72 Sepsis A41.9 Atrial fibrillation I48.91 Pneumonia J18.9 Laterality: right Lung location: unspecified part of lung Pneumonia type: due to unspecified organism RON (acute kidney injury) N17.9 Hypertension I10 Obstructive sleep apnea of adult G47.33 Emphysema/COPD J43.9 Chronic renal failure, stage 3a N18.31 Aortic stenosis I35.0 Altered taste R43.2 Severe protein-calorie malnutrition E43 CAD (coronary artery disease) I25.10 Hyponatremia E87.1 Hypokalemia E87.6 Acute on chronic diastolic (congestive) heart failure I50.33 Left thigh pain M79.652 DVT prophylaxis Z29.9 Anemia D64.9 (1) Pneumonia Laterality: right Lung location: unspecified part of lung Pneumonia type: due to unspecified organism Qualified Code(s): J18.9 - Pneumonia, unspecified organism
--- NOTE | 2021-07-26 15:31 | Pulmonary Consultation ---
Date of Consultation July 26, 2021 Assessment & Plan (1) Chronic cough: Likely multifactorial from laryngeal pharyngeal reflux, allergic rhinitis and upper airway cough syndrome. Congestive heart failure likely playing a role as well. We will start the patient on Tessalon Perles. No PFTs available on file. He does have underlying emphysema and smoking history. Reasonable to continue empiric inhalers at this time. Continue pulmonary toilet with flutter valve and incentive spirometer. Also reasonable to continue montelukast and pantoprazole empirically. (2) Acute on chronic diastolic (congestive) heart failure: Agree with low-dose diuresis given his volume overload state. (3) Abnormal CT scan, chest: I am doubtful of an underlying ILD diagnosis. I suspect the findings are secondary to chronic CHF. No indication for bronchoscopy at this time. 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 No significant peripheral eosinophilia on CBC noted to suggest chronic eosinophilic pneumonia. Hemoglobin has been slowly downtrending over the past month and a half which may be related to iron deficiency anemia. Other etiologies include hemodilution given his positive fluid balance. Would recommend very judicious use of anticoagulation for his atrial fibrillation in the setting of worsening anemia. I am doubtful of diffuse alveolar hemorrhage as the patient does not have any hemoptysis or hypoxemia at rest. (4) Anemia: Case discussed with the patient's hospitalist. Thank you for the consult. Please call with questions. History of Present Illness Reason for Consultation: Cough Attending Physician: Deonna Lewis MD History of Present Illness 89-year-old male with a past medical history of atrial fibrillation recently diagnosed, coronary artery disease, aortic stenosis, emphysema and chronic cough who presented to the hospital 07/15/2021 due to C. difficile colitis. Currently he reports that he has occasional shortness of breath when laying flat and walking. He is not needing supplemental oxygen at present. He walks with a rolling walker. He does endorse a chronic dry cough that mostly occurs at night. He has a reported history of asthma and has been tried on numerous inhalers without any benefit. He was seen by Dr. Grady on 06/12/2021 in the pulmonary clinic who ordered a CT of his chest. He reports smoking for approximately 20 years and quit smoking 35 years ago. He smoked a pipe and cigarettes. He takes pantoprazole at home for reflux and uses Breo and Spiriva. He had a CT of his chest completed 07/24/2021 which demonstrated small bilateral effusions and atelectasis. Groundglass opacities were also seen. I also reviewed his CT chest from 06/24/2021 which revealed bibasilar atelectasis and minimal groundglass opacity most prominent in the right middle lobe. Centrilobular emphysema was noted in the upper lobes bilaterally. Pro-Alexis was elevated on hospital admission to 1.87. It has now down trended to 0.38 most recently 07/23/2021. Blood cultures were not checked this admission. Prior sputum cultures from June negative. proBNP 07/25/2021 elevated at 521. Cumulative I's and O's suggest the patient is +20 L. Allergies Allergy/AdvReac Type Severity Reaction Status Date / Time Penicillins Allergy Mild Rash Verified 07/15/21 12:26 Home Medications Medication Instructions Recorded Confirmed Type clopidogrel 75 mg tablet (Plavix) 75 mg PO QAM 11/24/18 07/15/21 History pantoprazole 40 mg tablet,delayed 40 mg PO QAM tab 11/24/18 07/15/21 History release (Protonix) tamsulosin 0.4 mg capsule 0.4 mg PO QAM #30 cap 11/24/18 07/15/21 History montelukast 10 mg tablet 10 mg PO QAM 03/27/19 07/15/21 History CPAP Machine #1 ea 04/13/19 06/12/21 Rx fluticasone furoate 200 1 ea INHALATION QAM 07/10/19 07/15/21 History mcg-vilanterol 25 mcg/dose inhalation powder (Breo Ellipta) tiotropium bromide 18 mcg capsule 1 cap INHALATION QAM 07/10/19 07/15/21 History with inhalation device (Spiriva with HandiHaler) atorvastatin 80 mg tablet 80 mg PO HS 06/22/21 07/15/21 History finasteride 5 mg tablet 5 mg PO QAM 06/22/21 07/15/21 History nitroglycerin 0.4 mg sublingual 0.4 mg SUBLINGUAL UD PRN 06/22/21 07/15/21 History tablet acetaminophen 325 mg tablet 650 mg PO Q6H PRN #30 tab 07/03/21 07/15/21 Rx amlodipine 5 mg tablet 2.5 mg PO QAM 07/15/21 07/15/21 History hydrocodone 5 mg-acetaminophen 325 1 tab PO DAILY PRN 07/15/21 07/15/21 History mg tablet losartan 100 mg tablet 100 mg PO QAM 07/15/21 07/15/21 History multivitamin 1 tab PO QAM 07/15/21 07/15/21 History hydrochlorothiazide 12.5 mg tablet 12.5 mg PO DAILY 07/25/21 07/25/21 History Patient History Medical History (Updated 07/26/21 @ 15:31 by Ean Frank MD) AAA (abdominal aortic aneurysm) 5.2 x 4.9 cm infrarenal AAA per 01/[address] scan, chest Anemia Asthma stable 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)- on plavix Chronic cough GERD (gastroesophageal reflux disease) Hearing deficit B/L CORBIN History of malignant melanoma HTN (hypertension) Hyperlipidemia Osteoarthritis Paralysis of left vocal cord Sleep apnea CPAP Surgical History History of cataract surgery History of colonoscopy History of elbow surgery Rt History of hernia repair Lt inguinal History of melanoma excision History of repair of rotator cuff Lt History of revision of total knee arthroplasty R/L History of total knee arthroplasty R/L S/P AAA repair Percutaneous Endovascular Aortic Aneurysm Repair, Mechanical Closure of Bilateral Femoral Arteries Dr. Vera Family History Brother Myocardial infarction Acquired amyotrophic lateral sclerosis Sister Glioblastoma multiforme of brain Diabetes Cancer 4 sisters Mother Diabetes Heart disease Stroke Hypertension Other No family history of adverse response to anesthesia No family history of bleeding disorder Social History Smoking Status: Former smoker Tobacco Type: Cigarettes Number of Years Since Quit: 33; Second Hand Exposure: Yes (as a child); Hx Alcohol Use: No Hx Substance Use: No Preferred Language: Norwegian Communication Ability: Effective Visual Impairment: No Limitations Workers Compensation Claims Assistant Required: No Beliefs That Will Affect Care: None marital status: Current Living Situation: Spouse 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 Sitting up in bed. at bedside. Eyes: Pupils are equal round and reactive to light. Conjunctivae are normal. Anicteric sclera. Ears nose, mouth and throat: Mallampati class 2. Normal posterior oropharynx. Uvula is midline. Neck: Trachea is midline. Visual inspection is normal. Respiratory: Mild bibasilar crackles. No increased work of breathing. Cardiovascular: Irregularly irregular. 2-3+ pitting edema in the lower extremities bilaterally. Harsh systolic flow murmur. Gastrointestinal: Normal bowel sounds, soft, nontender and nondistended. No hepatosplenomegaly noted. Musculoskeletal: No cyanosis. Patient is able to move all extremities. Strength is 5 out of 5 in the upper and lower extremities. Skin: No rashes, warm dry and intact. Neurologic: No obvious focal neurological deficits seen. Psychiatric: Alert and oriented x3 with a euthymic affect. Results & Data Results & Data ([facility]) Vital Signs (Past 12 Hours) Vital Signs Temp Pulse Resp BP Pulse Ox 07/26/21 11:35 92 H 16 92 07/26/21 11:04 36.8 C 90 18 109/67 93 07/26/21 07:26 36.9 C 92 H 20 133/74 93 07/26/21 07:20 90 18 93 PG Care Time/CCT Total # of Minutes Spent Total Time Spent with Patient: Total time spent is greater than 50% in coordination of care (as documented) at patient's floor/unit and/or counseling patient: Coding Level of Care Code 61489 Initial Inpt Care Lvl 3 Diagnoses Chronic cough R05.3 Acute on chronic diastolic (congestive) heart failure I50.[address] scan, chest R93.89 Anemia D64.9
[2021-07-26] MEDS: BENZONATATE 100 MG CAPSULE PO SCH (20:45)
[2021-07-26] MEDS: ATORVASTATIN 40 MG TAB PO SCH (20:45)
[2021-07-26] MEDS: APIXABAN 2.5 MG TAB PO SCH (20:50)
[2021-07-27] MEDS: IPRATROPIUM BROMIDE HFA INHALER INH SCH ×4 (07:20→19:36)
[2021-07-27] MEDS: ALBUTEROL HFA 8 GM INHALER INH SCH ×4 (07:21→19:35)
[2021-07-27 08:27] LABS: Basophils # (auto) 0.02 K/uL (0-0.2); Basophils % (auto) 0.2 %; Eosinophils # (auto) 0.14 K/uL (0-0.5); Eosinophils % (auto) 1.1 %; Hematocrit (blood only) 26.7 % (42-52); Hemoglobin 8.8 g/dL (14.0-18.0); Immature Granulocytes # (auto) 0.07 K/uL (0.00-0.02); Immature Granulocytes % (auto) 0.6 %; Lymphocytes # (auto) 1.67 K/uL (1.2-3.4); Lymphocytes % (auto) 13.7 %; Mean Corpuscular Hemoglobin 28.6 pg (25-34); Mean Corpuscular Volume 86.7 fL (80-100); Mean Platelet Volume 9.1 fL (7.4-10.4); Monocytes # (auto) 0.74 K/uL (0.11-0.59); Monocytes % (auto) 6.1 %; Neutrophils # (auto) 9.55 K/uL (1.4-6.5); Neutrophils % (auto) 78.3 %; Platelet Count 375 K/uL (130-400); RDW Standard Deviation 54.3 fL (36.4-46.3); Red Blood Count 3.08 M/uL (4.7-6.1); White Blood Count 12.19 K/uL (4.8-10.8)
[2021-07-27 08:56] LABS: BUN Creatinine Ratio 42.3 (10-20); Calcium 8.2 mg/dl (8.5-10.1); Creatinine Clr Calc Pharmacy 55.5 ml/min; Est GFR (African American) 79.9 ml/min; Est GFR (Non-African American) 68.9 ml/min; Magnesium 1.6 mg/dl (1.7-2.4); Potassium 4.1 mmol/L (3.5-5.1)
[2021-07-27 08:57] LABS: Iron 15 mcg/dl (35-175); Total Iron Binding Cap Calc 168 mcg/dl (250-450); Transferrin (FE) Percent Satur 9 % (20-50); Unsaturated Iron Binding Cap 153 mcg/dl (155-355)
[2021-07-27] MEDS: APIXABAN 2.5 MG TAB PO SCH ×2 (09:00→21:50)
[2021-07-27] MEDS: CLOPIDOGREL BISULFATE 75 MG TAB PO SCH (09:00)
[2021-07-27] MEDS: BENZONATATE 100 MG CAPSULE PO SCH ×3 (09:00→21:50)
[2021-07-27] MEDS ORDERED: FIDAXOMICIN 200 MG TAB PO SCH (09:00)
[2021-07-27 09:01] LABS: Ferritin 210.7 ng/ml (8-388)
[2021-07-27] MEDS: guaiFENesin 600 MG TABCR PO SCH ×2 (09:01→21:50)
[2021-07-27] MEDS: hydroCHLOROthiazide 25 MG TAB PO SCH (09:01)
[2021-07-27] MEDS: FINASTERIDE 5 MG TAB PO SCH (09:01)
[2021-07-27] MEDS: METOPROLOL TARTRATE 25 MG TAB PO SCH (09:02)
[2021-07-27] MEDS: MULTIVITAMIN TAB PO SCH (09:02)
[2021-07-27] MEDS: ADVANCED PROBIOTIC 1250 MG CAPSULE PO SCH (09:02)
[2021-07-27] MEDS: MONTELUKAST SODIUM 10 MG TABLET PO SCH (09:02)
[2021-07-27] MEDS: ACETAMINOPHEN 325 MG TAB PO PRN (09:03)
[2021-07-27] MEDS: TAMSULOSIN HCL 0.4 MG CAP PO SCH (09:03)
[2021-07-27] MEDS: PANTOprazole 40 MG TAB PO SCH (09:03)
[2021-07-27 09:04] LABS: Thyroid Stimulating Hormone 5.442 uIu/ml (0.300-4.500)
[2021-07-27] MEDS: FLUTICASONE/VILANTEROL 200/25MCG 14 PUFFS/INHALER INH SCH (09:04)
[2021-07-27] MEDS: UMECLIDINIUM BROMIDE 62.5MCG/BLISTER 7 PUFFS/INHALER INH SCH (09:05)
[2021-07-27] MEDS: DICLOFENAC SOD 1% GEL 100 GM TUBE EXT SCH ×4 (09:05→21:51)
[2021-07-27 09:14] LABS: Folate (Folic Acid) 15.99 ng/ml (>5.38)
[2021-07-27 09:15] LABS: Vitamin B12 > 1500 pg/ml (180-914)
[2021-07-27 09:40] LABS: T4 Free Thyroxine 1.14 ng/dl (0.61-1.60)
[2021-07-27] MEDS: COLESTIPOL HCL 1 GM TAB PO SCH (10:59)
[2021-07-27] MEDS ORDERED: IRON SUCROSE 300 MG in SODIUM CHLORIDE 0.9% 250 ML IV ONE (11:30)
[2021-07-27] MEDS: POTASSIUM CHLORIDE CRTAB 20 MEQ TABCR PO SCH (11:51)
[2021-07-27] MEDS: MAGNESIUM SULFATE / D5W 1 GM/100 ML BAG IV SCH ×3 (13:40→17:39)
[2021-07-27] MEDS: FUROSEMIDE 40 MG TAB PO SCH (13:40)
--- NOTE | 2021-07-27 15:30 | Hospitalist Progress Note ---
Date of Service July 27, 2021 Assessment & Plan (1) C. difficile colitis: Plan: Recurrent/relapse. Initial dx 06/22/21 - Rx with 10 day course of PO vanco. Relapse 07/15/21 - was receiving PO vanco + IV flagyl. s/p [facility] ID consultation this admission recommended dificid 200mg BID advised until 07/25/21 followed by a prolonged taper of dificid 200mg every other day until 08/14/21. Much improved, stools now more formed remains with non AG metabolic acidosis from HCO3 losses in stool but is improving Leukocytosis persists but is improving now down to 12, remains afebrile Continue colestipol 1gm daily. Continue lactinex. Cont supportive care and contact precautions. STOPPED ALL IV FLUIDS due to volume overload. (2) Sepsis: Plan: secondary to C. diff Resolved. Procal neg and CRP down considerably. (3) Atrial fibrillation: Plan: During last hospitalization, 06/24/21 ekg confirmed Afib 06/22/21 ekg - NSR has been in a.fib the entire stay this hospitalization-no history of such rates 90s to 110s but improved s/p initiation of metoprolol with volume overload likely some contribution due to rapid rates Rate still remained in the 80s to 90s and still with volume overload started metoprolol and now increase again to 50 mg p.o. twice daily CHADS-VASc score is high follows with Dr Leon [facility] cards-I discussed his care with Dr. Leon his office notes do not show any prior h/o a.fib ECHO here with mod-severe , preserved EF Discussed anticoagulation at length with patient and his and he is agreeable to starting Eliquis -Started Eliquis 2.5mg po bid as per [facility] recommendation due to labile creatinine and age greater than 80 -f/u with Cardiology as an outpt (4) Anemia: Plan: hgb has been low for years around 11-12 and now more recently in the 9 range since multiple hospitalizations for acute illness the last month normocytic now on Eliquis so will watch for worsening -checked Fe studies which show low transferrin saturation at only 9%-give IV Venofer daily x3 doses -B12, folate both normal -TSH mildly elevated at 5 but normal free T4-follow as an outpatient -Negative fecal occult (5) Pneumonia: Plan: RML s/p 10-day course of PO cephalosporin in early June. Initial Rx by Dr Grady in the pulmonary clinic following a CT chest on 06/09/21. During his June hospital stay he did not receive IV or PO antibiotics for the lungs. CXRs during this stay with ongoing right-sided infiltrates. Chest CT obtained on 07/24 showed enlarging bilat pleural effusions, atelectasis, and ground glass opacities mostly still in RML Was felt to be volume overloaded and ongoing with diuresis-start Lasix 40 Mg p.o. once daily today Dyspnea now improved, remains with some wheeze and pitting edema legs Still with cough productive of sputum Sputum culture now growing 2 different gram-negative bacilli He was recently in the hospital a month ago and very well could have Pseudomonas-await ID and sensitivities before starting any antibiotics especially in the setting of recent severe C. difficile colitis Cont combivent for cough/wheeze. Cont usual home inhalers for COPD/asthma. Cont mucinex. -Follow final sputum culture result -appreciate Pulmonary consult for their opinion regarding ongoing pulmonary symptoms since at least early June 2021. (6) RON (acute kidney injury): Plan: baseline Cr about 1 to 1.1 peak this admission 1.7 Cr now normal RON resolved repeat BMP am (7) Hypertension: Plan: BPs are low or low-normal. continue to hold home amlodipine and losartan. Cont metoprolol and increase dose again today primarily for a.fib rate control. restarted home HCTZ for mild residual volume overload started Lasix 20 Mg p.o. once daily (8) Obstructive sleep apnea of adult: Plan: CPAP 9cm H20 at HS (9) Emphysema/COPD: Plan: ongoing cough, wheezing, abnormal cxr. suspect due to pulmonary edema and atelectasis seen on CT chest of note - FEES study in June was negative for aspiration. cont inhalers, supportive care. 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 With some decompensated CHF here due to volume overload from IVF hydration for C. diff diuresing (12) Altered taste: Plan: etiology? would be unusual for c.diff to cause such. in light of respiratory symptoms rechecked a COVID-19 test again -- NEGATIVE. (13) Severe protein-calorie malnutrition: Plan: Review of EMR reveals a 9.5 kg / 11% loss in body weight over the past several weeks. (14) CAD (coronary artery disease): Plan: 07/2020 cath at [place]. Results/management as follows - 1. 80% distal RCA and 80% PDA stenosis s/p AILEEN 2. severe calcific 80% prox circumflex stenosis s/p intracoronary balloon li thotripsy and AILEEN 3. 70% proximal LAD stenosis with borderline IFR 0.88 Cont statin Cont plavix Cont metoprolol Losartan and amlodipine on hold due to low-normal BPs or RON No ischemic symptoms at this time (15) Hyponatremia: Plan: likely multifactorial now resolved with diuresis follow BMP (16) Hypokalemia: Plan: replaced/resolved (17) Acute on chronic diastolic (congestive) heart failure: Plan: s/p lasix daily STANDING scale weights baseline weight ~85/86kg cont metoprolol repeat echo to reassess aortic valve and LV EF shows preserved EF (18) Left thigh pain: Plan: no evidence of knee effusion or erythema, arthritis, pain is with flexion of quadriceps muscle likely muscle strain pain improving today LLE venous duplex negative for DVT left knee x-rays - hardware intact, no effusion continue voltaren gel qid tylenol prn (19) DVT prophylaxis: Plan: Elqiuis Plan: extensively updated at bedside once again today cont PT, OT -will eventually go home with home health hopefully in 1-2 days. Discussed care with Slag Motor Operator. Admission and Anticipated Discharge Date Admission Date: July 15, 2021 Subjective .Patient feeling better today, stools are he is eating well. He is feeling stronger and getting around better. Still has swelling in the legs. Still with productive cough, no shortness of breath. Telemetry with atrial fibrillation with rates in 80s to 90s Review of Systems Review of Systems: All systems reviewed & are unremarkable except as noted in HPI & below Physical Exam Constitutional: WD/WN, vitals as above Eyes: + anicteric sclerae Neck: trachea midline, no thyromegaly Respiratory: normal respiratory effort, lungs clear to auscultation normal respiratory effort and + cough Auscultation: + crackles (bibasilar); no rhonchi and no wheezes Cardiovascular: Rate/Rhythm: regular rate and + irregularly irregular Heart Sounds: + murmur (3/6 SANTIAGO at RUSB) Extremities: + edema (2+ pitting edema legs to knees bilat) Chest (Breasts): Chest: normal inspection of chest Gastrointestinal (Abdomen): normal bowel sounds, soft, nontender, no hepatosplenomegaly Musculoskeletal: Extremities: extremities normal to inspection; no cyanosis and no clubbing Skin: no rashes, warm and dry Neurologic: moves all extremities and awake; no focal motor deficits Psychiatric: A+Ox3, euthymic affect Results & Data Results & Data ([facility]) Vital Signs (Past 12 Hours) Vital Signs Temp Pulse Pulse Resp BP Pulse Ox 07/27/21 15:18 85 18 96 07/27/21 15:08 36.6 C 72 20 113/67 94 07/27/21 14:19 83 07/27/21 11:23 94 H 20 97 07/27/21 11:14 36.8 C 74 20 106/64 92 07/27/21 07:45 36.6 C 90 20 122/73 96 07/27/21 07:27 101 H 20 97 07/27/21 06:13 88 Laboratory Results 07/27/21 07/27/21 07/27/21 Range/Units 07:15 07:15 07:15 WBC (4.8-10.8) K/uL RBC (4.7-6.1) M/uL Hgb (14.0-18.0) g/dL Hct (42-52) % MCV (80-100) fL MCH (25-34) pg MCHC (32-36) g/dL RDW Std Deviation (36.4-46.3) fL RDW Coeff of Vitaliy (11.5-14.5) % Plt Count (130-400) K/uL MPV (7.4-10.4) fL Immature Gran % (Auto) % Neut % (Auto) % Lymph % (Auto) % [place] % (Auto) % Eos % (Auto) % Baso % (Auto) % Neut # (Auto) (1.4-6.5) K/uL Lymph # (Auto) (1.2-3.4) K/uL [place] # (Auto) (0.11-0.59) K/uL Eos # (Auto) (0-0.5) K/uL Baso # (Auto) (0-0.2) K/uL Immature Gran # (Auto) (0.00-0.02) K/uL Sodium (136-145) mmol/L Potassium (3.5-5.1) mmol/L Chloride (98-107) mmol/L Carbon Dioxide (21-32) mmol/L Anion Gap (3-11) BUN (6-23) mg/dl Creatinine (0.6-1.4) mg/dl Est Cr Clr Drug Dosing ml/min Est GFR ( Amer) ml/min Est GFR (Non-Af Amer) ml/min BUN/Creatinine Ratio (10-20) Glucose (70-99(Fasting)) mg/dl Calcium (8.5-10.1) mg/dl Magnesium (1.7-2.4) mg/dl Iron 15 L (35-175) mcg/dl TIBC 168 L (250-450) mcg/dl Unsaturated IBC 153 L (155-355) mcg/dl Transferrin % Sat 9 L (20-50) % Ferritin (8-388) ng/ml Vitamin B12 > 1500 H (180-914) pg/ml Folate 15.99 (>5.38) ng/ml TSH 5.442 H (0.300-4.500) uIu/ml Free T4 1.14 (0.61-1.60) ng/dl 07/27/21 07/27/21 Range/Units 07:15 07:15 WBC 12.19 H (4.8-10.8) K/uL RBC 3.08 L (4.7-6.1) M/uL Hgb 8.8 L (14.0-18.0) g/dL Hct 26.7 L (42-52) % MCV 86.7 (80-100) fL MCH 28.6 (25-34) pg MCHC 33.0 (32-36) g/dL RDW Std Deviation 54.3 H (36.4-46.3) fL RDW Coeff of Vitaliy 17.0 H (11.5-14.5) % Plt Count 375 (130-400) K/uL MPV 9.1 (7.4-10.4) fL Immature Gran % (Auto) 0.6 % Neut % (Auto) 78.3 % Lymph % (Auto) 13.7 % [place] % (Auto) 6.1 % Eos % (Auto) 1.1 % Baso % (Auto) 0.2 % Neut # (Auto) 9.55 H (1.4-6.5) K/uL Lymph # (Auto) 1.67 (1.2-3.4) K/uL [place] # (Auto) 0.74 H (0.11-0.59) K/uL Eos # (Auto) 0.14 (0-0.5) K/uL Baso # (Auto) 0.02 (0-0.2) K/uL Immature Gran # (Auto) 0.07 H (0.00-0.02) K/uL Sodium 140 (136-145) mmol/L Potassium 4.1 (3.5-5.1) mmol/L Chloride 112 H (98-107) mmol/L Carbon Dioxide 21 (21-32) mmol/L Anion Gap 7 (3-11) BUN 41 H (6-23) mg/dl Creatinine 0.97 (0.6-1.4) mg/dl Est Cr Clr Drug Dosing 55.5 ml/min Est GFR ( Amer) 79.9 ml/min Est GFR (Non-Af Amer) 68.9 ml/min BUN/Creatinine Ratio 42.3 H (10-20) Glucose 122 H (70-99(Fasting)) mg/dl Calcium 8.2 L (8.5-10.1) mg/dl Magnesium 1.6 L (1.7-2.4) mg/dl Iron (35-175) mcg/dl TIBC (250-450) mcg/dl Unsaturated IBC (155-355) mcg/dl Transferrin % Sat (20-50) % Ferritin 210.7 (8-388) ng/ml Vitamin B12 (180-914) pg/ml Folate (>5.38) ng/ml TSH (0.300-4.500) uIu/ml Free T4 (0.61-1.60) ng/dl PG Care Time/CCT Total # of Minutes Spent Total Time Spent with Patient: Total time spent is greater than 50% in coordination of care (as documented) at patient's floor/unit and/or counseling patient: Coding Level of Care Code 54287 Subseq Hosp Care Lvl 3 Diagnoses C. difficile colitis A04.72 Sepsis A41.9 Atrial fibrillation I48.91 Anemia D64.9 Pneumonia J18.9 Laterality: right Lung location: unspecified part of lung Pneumonia type: due to unspecified organism RON (acute kidney injury) N17.9 Hypertension I10 Obstructive sleep apnea of adult G47.33 Emphysema/COPD J43.9 Chronic renal failure, stage 3a N18.31 Aortic stenosis I35.0 Altered taste R43.2 Severe protein-calorie malnutrition E43 CAD (coronary artery disease) I25.10 Hyponatremia E87.1 Hypokalemia E87.6 Acute on chronic diastolic (congestive) heart failure I50.33 Left thigh pain M79.652 DVT prophylaxis Z29.9 (1) Pneumonia Laterality: right Lung location: unspecified part of lung Pneumonia type: due to unspecified organism Qualified Code(s): J18.9 - Pneumonia, unspecified organism
[2021-07-27] MEDS: METOPROLOL TARTRATE 50 MG TAB PO SCH (21:49)
[2021-07-27] MEDS: ATORVASTATIN 40 MG TAB PO SCH (21:50)
[2021-07-28] MEDS: ALBUTEROL HFA 8 GM INHALER INH SCH ×4 (07:08→19:46)
[2021-07-28] MEDS: IPRATROPIUM BROMIDE HFA INHALER INH SCH ×3 (07:09→19:46)
[2021-07-28 08:12] LABS: Hematocrit (blood only) 25.1 % (42-52); Hemoglobin 8.1 g/dL (14.0-18.0); Mean Corpuscular Hemoglobin 28.5 pg (25-34); Mean Corpuscular Hgb Conc 32.3 g/dL (32-36); Mean Corpuscular Volume 88.4 fL (80-100); Mean Platelet Volume 8.9 fL (7.4-10.4); Platelet Count 331 K/uL (130-400); RDW Coefficient of Variation 16.9 % (11.5-14.5); RDW Standard Deviation 55.4 fL (36.4-46.3); Red Blood Count 2.84 M/uL (4.7-6.1); White Blood Count 9.24 K/uL (4.8-10.8)
[2021-07-28 08:38] LABS: BUN Creatinine Ratio 44.9 (10-20); Calcium 8.3 mg/dl (8.5-10.1); Creatinine Clr Calc Pharmacy 60.5 ml/min; Est GFR (African American) 87.9 ml/min; Est GFR (Non-African American) 75.8 ml/min; Magnesium 1.9 mg/dl (1.7-2.4); Phosphorus 3.6 mg/dl (2.5-4.9); Potassium 4.2 mmol/L (3.5-5.1)
[2021-07-28 08:39] LABS: Basophils # (auto) 0.02 K/uL (0-0.2); Basophils % (auto) 0.2 %; Echinocytes 1+; Eosinophils # (auto) 0.09 K/uL (0-0.5); Immature Granulocytes # (auto) 0.06 K/uL (0.00-0.02); Immature Granulocytes % (auto) 0.6 %; Lymphocytes # (auto) 1.49 K/uL (1.2-3.4); Lymphocytes % (auto) 16.1 %; Monocytes # (auto) 0.53 K/uL (0.11-0.59); Monocytes % (auto) 5.7 %; Neutrophils # (auto) 7.05 K/uL (1.4-6.5); Neutrophils % (auto) 76.4 %
[2021-07-28] MEDS ORDERED: MAGNESIUM SULFATE / D5W 1 GM/100 ML BAG IV ONE (09:24)
[2021-07-28] MEDS: guaiFENesin 600 MG TABCR PO SCH ×2 (09:38→20:25)
[2021-07-28] MEDS: BENZONATATE 100 MG CAPSULE PO SCH ×3 (09:38→20:25)
[2021-07-28] MEDS: METOPROLOL TARTRATE 50 MG TAB PO SCH ×2 (09:39→20:27)
[2021-07-28] MEDS: UMECLIDINIUM BROMIDE 62.5MCG/BLISTER 7 PUFFS/INHALER INH SCH (09:39)
[2021-07-28] MEDS: MONTELUKAST SODIUM 10 MG TABLET PO SCH (09:40)
[2021-07-28] MEDS: POTASSIUM CHLORIDE CRTAB 20 MEQ TABCR PO SCH (09:40)
[2021-07-28] MEDS: ADVANCED PROBIOTIC 1250 MG CAPSULE PO SCH (09:40)
[2021-07-28] MEDS: FUROSEMIDE 40 MG TAB PO SCH (09:40)
[2021-07-28] MEDS: PANTOprazole 40 MG TAB PO SCH (09:41)
[2021-07-28] MEDS: TAMSULOSIN HCL 0.4 MG CAP PO SCH (09:41)
[2021-07-28] MEDS: hydroCHLOROthiazide 25 MG TAB PO SCH (09:41)
[2021-07-28] MEDS: FINASTERIDE 5 MG TAB PO SCH (09:42)
[2021-07-28] MEDS: CLOPIDOGREL BISULFATE 75 MG TAB PO SCH (09:42)
[2021-07-28] MEDS: MULTIVITAMIN TAB PO SCH (09:42)
[2021-07-28] MEDS: DICLOFENAC SOD 1% GEL 100 GM TUBE EXT SCH ×4 (09:44→20:25)
[2021-07-28] MEDS: IRON SUCROSE 300 MG in SODIUM CHLORIDE 0.9% 250 ML IV SCH (09:44)
[2021-07-28] MEDS: FLUTICASONE/VILANTEROL 200/25MCG 14 PUFFS/INHALER INH SCH (09:44)
[2021-07-28] MEDS: APIXABAN 2.5 MG TAB PO SCH ×2 (09:45→20:24)
[2021-07-28] MEDS: COLESTIPOL HCL 1 GM TAB PO SCH (10:00)
[2021-07-28] MEDS: FIDAXOMICIN 200 MG TAB PO SCH ×2 (12:22→20:25)
[2021-07-28] MEDS: levoFLOXacin/D5W 750 MG/150 ML BAG IV SCH (15:23)
--- NOTE | 2021-07-28 15:53 | Hospitalist Progress Note ---
Date of Service July 28, 2021 Assessment & Plan (1) C. difficile colitis: Plan: Recurrent/relapse. Initial dx 06/22/21 - Rx with 10 day course of PO vanco. Relapse 07/15/21 - was receiving PO vanco + IV flagyl. s/p Kirsten ID consultation this admission recommended dificid 200mg BID advised until 07/25/21 followed by a prolonged taper of dificid 200mg every other day until 08/14/21. HOWEVER, with Pseudomonas PNA--> starting Levaquin so will go back up to Dificid 200mg po bid while on Levaquin and then go to taper down after that every other day Much improved, stools now more formed remains with non AG metabolic acidosis from HCO3 losses in stool but is improving Leukocytosis finally resolved, remains afebrile Continue colestipol 1gm daily. Continue lactinex. Cont supportive care and contact precautions. (2) Sepsis: Plan: secondary to C. diff Resolved. Procal neg and CRP down considerably. (3) Atrial fibrillation: Plan: During last hospitalization, 06/24/21 ekg confirmed Afib 06/22/21 ekg - NSR has been in a.fib the entire stay this hospitalization-no history of such rates now improved to 70-80s with initiation of metoprolol with titration upward with volume overload likely some contribution due to rapid rates CHADS-VASc score is high follows with Dr Leon [facility] cards-I discussed his care with Dr. Leon his office notes do not show any prior h/o a.fib ECHO here with mod-severe , preserved EF Discussed anticoagulation at length with patient and his and he is agreeable to starting Eliquis -Started Eliquis 2.5mg po bid as per Cadiology recommendation due to labile creatinine and age greater than 80 -f/u with Cardiology as an outpt -continue metoprolol 50mg po bid and will convert to Toprol XL 100mg po daily prior to discharge (4) Anemia: Plan: hgb has been low for years around 11-12 and now more recently in the 8-9 range since multiple hospitalizations for acute illness the last month normocytic now on Eliquis so will watch for worsening-slight downtrend since starting ELiquis -checked Fe studies which show low transferrin saturation at only 9%-gave IV Venofer daily x3 doses -B12, folate both normal -TSH mildly elevated at 5 but normal free T4-follow as an outpatient -Negative fecal occult -follow CBC in AM (5) Pneumonia: Plan: RML s/p 10-day course of PO cefuroxime in mid June and plan was to repeat chest CT in 3 months to see if RML PNA was cleared. Initial Rx by Dr Grady in the pulmonary clinic following a CT chest on 06/09/21. During his June hospital stay he did not receive IV or PO antibiotics for the lungs. CXRs during this stay with ongoing right-sided infiltrates. Chest CT obtained on 07/24 showed enlarging bilat pleural effusions, atelectasis, and ground glass opacities mostly still in RML Was felt to be volume overloaded and ongoing with diuresis Dyspnea now improved, remains with some wheeze and pitting edema legs Still with cough productive of copious sputum Sputum culture now growing Pseudomonas aeruginosa He was recently in the hospital a month ago and very well could have picked up Pseudomonas at that time Cont combivent for cough/wheeze. Cont usual home inhalers for COPD/asthma. Cont mucinex. -appreciate Pulmonary consult for their opinion regarding ongoing pulmonary symptoms since at least early June 2021. -start Levaquin 750mg daily x 7 day course-discussed with PULM who is in agreement -increase Dificid back to treatment dose while on Levaquin -follow up with PULM and with repeat imaging as an outpatient (6) RON (acute kidney injury): Plan: baseline Cr about 1 to 1.1 peak this admission 1.7 RON resolved repeat BMP am (7) Hypertension: Plan: BPs are low or low-normal. continue to hold home amlodipine and losartan from home. Cont metoprolol dc home HCTZ since started lasix started Lasix 40 Mg p.o. once daily (8) Obstructive sleep apnea of adult: Plan: CPAP 9cm H20 at HS (9) Emphysema/COPD: Plan: ongoing cough, wheezing, abnormal cxr. suspect due to pulmonary edema and atelectasis seen on CT chest as well as Pseudomonas PNA of note - FEES study in June was negative for aspiration. cont inhalers, supportive care. 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 With some decompensated CHF here due to volume overload from IVF hydration for C. diff diuresing (12) Altered taste: Plan: etiology? would be unusual for c.diff to cause such. in light of respiratory symptoms rechecked a COVID-19 test again -- NEGATIVE. (13) Severe protein-calorie malnutrition: Plan: Review of EMR reveals a 9.5 kg / 11% loss in body weight over the past several weeks. (14) CAD (coronary artery disease): Plan: [place] [facility] [place]/management as follows - 1. 80% distal RCA and 80% PDA stenosis s/p AILEEN 2. severe calcific 80% prox circumflex stenosis s/p intracoronary balloon lithotripsy and AILEEN 3. 70% proximal LAD stenosis with borderline IFR 0.88 Cont statin Cont plavix Cont metoprolol Losartan and amlodipine on hold due to low-normal BPs or RON No ischemic symptoms at this time (15) Hyponatremia: Plan: likely multifactorial now resolved with diuresis follow BMP (16) Hypokalemia: Plan: replaced/resolved (17) Acute on chronic diastolic (congestive) heart failure: Plan: diuresing with lasix continues with some crackles and peripheral edema daily STANDING scale weights baseline weight ~85/86kg cont metoprolol repeat echo to reassess aortic valve and LV EF shows preserved EF add IDRIS barakat (18) Left thigh pain: Plan: no evidence of knee effusion or erythema, arthritis, pain is with flexion of quadriceps muscle likely muscle strain pain improved LLE venous duplex negative for DVT left knee x-rays - hardware intact, no effusion continue voltaren gel qid tylenol prn (19) DVT prophylaxis: Plan: Eliquis Plan: Dispo- much improved, likely can be dcd to home tomorrow but very anxious baout weekend discharge in case he worsens again-I will consider keeping him through the weekend to ensure no worsening on Levaquin in regard to his C. diff extensively updated at bedside once again today cont PT, OT -will eventually go home with home health Admission and Anticipated Discharge Date Admission Date: July 15, 2021 Subjective Pt feeling well. No new complaints. Formed stools, eating well. Still with productive cough. Discussed starting Levaquin for Pseudomonas PNA and watching carefully for recurrence of C. diff. very worried about him going home too soon and anxious about discharge over the weekend. Tele with afib, rates better controlled in 70-80s Review of Systems Review of Systems: All systems reviewed & are unremarkable except as noted in HPI & below Physical Exam Constitutional: WD/WN, vitals as above Eyes: + anicteric sclerae Neck: trachea midline, no thyromegaly Respiratory: normal respiratory effort and + cough Auscultation: + crackles (bibasilar); no rhonchi and no wheezes Cardiovascular: Rate/Rhythm: regular rate and + irregularly irregular Heart Sounds: + murmur (3/6 SANTIAGO at RUSB) Extremities: + edema (1+ pitting edema legs to knees bilat) Chest (Breasts): Chest: normal inspection of chest Gastrointestinal (Abdomen): normal bowel sounds, soft, nontender, no hepatosplenomegaly Musculoskeletal: Extremities: extremities normal to inspection; no cyanosis and no clubbing Skin: no rashes, warm and dry Neurologic: moves all extremities and awake; no focal motor deficits Psychiatric: A+Ox3, euthymic affect Lymphatic: no lymphedema Results & Data Results & [facility] ([facility]) Vital Signs (Past 12 Hours) Vital Signs Temp Pulse Resp BP Pulse Ox 07/28/21 15:29 36.3 C L 84 20 146/76 H 97 07/28/21 15:22 85 18 95 07/28/21 11:53 36.3 C L 69 20 117/72 93 07/28/21 11:34 87 16 94 07/28/21 07:41 36.3 C L 82 20 120/77 93 07/28/21 07:09 97 H 16 93 07/28/21 04:24 36.8 C 72 20 121/76 92 Laboratory Results 07/28/21 07/28/21 Range/Units 07:57 07:57 WBC 9.24 (4.8-10.8) K/uL RBC 2.84 L (4.7-6.1) M/uL Hgb 8.1 L (14.0-18.0) g/dL Hct 25.1 L (42-52) % MCV 88.4 (80-100) fL MCH 28.5 (25-34) pg MCHC 32.3 (32-36) g/dL RDW Std Deviation 55.4 H (36.4-46.3) fL RDW Coeff of Vitaliy 16.9 H (11.5-14.5) % Plt Count 331 (130-400) K/uL MPV 8.9 (7.4-10.4) fL Immature Gran % (Auto) 0.6 % Neut % (Auto) 76.4 % Lymph % (Auto) 16.1 % Nash % (Auto) 5.7 % Eos % (Auto) 1.0 % Baso % (Auto) 0.2 % Neut # (Auto) 7.05 H (1.4-6.5) K/uL Lymph # (Auto) 1.49 (1.2-3.4) K/uL Nash # (Auto) 0.53 (0.11-0.59) K/uL Eos # (Auto) 0.09 (0-0.5) K/uL Baso # (Auto) 0.02 (0-0.2) K/uL Immature Gran # (Auto) 0.06 H (0.00-0.02) K/uL Echinocytes 1+ Sodium 139 (136-145) mmol/L Potassium 4.2 (3.5-5.1) mmol/L Chloride 112 H (98-107) mmol/L Carbon Dioxide 22 (21-32) mmol/L Anion Gap 5 (3-11) BUN 40 H (6-23) mg/dl Creatinine 0.89 (0.6-1.4) mg/dl Est Cr Clr Drug Dosing 60.5 ml/min Est GFR ( Amer) 87.9 ml/min Est GFR (Non-Af Amer) 75.8 ml/min BUN/Creatinine Ratio 44.9 H (10-20) Glucose 126 H (70-99(Fasting)) mg/dl Calcium 8.3 L (8.5-10.1) mg/dl Phosphorus 3.6 (2.5-4.9) mg/dl Magnesium 1.9 (1.7-2.4) mg/dl Sputum cx with Pseudomonas aeruginosa PG Care Time/CCT Total # of Minutes Spent Total Time Spent with Patient: Total time spent is greater than 50% in coordination of care (as documented) at patient's floor/unit and/or counseling patient: Coding Level of Care Code 28932 Subseq Hosp Care Lvl 3 Diagnoses C. difficile colitis A04.72 Sepsis A41.9 Atrial fibrillation I48.91 Anemia D64.9 Pneumonia J18.9 Laterality: right Lung location: unspecified part of lung Pneumonia type: due to unspecified organism RON (acute kidney injury) N17.9 Hypertension I10 Obstructive sleep apnea of adult G47.33 Emphysema/COPD J43.9 Chronic renal failure, stage 3a N18.31 Aortic stenosis I35.0 Altered taste R43.2 Severe protein-calorie malnutrition E43 CAD (coronary artery disease) I25.10 Hyponatremia E87.1 Hypokalemia E87.6 Acute on chronic diastolic (congestive) heart failure I50.33 Left thigh pain M79.652 DVT prophylaxis Z29.9 (1) Pneumonia Laterality: right Lung location: unspecified part of lung Pneumonia type: due to unspecified organism Qualified Code(s): J18.9 - Pneumonia, unspecified organism
[2021-07-28] MEDS: ATORVASTATIN 40 MG TAB PO SCH (20:25)
[2021-07-29] MEDS: MELATONIN 3 MG TAB PO PRN (03:10)
[2021-07-29 06:48] LABS: Basophils # (auto) 0.03 K/uL (0-0.2); Basophils % (auto) 0.4 %; Eosinophils # (auto) 0.09 K/uL (0-0.5); Eosinophils % (auto) 1.2 %; Hematocrit (blood only) 25.1 % (42-52); Hemoglobin 8.1 g/dL (14.0-18.0); Immature Granulocytes # (auto) 0.06 K/uL (0.00-0.02); Immature Granulocytes % (auto) 0.8 %; Lymphocytes % (auto) 19.4 %; Mean Corpuscular Hemoglobin 28.3 pg (25-34); Mean Corpuscular Hgb Conc 32.3 g/dL (32-36); Mean Corpuscular Volume 87.8 fL (80-100); Monocytes % (auto) 6.5 %; Neutrophils # (auto) 5.54 K/uL (1.4-6.5); Neutrophils % (auto) 71.7 %; Platelet Count 369 K/uL (130-400); RDW Coefficient of Variation 17.3 % (11.5-14.5); RDW Standard Deviation 54.8 fL (36.4-46.3); Red Blood Count 2.86 M/uL (4.7-6.1); White Blood Count 7.72 K/uL (4.8-10.8)
[2021-07-29 07:51] LABS: BUN Creatinine Ratio 44.4 (10-20); Calcium 8.3 mg/dl (8.5-10.1); Creatinine Clr Calc Pharmacy 53.4 ml/min; Est GFR (African American) 77.9 ml/min; Est GFR (Non-African American) 67.2 ml/min; Magnesium 1.7 mg/dl (1.7-2.4)
[2021-07-29] MEDS: ALBUTEROL HFA 8 GM INHALER INH SCH ×4 (08:13→19:49)
[2021-07-29] MEDS: IPRATROPIUM BROMIDE HFA INHALER INH SCH ×5 (08:14→19:49)
[2021-07-29] MEDS: FIDAXOMICIN 200 MG TAB PO SCH ×2 (08:34→20:31)
[2021-07-29] MEDS: IRON SUCROSE 300 MG in SODIUM CHLORIDE 0.9% 250 ML IV SCH (08:34)
[2021-07-29] MEDS: FINASTERIDE 5 MG TAB PO SCH (08:35)
[2021-07-29] MEDS: PANTOprazole 40 MG TAB PO SCH (08:35)
[2021-07-29] MEDS: BENZONATATE 100 MG CAPSULE PO SCH ×3 (08:35→20:32)
[2021-07-29] MEDS: METOPROLOL TARTRATE 50 MG TAB PO SCH ×2 (08:35→20:32)
[2021-07-29] MEDS: guaiFENesin 600 MG TABCR PO SCH ×2 (08:35→20:31)
[2021-07-29] MEDS: ADVANCED PROBIOTIC 1250 MG CAPSULE PO SCH (08:35)
[2021-07-29] MEDS: MULTIVITAMIN TAB PO SCH (08:35)
[2021-07-29] MEDS: CLOPIDOGREL BISULFATE 75 MG TAB PO SCH (08:35)
[2021-07-29] MEDS: TAMSULOSIN HCL 0.4 MG CAP PO SCH (08:35)
[2021-07-29] MEDS: FUROSEMIDE 40 MG TAB PO SCH ×2 (08:35→18:01)
[2021-07-29] MEDS: MONTELUKAST SODIUM 10 MG TABLET PO SCH (08:35)
[2021-07-29] MEDS: POTASSIUM CHLORIDE CRTAB 20 MEQ TABCR PO SCH (08:35)
[2021-07-29] MEDS: COLESTIPOL HCL 1 GM TAB PO SCH (08:36)
[2021-07-29] MEDS: APIXABAN 2.5 MG TAB PO SCH ×2 (08:36→20:31)
[2021-07-29] MEDS: DICLOFENAC SOD 1% GEL 100 GM TUBE EXT SCH ×4 (09:46→20:33)
[2021-07-29] MEDS: UMECLIDINIUM BROMIDE 62.5MCG/BLISTER 7 PUFFS/INHALER INH SCH (09:47)
[2021-07-29] MEDS: FLUTICASONE/VILANTEROL 200/25MCG 14 PUFFS/INHALER INH SCH (09:47)
[2021-07-29] MEDS: MAGNESIUM SULFATE / D5W 1 GM/100 ML BAG IV SCH ×2 (10:31→12:01)
--- NOTE | 2021-07-29 11:58 | Hospitalist Progress Note ---
Date of Service July 29, 2021 Assessment & Plan (1) C. difficile colitis: Plan: Recurrent/relapse. Initial dx 06/22/21 - Rx with 10 day course of PO vanco. Relapse 07/15/21 - was receiving PO vanco + IV flagyl. s/p Alexer ID consultation this admission recommended dificid 200mg BID advised until 07/25/21 followed by a prolonged taper of dificid 200mg every other day until 08/14/21. HOWEVER, with Pseudomonas PNA--> starting Levaquin so will go back up to Dificid 200mg po bid while on Levaquin and then go to taper down after that course is complete to every other day Diarrhea is resolved, stools are formed, no abd pain, tolerating reg diet non AG metabolic acidosis from HCO3 losses in stool is also resolved Leukocytosis resolved, remains afebrile Continue colestipol 1gm daily. Continue lactinex. Cont supportive care and contact precautions. -continue to watch for relapse while on Levaquin for Pseudomonas PNA (2) Sepsis: Plan: secondary to C. diff Resolved. Procal neg and CRP down considerably. (3) Pneumonia: Plan: RML s/p 10-day course of PO cefuroxime in mid June and plan was to repeat chest CT in 3 months to see if RML PNA was cleared. Initial Rx by Dr Grady in the pulmonary clinic following a CT chest on 06/09/21. During his June hospital stay he did not receive IV or PO antibiotics for the lungs. CXRs during this stay with ongoing right-sided infiltrates. Chest CT obtained on 07/24 showed enlarging bilat pleural effusions, atelectasis, and ground glass opacities mostly still in RML Was felt to be volume overloaded and ongoing with diuresis Dyspnea now improved, remains with some wheeze and pitting edema legs Still with cough productive of copious sputum but is now improving since starting Levaqun Sputum culture now growing Pseudomonas aeruginosa He was recently in the hospital a month ago and very well could have picked up Pseudomonas at that time. SPutum cx then was negative Cont combivent for cough/wheeze. Cont usual home inhalers for COPD/asthma. Cont mucinex. -appreciate Pulmonary consult for their opinion regarding ongoing pulmonary symptoms since at least early June 2021. -started Levaquin 750mg daily x 7 day course-discussed with PULM who is in agreement-last day of tx will be 08/03 -increased Dificid back to treatment dose of bid while on Levaquin -follow up with PULM and with repeat imaging as an outpatient (4) Acute on chronic diastolic (congestive) heart failure: Plan: diuresing with lasix continues with some crackles and peripheral edema daily STANDING scale weights baseline weight ~85/86kg cont metoprolol repeat echo to reassess aortic valve and LV EF shows preserved EF added IDRIS hose -increase lasix to 40mg po bid on 07/29 (5) Atrial fibrillation: Plan: During last hospitalization, 06/24/21 ekg confirmed Afib 06/22/21 ekg - NSR has been in a.fib the entire stay this hospitalization-no history of such rates now improved to 70-80s with initiation of metoprolol with titration upward with volume overload likely some contribution due to rapid rates CHADS-VASc score is high follows with Dr Leon [facility] cards-I discussed his care with Dr. Leon his office notes do not show any prior h/o a.fib ECHO here with mod-severe , preserved EF Discussed anticoagulation at length with patient and his and he is agreeable to starting Eliquis -Started Eliquis 2.5mg po bid as per Cadiology recommendation due to labile creatinine and age greater than 80 -f/u with Cardiology as an outpt -continue metoprolol 50mg po bid and will convert to Toprol XL 100mg po daily prior to discharge (6) Anemia: Plan: hgb has been low for years around 11-12 and now more recently in the 8-9 range since multiple hospitalizations for acute illness the last month normocytic now on Eliquis so will watch for worsening-slight downtrend since starting ELiquis but stable from yesterday at 8.1 -checked Fe studies which show low transferrin saturation at only 9%-gave IV Venofer daily x3 doses -B12, folate both normal -TSH mildly elevated at 5 but normal free T4-follow as an outpatient -Negative fecal occult -follow CBC in AM and as outpatient (7) RON (acute kidney injury): Plan: baseline Cr about 1 to 1.1 peak this admission 1.7 RON resolved repeat BMP am (8) Hypertension: Plan: BPs are low or low-normal. continue to hold home amlodipine and losartan from home. Cont metoprolol dcd home HCTZ since started lasix started Lasix 40 Mg p.o. once daily but increase to bid for continued edema (9) Obstructive sleep apnea of adult: Plan: CPAP 9cm H20 at HS (10) Emphysema/COPD: Plan: ongoing cough, wheezing, abnormal cxr. suspect due to pulmonary edema and atelectasis seen on CT chest as well as Pseudomonas PNA of note - FEES study in June was negative for aspiration. cont inhalers, supportive care. 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 With some decompensated CHF here due to volume overload from IVF hydration for C. diff diuresing (13) Altered taste: Plan: etiology? would be unusual for c.diff to cause such. in light of respiratory symptoms rechecked a COVID-19 test again -- NEGATIVE. (14) Severe protein-calorie malnutrition: Plan: Review of EMR reveals a 9.5 kg / 11% loss in body weight over the past several weeks. (15) CAD (coronary artery disease): Plan: 07/2020 cath at [facility] [place]. Results/management as follows - 1. 80% distal RCA and 80% PDA stenosis s/p AILEEN 2. severe calcific 80% prox circumflex stenosis s/p intracoronary balloon lithotripsy and AILEEN 3. 70% proximal LAD stenosis with borderline IFR 0.88 Cont statin Cont plavix Cont metoprolol Losartan and amlodipine on hold due to low-normal BPs or RON and likely will not restart No ischemic symptoms at this time (16) Hyponatremia: Plan: likely multifactorial now resolved with diuresis follow BMP (17) Hypokalemia: Plan: replaced/resolved (18) Left thigh pain: Plan: no evidence of knee effusion or erythema, arthritis, pain is with flexion of quadriceps muscle likely muscle strain pain improved LLE venous duplex negative for DVT left knee x-rays - hardware intact, no effusion continue voltaren gel qid tylenol prn (19) DVT prophylaxis: Plan: Eliquis Plan: Dispo- much improved, plan to dc to home tomorrow if no diarrhea develops now that is on Levaquin extensively updated at bedside once again today cont PT, OT -will eventually go home with home health Admission and Anticipated Discharge Date Admission Date: July 15, 2021 Subjective Feeling well, cough is less than previous. No diarrhea since starting abx. No abd pain or nausea, eating well. Still with significant edema of legs despite IDRIS hose and lasix. Is making plenty of urine. Tele with Afib with rates 80-90s Review of Systems Review of Systems: All systems reviewed & are unremarkable except as noted in HPI & below Physical Exam Constitutional: WD/WN, vitals as above Eyes: + anicteric sclerae Neck: trachea midline, no thyromegaly Respiratory: normal respiratory effort, lungs clear to auscultation normal respiratory effort and + cough Auscultation: + crackles (right side,improved on left); no rhonchi and no wheezes Cardiovascular: Rate/Rhythm: regular rate and + irregularly irregular Heart Sounds: + murmur (3/6 SANTIAGO at RUSB) Extremities: + edema (2+ pitting edema legs to knees bilat) Chest (Breasts): Chest: normal inspection of chest Gastrointestinal (Abdomen): normal bowel sounds, soft, nontender, no hep atosplenomegaly Musculoskeletal: Extremities: extremities normal to inspection; no cyanosis and no clubbing Skin: no rashes, warm and dry Neurologic: moves all extremities and awake; no focal motor deficits Psychiatric: A+Ox3, euthymic affect Results & Data Results & Data ([facility]) Vital Signs (Past 12 Hours) Vital Signs Temp Pulse Pulse Resp BP Pulse Ox 07/29/21 11:03 76 16 94 07/29/21 11:00 36.4 C L 82 18 122/80 94 07/29/21 09:45 79 07/29/21 08:15 84 16 97 07/29/21 02:47 36.4 C L 92 H 18 157/63 H 96 Laboratory Results 07/29/21 07/29/21 Range/Units 06:10 06:10 WBC 7.72 (4.8-10.8) K/uL RBC 2.86 L (4.7-6.1) M/uL Hgb 8.1 L (14.0-18.0) g/dL Hct 25.1 L (42-52) % MCV 87.8 (80-100) fL MCH 28.3 (25-34) pg MCHC 32.3 (32-36) g/dL RDW Std Deviation 54.8 H (36.4-46.3) fL RDW Coeff of Vitaliy 17.3 H (11.5-14.5) % Plt Count 369 (130-400) K/uL MPV 9.0 (7.4-10.4) fL Immature Gran % (Auto) 0.8 % Neut % (Auto) 71.7 % Lymph % (Auto) 19.4 % [place] % (Auto) 6.5 % Eos % (Auto) 1.2 % Baso % (Auto) 0.4 % Neut # (Auto) 5.54 (1.4-6.5) K/uL Lymph # (Auto) 1.50 (1.2-3.4) K/uL [place] # (Auto) 0.50 (0.11-0.59) K/uL Eos # (Auto) 0.09 (0-0.5) K/uL Baso # (Auto) 0.03 (0-0.2) K/uL Immature Gran # (Auto) 0.06 H (0.00-0.02) K/uL Sodium 140 (136-145) mmol/L Potassium 4.0 (3.5-5.1) mmol/L Chloride 111 H (98-107) mmol/L Carbon Dioxide 24 (21-32) mmol/L Anion Gap 5 (3-11) BUN 44 H (6-23) mg/dl Creatinine 0.99 (0.6-1.4) mg/dl Est Cr Clr Drug Dosing 53.4 ml/min Est GFR ( Amer) 77.9 ml/min Est GFR (Non-Af Amer) 67.2 ml/min BUN/Creatinine Ratio 44.4 H (10-20) Glucose 136 H (70-99(Fasting)) mg/dl Calcium 8.3 L (8.5-10.1) mg/dl Magnesium 1.7 (1.7-2.4) mg/dl PG Care Time/CCT Total # of Minutes Spent Total Time Spent with Patient: Total time spent is greater than 50% in coordination of care (as documented) at patient's floor/unit and/or counseling patient: Coding Level of Care Code 62294 Subseq Hosp Care Lvl 3 Diagnoses C. difficile colitis A04.72 Sepsis A41.9 Atrial fibrillation I48.91 Anemia D64.9 Pneumonia J18.9 Laterality: right Lung location: unspecified part of lung Pneumonia type: due to unspecified organism RON (acute kidney injury) N17.9 Hypertension I10 Obstructive sleep apnea of adult G47.33 Emphysema/COPD J43.9 Chronic renal failure, stage 3a N18.31 Aortic stenosis I35.0 Altered taste R43.2 Severe protein-calorie malnutrition E43 CAD (coronary artery disease) I25.10 Hyponatremia E87.1 Hypokalemia E87.6 Acute on chronic diastolic (congestive) heart failure I50.33 Left thigh pain M79.652 DVT prophylaxis Z29.9 (1) Pneumonia Laterality: right Lung location: unspecified part of lung Pneumonia type: due to unspecified organism Qualified Code(s): J18.9 - Pneumonia, unspecified organism
[2021-07-29] MEDS: levoFLOXacin/D5W 750 MG/150 ML BAG IV SCH (13:10)
[2021-07-29] MEDS: ATORVASTATIN 40 MG TAB PO SCH (20:31)
[2021-07-30] MEDS: MELATONIN 3 MG TAB PO PRN (00:14)
[2021-07-30] MEDS: ALBUTEROL HFA 8 GM INHALER INH SCH ×2 (07:34→11:22)
[2021-07-30] MEDS: IPRATROPIUM BROMIDE HFA INHALER INH SCH ×2 (07:34→11:22)
[2021-07-30] MEDS: UMECLIDINIUM BROMIDE 62.5MCG/BLISTER 7 PUFFS/INHALER INH SCH (08:46)
[2021-07-30] MEDS: DICLOFENAC SOD 1% GEL 100 GM TUBE EXT SCH ×2 (08:46→14:12)
[2021-07-30] MEDS: FLUTICASONE/VILANTEROL 200/25MCG 14 PUFFS/INHALER INH SCH (08:46)
[2021-07-30] MEDS: FIDAXOMICIN 200 MG TAB PO SCH (08:47)
[2021-07-30] MEDS: POTASSIUM CHLORIDE CRTAB 20 MEQ TABCR PO SCH (08:47)
[2021-07-30] MEDS: FUROSEMIDE 40 MG TAB PO SCH (08:47)
[2021-07-30] MEDS: MONTELUKAST SODIUM 10 MG TABLET PO SCH (08:48)
[2021-07-30] MEDS: COLESTIPOL HCL 1 GM TAB PO SCH (08:48)
[2021-07-30] MEDS: guaiFENesin 600 MG TABCR PO SCH (08:48)
[2021-07-30] MEDS: ADVANCED PROBIOTIC 1250 MG CAPSULE PO SCH (08:48)
[2021-07-30] MEDS: CLOPIDOGREL BISULFATE 75 MG TAB PO SCH (08:48)
[2021-07-30] MEDS: PANTOprazole 40 MG TAB PO SCH (08:48)
[2021-07-30 08:49] LABS: Basophils # (auto) 0.05 K/uL (0-0.2); Basophils % (auto) 0.7 %; Eosinophils % (auto) 1.5 %; Hematocrit (blood only) 24.9 % (42-52); Hemoglobin 8.1 g/dL (14.0-18.0); Immature Granulocytes # (auto) 0.07 K/uL (0.00-0.02); Lymphocytes # (auto) 1.43 K/uL (1.2-3.4); Lymphocytes % (auto) 21.1 %; Mean Corpuscular Hemoglobin 28.9 pg (25-34); Mean Corpuscular Hgb Conc 32.5 g/dL (32-36); Mean Corpuscular Volume 88.9 fL (80-100); Mean Platelet Volume 9.1 fL (7.4-10.4); Monocytes # (auto) 0.44 K/uL (0.11-0.59); Monocytes % (auto) 6.5 %; Neutrophils % (auto) 69.2 %; Platelet Count 378 K/uL (130-400); RDW Coefficient of Variation 17.4 % (11.5-14.5); White Blood Count 6.79 K/uL (4.8-10.8)
[2021-07-30] MEDS: FINASTERIDE 5 MG TAB PO SCH (08:49)
[2021-07-30] MEDS: MULTIVITAMIN TAB PO SCH (08:49)
[2021-07-30] MEDS: APIXABAN 2.5 MG TAB PO SCH (08:49)
[2021-07-30] MEDS: TAMSULOSIN HCL 0.4 MG CAP PO SCH (08:49)
[2021-07-30] MEDS: BENZONATATE 100 MG CAPSULE PO SCH (08:49)
[2021-07-30] MEDS: METOPROLOL TARTRATE 50 MG TAB PO SCH (08:49)
[2021-07-30 09:09] LABS: BUN Creatinine Ratio 41.2 (10-20); Calcium 8.5 mg/dl (8.5-10.1); Creatinine Clr Calc Pharmacy 51.9 ml/min; Est GFR (African American) 75.2 ml/min; Est GFR (Non-African American) 64.9 ml/min; Magnesium 1.7 mg/dl (1.7-2.4)
[2021-07-30] MEDS: MAGNESIUM SULFATE / D5W 1 GM/100 ML BAG IV SCH ×2 (11:29→14:11)
--- NOTE | 2021-07-30 12:15 | Discharge Summary ---
Date of Service July 30, 2021 Admission HPI Per Admitting Provider Endy 89 yo male who recently had his first bout of c diff colitis. Patient completed a 14 day course of vancomycin. Patient had felt better and was regaining his strength. However for the past 2-3 days, he developed diarrhea and was getting weaker. Patient reports his stools are now watery and having about 6 stools a day. As patient was getting worse, his brought him in. Principal Diagnosis C. difficile colitis, sepsis, Pseudomonas pneumonia, acute on chronic diastolic CHF, rapid atrial fibrillation Discharge Exam Constitutional WD/WN, vitals as above Eyes + anicteric sclerae Neck trachea midline, no thyromegaly Respiratory normal respiratory effort, lungs clear to auscultation normal respiratory effort and + cough Auscultation: + crackles (right side,improved on left); no rhonchi and no w heezes Cardiovascular Rate/Rhythm: regular rate and + irregularly irregular Heart Sounds: + murmur (3/6 SANTIAGO at RUSB) Extremities: + edema (2+ pitting edema legs to knees bilat) Chest (Breasts) Chest: normal inspection of chest Gastrointestinal (Abdomen) normal bowel sounds, soft, nontender, no hepatosplenomegaly Musculoskeletal Extremities: extremities normal to inspection; no cyanosis and no clubbing Skin no rashes, warm and dry Neurologic moves all extremities and awake; no focal motor deficits Psychiatric A+Ox3, euthymic affect Lymphatic no lymphedema Discharge Data Allergies Allergy/AdvReac Type Severity Reaction Status Date / Time Penicillins Allergy Mild Rash Verified 07/15/21 12:26 Consultations 07/15/21 14:12 ED Decision to Admit Stat 07/18/21 11:25 Consult General Surgery Routine 07/18/21 12:12 Consult Infectious Diseases Routine 07/24/21 21:09 Consult Pulmonology Routine Ordered Studies 07/15/21 12:31 CT abd pelvis IV con only Stat 07/18/21 08:08 CT abd pelvis wo con Routine 07/23/21 16:31 US venous doppler LE LT Urgent 07/24/21 17:57 CT chest diagnostic wo con Routine Hospital Course (1) C. difficile colitis: Recurrent/relapse. Initial dx 06/22/21 - Rx with 10 day course of PO vanco. Relapse 07/15/21 - was receiving PO vanco + IV flagyl. s/p [facility] ID consultation this admission recommended dificid 200mg BID advised until 07/25/21 followed by a prolonged taper of dificid 200mg every other day until 08/14/21. HOWEVER, with Pseudomonas PNA--> starting Levaquin so will go back up to Dificid 200mg po bid while on Levaquin and then go to taper down after that course is complete to every other day for 3 more weeks Diarrhea is resolved, stools are formed, no abd pain, tolerating reg diet non AG metabolic acidosis from HCO3 losses in stool is also resolved Leukocytosis resolved, remains afebrile Received colestipol 1gm daily but no need to continue on discharge Continue probiotics -continue Dificid twice daily for 5 days and then every other day for 3 weeks -continue to watch for relapse while on Levaquin for Pseudomonas PNA (2) Sepsis: secondary to C. diff Resolved. Procal neg and CRP down considerably. (3) Pneumonia: RML s/p 10-day course of PO cefuroxime in mid June and plan was to repeat chest CT in 3 months to see if RML PNA was cleared. Initial Rx by Dr Grady in the pulmonary clinic following a CT chest on 06/09/21. During his June hospital stay he did not receive IV or PO antibiotics for the lungs. CXRs during this stay with ongoing right-sided infiltrates. Chest CT obtained on 07/24 showed enlarging bilat pleural effusions, atelectasis, and ground glass opacities mostly still in RML Was felt to be volume overloaded and ongoing with diuresis Dyspnea now significantly improved, no further wheezing Much improved productive cough since starting Levaqun Sputum culture with Pseudomonas aeruginosa that is pansensitive He was recently in the hospital a month ago and very well could have picked up Pseudomonas at that time. SPutum cx then was negative Cont usual home inhalers for COPD/asthma. Cont mucinex. -appreciate Pulmonary consult for their opinion regarding ongoing pulmonary symptoms since at least early June 2021. -Complete a course of Levaquin 750mg daily x 7 day course-discussed with PULM who is in agreement-last day of tx will be 08/03 -increased Dificid back to treatment dose of bid while on Levaquin -follow up with PULM and with repeat imaging as an outpatient with chest CT in 2 months (4) Acute on chronic diastolic (congestive) heart failure: diuresing with lasix Crackles are improved, not hypoxic, peripheral edema improving but still some residual Weights are down but still slightly above his baseline cont metoprolol repeat echo to reassess aortic valve and LV EF shows preserved EF Continue IDRIS hose -Continue Lasix 40 mg daily along with potassium chloride 10 mill equivalents daily on discharge Follow-up with cardiology (5) Atrial fibrillation: During last hospitalization, 06/24/21 ekg confirmed Afib 06/22/21 ekg - NSR has been in a.fib the entire stay this hospitalization-no history of such rates now improved to 70-80s with initiation of metoprolol with titration upward with volume overload likely some contribution due to rapid rates CHADS-VASc score is high follows with Dr Leon [facility] cards-I discussed his care with Dr. Leon his office notes do not show any prior h/o a.fib ECHO here with mod-severe , preserved EF Discussed anticoagulation at length with patient and his and he is agreeable to starting Eliquis -Started Eliquis 2.5mg po bid as per Cardiology recommendation due to labile creatinine and age greater than 80 -f/u with Cardiology as an outpt -continue Toprol XL 100mg po daily (6) Anemia: hgb has been low for years around 11-12 and now more recently in the 8-9 range since multiple hospitalizations for acute illness the last month normocytic now on Eliquis so will watch for worsening-slight downtrend since starting ELiquis but stable for 3 days straight at 8.1 -checked Fe studies which show low transferrin saturation at only 9%-gave IV Venofer daily x3 doses -B12, folate both normal -TSH mildly elevated at 5 but normal free T4-follow as an outpatient -Negative fecal occult -follow CBC as outpatient (7) RON (acute kidney injury): baseline Cr about 1 to 1.1 peak this admission 1.7 RON resolved Follow BMP as an outpatient (8) Hypertension: BPs are low or low-normal. continue to hold home amlodipine and losartan from home. Cont metoprolol dcd home HCTZ since started lasix started Lasix 40 Mg p.o. once daily (9) Obstructive sleep apnea of adult: CPAP 9cm H20 at HS (10) Emphysema/COPD: ongoing cough, wheezing, abnormal cxr. suspect due to pulmonary edema and atelectasis seen on CT chest as well as Pseudomonas PNA of note - FEES study in June was negative for aspiration. cont inhalers, supportive care. needs PFTs as outpt treating with Levaquin (11) Chronic renal failure, stage 3a: Chocolate Packer- at baseline -Avoid nephrotoxins -renally dose meds when appropriate -follow BMP (12) Aortic stenosis: moderate-severe. With some decompensated CHF here due to volume overload from IVF hydration for C. diff diuresing (13) Altered taste: etiology? would be unusual for c.diff to cause such. in light of respiratory symptoms rechecked a COVID-19 test again -- NEGATIVE. (14) Severe protein-calorie malnutrition: Review of EMR reveals a 9.5 kg / 11% loss in body weight over the past several weeks. (15) CAD (coronary artery disease): 07/2020 cath at [facility] [place]. Results/management as follows - 1. 80% distal RCA and 80% PDA stenosis s/p AILEEN 2. severe calcific 80% prox circumflex stenosis s/p intracoronary balloon lithotripsy and AILEEN 3. 70% proximal LAD stenosis with borderline IFR 0.88 Cont statin Cont plavix Cont metoprolol Losartan and amlodipine have been discontinued after initiating metoprolol as blood pressures were low normal No ischemic symptoms at this time (16) Hyponatremia: likely multifactorial now resolved with diuresis (17) Hypokalemia: replaced/resolved -continue daily maintenance dose at 10 mEq potassium chloride while on Lasix (18) Left thigh pain: no evidence of knee effusion or erythema, arthritis, pain is with flexion of quadriceps muscle likely muscle strain pain resolved LLE venous duplex negative for DVT left knee x-rays - hardware intact, no effusion continue voltaren gel qid tylenol prn (19) DVT prophylaxis: Raulito Sharpeo- much improved, plan to dc to home today with home health extensively updated at bedside once again today Home Health Attestation I certify that this patient is under my care and that I, or a physicians assistant manager/embalmer working with me, had a face to-face encounter that meets the home health [id number] encounter requirements with this patient. The encounter with the patient was in whole, or in part, for the following medical condition, which is the primary reason for home health care (list medical condition): Recurrent C.Diff I certify that, based on my findings, the following services are medically nec essary home health services: My clinical findings support the need for the above services because: Caregiver Instruct Med Mgmt, Safety, Disease Process, Signs to Report OT Assess ADL Status and Restore Function w ADLs PT Gait and Balance Training, Strengthening and Safety Skilled Nsg Assess Pt Illness, Disease and Sx Monitoring S/S to Report to Provider Teach on Disease Management and Interventions Further, I certify that my clinical findings support that this patient is homebound (i.e. absences from home require considerable and taxing effort and are for medical reasons or hoahaoism services or infrequently or of short duration when for other reasons) because: Assistance of 1 Person for Ambulation/Activities Supportive Aid - Walker Certification for Home Health Services: Based on the above findings, I certify that this patient is confined to the home and needs intermittent fci care, physical therapy and/or speech therapy or continues to need occupational therapy. The patient is under my care, and I have initiated the establishment of the plan of care. This patient will be followed by a physician who will periodically review the plan of care. Total Time Total Time Spent Total Time Spent (In Minutes): 45 min Discharge Plan Discharge Items Patient Disposition: Home - Home Health Services Reason For Visit: C DIFF COLLITIS Discharge Diagnosis: Clostridium difficile colitis, rapid atrial fibrillation, acute on chronic diastolic CHF, Pseudomonas Pneumonia Condition on Discharge: Good Activity: As commented below Lifting: Gradually increase as tolerated Bathing: No limitations Exercise/Sports: Gradually increase as tolerated Weightbearing: Full weightbearing Non-emergency contact: Primary Care Provider, Rehab Trainer and Survey Questionnaire Designer Call non-emergency contact if: you have any medication questions, your symptoms worsen, you have a fever and your temperature is above 101 Follow-up/Referrals: Ramses rGady MD [Physician] - (Follow up on your pneumonia in 1-2 months) Rudy Leon DO [Physician] - (Follow up within 2 weeks for your atrial fibrillation) Manav Harman [Primary Care Provider] - (PLEASE CALL YOUR PRIMARY CARE PROVIDER TO SCHEDULE A DISCHARGE FOLLOW-UP APPOINTMENT WITHIN 7-10 DAYS.) Diet: Heart Healthy and Low Sodium (2gm) Fluids: 1800ml (7 cups) Addtl Attending Provider Instructions: You were admitted with C. difficile colitis/diarrhea which is now much improved with treatment with a drug called Dificid. Please remain on this twice a day for 5 more days and then take it once every other day for 3 more weeks. You were also volume overloaded with extra fluid and has been started on a diuretic called Lasix to be taken once daily. Please wear the compression stockings every day and you can remove them at nighttime. You were also diagnosed with an irregular heart rhythm called atrial fibrillation. You were started on a blood thinner called Eliquis to help prevent stroke related to atrial fibrillation, as well as metoprolol which helps slow the rate of your heart down. Please follow-up with your regulatory affairs specialist within the next 2 weeks for this. You were found to have a pneumonia caused by bacteria called Pseudomonas. This is being treated with antibiotic called levofloxacin. Please take this for 4 more days. If you notice any worsening diarrhea or fever or abdominal pain, please call your doctor right away. You are anemic and had your iron replaced through the IV. Please have your primary care doctor check your CBC in 1-2 weeks. Call your Primary Care doctor if any of the following symptoms or problems start or get worse: * Shortness of breath or difficulty breathing * Wake up at night short of breath * Chest pain * Cough * Swelling of your hands, feet, or legs * More fatigued or tired with your normal activity * Palpitations - sudden fast heart beats WEIGHT * Weigh yourself every morning after using the bathroom. * Use the same scale. * Wear the same amount of clothing. * Write your weight down on a chart. * Call your Primary Care doctor if you gain more than 2-3 pounds in 1-2 days. MEDICATIONS * Use this discharge instruction sheet for medication instructions. * Take your medications at the time your doctor ordered. * Do not skip a dose of your medicines. * If you miss a dose of medicine, take it as soon as possible, but DO NOT DOUBLE A DOSE. * Read your medicine information when you get home. * Know all of the side effects of your medicine. If in doubt, ask your pharmacist * Call your Primary Care doctor's office if you have any side effects. * Be sure all of your doctors know what medicine and herbs you take (including cold, flu, and herbal medicine). Take the following with you to your follow-up doctor appointments: * Weight Chart * Medication List * List of questions Do not drink excessive alcohol, beer or wine. Pending Studies at Discharge: No Stand-Alone Forms: My [facility] Medications and DC Order Prescriptions: New Dificid 200 mg Tablet 200 mg PO Q2D Qty: 10 RF: 0 Dificid 200 mg Tablet 200 mg PO BID Qty: 10 RF: 0 Eliquis 2.5 mg Tablet 2.5 mg PO BID Qty: 60 RF: 0 metoprolol succinate [Toprol XL] 100 mg tablet extended release 24 hr 100 mg PO DAILY Qty: 30 RF: 0 diclofenac sodium [Voltaren Arthritis Pain] 1 % Gel 4 g EXT QID PRN (Reason: thigh/knee pain) Qty: 100 RF: 0 furosemide 40 mg Tablet 40 mg PO QAM Qty: 30 RF: 0 potassium chloride 10 mEq tablet extended release 10 meq PO DAILY Qty: 30 RF: 0 Advanced Probiotic 625 mg (10 billion cell) Capsule 2 cap PO DAILY Qty: 60 RF: 0 benzonatate 100 mg Capsule 100 mg PO TID PRN (Reason: cough) Qty: 30 RF: 0 guaifenesin [Mucinex] 600 mg Tablet Extended Release 12hr 600 mg PO Q12 Qty: 60 RF: 0 levofloxacin 750 mg tablet 750 mg PO DAILY 4 Days Qty: 4 RF: 0 Continued (DME) CPAP Machine Misc See Dose Instructions .ROUTE .MEDSUPPLY Qty: 1 RF: 0 tamsulosin 0.4 mg capsule 0.4 mg PO QAM Qty: 30 RF: 0 pantoprazole [Protonix] 40 mg tablet,delayed release (DR/EC) 40 mg PO QAM RF: 0 clopidogrel [Plavix] 75 mg tablet 75 mg PO QAM RF: 0 montelukast 10 mg tablet 10 mg PO QAM RF: 0 Spiriva with HandiHaler 18 mcg capsule, w/inhalation device 1 cap INHALATION QAM RF: 0 Breo Ellipta 200-25 mcg/dose blister with device 1 ea INHALATION QAM RF: 0 atorvastatin 80 mg tablet 80 mg PO HS RF: 0 finasteride 5 mg tablet 5 mg PO QAM RF: 0 nitroglycerin 0.4 mg tablet, sublingual 0.4 mg sublingual UD PRN (Reason: Chest Pain) RF: 0 acetaminophen 325 mg Tablet 650 mg PO Q6H PRN (Reason: pain) Qty: 30 RF: 0 hydrocodone-acetaminophen 5-325 mg tablet 1 tab PO DAILY PRN (Reason: Pain) RF: 0 multivitamin Tablet 1 tab PO QAM RF: 0 Discontinued losartan 100 mg tablet 100 mg PO QAM RF: 0 amlodipine 5 mg tablet 2.5 mg PO QAM RF: 0 hydrochlorothiazide 12.5 mg tablet 12.5 mg PO DAILY RF: 0 Discharge Orders: Discharge Order (Routine); Ordered 07/30/21 Ordered By: Deonna Lewis Admission Data Admit Date/Time: 07/15/21 15:16 Attending Provider: Deonna Lewis Admit Provider: Colin Valerio Primary Care Provider: Manav Harman Other Providers: Colin Valerio ; Karan Reyes ; Guru Arreola ; Heriberto Wilhelm ; Lefty Barragan Jr ; Morteza Andrews ; Nathan Anglin ; Angle Hollis ; Stone Asencio ; Zana Cantu ; Alvino Torres ; Sherri Farrell ; Emmett Zimmer I. ; Brett Montague II ; Judith Tobias ; Farhat Soares ; Karan Voss ; Rasmes Grady ; [facility] Other Interventions: Discharge Summary Assessment (RN) Last Done: 07/30/21 12:55 Coding Level of Care Code D/C DAY MANAGEMENT >30 MINS Diagnoses C. difficile colitis A04.72 Sepsis A41.9 Pneumonia J18.9 Laterality: right Lung location: unspecified part of lung Pneumonia type: due to unspecified organism Acute on chronic diastolic (congestive) heart failure I50.33 Atrial fibrillation I48.91 Anemia D64.9 RON (acute kidney injury) N17.9 Hypertension I10 Obstructive sleep apnea of adult G47.33 Emphysema/COPD J43.9 Chronic renal failure, stage 3a N18.31 Aortic stenosis I35.0 Altered taste R43.2 Severe protein-calorie malnutrition E43 CAD (coronary artery disease) I25.10 Hyponatremia E87.1 Hypokalemia E87.6 Left thigh pain M79.652 DVT prophylaxis Z29.9
[2021-07-30] MEDS: levoFLOXacin/D5W 750 MG/150 ML BAG IV SCH (14:12)
--- NOTE | 2021-08-18 06:40 | Coding Query ---
PRESENT ON ADMISSION QUERY To promote full compliance with coding requirements relating to pateint care, physician participation is requested in all cases of recruiting operations consultant uncertainty. Please assist us with the question(s) below: Please place an X within the parenthesis (x). The following diagnosis(es) listed in this patient's medical record require physician assistance to determine if they were present on admission (POA) or not. Please advise for each diagnosis whether it was present on admission, not present on admission, or if it was clinically undetermined. 1 SEPSIS ( x ) Present On Admission ( ) Not Present On Admission ( ) Clinically Undetermined Thank you Tia Odom *Definition of the present on admission (POA)-Present on admission is defined as present at the time the order for inpatient admission occurs. Conditions that develop during an outpatient encounter prior to a written order for inpatient admission (including emergency department, observation, or outpatient surgery) are considered present on admission. MTDD
--- NOTE | 2021-08-23 06:32 | Coding Query ---
To promote full compliance with coding requirements relating to patient care, provider participation is requested in all cases of certified professional coder uncertainty. Please assist us with the question(s) below: Coding Question(s): On D/C summary it states " doubt symptoms were secondary to sepsis" Please indicate if it is still a possible diagnosis or ruled out. Physician's Response(s): SEPSIS ( ) Diagnosed and POA ( ) Diagnosed and not POA ( ) Ruled out ( ) Other (please specify) MTDD
--- NOTE | 2021-08-23 06:34 | Coding Query ---
CODING QUERY To promote full compliance with coding requirements relating to patient care, provider participation is requested in all cases of applications engineer manufacturing uncertainty. Please assist us with the question(s) below: Coding Question(s): Please clarify if gout is: Primary ( ) Secondary ( ) Idiopathic ( ) Physician's Response(s): Thank you Tia Odom Principal Diagnosis: "that condition established after study, to be chiefly responsible for occasioning the admission of the patient to the hospital for care." Co-Existing Principal Diagnosis: "when two or more diagnoses equally meet the criteria for principal diagnosis as determined by the circumstances of admission, diagnostic work up, and/or therapy provided, and the Alphabetic Index, Tabular List, or another coding guideline does not provide sequencing direction, any one of the diagnoses may be sequenced first." "When the physician has documented what appears to be a current diagnosis in the body of the record, but has not included the diagnosis in the final diagnostic statement, the physician should be asked whether the diagnosis should be added." (Source Coding Clinic 2 QTR90. p3-4) EVIN
== END 2021-07-30 14:46 | disposition home health service (06) | DRG 871 ==
LOC: ED 11:09 → SUATTDRO 15:16 → 3E 15:16 → 2W 07-18 15:45